=== PATIENT | female | born 2000 | race Caucasian/White ===

== ENCOUNTER → 2024-09-15 | Outpatient (CLI) | payer SELFPAY ==
[2024-09-15 13:31] LABS: hCG Titer Quant., Serum 78954 mIU/mL (<9 non-preg)
== END | disposition home or self-care (01) ==
PROVIDERS: Referring Provider Nurse Practitioner Women's Health; Visit Provider Nurse Practitioner Women's Health
DX: O20.9 Hemorrhage in early pregnancy, unspecified (principal); Z3A.00 Weeks of gestation of pregnancy not specified
CPT/HCPCS: 36415; 84702

== ENCOUNTER → 2024-09-21 | Outpatient (CLI) | payer SELFPAY ==
--- NOTE | 2024-09-21 10:41 | US_ITS ---
PROCEDURE: TRANSVAGINAL W/PREG US 09/21/2024 REASON FOR EXAM: SPOTTING IN TECHNIQUE: TRANSVAGINAL W/PREG US COMPARISON: None FINDINGS: Comments: LMP: July 15, 2024. Number of Gestational Sacs: 1 Gestational Sac Shape: Normal Number of Fetuses: 1 Heart Rate: 171 (average) Survey of Visible Anatomic Structures: Grossly unremarkable for gestational age. Yolk Sac: Present and unremarkable. Placenta: Presently not well-visualized Amniotic Fluid Volume: Subjectively normal for gestational age. Uterine Abnormalities: Maternal uterus is unremarkable. Ovaries / Adnexa: There is a 2.2 cm 1.8 cm 2 cm right corpus luteum cyst. DIMENSIONS: Parameter Measurement / EGA [place] Rump Length: 2.53 cm/9 weeks and 0 days Gestational Sac: 3.93 cm/9 weeks and 2 days Yolk Sac: 0.41 cm/ ESTIMATED GESTATIONAL AGE: By Ultrasound: 9 weeks and 1 day By LMP: 9 weeks and 5 days ESTIMATED DATE OF DELIVERY: By Ultrasound: April 25, 2025 By LMP: April 21, 2025 US/Transvaginal w/Preg US IMPRESSION: UNREMARKABLE FIRST TRIMESTER ULTRASOUND. Reading Location: [place] [id number]
--- NOTE | 2024-09-21 10:41 | US_ITS ---
PROCEDURE: TRANSVAGINAL W/PREG US 09/21/2024 REASON FOR EXAM: SPOTTING IN TECHNIQUE: TRANSVAGINAL W/PREG US COMPARISON: None FINDINGS: Comments: LMP: July 15, 2024. Number of Gestational Sacs: 1 Gestational Sac Shape: Normal Number of Fetuses: 1 Heart Rate: 171 (average) Survey of Visible Anatomic Structures: Grossly unremarkable for gestational age. Yolk Sac: Present and unremarkable. Placenta: Presently not well-visualized Amniotic Fluid Volume: Subjectively normal for gestational age. Uterine Abnormalities: Maternal uterus is unremarkable. Ovaries / Adnexa: There is a 2.2 cm 1.8 cm 2 cm right corpus luteum cyst. DIMENSIONS: Parameter Measurement / EGA [place] Rump Length: 2.53 cm/9 weeks and 0 days Gestational Sac: 3.93 cm/9 weeks and 2 days Yolk Sac: 0.41 cm/ ESTIMATED GESTATIONAL AGE: By Ultrasound: 9 weeks and 1 day By LMP: 9 weeks and 5 days ESTIMATED DATE OF DELIVERY: By Ultrasound: April 25, 2025 By LMP: April 21, 2025 US/Transvaginal w/Preg US IMPRESSION: UNREMARKABLE FIRST TRIMESTER ULTRASOUND. Reading Location: [place] [id number]
== END | disposition home or self-care (01) ==
LOC: US 10:38
PROVIDERS: Referring Provider Obstetrics & Gynecology; Visit Provider Obstetrics & Gynecology
DX: O20.9 Hemorrhage in early pregnancy, unspecified (principal); Z3A.00 Weeks of gestation of pregnancy not specified
CPT/HCPCS: 76817

== ENCOUNTER → 2024-09-26 | Outpatient (CLI) | payer SELFPAY ==
[2024-09-26 12:24] LABS: Hematocrit 40.0 % (37-47); Hemoglobin 13.8 g/dL (12.0-15.0); Immature Granulocytes Count 0.020 X10^3/uL (0.0-0.0); Mean Corp Hgb Conc 34.5 g/dL (32-36); Mean Corpuscular Volume 89.5 fL (81-99); Mean Platelet Vol. 10.1 fl (6.2-12.0); NRBC Flagged by Analyzer 0 % (0-5); Platelet Count 165 K/mm3 (150-450); RBC Distribution Width CV 12.9 % (11.6-14.6); RBC Distribution Width SD 42.4 fl (35.1-43.9); Red Blood Count 4.47 M/mm3 (4.2-5.4); White Blood Count 6.2 K/mm3 (4.4-11.0)
[2024-09-26 12:52] LABS: Barbiturate Urine NEGATIVE (< 200 ng/mL); Benzodiazepine Urine NEGATIVE (< 200 ng/mL); PCP Urine NEGATIVE (< 25 ng/mL); THC Urine NEGATIVE (< 50 ng/mL)
[2024-09-26 13:30] LABS: Ferritin 116 ng/mL (22-378); HIV Nonreactive (Nonreactive); Hepatitis B Surface Antigen Nonreactive (Nonreactive); Hepatitis C Antibody Nonreactive (Nonreactive); Iron 45 ug/dL (50-170); Iron Binding Capacity,Total 278 ug/dL (250-450); Iron Binding Capacity,Unsat 233 ug/dL (228-428); Syphilis Antibodies Nonreactive (Nonreactive)
[2024-09-27 21:07] LABS: Chlamydia By Nucleic Acid AMP Negative (Negative); Gonococcus By Nucleic Acid AMP Negative (Negative)
== END | disposition home or self-care (01) ==
PROVIDERS: Referring Provider Obstetrics & Gynecology; Visit Provider Obstetrics & Gynecology
DX: O99.280 Endocrine, nutritional and metabolic diseases complicating pregnancy, unspecified trimester (principal); O09.90 Supervision of high risk pregnancy, unspecified, unspecified trimester; Z3A.00 Weeks of gestation of pregnancy not specified; E61.1 Iron deficiency; O99.320 Drug use complicating pregnancy, unspecified trimester; F12.99 Cannabis use, unspecified with unspecified cannabis-induced disorder
CPT/HCPCS: 36415; 80307; 82728; 83540; 83550; 85025; 86703; 86762; 86780; 86803; 86850; 86900; 86901; 87086; 87340; 87491; 87591

== ENCOUNTER → 2024-12-02 | Outpatient (CLI) | payer MEDICAID, SELFPAY ==
--- NOTE | 2024-12-02 08:07 | US_ITS ---
PROCEDURE: OB ANATOMY W/ TRANSVAGINAL 12/02/2024 REASON FOR EXAM: ANATOMY TECHNIQUE: Procedure Code: [id number] Modality: US Procedure: OB ANATOMY W/ TRANSVAGINAL FINDINGS The fetus is in breech presentation. cardiac activity is present at 148 bpm. Amniotic fluid maximum vertical pocket measures 3.0 x 6.5 cm and is subjectively within normal limits. Estimated weight is 293 grams ??? 44 grams, corresponding to the 19th percentile. The biparietal diameter measures 4.0 cm, corresponding to 18 weeks 2 days, 5th percentile. The occipitofrontal diameter measures 5.8 cm, corresponding to 20 weeks 2 days, 55th percentile. The head circumference measures 16.2 cm, corresponding to 19 weeks 2 days, 13th percentile. The abdominal circumference measures 14.3 cm, corresponding to 19 weeks 2 days, 25th percentile. The femur length measures 3.1 cm, corresponding to 19 weeks 4 days, 28th percentile. Composite age by current measurements is 19 weeks 1 day. age by LMP is 20 weeks 0 days, with estimated date of delivery 04/21/2025. The lateral ventricles are visualized and measure 0.5 cm. The choroid plexus is visualized. The cerebellum is visualized and measures 1.9 cm. The cisterna magna is visualized and measures 0.5 cm. The face and orbits, nose and lips, and profile are visualized. The four-chamber heart is visualized. The diaphragm, stomach, abdominal wall, cord insertion, and three-vessel cord are visualized. Both kidneys and the bladder are visualized. The cervical, thoracic, lumbar, and sacral spine are visualized. The upper and lower extremities are visualized. gender is female. The placenta is posterior, grade 0, within normal limits, without previa. The cervix measures 5.2 cm with closed cervical os. The adnexa are visualized. US/OB Anatomy w/ Transvaginal IMPRESSION: Single live intrauterine gestation in breech presentation with heart rate of 148 bpm. biometry corresponds to 19 weeks 1 day, concordant with dating by LMP at 20 weeks 0 days. Estimated weight 293 grams, 19th percentile. anatomy survey is within normal limits with all major structures visualiz ed. Posterior placenta, grade 0, without previa. Amniotic fluid subjectively within normal limits. Cervical length 5.2 cm with closed os. Reading Location: [id number]
--- OUTSIDE RECORDS SUMMARY | 2024-12-02 08:26 | XMS RPT_ITS | CCD ---
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 Awais Chaudhary Primary Care Unavaila yohana Alfredo, Jesusita Clarence Frances Attending Unavailable Gaurav, MsJesusita Parham Frances Admitting Unavailable Mark, Ms. Awaisleslye Donnellyir Primary Care Unavaila yohana Alfredo, MsJesusita Clarence Basurtoe Attending Unavailable Gaurav, MsJesusita Parham Frances Admitting Unavailable Mark, Ms. Awais Neena Primary Care Unavaila yohana Flores, Ms. Awais Neena Primary Care Unavaila yohana Cummings, Ms. Denys Torres Attending Kristal Candelaria, Dr. Bobo Hinson Referring Unavailabl e Bari, Dr. Bobo Hinson Attending Unavailileana Flores, Ms. Awais Neena Primary Care Unavaila yohana Flores, Ms. Awais Neena Primary Care Unavaila JENN Mancini Attending Unavail able Mark, Ms. Awais Neena Primary Care Unavaila yohana Candelaria, Dr. Bobo Hinson Referring Unavailabl e Bari, Dr. Bobo Hinson Attending Unavailileana Flores, Ms. Awais Neena Primary Care Unavaila yohana Lau, Dr. Alex Richardson Referring Kristal Lau, Dr. Alex Richardson Attending Kristal Lau, Dr. Alex Richardson Admitting Unavai parminder Mark, Ms. Awais Chaudhary Primary Care Unavaila ble KAVITA BETANCOURT Attending Unavailable Aleksandar Shields Unavailable Mark, Ms. Awais Chaudhary Primary Care Unavaila ble ALEX LAU Attending Unavailable Mark, Ms. Awais Chaudhary Primary Care Unavaila ble ALEX LAU Attending Unavailable AWAIS FLORES Primary Care Unavailable ALEX LAU Attending Unavailable AWAIS FLORES Primary Care Unavailable Mark STONE GLUER-WIRE STITCHER MACHINE, Awais Chaudhary Primary Care Provid er [place] MD Unavailable [phone] Gaurav STONE GLUER-WIRE STITCHER MACHINE, Clarence S Unavailable [phone] AWAIS FLORES Primary Care Unavailable AWAIS FLORES Primary Care Unavailable AWAIS FLORES Primary Care Unavailable Unavailable Primary Care Provider UnavailLO Woodard Attending Unavailable HEATHER AU I Referring Unavailable Charley INTELLIGENCE CONSULTANT-C, Ailin Attending Provider Charley INTELLIGENCE CONSULTANT-C, Ailin Referring Provider Margaret Plasencia RN Attending Provider UnavailDr. Yaneth Del Valle DO Attending Provider Dr. Yaneth Nogueira DO Referring Provider Care Physician, No Primary Primary Care Provider Unavailable Care Physician, No Primary Referring Provider Un available Mark STONE GLUER-WIRE STITCHER MACHINE, Awais Donnellyir Primary Care Provid er Gaurav STONE GLUER-WIRE STITCHER MACHINE, Clarence S Unavailable Charley INTELLIGENCE CONSULTANTAilin Attending Unavailable Charley INTELLIGENCE CONSULTANT, Ailin Referring Unavailable Yaneth Nogueira Referring Unavailabl e Care Physician, No Primary Primary Care Unava ilable Yaneth Nogueira Attending Unavailileana Whitehead INTELLIGENCE CONSULTANTAilin Attending Unavailable Charley INTELLIGENCE CONSULTANTAilin Referring Unavailable Care Physician, No Primary Primary Care Unava ilable Care Physician, No Primary Referring Unava ilable Care Physician, No Primary Primary Care Unava ilable Yaneth Nogueira Attending UnavailMargaret Jolley Attending Unavailable Tommy Whitehead NPy Attending Unavailable Charley INTELLIGENCE CONSULTANT, Ailin Attending Unavailable Care Physician, No Primary Primary Care Unava ilable Care Physician, No Primary Referring Unava ilable Yaneth Nogueira Referring Unavailabl e Care Physician, No Primary Primary Care Unava ilable Yaneth Nogueira Attending Unavailabl CLARENCE Crystal Attending Unavailable CLARENCE ALFREDO Referring Unavailable AWAIS FLORES Primary Care Unavailable AWAIS FLORES Primary Care Unavailable CLARENCE ALFREDO Attending Unavailable CLARENCE ALFREDO Referring Unavailable AWAIS FLORES Primary Care Unavailable Allergies Allergy Classification Reported Allergen(s) Allergy Type Date of Onset Reaction(s) Facility Serotonin-1b and Serotonin-1d Receptor Agonists (1 source) SUMAtriptan Drug Allergy Unknown [facility] (20 sources) rizatriptan; Translations: [Rizatriptan Benzoate TABS] Drug Allergy 3 Unknown [facility] (19 sources) SUMAtriptan; Translations: [SUMATRIPTAN] Drug Allergy 3 Unknown, Shortness of Breath [facility] Comment on above: shortness pf breath, vision loss, vomiting (3 sources) rizatriptan; Translations: [RIZATRIPTAN] Drug Allergy 3 [facility] 3 Repository (1 source) SUMAtriptan Drug Allergy 5 [facility] Repository Medications Current Medications Medication Drug Class(es) Dates Sig (Normalized) Sig (Original) Acetaminophen (1 source) Tylenol ; 975 mEq/kg orally every 6 hours Quantity: 0 Refills: 0 Ordered: 18-Aug-2021 Lorena Cardoso Generic Substitution Allowed acyclovir 400 mg oral tablet (1 source) Herpesvirus Nucleoside Analog DNA Polymerase Inhibitor, Herpes Simplex Virus Nucleoside Analog DNA Polymerase Inhibitor, Herpes Zoster Virus Nucleoside Analog DNA Polymerase Inhibitor Start: 02-24-2024 End: 03-02-2024 take 1 tablet by mouth three times daily acyclovir 400mg 400 MG tablet Take 1 tablet by mouth 3 times daily for 7 days. 21 tablet 02/24/2024 03/02/2024 Active [id number] 200 actuat albuterol 0.09 mg/actuat metered dose inhaler (1 source) beta2-Adrenergic Agonist Start: 12-09-2023 take 2 puff(s) by inhalation every six hours as needed for cough Albuterol 108 (90 Base) MCG/ACT Aero Soln inhaler Inhale 2 puffs every 6 hours as needed for Shortness of Breath or Cough. 12/09/2023 Active cetirizine hydrochloride 10 mg oral tablet (8 sources) Histamine-1 Receptor Antagonist Start: 12-15-2022 take 1 tablet by mouth once daily cetirizine (ZyrTEC) 10 mg tablet Take 1 tablet (10 mg) by mouth once daily. 12/15/2022 Active ZyrTEC Quantity: 0 Refills: 0 Ordered: 24-Nov-2022 Haylee Maria Generic Substitution Allowed 21 day ethinyl estradiol 0.308825 mg/hr / etonogestrel 0.005 mg/hr vaginal system (5 sources) Progestin, Estrogen Start: 12-19-2022 End: 12-19-2023 etonogestreL-ethinyl estradioL (Nuvaring) 0.12-0.015 mg/24 hr vaginal ring Indications: Encounter for initial management of intravaginal contraceptive Insert 1 each into the vagina every 28 (twenty-eight) days. Insert vaginal ring every 4 weeks 1 each 11 12/19/2022 Active ferrous gluconate 324 mg oral tablet (6 sources) Start: 07-07-2022 End: 04-02-2023 take 1 tablet by mouth once daily ferrous gluconate 324 (38 Fe) MG tablet Take 1 tablet (324 mg) by mouth once daily. 11/11/2022 Active Comment on above: May discolor urine o r feces. fluconazole 150 mg oral tablet (1 source) Azole Antifungal Start: 02-24-2024 End: 02-27-2024 take 1 tablet by mouth once daily, then take 1 tablet by mouth once, then take 7 tablets by mouth once daily Fluconazole 150 MG tablet Take 1 tablet by mouth daily for 3 days. Take on day 1, repeat at day 7 & 14 if symptoms persist 3 tablet 02/24/2024 02/27/2024 Active fluticasone propionate 0.05 mg/actuat metered dose nasal spray (5 sources) Corticosteroid Start: 12-06-2022 take 2 spray(s) nasal route once daily fluticasone (Flonase) 50 mcg/actuation nasal spray Administer 2 sprays into each nostril once daily. 12/06/2022 Active ibuprofen 600 mg oral tablet (1 source) Nonsteroidal Anti-inflammatory Drug take 1 tablet by mouth every six hours IBU 600 mg oral tablet ; 600 milligram(s) orally every 6 hours Quantity: 0 Refills: 0 Ordered: 18-Aug-2021 Lorena Cardoso Generic Substitution Allowed magnesium oxide 400 mg oral tablet (2 sources) take 1 tablet by mouth once daily magnesium oxide 400 (240 Mg) MG Take 1 tablet by mouth daily. Active multivitamin with iron - children's (Cerovite, Jr) chewable tablet (3 sources) Start: 09-01-2023 multivitamin with iron - children's (Cerovite, Jr) chewable tablet Indications: Iron deficiency , Anemia, unspecified type Chew 1 tablet once daily. 90 tablet 2 09/01/2023 Active ondansetron 4 mg disintegrating oral tablet (5 sources) Serotonin-3 Receptor Antagonist Start: 10-26-2024 take 1 tablet by mouth every four hours as needed for nausea and vomiting Ondansetron 4 mg tablet,disintegrating Active 4 mg PO Q4H as needed for nausea and vomiting 60 2 October 26, 2024 12:00am Start: 06-05-2023 take 1 tablet by supa th every eight hours for nausea ondansetron ODT (Zofran-ODT) 4 mg disintegrating tablet Indications: Iron deficiency Take 1 tablet (4 mg) by mouth every 8 hours if needed for nausea or vomiting. 20 tablet 1 06/05/2023 Active Prena1 oral capsule (1 source) take 1 capsule by mouth once daily Prena1 oral capsule ; 1 cap(s) orally once a day Quantity: 0 Refills: 0 Ordered: 12-Aug-2021 Kandy Osborne Generic Substitution Allowed 3-FHSN-PFHWE ACID-OM3 ORAL (1 source) 2-IRON- FOLIC ACID-OM3 ORAL Take by mouth. Active rizatriptan (2 sources) Serotonin-1b and Serotonin-1d Receptor Agonist RIZATRIPTAN BENZOATE PO Take by mouth as needed. Active valACYclovir 500 mg oral tablet (1 source) Herpesvirus Nucleoside Analog DNA Polymerase Inhibitor, Herpes Simplex Virus Nucleoside Analog DNA Polymerase Inhibitor, Herpes Zoster Virus Nucleoside Analog DNA Polymerase Inhibitor Start: 03-17-19 take 1 tablet by mouth once daily valACYclovir 500 MG tablet Take 1 tablet by mouth daily. 30 tablet 11 03/17/2024 Active vitamin b12 1 mg oral tablet (7 sources) Vitamin B12 Start: 07-08-19 End: 09-01-19 24 take 1 tablet by mouth once daily cyanocobalamin (Vitamin B-12) 1,000 mcg tablet Indications: Iron deficiency , Anemia, unspecified type Take 1 tablet (1,000 mcg) by mouth once daily. 90 tablet 2 09/01/2023 Active Completed/Discontinued Medications Medication Drug Class(es) Dates Sig (Normalized) Sig (Original) B12 (6 sources) Start: 09-13-2024 End: 09-16-2024 B12 Discontinued PO .every other day September 13, 2024 12:00am September 16, 2024 9:22am Start: 09-13-2024 B12 Active PO .every other day September 13, 2024 12:00am dicloxacillin 500 mg oral capsule (1 source) Penicillin-class Antibacterial Start: 08-28-2021 take 1 capsule by mouth four times daily Dicloxacillin Sodium 500 MG Oral Capsule TAKE 1 CAPSULE 4 TIMES DAILY. Quantity: 40 Refills: 0 Ordered: 28-Aug-2021 Alex Lau MD Start : 28-Aug-2021 Active ferrous sulfate 325 mg oral tablet (7 sources) Start: 09-13-2024 End: 09-16-2024 take 1 tablet by mouth once daily Ferrous Sulfate 325 mg (65 mg iron) tablet Discontinued 325 mg PO daily September 13, 2024 12:00am September 16, 2024 9:22am Start: 05-07-2022 End: 08-04-2022 take 1 tablet by mouth once daily ferrous sulfate 325 mg (65 mg elemental iron) oral tablet ; 1 tab(s) orally once a day Quantity: 90 Refills: 0 Ordered: 07-May-2022 Clarence Alfredo Start: 07-May-2022 End: 04-Aug-2022 Generic Substitution Allowed Comments: Check with your doctor before becoming .Do not chew, break, or crush.May discolor urine or feces. Comment on above: Check with your doct or before becoming .Do not chew, break, or crush.May discolor urine or feces. Vitamin 27-0.8 MG Oral Tablet (19 sources) Vitamin 27-0.8 MG Oral Tablet Quantity: 0 Refills: 0 Ordered: 19-Mar-2021 DO Active NEGATED: Highlighted row has not occurred!No Current Medications (1 source) No Current Medic ations Problems Active Problems Problem Classification Problem Date Documented Da te Episodic/Chronic Abdominal pain (1 source) Left lower quadrant pain; Translations: [Left lower quadrant pain] Onset: 3 Episodic Asthma (7 sources) Asthma; Translations: [Unspecified asthma, uncomplicated] 09-13-2024 Chronic Comment on above: Inhaler use twice ye - Summer trigger allergies Conditions associated with dizziness or vertigo (1 source) Dizziness and giddiness; Translations: [Dizziness and giddiness] Onset: 3 Episodic Contraceptive and procreative management (2 sources) Contraception ; Translations: [Contraception] Onset: 3 Episodic Deficiency and other anemia (5 sources) Anemia; Translations: [Anemia, unspecified] 03-13-2023 Episodic Deficiency and other anemia (4 sources) Anemia, unspecified; Translations: [Anemia, unspecified] Onset: 4 Episodic E Codes: Adverse effects of medical drugs (2 sources) Adverse effect of antineoplastic and immunosuppressive drugs, initial encounter; Translations: [Adverse effect of antineoplastic and immunosuppressive drugs, initial encounter] Onset: 4 Episodic Headache; including migraine (2 sources) Migraine; Translations: [Migraine, unspecified, without mention of intractable migraine without mention of status migrainosus] 08-28-2020 Chronic Headache; including migraine (2 sources) Headache 08-28-2020 Episodic Comment on above: HEADACHE Hemorrhage during ; abruptio placenta; placenta previa (10 sources) Vaginal bleeding complicating early ; Translations: [Hemorrhage in early , unspecified] Onset: 5 09-15-2024 Episodic Immunizations and screening for infectious disease (20 sources) Patient encounter status; Translations: [Screening examination for venereal disease] Onset: 3 11-24-2022 Episodic Menstrual disorders (9 sources) Amenorrhea; Translations: [Absence of menstruation] Onset: 5 09-13-2024 Chronic Nausea and vomiting (4 sources) Nausea with vomiting, unspecified; Translations: [Chemotherapy-induced nausea and vomiting] Onset: 3 06-05-2023 Episodic Nutritional deficiencies (20 sources) Iron deficiency; Translations: [Iron deficiency] Onset: 3 03-13-2023 Episodic Comment on above: Hx of severe anemia w/many infusions. 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 Other complications of (1 source) Obesity complicating , third trimester; Translations: [Obesity complicating , third trimester] Onset: 2 Chronic Other complications of (9 sources) High risk ; Translations: [Supervision of high risk , unspecified, unspecified trimester] 09-16-2024 Episodic Comment on above: , MAREN 04/21, PC: Alley, BF Ken [id number], MAREN 04/21, PC: Alley, BF Ken Other complications of (9 sources) Maternal tobacco use; Translations: [Smoking (tobacco) complicating , unspecified trimester] 09-16-2024 Episodic Comment on above: Vaping; actively wor liz to quit Other complications of (9 sources) History of hemorrhage; Translations: [Supervision of with other poor reproductive or obstetric history, unspecified trimester] 09-16-2024 Episodic Other complications of (2 sources) Supervision of high risk , unspecified, unspecified trimester; Translations: [Supervision of high risk , unspecified, unspecified trimester] Onset: 5 Episodic Other complications of (1 source) Endocrine, nutritional and metabolic diseases complicating , unspecified trimester; Translations: [Endocrine, nutritional and metabolic diseases complicating , unspecified trimester] Onset: 5 Episodic Other complications of (1 source) Supervision of with other poor reproductive or obstetric history, unspecified trimester; Translations: [Supervision of with other poor reproductive or obstetric history, unspecified trimester] Onset: 5 Episodic Other complications of (1 source) Smoking (tobacco) complicating , unspecified trimester; Translations: [Smoking (tobacco) complicating , unspecified trimester] Onset: 5 Episodic Other female genital disorders (1 source) Lesion of labia; Translations: [Other specified noninflammatory disorders of vulva and perineum] 02-24-2024 Episodic Other female genital disorders (1 source) Vaginal discharge; Translations: [Other specified noninflammatory disorders of vagina] 02-24-2024 Episodic Other female genital disorders (2 sources) Other specified noninflammatory disorders of vulva and perineum; Translations: [Other specified noninflammatory disorders of vulva and perineum] Onset: 4 Episodic Other female genital disorders (2 sources) Other specified noninflammatory disorders of vagina; Translations: [Other specified noninflammatory disorders of vagina] Onset: 4 Episodic Other gastrointestinal disorders (3 sources) Splenomegaly, not elsewhere classified; Translations: [Splenomegaly, not elsewhere classified] Onset: 3 Episodic Other infections; including parasitic (9 sources) H/O: infectious disease; Translations: [Personal history of other infectious and parasitic diseases] 09-16-2024 Episodic Other infections; including parasitic (1 source) Personal history of other infectious and parasitic diseases; Translations: [Personal history of other infectious and parasitic diseases] Onset: 5 Episodic Other nutritional; endocrine; and metabolic disorders (4 sources) Body mass index 30+ - obesity; Translations: [Obesity, unspecified] Chronic Other nutritional; endocrine; and metabolic disorders (13 sources) Body mass index 40+ - severely obese; Translations: [Morbid obesity] Onset: 3 12-16-2022 Chronic Other nutritional; endocrine; and metabolic disorders (3 sources) Obesity, unspecified; Translations: [Obesity, unspecified] Onset: 2 Chronic Other nutritional; endocrine; and metabolic disorders (1 source) Obese class I; Translations: [Obesity (BMI 30.0-34.9)] Onset: 5 03-17-2024 Chronic Other and delivery including normal (20 sources) Urine test positive; Translations: [ examination or test, positive result] Onset: 2 08-16-2021 Episodic Comment on above: 08/16/2021; 38 WEEKS 3 DAYS; FEMALE; VAGINAL; 7LBS 11OZ; Discussed genetic/ca rrier testing - undecided Desires genetic test ing, declines carrier Desires genetic test ing, declines carrier, NIPT low risk female. Other screening for suspected conditions (not mental disorders or infectious disease) (2 sources) Encounter for test, result negative; Translations: [Encounter for test, result negative] Onset: 3 Episodic Residual codes; unclassified (3 sources) Gestation period, 17 weeks; Translations: [ state, incidental] Episodic Residual codes; unclassified (3 sources) Gestation period, 19 weeks; Translations: [ state, incidental] Episodic Residual codes; unclassified (2 sources) Gestation period, 23 weeks; Translations: [ state, incidental] Episodic Residual codes; unclassified (1 source) Gestation period, 27 weeks; Translations: [ state, incidental] Episodic Residual codes; unclassified (3 sources) Gestation period, 29 weeks; Translations: [ state, incidental] Episodic Residual codes; unclassified (1 source) Gestation period, 35 weeks; Translations: [ state, incidental] Episodic Residual codes; unclassified (2 sources) Gestation period, 36 weeks; Translations: [ state, incidental] Episodic Residual codes; unclassified (1 source) Gestation period, 37 weeks; Translations: [ state, incidental] Episodic Residual codes; unclassified (2 sources) Gestation period, 38 weeks; Translations: [ state, incidental] Episodic Residual codes; unclassified (1 source) Chills (without fever); Translations: [Chills (without fever)] Onset: 3 Episodic Residual codes; unclassified (1 source) Pain, unspecified; Translations: [Pain, unspecified] Onset: 3 Episodic Residual codes; unclassified (9 sources) Past history of procedure; Translations: [Other specified postprocedural states] 09-16-2024 Episodic Comment on above: January 2019 Residual codes; unclassified (1 source) Other specified postprocedural states; Translations: [Other specified postprocedural states] Onset: 5 Episodic Substance-related disorders (9 sources) History of clinical finding in subject; Translations: [History of marijuana use] 09-16-2024 Chronic Comment on above: Per pt - not used in years Unclassified (2 sources) 39 WEEKS GESTATION OF 08-16-2021 Comment on above: 39 WEEKS GESTATION O F Unclassified (1 source) 1 WK OB 07-16-2021 Comment on above: 1 WK OB Unclassified (1 source) 37 weeks gestation of 08-16-2021 Unclassified (1 source) 38 weeks gestation of 08-16-2021 Unclassified (1 source) Normal spontaneous vaginal delivery 08-16-2021 Unclassified (2 sources) WORK PHYSICAL 01-13-2022 Comment on above: WORK PHYSICAL Unclassified (1 source) Contact with and (suspected) exposure to COVID-19; Translations: [Contact with and (suspected) exposure to COVID-19] Onset: 3 Unclassified (2 sources) STD CHECK 11-24-2022 Comment on above: STD CHECK Unclassified (1 source) Routine screening for STI (sexually transmitted infection) 11-24-2022 Unclassified (1 source) Cannabis use, unspecified, in remission; Translations: [Cannabis use, unspecified, in remission] Onset: 5 Urinary tract infections (1 source) Urinary tract infection, site not specified; Translations: [Urinary tract infection, site not specified] Onset: 3 Episodic Viral infection (3 sources) Herpes simplex; Translations: [Herpesviral infection, unspecified] Onset: 5 03-17-2024 Episodic Past or Other Problems Problem Classification Problem Date Documented Da te Episodic/Chronic Administrative/social admission (2 sources) Encounter for pre-employment examination; Translations: [Encounter for pre-employment examination] Onset: 01-13-2022 Episodic Nonmalignant breast conditions (6 sources) Cyst of breast; Translations: [Solitary cyst of breast] Onset: 12-16-2022 12-16-2022 Episodic OB-related trauma to perineum and vulva (4 sources) First degree perineal laceration; Translations: [First-degree perineal laceration, unspecified as to episode of care or not applicable] Onset: 08-18-2021 08-16-2021 Episodic Other bone disease and musculoskeletal deformities (4 sources) Segmental and somatic dysfunction of lumbar region; Translations: [Segmental and somatic dysfunction of lumbar region] Onset: 02-27-2022 Episodic Other complications of ; puerperium affecting management of mother (6 sources) Mastitis associated with ; Translations: [Nonpurulent mastitis associated with childbirth, condition or complication] Onset: 12-16-2022 12-16-2022 Episodic Other complications of ; puerperium affecting management of mother (3 sources) Streptococcus B carrier state complicating childbirth; Translations: [Streptococcus B carrier state complicating childbirth] Onset: 08-16-2021 Episodic Other complications of ; puerperium affecting management of mother (2 sources) Nonpurulent mastitis associated with the puerperium; Translations: [Nonpurulent mastitis associated with childbirth, condition or complication] Onset: 12-16-2022 12-16-2022 Episodic Other complications of (2 sources) Decreased movements, third trimester, not applicable or unspecified; Translations: [Decreased movements, third trimester, unsp] Onset: 08-12-2021 Episodic Residual codes; unclassified (2 sources) Gestation period, 34 weeks; Translations: [ state, incidental] Onset: 07-30-2021 Episodic Residual codes; unclassified (1 source) 39 weeks gestation of ; Translations: [39 weeks gestation of ] Onset: 08-18-2021 Episodic Residual codes; unclassified (1 source) 37 weeks gestation of ; Translations: [37 weeks gestation of ] Onset: 08-12-2021 Episodic Residual codes; unclassified (2 sources) 34 weeks gestation of ; Translations: [34 weeks gestation of ] Onset: 07-30-2021 Episodic Residual codes; unclassified (1 source) 36 weeks gestation of ; Translations: [36 weeks gestation of ] Onset: 07-30-2021 Episodic Unclassified (20 sources) Finding of menstrual bleeding; Translations: [Menstruation] Comment on above: Onset age 14 years; Unclassified (1 source) POSSIBLE SROM, CONTRACTIONS 08-16-2021 Comment on above: POSSIBLE SROM, CONTR ACTIONS Unclassified (5 sources) Onset: 03-13-2023 03-13-2023 Results Test Name Value Interpretation Reference Range Facility CBC W Auto Differential pane l (Bld)on 11-25-2024 Basophils (Bld) [#/Vol] 0.03 x10*3/uL Normal 0.00-0.[address] [facility] Comment on above: Performed By: #### 5 [id number] #### BRAGA KAREN ([id number]) [facility] ([facility]) [address] [place] [id number] Basophils/100 WBC (Bld) 0.3 % Normal 0.0-2.0 [facility] Comment on above: Performed By: #### 5 7021-8 #### MARIA LUZ JONES ([id number]) [facility] ([facility]) [address] [place] [id number] Eosinophils (Bld) [#/Vol] 0.05 x10*3/uL Normal 0.00-0.70 [facility] Comment on above: Performed By: #### 5 7021-8 #### MARIA LUZ JONES ([id number]) [facility] ([facility]) [address] [place] [address] 40349 Eosinophils/100 WBC (Bld) 0.4 % Normal 0.0-6.[address] [facility] Comment on above: Performed By: #### 5 7021-8 #### MARIA LUZ JONES ([id number]) [facility] ([facility]) [address] [place] [address] 55565 Erythrocyte distribution width (RBC) [Ratio] 12.9 % Normal 11.5-14.[address] [facility] Comment on above: Performed By: #### 5 7021-8 #### MARIA LUZ JONES ([id number]) [facility] ([facility]) [address] [place] [address] 65772 Hematocrit (Bld) [Volume fraction] 37.2 % Normal 36.0-46.[address] [facility] Comment on above: Performed By: #### 5 7021-8 #### MARIA LUZ JONES ([id number]) [facility] ([facility]) [address] [place] [address] 43981 Hemoglobin (Bld) [Mass/Vol] 12.7 g/dL Normal 12.0-16.[address] [facility] Comment on above: Performed By: #### 5 7021-8 #### MARIA LUZ JONES ([id number]) [facility] ([facility]) [address] [place] [address] 83574 Immature granulocytes (Bld) [#/Vol] 0.06 x10*3/uL Normal 0.00-0.[address] [facility] Comment on above: Performed By: #### 5 7021-8 #### MARIA LUZ JONES ([id number]) [facility] ([facility]) [address] [place] [address] 06496 Immature granulocytes/100 WBC (Bld) 0.5 % Normal 0.0-0.[address] [facility] Comment on above: Result Comment: Mary ture Granulocyte Count (IG) includes promyelocytes, myelocytes and metamyelocytes but does not include bands. Percent differential counts (%) should be interpreted in the context of the absolute cell counts (cells/UL). Performed By: #### 5 7021-8 #### MARIA LUZ JONES ([id number]) [facility] ([facility]) [address] [place] [address] Lymphocytes (Bld) [#/Vol] 1.80 x10*3/uL Normal 1.20-4.[address] [facility] Comment on above: Performed By: #### 5 7021-8 #### MARIA LUZ JONES ([id number]) [facility] ([facility]) [address] [place] [address] 14778 Lymphocytes/100 WBC (Bld) 16.0 % Normal 13.0-44.[address] [facility] Comment on above: Performed By: #### 5 7021-8 #### MARIA LUZ JONES ([id number]) [facility] ([facility]) [address] [place] [address] 62598 MCH (RBC) [Entitic mass] 30.5 pg Normal 26.0-34.[address] [facility] Comment on above: Performed By: #### 5 7021-8 #### MARIA LUZ JONES ([id number]) [facility] ([facility]) [address] [place] [address] 77809 MCHC (RBC) [Mass/Vol] 34.1 g/dL Normal 32.0-36.0 [facility] Comment on above: Performed By: #### 5 7021-8 #### MARIA LUZ JONES ([id number]) [facility] ([facility]) [address] [place] [address] 63239 MCV (RBC) [Entitic vol] 89 fL Normal 80-100 [facility] Comment on above: Performed By: #### 5 7021-8 #### MARIA LUZ JONES ([id number]) [facility] ([facility]) [address] [place] [address] 15870 Monocytes (Bld) [#/Vol] 0.56 x10*3/uL Normal 0.10-1.[address] [facility] Comment on above: Performed By: #### 5 7021-8 #### MARIA LUZ JONES ([id number]) [facility] ([facility]) [address] [place] [address] 84622 Monocytes/100 WBC (Bld) 5.0 % Normal 2.0-10.0 [facility] Comment on above: Performed By: #### 5 7021-8 #### MARIA LUZ JONES ([id number]) [facility] ([facility]) [address] [place] [address] 46930 Neutrophils (Bld) [#/Vol] 8.75 x10*3/uL High 1.20-7.[address] [facility] Comment on above: Result Comment: Perc ent differential counts (%) should be interpreted in the context of the absolute cell counts (cells/uL). Performed By: #### 5 7021-8 #### MARIA LUZ JONES ([id number]) [facility] ([facility]) [address] [place] [address] 61489 Neutrophils/100 WBC (Bld) 77.8 % Normal 40.0-80.[address] [facility] Comment on above: Performed By: #### 5 7021-8 #### MARIA LUZ JONES ([id number]) [facility] ([facility]) [address] [place] [address] 39086 Nucleated RBC/100 WBC (Bld) [Ratio] 0.0 /100 WBCs Normal 0.0-0.[address] [facility] Comment on above: Performed By: #### 5 7021-8 #### MARIA LUZ JONES ([id number]) [facility] ([facility]) [address] [place] [address] 24761 Platelets (Bld) [#/Vol] 169 x10*3/uL Normal 150-[address] [facility] Comment on above: Performed By: #### 5 7021-8 #### MARIA LUZ JONES ([id number]) [facility] ([facility]) [address] [place] [address] 30280 RBC (Bld) [#/Vol] 4.16 x10*6/uL Normal 4.00-5.20 [facility] Comment on above: Performed By: #### 5 7021-8 #### MARIA LUZ JONES ([id number]) [facility] ([facility]) [address] [place], [place] [address] WBC (Bld) [#/Vol] 11.3 x10*3/uL Normal 4.4-11.3 [facility] Comment on above: Performed By: #### 5 7021-8 #### MARIA LUZ JONES ([id number]) [facility] ([facility]) [address] [place] [address] Cobalaminson 11-25-2024 Cobalamin (Vitamin B12) [Mass/Vol] 311 pg/mL Normal 211-[address] [facility] Comment on above: Performed By: #### 2 132-9 #### LIZETH Alexandra ([id number]) [facility] ([facility]) [address] [place] [address] Comprehensive metabolic 2000 panelon 11-25-2024 Albumin BCP dye [Mass/Vol] 3.5 g/dL Normal 3.4-5.[address] [facility] Comment on above: Performed By: #### 2 4323-8 #### MARIA LUZ JONES ([id number]) [facility] ([facility]) [address] [place] [address] 02234 ALP [Catalytic activity/Vol] 47 U/L Normal 33-[address] [facility] Comment on above: Performed By: #### 2 4323-8 #### MARIA LUZ JONES ([id number]) [facility] ([facility]) [address] [place] [address] 72792 ALT With P-5'-P [Catalytic activity/Vol] 7 U/L Normal 7-[address] [facility] Comment on above: Result Comment: Celine ents treated with Sulfasalazine may generate falsely decreased results for ALT. Performed By: #### 2 4323-8 #### MARIA LUZ JONES ([id number]) [facility] ([facility]) [address] [place] [address] Anion gap [Moles/Vol] 11 mmol/L Normal 10-20 [facility] Comment on above: Performed By: #### 2 432-8 #### MARIA LUZ JONES ([id number]) [facility] ([facility]) [address] [place] [address] 97910 AST With P-5'-P [Catalytic activity/Vol] 9 U/L Normal 9-[address] [facility] Comment on above: Performed By: #### 2 432-8 #### MARIA LUZ JONES ([id number]) [facility] ([facility]) [address] [place] [address] Bilirubin [Mass/Vol] 0.7 mg/dL Normal 0.0-1.2 [facility] Comment on above: Performed By: #### 2 4322-8 #### MARIA LUZ JONES ([id number]) [facility] ([facility]) [address] [place] [address] Calcium [Mass/Vol] 8.7 mg/dL Normal 8.6-10.3 [facility] Comment on above: Performed By: #### 2 4323-8 #### MARIA LUZ JONES ([id number]) [facility] ([facility]) [address] [place] [address] Chloride [Moles/Vol] 105 mmol/L Normal 98-107 [facility] Comment on above: Performed By: #### 2 432-8 #### MARIA LUZ JONES ([id number]) [facility] ([facility]) [address] [place] [address] CO2 [Moles/Vol] 23 mmol/L Normal 21-32 [facility] Comment on above: Performed By: #### 2 4323-8 #### MARIA LUZ JONES ([id number]) [facility] ([facility]) [facility] [place] [address] Creatinine [Mass/Vol] 0.45 mg/dL Low 0.50-1.05 [facility] Comment on above: Performed By: #### 2 4323-8 #### MARIA LUZ JONES ([id number]) [facility] ([facility]) [address] [place] [address] 18128 Glomerular filtration rate >90 Normal >[address] [facility] Comment on above: Result Comment: Calc ulations of estimated GFR are performed using the 2020 CKD-EPI Study Refit equation without the race variable for the IDMS-Traceable creatinine methods. https://jasn.asnjournals.org/content/early//ASN.2020 944680 Performed By: #### 2 432-8 #### MARIA LUZ JONES ([id number]) [facility] ([facility]) [address] [place] [address] 01298 Glucose [Mass/Vol] 98 mg/dL Normal 74-99 [facility] Comment on above: Performed By: #### 2 4323-8 #### MARIA LUZ JONES ([id number]) [facility] ([facility]) [address] [place] [address] 32291 Potassium [Moles/Vol] 3.6 mmol/L Normal 3.5-5.3 [facility] Comment on above: Performed By: #### 2 4323-8 #### MARIA LUZ JONES ([id number]) [facility] ([facility]) [address] [place] [address] 94368 Protein [Mass/Vol] 5.8 g/dL Low 6.4-8.2 [facility] Comment on above: Performed By: #### 2 4323-8 #### MARIA LUZ JONES ([id number]) [facility] ([facility]) [address] [place] [address] 15679 Sodium [Moles/Vol] 135 mmol/L Low 136-145 [facility] Comment on above: Performed By: #### 2 4323-8 #### MARIA LUZ JONES ([id number]) [facility] ([facility]) [address] [place] [address] 24436 Urea nitrogen [Mass/Vol] 7 mg/dL Normal 6-[address] [facility] Comment on above: Performed By: #### 2 4323-8 #### MARIA LUZ JONES ([id number]) [facility] ([facility]) [address] [place] [address] 93629 Ferritinon 11-25-2024 Ferritin [Mass/Vol] 56 ng/mL Normal 8-150 [facility] Comment on above: Performed By: #### 2 276-4 #### MARIA LUZ JONES ([id number]) [facility] ([facility]) [address] [place] [address] 97825 Folateon 11-25-2024 Folate [Mass/Vol] 15.9 ng/mL Normal >5.0 [facility] Comment on above: Order Comment: Low < 3.4 Borderline 3.4-5.0 Normal >5.0 Patients receiving more than 5 mg/day of biotin may have interference in test results. A sample should be taken no sooner than eight hours after previous dose. Contact the testing laboratory for additional information. Performed By: #### 2 284-8 #### LIZETH Alexandra ([id number]) [facility] ([facility]) [address] [place] [address] 79462 Iron and Iron binding capaci ty panelon 11-25-2024 Iron [Mass/Vol] 46 ug/dL Normal 35-150 [facility] Comment on above: Performed By: #### 5 0190-8 #### MARIA LUZ JONES ([id number]) [facility] ([facility]) [address] [place] [address] 75674 Iron binding capacity [Mass/Vol] 358 ug/dL Normal 240-[address] [facility] Comment on above: Performed By: #### 5 0190-8 #### MARIA LUZ JONES ([id number]) [facility] ([facility]) [address] [place] [address] 23165 Iron binding capacity.unsaturated [Mass/Vol] 312 ug/dL Normal 110-[address] [facility] Comment on above: Performed By: #### 5 0190-8 #### MARIA LUZ JONES ([id number]) [facility] ([facility]) [address] [place], [place] [address] Iron saturation [Mass fraction] 13 % Low 25-[address] [facility] Comment on above: Performed By: #### 5 0190-8 #### MARIA LUZ JONES ([id number]) [facility] ([facility]) [address] [place], [place] [address] Reticulocytes panel (Bld)on 11-25-2024 Hemoglobin (Reticulocytes) [Entitic mass] 35 pg Normal 28-[address] [facility] Comment on above: Performed By: #### 5 0262-5 #### MARIA LUZ JONES ([id number]) [facility] ([facility]) [address] [place] [address] IMMATURE RETIC FRACTION 10.9 % Normal <=16.0 [facility] Comment on above: Result Comment: Reti culocytes are measured based on a fluorescent technique. The IRF, or immature reticulocyte fraction, is the percent of reticulocytes that show medium (MFR) or high (HFR) fluorescence. This value can be used to assess the relative maturity of the reticulocyte population in response to anemia. The shift reticulocytes are not measured by this technique, eliminating the need for their correction in the reticulocyte index. Performed By: #### 5 0262-5 #### MARIA LUZ JONES ([id number]) [facility] ([facility]) [address] [place] [address] 95835 Reticulocytes (Bld) [#/Vol] 0.070 x10*6/uL Normal 0.018-0.[address] [facility] Comment on above: Performed By: #### 5 0262-5 #### MARIA LUZ JONES ([id number]) [facility] ([facility]) [address] [place] [address] 80293 Reticulocytes/100 RBC (Bld) 1.7 % Normal 0.5-2.[address] [facility] Comment on above: Performed By: #### 5 0262-5 #### BRAGA KAREN ([id number]) [facility] ([facility]) [address] [place] [address] Desk Pen Set Assembler Office Visit Reporton 10-26-2024 Desk Pen Set Assembler Office Visit Report [facility] [address], [address] [place] [address] OFFICE VISIT Date of Service: 10/26/24 MR#: [id number] Acct: [id number] Name: NIKOLE MOREAU Rep #: [id number] : 2000 Provider: CARMEN campos Age/Sex: 24/F Location: [facility] Status: Signed Intake Vital Signs 09/13/24 09:05 09/26/24 10:44 10/26/24 13:45 10/26/24 13:52 Height 6 ft 6 ft 6 ft 6 ft Weight: 227 lb 4 oz BMI 30.8 BP 110/68 Intake Visit Reasons: 14wk ob *ppu Chief Complaint: 14 Week OB Operations Lead Required: No Is patient in pain?: No Allergies sumatriptan Allergy (Severe, Verified 10/26/24 13:45) Shortness of breath Medications ???Medication ???Instructions ???Recorded ???Confirmed ???Type ondansetron 4 mg disintegrating 4 mg PO Q4H PRN nausea and 5 10/26/24 Rx tablet vomiting #60 tabs Last Menstrual Period: 07/15/24 Zika: Zika virus screening: Negative : No PFSH PFSH Medical History Seasonal allergies Asthma Surgical History [place] teeth removed Family History Grandmother Asthma CVA (cerebral vascular accident) Diabetes Grandfather Prostate cancer Mother Endometriosis Hypertension Father Hypertension Social History adopted: No household members: children housing: apartment number of children: 1 current occupational status: employed current occupation: [employer] current occupational exposures/hazards: No pets and animals: Yes (Not managing litterbox ) pets and animals: cat(s) and dog(s) history of recent travel: Yes ( - August 2024) out of state: Yes out of country: No sexually active: Yes Smoking Status: Current every day smoker tobacco type: e-cigarettes Electronic Cigarette Use: with nicotine second hand exposure: No quit status: considering quitting alcohol intake: current alcohol intake frequency: holidays/special occasions only details: Not while substance use type: former substance user Date of last use: Marijuana - stopped years ago well-balanced diet: daily or most days caffeine: Yes Type: coffee Number of servings: 1 eating out: 1-3 times/week during the past year weight has: increased > 10 lbs what type of physical activity do you participate in: walking frequency: 1-2 times per week duration: 15-30 minutes/day catrachito/pentecostal: None seatbelt use: always do you feel safe at home: Yes additional social history: BF: Ken History 3 Elective abortions 1 Hx Para 1 Spontaneous abortions Hx # Term Pregnancies 1 Ectopic pregnancies Hx # Pregnancies Multiple births # of living children 1 Past Pregnancies Del. Date Name GA/Weeks Outcome Route Bth Weight Gen Labor Lgth Anesthesia Del Locatn Provider FOB 01/07/19 7 elective 08/16/21 [place] 37 live - full term 7lbs 11oz Female epidural [facility] eloise Delivery Date: 01/07/19 Last Updated by: Margaret Plasencia RN Pill Delivery Date: 08/16/21 Last Updated by: Margaret Plasencia RN labor (after sister ) - stopped, born a week later, PP hemorrhage HPI 14wk ob *ppu Details: NIKOLE MOREAU is a 24 year old who presents for routine OB visit. OB Visit MAREN Calculator Estimated Delivery Date Method Current WG Current Estimate 04/21/25 LMP (Certain) 14w 5d Other Estimates 04/24/25 Ultrasound #1 14w 2d Initial Weight: Not Recorded Date -???-???-???-???-???-??? -???-???-???-???-???-??? - EGA Weight BP Urine Prot -???-???-???-???-???-??? -???-???-???-???-???-??? - Glucose FHR FuHt Pres Dilation -???-???-???-???-???-??? -???-???-???-???-???-??? - Effaced St Visit Note 09/26/24 -???-???-???-???-???-??? -???-???-???-???-???-??? - 10w 3d 224 lb 116/73 -???-???-???-???-???-??? -???-???-???-???-???-??? - 166 -???-???-???-???-???-??? -???-???-???-???-???-??? - JV- CRL cons istent with LMP. measuring 10 weeks 0 days. desires nipt. plan for [facility] us as is self pay for now. 10/26/24 -???-???-???-???-???-??? -???-???-???-???-???-??? - 14w 5d 227 lb 4 oz 110/68 Negative -???-???-???-???-???-??? -???-???-???-???-???-??? - Negative 152 -???-???-???-???-???-??? -???-???-???-???-???-??? - MH-No VB. Na usea still problematic. Ginger sent. [facility] anatomy scan ordered [facility] First Trimester First Trimester: Desire for , Alcohol, Tobacco Cessation, Illicit/Recreational Drug/Substance Use, Intimate Partner Violence, Barriers to care, Unstable Housing, Communication Barriers, Environmental/Work Hazards, Anticipated Course of Care, Toxoplasm (more content not included)... Normal [facility] Chlamydia/GC KATHY aptimaon CHLAMY,NUC ACID Negative Normal Negative [facility] Comment on above: Performed By: #### L 505.5000, L7000.1800, M100.2200 #### [facility] [address] [place], [address] GC BY NUC ACID Negative Normal Negative [facility] Comment on above: Result Comment: Perf ormed at: =G - [facility] [address] [id number] Prefabricator: Maria Eugenia Waddell MD, Phone: [phone] Performed By: #### L 505.5000, L7000.1800, M100.2200 #### [facility] [address] [place], [address] Urine Cultureon 09-27-2024 URC Culture exhibits no growth. Normal [facility] Comment on above: Performed By: #### L 505.5000, L7000.1800, M100.2200 #### [facility] [address] [place], [address] Absolute lymphocyte countOrd ered By: Yaneth Johnson on 09-26-2024 Lymphocytes Auto (Unsp spec) [#/Vol] 1.60 10*3/uL 0.83-4.51 [facility] Absolute neutrophil countOrd ered By: Yaneth Johnson on 09-26-2024 Neutrophils (Bld) [#/Vol] 4.1 10*3/uL 2.0-7.7 [facility] Amphetamine detection with 1 000 ng/mL as cutoffOrdered By: Yaneth Johnson on 09-26-2024 Amphetamines Screen method >1000 ng/mL Ql (U) Negative < 200 ng/mL [facility] Automated lymphocyte count a s percentage of total leukocytesOrdered By: Yaneth Johnson on 09-26-2024 Lymphocytes/100 WBC Auto (Unsp spec) 26.0 % 19-41 [facility] Basophil percentageOrdered B y: Yaneth Johnson on 09-26-2024 Basophils/100 WBC (Bld) 0.3 % 0-1 [facility] CBC W/Diff, Automatedon 09-07-2024 Absolute Lymph 1.60 X10 3/uL Normal 0.83-4.51 [facility] Comment on above: Performed By: #### L 3890.6006, L3890.6301, L3890.6102, L900.0098, BTS, L503.6550, L509.4006, L503.6030, L100.0100, L509.8002 #### [facility] [address] [place], [address] Absolute Neut 4.1 X10 3/uL Normal 2.0-7.7 [facility] Comment on above: Performed By: #### L 3890.6006, L3890.6301, L3890.6102, L900.0098, BTS, L503.6550, L509.4006, L503.6030, L100.0100, L509.8002 #### [facility] [address] [place], [address] Basophils/100 WBC (Bld) 0.3 % Normal 0-1 [facility] Comment on above: Performed By: #### L 3890.6006, L3890.6301, L3890.6102, L900.0098, BTS, L503.6550, L509.4006, L503.6030, L100.0100, L509.8002 #### [facility] [address] [place], [address] Eosinophils/100 WBC (Bld) 0.3 % Normal 0-5 [facility] Comment on above: Performed By: #### L 3890.6006, L3890.6301, L3890.6102, L900.0098, BTS, L503.6550, L509.4006, L503.6030, L100.0100, L509.8002 #### [facility] [address] [facility] [place], [address] Erythrocyte distribution width (RBC) [Ratio] 12.9 % Normal 11.6-14.6 [facility] Comment on above: Performed By: #### L 3890.6006, L3890.6301, L3890.6102, L900.0098, BTS, L503.6550, L509.4006, L503.6030, L100.0100, L509.8002 #### [facility] [address] [facility] [place], [address] Hematocrit (Bld) [Volume fraction] 40.0 % Normal 37-47 [facility] Comment on above: Performed By: #### L 3890.6006, L3890.6301, L3890.6102, L900.0098, BTS, L503.6550, L509.4006, L503.6030, L100.0100, L509.8002 #### [facility] [address] [facility] [place], [address] Hemoglobin (Bld) [Mass/Vol] 13.8 g/dL Normal 12.0-15.0 [facility] Comment on above: Performed By: #### L 3890.6006, L3890.6301, L3890.6102, L900.0098, BTS, L503.6550, L509.4006, L503.6030, L100.0100, L509.8002 #### [facility] [address] [facility] [place], [address] IG% 0.300 Normal 0.0-0.9 [facility] Comment on above: Result Comment: IG% - Immature Granulocytes (promyelocytes, myelocytes and metamyelocytes) > 1% indicates that a LEFT SHIFT is Present. Performed By: #### L 3890.6006, L3890.6301, L3890.6102, L900.0098, BTS, L503.6550, L509.4006, L503.6030, L100.0100, L509.8002 #### [facility] [address] [place], [address] Lymphocytes/100 WBC (Bld) 26.0 % Normal 19-41 [facility] Comment on above: Performed By: #### L 3890.6006, L3890.6301, L3890.6102, L900.0098, BTS, L503.6550, L509.4006, L503.6030, L100.0100, L509.8002 #### [facility] [address] [place], [address] MCH (RBC) [Entitic mass] 30.9 pg Normal 27.0-32.0 [facility] Comment on above: Performed By: #### L 3890.6006, L3890.6301, L3890.6102, L900.0098, BTS, L503.6550, L509.4006, L503.6030, L100.0100, L509.8002 #### [facility] [address] [place], [address] MCHC (RBC) [Mass/Vol] 34.5 g/dL Normal 32-36 [facility] Comment on above: Performed By: #### L 3890.6006, L3890.6301, L3890.6102, L900.0098, BTS, L503.6550, L509.4006, L503.6030, L100.0100, L509.8002 #### [facility] [address] [place], [address] MCV (RBC) [Entitic vol] 89.5 fL Normal 81-99 [facility] Comment on above: Performed By: #### L 3890.6006, L3890.6301, L3890.6102, L900.0098, BTS, L503.6550, L509.4006, L503.6030, L100.0100, L509.8002 #### [facility] [address] [place], [address] Monocytes/100 WBC (Bld) 5.8 % Normal 0-10 [facility] Comment on above: Performed By: #### L 3890.6006, L3890.6301, L3890.6102, L900.0098, BTS, L503.6550, L509.4006, L503.6030, L100.0100, L509.8002 #### [facility] [address] [facility] [place], [address] Neutrophils/100 WBC (Bld) 67.3 % Normal 47-70 [facility] Comment on above: Performed By: #### L 3890.6006, L3890.6301, L3890.6102, L900.0098, BTS, L503.6550, L509.4006, L503.6030, L100.0100, L509.8002 #### [facility] [address] [place], [address] Nucleated RBC (Bld) [#/Vol] 0 10*3/uL Normal 0-5 [facility] Comment on above: Performed By: #### L 3890.6006, L3890.6301, L3890.6102, L900.0098, BTS, L503.6550, L509.4006, L503.6030, L100.0100, L509.8002 #### [facility] [address] [place], [address] Platelet mean volume (Bld) [Entitic vol] 10.1 fL Normal 6.2-12.0 [facility] Comment on above: Performed By: #### L 3890.6006, L3890.6301, L3890.6102, L900.0098, BTS, L503.6550, L509.4006, L503.6030, L100.0100, L509.8002 #### [facility] [address] [place], [address] Platelets (Bld) [#/Vol] 165 10*3/uL Normal 150-450 [facility] Comment on above: Performed By: #### L 3890.6006, L3890.6301, L3890.6102, L900.0098, BTS, L503.6550, L509.4006, L503.6030, L100.0100, L509.8002 #### [facility] [address] [place], [address] RBC (Bld) [#/Vol] 4.47 10*6/uL Normal 4.2-5.4 [facility] Comment on above: Performed By: #### L 3890.6006, L3890.6301, L3890.6102, L900.0098, BTS, L503.6550, L509.4006, L503.6030, L100.0100, L509.8002 #### [facility] [address] [place], [address] RDW SD 42.4 fl Normal 35.1-43.9 [facility] Comment on above: Performed By: #### L 3890.6006, L3890.6301, L3890.6102, L900.0098, BTS, L503.6550, L509.4006, L503.6030, L100.0100, L509.8002 #### [facility] [address] [place], [address] WBC (Bld) [#/Vol] 6.2 10*3/uL Normal 4.4-11.0 [facility] Comment on above: Performed By: #### L 3890.6006, L3890.6301, L3890.6102, L900.0098, BTS, L503.6550, L509.4006, L503.6030, L100.0100, L509.8002 #### [facility] [address] [place], [place], [id number] Chlamydia trachomatis rRNA d etection by probe and target amplification methodOrdered By: Yaneth Johnson on 09-26-2024 C. trachomatis rRNA KATHY+probe Ql (Unsp spec) Negative Negative [facility] Eosinophil percentageOrdered By: Yaneth Johnson on 09-26-2024 Eosinophils/100 WBC (Bld) 0.3 % 0-5 [facility] Erythrocyte distribution wid th ratioOrdered By: [facility] Elizabeth on 09-26-2024 Erythrocyte distribution width (RBC) [Ratio] 12.9 % 11.6-14.6 [facility] Erythrocyte distribution wid th standard deviationOrdered By: [facility] on 09-26-2024 Erythrocyte distribution width (RBC) [Ratio] 42.4 fl 35.1-43.9 [facility] Ferritinon 09-26-2024 Ferritin [Mass/Vol] 116 ng/mL Normal 22-378 [facility] Comment on above: Performed By: #### L 3890.6006, L3890.6301, L3890.6102, L900.0098, BTS, L503.6550, L509.4006, L503.6030, L100.0100, L509.8002 ####[facility] [address] [place], [place], [id number] HIVon 09-26-2024 HIV Non-Reactive Normal Nonreactive [facility] Comment on above: Result Comment: Non- Reactive Reactive Repeatedly reactive samples must be confirmed according to CDC recommended confirmatory algorithms. The subresults for either HIVAG or AHIV can be used as an aid in the selection of the confirmation algorithm for reactive samples. Send out specimens with Reactive results to [facility] for confirmation. Order the HIV antibody detection and differentiation: camila#[id number] Performed By: #### L 3890.6006, L3890.6301, L3890.6102, L900.0098, BTS, L503.6550, L509.4006, L503.6030, L100.0100, L509.8002 ####[facility] [address] [place], [address] Hematocrit Auto (Bld) [Volum e fraction]Ordered By: Yaneth Johnson on 09-26-2024 Hematocrit (Bld) [Volume fraction] 40.0 % 37-47 [facility] Hemoglobin measurementOrdere d By: Yaneth Johnson on 09-26-2024 Hemoglobin (Bld) [Mass/Vol] 13.8 g/dL 12.0-15.0 [facility] Hepatitis C Antibodyon 09-26 Hepatitis C Ab Non-Reactive Normal Nonreactive [facility] Comment on above: Result Comment: Reac tive: Presumptive evidence of antibodies to HCV. Follow CDC recommendations for supplemental testing. Non-Reactive: Antibodies to HCV were not detected; does not exclude the possibility of exposure to HCV Reactive Results are presumptive evidence of antibodies to HCV. Follow CDC recommendations for supplemental testing. Order confirmation testing: HCV Quant by PCR testing - HCVPCR #[id number] Non Reactive: < 0.8 Equivocal: >/= 0.8 to < 1.0 Reactive: >/= 1.0 The CDC requires that a reactive/equivocal HCV antibody result be sent out for confirmation. HCV Quant by PCR testing. Performed By: #### L 3890.6006, L3890.6301, L3890.6102, L900.0098, BTS, L503.6550, L509.4006, L503.6030, L100.0100, L509.8002 ####[facility] [address] [place], [address] Immature granulocytes/100 WB C Auto (Bld)Ordered By: Yaneth Johnson on 09-26-2024 Immature granulocytes/100 WBC (Bld) 0.300 % 0.0-0.9 [facility] Comment on above: IG% - Immature Granu locytes (promyelocytes, myelocytes and metamyelocytes) > 1% indicates that a LEFT SHIFT is Present. Iron measurement (mass/mass) Ordered By: Yaneth Johnson on 09-26-2024 Iron (Unsp spec) [Mass/Mass] 45 ug/dL Low 50-170 [facility] Iron+Iron Binding Capacityon 09-26-2024 Iron [Mass/Vol] 45 ug/dL Low 50-170 [facility] Comment on above: Performed By: #### L 3890.6006, L3890.6301, L3890.6102, L900.0098, BTS, L503.6550, L509.4006, L503.6030, L100.0100, L509.8002 #### [facility] [address] [place], [address] IRON SATURATION 16.0 Normal 13-59 [facility] Comment on above: Performed By: #### L 3890.6006, L3890.6301, L3890.6102, L900.0098, BTS, L503.6550, L509.4006, L503.6030, L100.0100, L509.8002 #### [facility] [address] [place], [address] TIBC 278 ug/dL Normal 250-450 [facility] Comment on above: Performed By: #### L 3890.6006, L3890.6301, L3890.6102, L900.0098, BTS, L503.6550, L509.4006, L503.6030, L100.0100, L509.8002 #### [facility] [address] [place], [address] UIBC 233 ug/dL Normal 228-428 [facility] Comment on above: Performed By: #### L 3890.6006, L3890.6301, L3890.6102, L900.0098, BTS, L503.6550, L509.4006, L503.6030, L100.0100, L509.8002 #### [facility] [address] [place], [place], [id number] L3890.6102on 09-26-2024 HEP B Surf Ag Non-Reactive Normal Nonreactive [facility] Comment on above: Result Comment: Reac tive: Presumptive evidence of HBV. Repeatedly reactive samples must be confirmed using a neutralization test ([employer] HBsAg Confirmatory Test) Non-Reactive: HBsAg not detected; does not exclude the possibility of exposure to HBV Performed By: #### L 3890.6006, L3890.6301, L3890.6102, L900.0098, BTS, L503.6550, L509.4006, L503.6030, L100.0100, L509.8002 ####[facility] [address] [place], [place], [id number] L509.4006on 09-26-2024 Rubella IgG REAC Normal Nonreactive [facility] Comment on above: Result Comment: Anti body Result: Interpretation Non-Reactive: Non-Immune Reactive: Immune The following results were obtained with the [employer] Rubella IgG assay. Results from assays of other manufacturers cannot be used interchangeably. Performed By: #### L 3890.6006, L3890.6301, L3890.6102, L900.0098, BTS, L503.6550, L509.4006, L503.6030, L100.0100, L509.8002 ####[facility] [address] [place], [place], [id number] Laboratory - Microbiology an d Antimicrobial susceptibilityOrdered By: Yaneth Jonhson on 09-26-2024 HBV surface Ag Ql (S) Non-Reactive Nonreactive [facility] Comment on above: Reactive: Presumptiv e evidence of HBV. Repeatedly reactive samples must be confirmed using a neutralization test ([employer] HBsAg Confirmatory Test)Non-Reactive: HBsAg not detected; does not exclude the possibility of exposure to HBV MCV (mean corpuscular volume ) determinationOrdered By: Yaneth Johnson on 09-26-2024 MCV (RBC) [Entitic vol] 89.5 fL 81-99 [facility] Mean corpuscular hemoglobin (MCH) determinationOrdered By: Yaneth Johnson on 09-26-2024 MCH (RBC) [Entitic mass] 30.9 pg 27.0-32.0 [facility] Mean corpuscular hemoglobin concentration (MCHC) determinationOrdered By: Yaneth Johnson on 09-26-2024 MCHC (RBC) [Mass/Vol] 34.5 g/dL 32-36 [facility] Mean platelet volume determi nationOrdered By: Yaneth Johnson on 09-26-2024 Platelet mean volume (Bld) [Entitic vol] 10.1 fL 6.2-12.0 [facility] Monocyte percentageOrdered B y: Yaneth Johnson on 09-26-2024 Monocytes/100 WBC (Bld) 5.8 % 0-10 [facility] NATERAon 09-26-2024 NATURA SEE SCANNED REPORT Normal [facility] Comment on above: Performed By: #### L 3890.6006, L3890.6301, L3890.6102, L900.0098, BTS, L503.6550, L509.4006, L503.6030, L100.0100, L509.8002 #### [facility] [address] [place], [address] Neisseria gonorrhoeae nuclei c acid detection by amplified probe techniqueOrdered By: Yaneth Johnson on 09-26-2024 N. gonorrhoeae DNA KATHY+probe Ql (Unsp spec) Negative Negative [facility] Comment on above: Performed at: =[address] [id number] Director: Maria Eugenia Waddell MD, Phone: [phone] Neutrophil percentageOrdered By: Yaneth Johnson on 09-26-2024 Neutrophils/100 WBC (Bld) 67.3 % 47-70 [facility] No Panel InformationOrdered By: Yaneth Johnson on 09-26-2024 Urine Buprenorphine Qualitative Negative < 200 ng/mL [facility] Urine Oxycodone Screen Negative < 100 ng/mL [facility] HIV (1&2) Antibody Non-Reactive Nonreactive [facility] Comment on above: Non-ReactiveReactive Repeatedly reactive samples must be confirmed according to CDC recommended confirmatory algorithms. 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 Yaneth Knight DO Age/Sex: 24/F Location: [facility] Status: Signed with Addenda ADDENDUM by Dr. Yaneth Nogueira DO on 10/05/24 at 1302 Assessment and Plan Assessment and Plan (1) Supervision of high-risk : Status: Acute Comment: , MAREN 04/21, PC: LINDA Hager Ken Plan: 10 weeks 3 days by LMP and ultrasound today (2) : Status: Acute Comment: Desires genetic testing, declines carrier, NIPT low risk female. (3) History of elective : Status: Acute Comment: January 2019 (4) History of group B Streptococcus (GBS) infection: Status: Acute (5) History of hemorrhage, currently : Status: Acute (6) Tobacco use affecting , antepartum: Status: Acute Comment: Vaping; actively working to quit (7) History of marijuana use: Status: Acute Comment: Per pt - not used in years (8) Iron deficiency: Status: Acute Comment: Hx of severe anemia w/many infusions. 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 (9) Vaginal bleeding affecting early : Status: Acute Orders: Orders ZACHARY 09/26/24 O09.90 - Supervision of high risk , unspecified, unspecified trimester 10/05/24 1302 Date Yaneth Nogueira DO cc: * Signed ADDENDUM by Dr. Yaneth Nogueira DO on 09/26/24 at 1127 Assessment and Plan Assessment and Plan (1) Supervision of high-risk : Status: Acute Comment: , MAREN 04/21, PC: LINDA Hager (2) : Status: Acute Comment: Desires genetic testing, declines carrier (3) History of elective : Status: Acute Comment: January 2019 (4) History of group B Streptococcus (GBS) infection: Status: Acute (5) History of hemorrhage, currently : Status: Acute (6) Tobacco use affecting , antepartum: Status: Acute Comment: Vaping; actively working to quit (7) History of marijuana use: Status: Acute Comment: Per pt - not used in years (8) Iron deficiency: Status: Acute Comment: Hx of severe anemia w/many infusions. 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 Heart rate is 166. CRL consistent with lmp measuring 10 weeks 0 days. 09/26/24 1127 Date Yaneth Nogueira DO cc: * Signed Intake Vital Signs 09/13/24 09:05 09/26/24 10:41 09/26/24 10:44 Height 6 ft 6 ft 6 ft Weight: 224 lb BMI 30.4 BP 116/73 Intake Visit Reasons: *NEW* NOB LMP 5/9, MAREN 04/21 Operations Lead Required: No Is patient in pain?: No Allergies sumatriptan Allergy (Severe, Verified 09/26/24 10:39) Shortness of breath Last Menstrual Period: 07/15/24 Zika: Zika virus screening: Negative : Yes PFSH PFSH Medical History Seasonal allergies Asthma Surgical History [place] teeth removed Family History Grandmother Asthma CVA (cerebral vascular accident) Diabetes Grandfather Prostate cancer Mother Endometriosis Hypertension Father Hypertension Social History adopted: No household members: children housing: apartment number of children: 1 current occupational status: employed current occupation: [employer] current occupational exposures/hazards: No pets and animals: Yes (Not managing litterbox ) pets and animals: cat(s) and dog(s) history of recent travel: Yes ( - August 2024) out of state: Yes out of country: No sexually active: Yes Smoking Status: Current every day smoker tobacco type: e-cigarettes Electronic Cigarette Use: with nicotine second hand exposure: No quit status: considering quitting alcohol intake: current alcohol intake frequency: holidays/special occasions only details: Not while substance use type: former substance user Date of last use: Marijuana - stopped years ago well-balanced diet: daily or most days caffeine: Yes Type: coffee Number of servings: 1 eating out: 1-3 times/week during the past year weight has: increased > 10 lbs what type of physical activity do you participate in: walking frequency: 1-2 times per week duration: 15-30 minutes/day catrachito/pentecostal: None seatbelt use (more content not included)... Normal [facility] Platelet countOrdered By: Fredi Johnson on 09-26-2024 Platelets (Bld) [#/Vol] 165 10*3/uL 150-450 [facility] Quantitative urine opiates m easurementOrdered By: Yaneth Johnson on 09-26-2024 Opiates Ql (U) Negative < 300 ng/mL [facility] RBC Auto (Bld) [#/Vol]Ordere d By: Yaneth Elizabeth on 09-26-2024 RBC (Bld) [#/Vol] 4.47 10*6/uL 4.2-5.4 [facility] Screening urine fentanyl winston surementOrdered By: Yaneth Elizabeth on 09-26-2024 fentaNYL Screen Ql (U) Negative [facility] Serum or plasma ferritin winston surement (mass/volume)Ordered By: Yaneth Johnson on 09-26-2024 Ferritin [Mass/Vol] 116 ng/mL 22-378 [facility] Serum or plasma iron saturat ion measurement (mass fraction)Ordered By: Yaneth Johnson on 09-26-2024 Iron saturation [Mass fraction] 16.0 % 13-59 [facility] Syphilis Antibodieson 2024 Syphilis Abs Non-Reactive Normal Nonreactive [facility] Comment on above: Performed By: #### L 3890.6006, L3890.6301, L3890.6102, L900.0098, BTS, L503.6550, L509.4006, L503.6030, L100.0100, L509.8002 ####[facility] [address] [place], [place], [id number] Type AND Screenon 09-26-2024 Ab SCREEN GEL Negative Normal [facility] Comment on above: Order Comment: PN Performed By: #### L 3890.6006, L3890.6301, L3890.6102, L900.0098, BTS, L503.6550, L509.4006, L503.6030, L100.0100, L509.8002 #### [facility] [address] [place], [place], [id number] Urine Drug Screen (VISTA)on 09-26-2024 AMPHETAMINES Negative Normal <1000 ng/mL [facility] Comment on above: Order Comment: UNK Performed By: #### L 505.5000, L7000.1800, M100.2200 #### [facility] [address] [place], [address] BARBITIURATES Negative Normal < 200 ng/mL [facility] Comment on above: Order Comment: UNK Performed By: #### L 505.5000, L7000.1800, M100.2200 #### [facility] [address] [place], [address] BENZODIAZIPINE Negative Normal < 200 ng/mL [facility] Comment on above: Order Comment: UNK Performed By: #### L 505.5000, L7000.1800, M100.2200 #### [facility] [address] [place], [address] BUP Ur Drug Scr Negative Normal < 200 ng/mL [facility] Comment on above: Order Comment: UNK Performed By: #### L 505.5000, L7000.1800, M100.2200 #### [facility] [address] [place], [address] COCAINE Negative Normal < 300 ng/mL [facility] Comment on above: Order Comment: UNK Performed By: #### L 505.5000, L7000.1800, M100.2200 #### [facility] [address] [place], [address] Fentanyl Negative Normal [facility] Comment on above: Order Comment: UNK Performed By: #### L 505.5000, L7000.1800, M100.2200 #### [facility] [address] [place], [address] METHADONE Negative Normal < 300 ng/mL [facility] Comment on above: Order Comment: UNK Performed By: #### L 505.5000, L7000.1800, M100.2200 #### [facility] [address] [place], [address] OPIATES Negative Normal < 300 ng/mL [facility] Comment on above: Order Comment: UNK Performed By: #### L 505.5000, L7000.1800, M100.2200 #### [facility] [address] [place], [address] OXYCODONE Negative Normal < 100 ng/mL [facility] Comment on above: Order Comment: UNK Performed By: #### L 505.5000, L7000.1800, M100.2200 #### [facility] [address] [place], [address] PCP Negative Normal < 25 ng/mL [facility] Comment on above: Order Comment: UNK Performed By: #### L 505.5000, L7000.1800, M100.2200 #### [facility] [address] [place], [address] THC Negative Normal < 50 ng/mL [facility] Comment on above: Order Comment: UNK Performed By: #### L 505.5000, L7000.1800, M100.2200 #### [facility] [address] [place], [address] Urine benzodiazepine levelOr dered By: Yaneth Johnson on 09-26-2024 Benzodiazepines Ql (U) Negative < 200 ng/mL [facility] Urine cocaine levelOrdered B y: Yaneth Johnson on 09-26-2024 Cocaine Ql (U) Negative < 300 ng/mL [facility] Urine cultureOrdered By: Meagan Johnson on 09-26-2024 Bacteria identified Cx Nom (U) Culture exhibits no growth. [facility] Urine kvhir-5-fjmxlyjzntfpby abinol (THC) measurementOrdered By: Yaneth Johnson on 09-26-2024 Cannabinoids Screen Ql (U) Negative < 50 ng/mL [facility] Urine phencyclidine (PCP) de tectionOrdered By: Yaneth Johnson on 09-26-2024 Phencyclidine Ql (U) Negative < 25 ng/mL [facility] White blood cell (WBC) count Ordered By: Yaneth Johnson on 09-26-2024 WBC (Bld) [#/Vol] 6.2 10*3/uL 4.4-11.0 [facility] Transvaginal w/Preg USon Transvaginal w/Preg US [facility] [address] [place] [address] Transvaginal w/Preg US MR#: [id number] Acct: [id number] Name: NIKOLE MOREAU Rep #: [id number] : 2000 F 24 From: Andrew vera MD PCP: Care Physician,No Primary Status: REG CLI Study: Transvaginal w/Preg US Date of Exam: 09/21/24 Exam# [id number] Ordering Dr: Yaneth Nogueira DO PROCEDURE: TRANSVAGINAL W/PREG US 09/21/2024 REASON FOR EXAM: SPOTTING IN TECHNIQUE: TRANSVAGINAL W/PREG US COMPARISON: None FINDINGS: Comments: LMP: July 15, 2024. Number of Gestational Sacs: 1 Gestational Sac Shape: Normal Number of Fetuses: 1 Heart Rate: 171 (average) Survey of Visible Anatomic Structures: Grossly unremarkable for gestational age. Yolk Sac: Present and unremarkable. Placenta: Presently not well-visualized Amniotic Fluid Volume: Subjectively normal for gestational age. Uterine Abnormalities: Maternal uterus is unremarkable. Ovaries / Adnexa: There is a 2.2 cm 1.8 cm 2 cm right corpus luteum cyst. DIMENSIONS: Parameter Measurement / EGA [place] Rump Length: 2.53 cm/9 weeks and 0 days Gestational Sac: 3.93 cm/9 weeks and 2 days Yolk Sac: 0.41 cm/ ESTIMATED GESTATIONAL AGE: By Ultrasound: 9 weeks and 1 day By LMP: 9 weeks and 5 days ESTIMATED DATE OF DELIVERY: By Ultrasound: April 25, 2025 By LMP: April 21, 2025 US/Transvaginal w/Preg US IMPRESSION: UNREMARKABLE FIRST TRIMESTER ULTRASOUND. Reading Location: [place] [address] CC: CARMEN Whitehead; Dr. Yaneth Nogueira DO; No Primary Care Physician Cork Slabs Sawyer: Signed Normal [facility] Serum human chorionic gonado tropin detection for pregnancyOrdered By: Ailin Whitehead on 09-15-2024 HCG ( test) Ql [address] mIU/mL High <9 [facility] Comment on above: Gestational Age0.2-1 Week: 5-50 mIU/mL1-2 Weeks: 50-500 mIU/mL2-3 Weeks: 100-5000 mIU/mL3-4 Weeks: 500-10,000 mIU/mL4-5 Weeks:1000-50,000 mIU/mL5-6 Weeks: 10,000-100,000 mIU/mL6-8 Weeks: 15,000-200,000 mIU/mL2-3 Months:10,000-100,000 mIU/mL hCG Titer Quant., Serumon HCG QUANT. 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 Pen Set Assembler Office Visit Reporton 09-13-2024 Desk Pen Set Assembler Office Visit Report [facility] [address], [address] [place] [address] OFFICE VISIT Date of Service: 09/13/24 MR#: [id number] Acct: [id number] Name: NIKOLE MOREAU Rep #: [id number] : 2000 Provider: CARMEN campos Age/Sex: 24/F Location: [facility] Status: Signed Intake Vital Signs 09/13/24 09:05 Height 6 ft Weight: 225 lb 2 oz BMI 30.5 BP 132/88 H Intake Visit Reasons: PNOB Confirm , Vitals Operations Lead Required: No Is patient in pain?: No Allergies sumatriptan Allergy (Severe, Verified 09/13/24 09:06) Shortness of breath Medications ???Medication ???Instructions ???Recorded ???Confirmed ???Type B12 PO .every other day 09/13/24 Hist ory ferrous sulfate 325 mg (65 mg 325 mg PO QDAY 09/13/24 09/13/24 H istory iron) tablet Is last menstrual period known: Yes Last Menstrual Period: 07/15/24 Post menopausal: No Patient : Yes : No PFSH Medical History (Updated 09/13/24 @ 09:11 by Ailin Ortez) Asthma Surgical History (Updated 09/13/24 @ 09:10 by Ailin Ortez) [place] teeth removed Family History (Updated 09/13/24 @ 09:14 by Ailin Ortez) Grandmother Asthma CVA (cerebral vascular accident) Diabetes Grandfather Prostate cancer Mother Endometriosis Hypertension Father Hypertension Social History (Updated 09/13/24 @ 09:17 by Ailin Ortez) adopted: No household members: children housing: apartment number of children: 1 current occupational status: employed current occupation: [employer] pets and animals: Yes pets and animals: dog(s) history of recent travel: Yes ([place] [place] ) out of state: Yes out of country: No Smoking Status: Current every day smoker tobacco type: e-cigarettes Electronic Cigarette Use: with nicotine quit status: considering quitting alcohol intake: never substance use type: does not use seatbelt use: always do you feel safe at home: Yes additional social history: Boyfriend Ken HPI PNOB Confirm , Vitals Details: NIKOLE MOREAU is a 24 year old who presents for Female Reproductive History Last Menstrual Period: 07/15/24 History 3 Elective abortions 1 Hx Para 1 Spontaneous abortions Hx # Term Pregnancies Ectopic pregnancies Hx # Pregnancies Multiple births # of living children 1 Past Pregnancies Del. Date Name GA/Weeks Outcome Route Bth Weight Infant Gen Labor Lgth Anesthesia Del Locatn Provider FOB Unknown 2018 09 elective 08/16/21 Alley 37 live - full term 7lb 11oz Female Iva Norton Results POC Urine Office , Urine Positive Last Edit by Ailin Ortez on 09/13/24 09:03 Coding Level of Care Code Attention Violet Diagnoses Amenorrhea N91.2 Assessment and Plan Assessment and Plan (1) Amenorrhea: Orders: Orders POC Urine Today Z34.90 - Encounter for supervision of normal , unspecified, unspecified trimester Plan confirmed and RTO NOB 09/13/24 1005 Date Ailin Whitehead INTELLIGENCE CONSULTANT INTELLIGENCE CONSULTANT-C Cosigner Signature: Date (if applicable) CC: Normal [facility] VIRAL CULTUREon 02-28-2024 VIRAL CULTURE Comment Abnormal [facility] Comment on above: Result Comment: (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 Typing was confirmed by monoclonal antibody microscopic immunofluorescence. PERFORMED AT [facility] Performed By: #### L VIRC #### Testing performed at [facility] CBC W Auto Differential pane l (Bld)on 08-31-2023 Basophils (Bld) [#/Vol] 0.03 x10*3/uL Normal 0.00-0.10 [facility] Comment on above: Performed By: #### 2 4323-8 #### MARIA ULZ JONES ([id number]) [facility] ([facility]) [address] [place] [address] Basophils/100 WBC (Bld) 0.3 % Normal 0.0-2.0 [facility] Comment on above: Performed By: #### 2 4323-8 #### MARIA LUZ JONES ([id number]) [facility] ([facility]) [address] [place] [address] 37907 Eosinophils (Bld) [#/Vol] 0.07 x10*3/uL Normal 0.00-0.70 [facility] Comment on above: Performed By: #### 2 4323-8 #### MARIA LUZ JONES ([id number]) [facility] ([facility]) [address] [place] [address] 00704 Eosinophils/100 WBC (Bld) 0.7 % Normal 0.0-6.0 [facility] Comment on above: Performed By: #### 2 4322-8 #### MARIA LUZ JONES ([id number]) [facility] ([facility]) [address] [place] [address] 31865 Erythrocyte distribution width (RBC) [Ratio] 13.1 % Normal 11.5-14.5 [facility] Comment on above: Performed By: #### 2 4322-8 #### MARIA LUZ JONES ([id number]) [facility] ([facility]) [address] [place] [address] 62492 Hematocrit (Bld) [Volume fraction] 45.1 % Normal 36.0-46.0 [facility] Comment on above: Performed By: #### 2 4322-8 #### MARIA LUZ JONES ([id number]) [facility] ([facility]) [address] [place] [address] 31704 Hemoglobin (Bld) [Mass/Vol] 15.0 g/dL Normal 12.0-16.0 [facility] Comment on above: Performed By: #### 2 4322-8 #### MARIA LUZ JONES ([id number]) [facility] ([facility]) [address] [place] [address] 68652 Immature granulocytes (Bld) [#/Vol] 0.03 x10*3/uL Normal 0.00-0.70 [facility] Comment on above: Performed By: #### 2 432-8 #### MARIA LUZ JONES ([id number]) [facility] ([facility]) [address] [place] [address] 62312 Immature granulocytes/100 WBC (Bld) 0.3 % Normal 0.0-0.9 [facility] Comment on above: Result Comment: Mary ture Granulocyte Count (IG) includes promyelocytes, myelocytes and metamyelocytes but does not include bands. Percent differential counts (%) should be interpreted in the context of the absolute cell counts (cells/UL). Performed By: #### 2 4323-8 #### MARIA LUZ JONES ([id number]) [facility] ([facility]) [address] [place] [address] Lymphocytes (Bld) [#/Vol] 2.00 x10*3/uL Normal 1.20-4.80 [facility] Comment on above: Performed By: #### 2 4323-8 #### MARIA LUZ JONES ([id number]) [facility] ([facility]) [address] [place] [address] Lymphocytes/100 WBC (Bld) 20.6 % Normal 13.0-44.0 [facility] Comment on above: Performed By: #### 2 4323-8 #### MARIA LUZ JONES ([id number]) [facility] ([facility]) [address] [place] [address] 21768 MCH (RBC) [Entitic mass] 30.2 pg Normal 26.0-34.0 [facility] Comment on above: Performed By: #### 2 4323-8 #### MARIA LUZ JONES ([id number]) [facility] ([facility]) [address] [place] [address] 24693 MCHC (RBC) [Mass/Vol] 33.3 g/dL Normal 32.0-36.0 [facility] Comment on above: Performed By: #### 2 4323-8 #### MARIA LUZ JONES ([id number]) [facility] ([facility]) [address] [place] [address] 81213 MCV (RBC) [Entitic vol] 91 fL Normal 80-100 [facility] Comment on above: Performed By: #### 2 4323-8 #### MARIA LUZ JONES ([id number]) [facility] ([facility]) [address] [place] [address] 94607 Monocytes (Bld) [#/Vol] 0.49 x10*3/uL Normal 0.10-1.00 [facility] Comment on above: Performed By: #### 2 4323-8 #### MARIA LUZ JONES ([id number]) [facility] ([facility]) [address] [place] [address] 26941 Monocytes/100 WBC (Bld) 5.0 % Normal 2.0-10.0 [facility] Comment on above: Performed By: #### 2 4323-8 #### MARIA LUZ JONES ([id number]) [facility] ([facility]) [address] [place] [address] 70182 Neutrophils (Bld) [#/Vol] 7.10 x10*3/uL Normal 1.20-7.70 [facility] Comment on above: Result Comment: Perc ent differential counts (%) should be interpreted in the context of the absolute cell counts (cells/uL). Performed By: #### 2 4323-8 #### MARIA LUZ JONES ([id number]) [facility] ([facility]) [address] [place] [address] 08827 Neutrophils/100 WBC (Bld) 73.1 % Normal 40.0-80.0 [facility] Comment on above: Performed By: #### 2 4323-8 #### MARIA LUZ JONES ([id number]) [facility] ([facility]) [address] [place] [address] 91210 Nucleated RBC/100 WBC (Bld) [Ratio] 0.0 /100 WBCs Normal 0.0-0.0 [facility] Comment on above: Performed By: #### 2 4323-8 #### MARIA LUZ JONES ([id number]) [facility] ([facility]) [address] [place] [address] 22295 Platelets (Bld) [#/Vol] 241 x10*3/uL Normal 150-450 [facility] Comment on above: Performed By: #### 2 4323-8 #### MARIA LUZ JONES ([id number]) [facility] ([facility]) [address] [place] [address] 11989 RBC (Bld) [#/Vol] 4.97 x10*6/uL Normal 4.00-5.20 [facility] Comment on above: Performed By: #### 2 4323-8 #### MARIA LUZ JONES ([id number]) [facility] ([facility]) [address] [place], [place] [address] WBC (Bld) [#/Vol] 9.7 x10*3/uL Normal 4.4-11.3 [facility] Comment on above: Performed By: #### 2 4323-8 #### MARIA LUZ JONES ([id number]) [facility] ([facility]) [address] [place] [address] 41928 Cobalaminson 08-31-2023 Cobalamin (Vitamin B12) [Mass/Vol] 472 pg/mL Normal 211-911 [facility] Comment on above: Performed By: #### 2 4323-8 #### MARIA LUZ JONES ([id number]) [facility] ([facility]) [address] [place], [place] [address] Comprehensive metabolic 2000 panelon 08-31-2023 Albumin BCP dye [Mass/Vol] 4.5 g/dL Normal 3.4-5.0 [facility] Comment on above: Performed By: #### 2 4323-8 #### MARIA LUZ JONES ([id number]) [facility] ([facility]) [address] [place] [address] 74067 ALP [Catalytic activity/Vol] 86 U/L Normal 33-110 [facility] Comment on above: Performed By: #### 2 4323-8 #### MARIA LUZ JONES ([id number]) [facility] ([facility]) [address] [place] [address] 06741 ALT With P-5'-P [Catalytic activity/Vol] 16 U/L Normal 7-45 [facility] Comment on above: Result Comment: Celine ents treated with Sulfasalazine may generate falsely decreased results for ALT. Performed By: #### 2 4323-8 #### MARIA LUZ JONES ([id number]) [facility] ([facility]) [address] [place] [address] 79197 Anion gap [Moles/Vol] 14 mmol/L Normal 10-20 [facility] Comment on above: Performed By: #### 2 4323-8 #### MARIA LUZ JONES ([id number]) [facility] ([facility]) [address] [place] [address] 67890 AST With P-5'-P [Catalytic activity/Vol] 12 U/L Normal 9-39 [facility] Comment on above: Performed By: #### 2 4323-8 #### MARIA LUZ JONES ([id number]) [facility] ([facility]) [address] [place] [address] 82052 Bilirubin [Mass/Vol] 1.2 mg/dL Normal 0.0-1.2 [facility] Comment on above: Performed By: #### 2 4322-8 #### MARIA LUZ JONES ([id number]) [facility] ([facility]) [address] [place] [address] 10086 Calcium [Mass/Vol] 9.4 mg/dL Normal 8.6-10.3 [facility] Comment on above: Performed By: #### 2 4322-8 #### MARIA LUZ JONES ([id number]) [facility] ([facility]) [address] [place] [address] 69832 Chloride [Moles/Vol] 105 mmol/L Normal 98-107 [facility] Comment on above: Performed By: #### 2 4323-8 #### MARIA LUZ JONES ([id number]) [facility] ([facility]) [address] [place] [address] 66221 CO2 [Moles/Vol] 25 mmol/L Normal 21-32 [facility] Comment on above: Performed By: #### 2 4323-8 #### MARIA LUZ JONES ([id number]) [facility] ([facility]) [address] [place] [address] 18065 Creatinine [Mass/Vol] 0.81 mg/dL Normal 0.50-1.05 [facility] Comment on above: Performed By: #### 2 4323-8 #### MARIA LUZ JONES ([id number]) [facility] ([facility]) [address] [place] [address] 85070 GFR/1.73 sq M.predicted MDRD (S/P/Bld) [Vol rate/Area] mL/min/{1.73_m2} Normal >60 [facility] Comment on above: Result Comment: Calc ulations of estimated GFR are performed using the 2020 CKD-EPI Study Refit equation without the race variable for the IDMS-Traceable creatinine methods. https://jasn.asnjournals.org/content/early//ASN.2020 099740 Performed By: #### 2 4323-8 #### MARIA LUZ JONES ([id number]) [facility] ([facility]) [address] [place] [address] 05833 Glucose [Mass/Vol] 120 mg/dL High 74-99 [facility] Comment on above: Performed By: #### 2 4323-8 #### MARIA LUZ JONES ([id number]) [facility] ([facility]) [address] [place] [address] 86986 Potassium [Moles/Vol] 3.9 mmol/L Normal 3.5-5.3 [facility] Comment on above: Performed By: #### 2 4323-8 #### MARIA LUZ JONES ([id number]) [facility] ([facility]) [address] [place] [address] 43508 Protein [Mass/Vol] 6.6 g/dL Normal 6.4-8.2 [facility] Comment on above: Performed By: #### 2 4323-8 #### MARIA LUZ JONES ([id number]) [facility] ([facility]) [address] [place] [address] 30673 Sodium [Moles/Vol] 140 mmol/L Normal 136-145 [facility] Comment on above: Performed By: #### 2 4323-8 #### MARIA LUZ JONES ([id number]) [facility] ([facility]) [address] [place] [address] 76104 Urea nitrogen [Mass/Vol] 10 mg/dL Normal 6-23 [facility] Comment on above: Performed By: #### 2 4323-8 #### MARIA LUZ JONES ([id number]) [facility] ([facility]) [address] [place] [address] 64438 Ferritinon 08-31-2023 Ferritin [Mass/Vol] 180 ng/mL High 8-150 [facility] Comment on above: Performed By: #### 2 4323-8 #### MARIA LUZ JONES ([id number]) [facility] ([facility]) [address] [place] [address] 80617 Iron and Iron binding capaci ty panelon 08-31-2023 Iron [Mass/Vol] 36 ug/dL Normal 35-150 [facility] Comment on above: Performed By: #### 2 4323-8 #### MARIA LUZ JONES ([id number]) [facility] ([facility]) [address] [place] [address] 97821 Iron binding capacity [Mass/Vol] 313 ug/dL Normal 240-445 [facility] Comment on above: Performed By: #### 2 4323-8 #### MARIA LUZ JONES ([id number]) [facility] ([facility]) [address] [place] [address] 74711 Iron binding capacity.unsaturated [Mass/Vol] 277 ug/dL Normal 110-370 [facility] Comment on above: Performed By: #### 2 4323-8 #### MARIA LUZ JONES ([id number]) [facility] ([facility]) [address] [place] [address] 19714 Iron saturation [Mass fraction] 12 % Low 25-45 [facility] Comment on above: Performed By: #### 2 4323-8 #### MARIA LUZ JONES ([id number]) [facility] ([facility]) [address] [place] [address] 37232 CBC W Auto Differential pane l (Bld)on 06-05-2023 Basophils (Bld) [#/Vol] 0.03 x10*3/uL Normal 0.00-0.10 [facility] Comment on above: Performed By: #### 5 7021-8 #### MARIA LUZ JONES ([id number]) [facility] ([facility]) [address] [place] [address] 96360 Basophils/100 WBC (Bld) 0.4 % Normal 0.0-2.0 [facility] Comment on above: Performed By: #### 5 7021-8 #### MARIA LUZ JONES ([id number]) [facility] ([facility]) [address] [place] [address] 80647 Eosinophils (Bld) [#/Vol] 0.06 x10*3/uL Normal 0.00-0.70 [facility] Comment on above: Performed By: #### 5 7021-8 #### MARIA LUZ JONES ([id number]) [facility] ([facility]) [address] [place] [address] 93873 Eosinophils/100 WBC (Bld) 0.8 % Normal 0.0-6.0 [facility] Comment on above: Performed By: #### 5 7021-8 #### MARIA LUZ JONES ([id number]) [facility] ([facility]) [address] [place] [address] 38837 Erythrocyte distribution width (RBC) [Ratio] 12.7 % Normal 11.5-14.5 [facility] Comment on above: Performed By: #### 5 7021-8 #### MARIA LUZ JONES ([id number]) [facility] ([facility]) [address] [place] [address] 70351 Hematocrit (Bld) [Volume fraction] 41.5 % Normal 36.0-46.0 [facility] Comment on above: Performed By: #### 5 7021-8 #### MARIA LUZ JONES ([id number]) [facility] ([facility]) [address] [place] [address] 90082 Hemoglobin (Bld) [Mass/Vol] 13.8 g/dL Normal 12.0-16.0 [facility] Comment on above: Performed By: #### 5 7021-8 #### MARIA LUZ JONES ([id number]) [facility] ([facility]) [address] [place] [address] 31022 Immature granulocytes (Bld) [#/Vol] 0.02 x10*3/uL Normal 0.00-0.70 [facility] Comment on above: Performed By: #### 5 7021-8 #### MARIA LUZ JONES ([id number]) [facility] ([facility]) [address] [place] [address] 37884 Immature granulocytes/100 WBC (Bld) 0.3 % Normal 0.0-0.9 [facility] Comment on above: Result Comment: Mary ture Granulocyte Count (IG) includes promyelocytes, myelocytes and metamyelocytes but does not include bands. Percent differential counts (%) should be interpreted in the context of the absolute cell counts (cells/UL). Performed By: #### 5 7021-8 #### MARIA LUZ JONES ([id number]) [facility] ([facility]) [address] [place], [place] [address] Lymphocytes (Bld) [#/Vol] 1.92 x10*3/uL Normal 1.20-4.80 [facility] Comment on above: Performed By: #### 5 7021-8 #### MARIA LUZ JONES ([id number]) [facility] ([facility]) [address] [place] [address] 99077 Lymphocytes/100 WBC (Bld) 26.3 % Normal 13.0-44.0 [facility] Comment on above: Performed By: #### 5 7021-8 #### MARIA LUZ JONES ([id number]) [facility] ([facility]) [address] [place] [address] 99598 MCH (RBC) [Entitic mass] 29.7 pg Normal 26.0-34.0 [facility] Comment on above: Performed By: #### 5 7021-8 #### MARIA LUZ JONES ([id number]) [facility] ([facility]) [address] [place] [address] 44907 MCHC (RBC) [Mass/Vol] 33.3 g/dL Normal 32.0-36.0 [facility] Comment on above: Performed By: #### 5 7021-8 #### MARIA LUZ JONES ([id number]) [facility] ([facility]) [address] [place] [address] 67066 MCV (RBC) [Entitic vol] 89 fL Normal 80-100 [facility] Comment on above: Performed By: #### 5 7021-8 #### MARIA LUZ JONES ([id number]) [facility] ([facility]) [address] [place] [address] 77729 Monocytes (Bld) [#/Vol] 0.46 x10*3/uL Normal 0.10-1.00 [facility] Comment on above: Performed By: #### 5 7021-8 #### MARIA LUZ JONES ([id number]) [facility] ([facility]) [address] [place] [address] 06238 Monocytes/100 WBC (Bld) 6.3 % Normal 2.0-10.0 [facility] Comment on above: Performed By: #### 5 7021-8 #### MARIA LUZ JONES ([id number]) [facility] ([facility]) [address] [place] [address] 08320 Neutrophils (Bld) [#/Vol] 4.82 x10*3/uL Normal 1.20-7.70 [facility] Comment on above: Result Comment: Perc ent differential counts (%) should be interpreted in the context of the absolute cell counts (cells/uL). Performed By: #### 5 7021-8 #### MARIA LUZ JONES ([id number]) [facility] ([facility]) [address] [place] [address] 31957 Neutrophils/100 WBC (Bld) 65.9 % Normal 40.0-80.0 [facility] Comment on above: Performed By: #### 5 7021-8 #### MARIA LUZ JONES ([id number]) [facility] ([facility]) [address] [place] [address] 32823 Nucleated RBC/100 WBC (Bld) [Ratio] 0.0 /100 WBCs Normal 0.0-0.0 [facility] Comment on above: Performed By: #### 5 7021-8 #### MARIA LUZ JONES ([id number]) [facility] ([facility]) [address] [place] [address] 23401 Platelets (Bld) [#/Vol] 217 x10*3/uL Normal 150-450 [facility] Comment on above: Performed By: #### 5 7021-8 #### MARIA LUZ JONES ([id number]) [facility] ([facility]) [address] [place] [address] 74278 RBC (Bld) [#/Vol] 4.65 x10*6/uL Normal 4.00-5.20 [facility] Comment on above: Performed By: #### 5 7021-8 #### MARIA LUZ JONES ([id number]) [facility] ([facility]) [address] [place] [address] 28244 WBC (Bld) [#/Vol] 7.3 x10*3/uL Normal 4.4-11.3 [facility] Comment on above: Performed By: #### 5 7021-8 #### MARIA LUZ JONES ([id number]) [facility] ([facility]) [address] [place], [place] [address] Cobalaminson 06-05-2023 Cobalamin (Vitamin B12) [Mass/Vol] 433 pg/mL Normal 211-911 [facility] Comment on above: Performed By: #### 2 4323-8 #### MARIA LUZ JONES ([id number]) [facility] ([facility]) [address] [place] [address] Comprehensive metabolic 2000 panelon 06-05-2023 Albumin BCP dye [Mass/Vol] 3.9 g/dL Normal 3.4-5.0 [facility] Comment on above: Performed By: #### 2 4323-8 #### MARIA LUZ JONES ([id number]) [facility] ([facility]) [address] [place] [address] 32240 ALP [Catalytic activity/Vol] 67 U/L Normal 33-110 [facility] Comment on above: Performed By: #### 2 4323-8 #### MARIA LUZ JONES ([id number]) [facility] ([facility]) [address] [place] [address] 37072 ALT With P-5'-P [Catalytic activity/Vol] 13 U/L Normal 7-45 [facility] Comment on above: Result Comment: Celine ents treated with Sulfasalazine may generate falsely decreased results for ALT. Performed By: #### 2 4323-8 #### MARIA LUZ JONES ([id number]) [facility] ([facility]) [address] [place] [address] 60614 Anion gap [Moles/Vol] 11 mmol/L Normal 10-20 [facility] Comment on above: Performed By: #### 2 4323-8 #### MARIA LUZ JONES ([id number]) [facility] ([facility]) [address] [place] [address] 42405 AST With P-5'-P [Catalytic activity/Vol] 9 U/L Normal 9-39 [facility] Comment on above: Performed By: #### 2 4323-8 #### MARIA LUZ JONES ([id number]) [facility] ([facility]) [address] [place] [address] 51623 Bilirubin [Mass/Vol] 0.7 mg/dL Normal 0.0-1.2 [facility] Comment on above: Performed By: #### 2 4323-8 #### MARIA LUZ JONES ([id number]) [facility] ([facility]) [address] [place] [address] 60247 Calcium [Mass/Vol] 9.2 mg/dL Normal 8.6-10.3 [facility] Comment on above: Performed By: #### 2 4323-8 #### MARIA LUZ JONES ([id number]) [facility] ([facility]) [address] [place] [address] 78037 Chloride [Moles/Vol] 109 mmol/L High 98-107 [facility] Comment on above: Performed By: #### 2 4323-8 #### MARIA LUZ JONES ([id number]) [facility] ([facility] [place]) [address] [place] [address] 51982 CO2 [Moles/Vol] 25 mmol/L Normal 21-32 [facility] Comment on above: Performed By: #### 2 4323-8 #### MARIA LUZ JONES ([id number]) [facility] ([facility] [place]) [address] [place] [address] 86904 Creatinine [Mass/Vol] 0.73 mg/dL Normal 0.50-1.05 [facility] Comment on above: Performed By: #### 2 4323-8 #### MARIA LUZ JONES ([id number]) [facility] ([facility] [place]) [address] [place] [address] 05002 GFR/1.73 sq M.predicted MDRD (S/P/Bld) [Vol rate/Area] mL/min/{1.73_m2} Normal >60 [facility] Comment on above: Result Comment: Calc ulations of estimated GFR are performed using the 2020 CKD-EPI Study Refit equation without the race variable for the IDMS-Traceable creatinine methods. https://jasn.asnjournals.org/content/early//ASN.2020 666881 Performed By: #### 2 4323-8 #### MARIA LUZ JONES ([id number]) [facility] ([facility] [place]) [address] [place] [address] 40079 Glucose [Mass/Vol] 106 mg/dL High 74-99 [facility] Comment on above: Performed By: #### 2 4323-8 #### MARIA LUZ JONES ([id number]) [facility] ([facility] [place]) 43 [place] [address] 15091 Potassium [Moles/Vol] 4.2 mmol/L Normal 3.5-5.3 [facility] Comment on above: Performed By: #### 2 4323-8 #### MARIA LUZ JONES ([id number]) [facility] ([facility]) [address] [place] [address] 35131 Protein [Mass/Vol] 6.1 g/dL Low 6.4-8.2 [facility] Comment on above: Performed By: #### 2 4323-8 #### MARIA LUZ JONES ([id number]) [facility] ([facility]) [address] [place] [address] 96269 Sodium [Moles/Vol] 141 mmol/L Normal 136-145 [facility] Comment on above: Performed By: #### 2 4323-8 #### MARIA LUZ JONES ([id number]) [facility] ([facility]) [address] [place] [address] 23586 Urea nitrogen [Mass/Vol] 13 mg/dL Normal 6-23 [facility] Comment on above: Performed By: #### 2 4323-8 #### MARIA LUZ JONES ([id number]) [facility] ([facility]) [address] [place] [address] 17962 Ferritinon 06-05-2023 Ferritin [Mass/Vol] 196 ng/mL High 8-150 [facility] Comment on above: Performed By: #### 2 276-4 #### MARIA LUZ JONES ([id number]) [facility] ([facility]) [address] [place] [address] 14993 Iron and Iron binding capaci ty panelon 06-05-2023 Iron [Mass/Vol] 67 ug/dL Normal 35-150 [facility] Comment on above: Performed By: #### 5 0190-8 #### MARIA LUZ JONES ([id number]) [facility] ([facility]) [address] [place] [address] 24912 Iron binding capacity [Mass/Vol] 351 ug/dL Normal 240-445 [facility] Comment on above: Performed By: #### 5 0190-8 #### MARIA LUZ JONES ([id number]) [facility] ([facility]) [address] [place] [address] 34508 Iron binding capacity.unsaturated [Mass/Vol] 284 ug/dL Normal 110-370 [facility] Comment on above: Performed By: #### 5 0190-8 #### MARIA LUZ JONES ([id number]) [facility] ([facility]) [address] [place] [address] 09047 Iron saturation [Mass fraction] 19 % Low 25-45 [facility] Comment on above: Performed By: #### 5 0190-8 #### MARIA LUZ JONES ([id number]) [facility] ([facility]) [address] [place] [address] 30769 Reticulocytes panel (Bld)on 06-05-2023 Hemoglobin (Reticulocytes) [Entitic mass] 33 pg 28 - 38 pg [facility] Immature Retic fraction 6.0 % NINF - 16.0 % [facility] Comment on above: Reticulocytes are me asured based on a fluorescent technique. The IRF, or immature reticulocyte fraction, is the percent of reticulocytes that show medium (MFR) or high (HFR) fluorescence. This value can be used to assess the relative maturity of the reticulocyte population in response to anemia. The shift reticulocytes are not measured by this technique, eliminating the need for their correction in the reticulocyte index. Interpretation and review of laboratory results Normal [facility] Reticulocytes (Bld) [#/Vol] 0.048 10*3/uL [facility] Reticulocytes/100 RBC (Bld) 1.0 % 0.5 - 2.0 % [facility] Hemoglobin (Reticulocytes) [Entitic mass] 33 pg Normal 28-38 [facility] Comment on above: Performed By: #### 5 0262-5 #### MARIA LUZ JONES ([id number]) [facility] ([facility]) [address] [place] [address] 17076 IMMATURE RETIC FRACTION 6.0 % Normal <=16.0 [facility] Comment on above: Result Comment: Reti culocytes are measured based on a fluorescent technique. The IRF, or immature reticulocyte fraction, is the percent of reticulocytes that show medium (MFR) or high (HFR) fluorescence. This value can be used to assess the relative maturity of the reticulocyte population in response to anemia. The shift reticulocytes are not measured by this technique, eliminating the need for their correction in the reticulocyte index. Performed By: #### 5 0262-5 #### MARIA LUZ JONES ([id number]) [facility] ([facility]) [address] [place] [address] 57547 Reticulocytes (Bld) [#/Vol] 0.048 x10*6/uL Normal 0.018-0.083 [facility] Comment on above: Performed By: #### 5 0262-5 #### MARIA LUZ JONES ([id number]) [facility] ([facility]) [address] [place] [address] 03122 Reticulocytes/100 RBC (Bld) 1.0 % Normal 0.5-2.0 [facility] Comment on above: Performed By: #### 5 0262-5 #### MARIA LUZ JOENS ([id number]) [facility] ([facility]) [address] [place] [address] 36407 CBC W Auto Differential pane l (Bld)on 03-11-2023 Basophils (Bld) [#/Vol] 0.05 x10*3/uL Normal 0.00-0.10 [facility] Comment on above: Performed By: #### 5 7021-8 #### MARIA LUZ JONES ([id number]) [facility] ([facility]) [address] [place] [address] 02829 Basophils/100 WBC (Bld) 0.5 % Normal 0.0-2.0 [facility] Comment on above: Performed By: #### 5 7021-8 #### MARIA LUZ JONES ([id number]) [facility] ([facility]) [address] [place] [address] 55221 Eosinophils (Bld) [#/Vol] 0.07 x10*3/uL Normal 0.00-0.70 [facility] Comment on above: Performed By: #### 5 7021-8 #### MARIA LUZ JONES ([id number]) [facility] ([facility]) [address] [place] [address] 15678 Eosinophils/100 WBC (Bld) 0.7 % Normal 0.0-6.0 [facility] Comment on above: Performed By: #### 5 7021-8 #### MARIA LUZ JONES ([id number]) [facility] ([facility]) [address] [place] [address] 73902 Erythrocyte distribution width (RBC) [Ratio] 13.3 % Normal 11.5-14.5 [facility] Comment on above: Performed By: #### 5 7021-8 #### MARIA LUZ JONES ([id number]) [facility] ([facility]) [address] [place] [address] 64606 Hematocrit (Bld) [Volume fraction] 44.7 % Normal 36.0-46.0 [facility] Comment on above: Performed By: #### 5 7021-8 #### MARIA LUZ JONES ([id number]) [facility] ([facility]) [address] [place] [address] 61917 Hemoglobin (Bld) [Mass/Vol] 14.4 g/dL Normal 12.0-16.0 [facility] Comment on above: Performed By: #### 5 7021-8 #### MARIA LUZ JONES ([id number]) [facility] ([facility]) [address] [place] [address] 94547 Immature granulocytes (Bld) [#/Vol] 0.04 x10*3/uL Normal 0.00-0.70 [facility] Comment on above: Performed By: #### 5 7021-8 #### MARIA LUZ JONES ([id number]) [facility] ([facility]) [address] [place] [address] 21598 Immature granulocytes/100 WBC (Bld) 0.4 % Normal 0.0-0.9 [facility] Comment on above: Result Comment: Mary ture Granulocyte Count (IG) includes promyelocytes, myelocytes and metamyelocytes but does not include bands. Percent differential counts (%) should be interpreted in the context of the absolute cell counts (cells/UL). Performed By: #### 5 7021-8 #### MARIA LUZ JONES ([id number]) [facility] ([facility]) [address] [place] [address] 31947 Lymphocytes (Bld) [#/Vol] 1.86 x10*3/uL Normal 1.20-4.80 [facility] Comment on above: Performed By: #### 5 7021-8 #### MARIA LUZ JONES ([id number]) [facility] ([facility]) [address] [place] [address] 01830 Lymphocytes/100 WBC (Bld) 19.3 % Normal 13.0-44.0 [facility] Comment on above: Performed By: #### 5 7021-8 #### MARIA LUZ JONES ([id number]) [facility] ([facility]) [address] [place] [address] 53565 MCH (RBC) [Entitic mass] 27.8 pg Normal 26.0-34.0 [facility] Comment on above: Performed By: #### 5 7021-8 #### MARIA LUZ JONES ([id number]) [facility] ([facility]) [address] [place] [address] 78862 MCHC (RBC) [Mass/Vol] 32.2 g/dL Normal 32.0-36.0 [facility] Comment on above: Performed By: #### 5 7021-8 #### MARIA LUZ JONES ([id number]) [facility] ([facility]) [address] [place] [address] 08459 MCV (RBC) [Entitic vol] 86 fL Normal 80-100 [facility] Comment on above: Performed By: #### 5 7021-8 #### MARIA LUZ JONES ([id number]) [facility] ([facility]) [address] [place] [address] 21825 Monocytes (Bld) [#/Vol] 0.46 x10*3/uL Normal 0.10-1.00 [facility] Comment on above: Performed By: #### 5 7021-8 #### MARIA LUZ JONES ([id number]) [facility] ([facility]) [address] [place] [address] 93001 Monocytes/100 WBC (Bld) 4.8 % Normal 2.0-10.0 [facility] Comment on above: Performed By: #### 5 7021-8 #### MARIA LUZ JONES ([id number]) [facility] ([facility]) [address] [place] [address] 31146 Neutrophils (Bld) [#/Vol] 7.15 x10*3/uL Normal 1.20-7.70 [facility] Comment on above: Result Comment: Perc ent differential counts (%) should be interpreted in the context of the absolute cell counts (cells/uL). Performed By: #### 5 7021-8 #### MARIA LUZ JONES ([id number]) [facility] ([facility]) [address] [place] [address] 10762 Neutrophils/100 WBC (Bld) 74.3 % Normal 40.0-80.0 [facility] Comment on above: Performed By: #### 5 7021-8 #### MARIA LUZ JONES ([id number]) [facility] ([facility]) [address] [place] [address] 65521 Nucleated RBC/100 WBC (Bld) [Ratio] 0.0 /100 WBCs Normal 0.0-0.0 [facility] Comment on above: Performed By: #### 5 7021-8 #### MARIA LUZ JONES ([id number]) [facility] ([facility]) [address] [place] [address] 24580 Platelets (Bld) [#/Vol] 242 x10*3/uL Normal 150-450 [facility] Comment on above: Performed By: #### 5 7021-8 #### MARIA LUZ JONES ([id number]) [facility] ([facility]) [address] [place] [address] 01030 RBC (Bld) [#/Vol] 5.18 x10*6/uL Normal 4.00-5.20 [facility] Comment on above: Performed By: #### 5 7021-8 #### MARIA LUZ JONES ([id number]) [facility] ([facility]) [address] [place] [address] 08197 WBC (Bld) [#/Vol] 9.6 x10*3/uL Normal 4.4-11.3 [facility] Comment on above: Performed By: #### 5 7021-8 #### MARIA LUZ JONES ([id number]) [facility] ([facility]) [address] [place] [address] 56417 Cobalaminson 03-11-2023 Cobalamin (Vitamin B12) [Mass/Vol] 462 pg/mL Normal 211-911 [facility] Comment on above: Performed By: #### 2 132-9 #### MARIA LUZ JONES ([id number]) [facility] ([facility]) [address] [place] [address] 27881 Comprehensive metabolic 2000 panelon 03-11-2023 Albumin BCP dye [Mass/Vol] 4.0 g/dL Normal 3.4-5.0 [facility] Comment on above: Performed By: #### 2 4323-8 #### MARIA LUZ JONES ([id number]) [facility] ([facility]) [address] [place] [address] 52294 ALP [Catalytic activity/Vol] 74 U/L Normal 33-110 [facility] Comment on above: Performed By: #### 2 4323-8 #### MARIA LUZ JONES ([id number]) [facility] ([facility]) [address] [place] [address] 51724 ALT With P-5'-P [Catalytic activity/Vol] 9 U/L Normal 7-45 [facility] Comment on above: Result Comment: Celine ents treated with Sulfasalazine may generate falsely decreased results for ALT. Performed By: #### 2 432-8 #### MARIA LUZ JONES ([id number]) [facility] ([facility]) [address] [place] [address] 16380 Anion gap [Moles/Vol] 11 mmol/L Normal 10-20 [facility] Comment on above: Performed By: #### 2 432-8 #### MARIA LUZ JONES ([id number]) [facility] ([facility]) [address] [place] [address] 23081 AST With P-5'-P [Catalytic activity/Vol] 9 U/L Normal 9-39 [facility] Comment on above: Performed By: #### 2 4323-8 #### MARIA LUZ JONES ([id number]) [facility] ([facility]) [address] [place] [address] 07568 Bilirubin [Mass/Vol] 0.5 mg/dL Normal 0.0-1.2 [facility] Comment on above: Performed By: #### 2 4323-8 #### MARIA LUZ JONES ([id number]) [facility] ([facility]) [address] [place] [address] 90771 Calcium [Mass/Vol] 9.2 mg/dL Normal 8.6-10.3 [facility] Comment on above: Performed By: #### 2 3-8 #### MARIA LUZ JONES ([id number]) [facility] ([facility]) [address] [place] [address] Chloride [Moles/Vol] 107 mmol/L Normal 98-107 [facility] Comment on above: Performed By: #### 2 4323-8 #### MARIA LUZ JONES ([id number]) [facility] ([facility]) [address] [place] [address] CO2 [Moles/Vol] 25 mmol/L Normal 21-32 [facility] Comment on above: Performed By: #### 2 4323-8 #### MARIA LUZ JONES ([id number]) [facility] ([facility]) [address] [place] [address] 99749 Creatinine [Mass/Vol] 0.78 mg/dL Normal 0.50-1.05 [facility] Comment on above: Performed By: #### 2 4323-8 #### MARIA LUZ JONES ([id number]) [facility] ([facility]) [address] [place] [address] 44670 GFR/1.73 sq M.predicted MDRD (S/P/Bld) [Vol rate/Area] mL/min/{1.73_m2} Normal >60 [facility] Comment on above: Result Comment: Calc ulations of estimated GFR are performed using the 2020 CKD-EPI Study Refit equation without the race variable for the IDMS-Traceable creatinine methods. https://jasn.asnjournals.org/content//ASN.2020 772639 Performed By: #### 2 4323-8 #### MARIA LUZ JONES ([id number]) [facility] ([facility]) [facility] [place] [address] Glucose [Mass/Vol] 78 mg/dL Normal 74-99 [facility] Comment on above: Performed By: #### 2 4323-8 #### MARIA LUZ JONES ([id number]) [facility] ([facility]) [facility] [place] [address] Potassium [Moles/Vol] 4.4 mmol/L Normal 3.5-5.3 [facility] Comment on above: Performed By: #### 2 4323-8 #### MARIA LUZ JONES ([id number]) [facility] ([facility]) [address] [place] [address] 19441 Protein [Mass/Vol] 6.2 g/dL Low 6.4-8.2 [facility] Comment on above: Performed By: #### 2 4323-8 #### MARIA LUZ JONES ([id number]) [facility] ([facility]) [address] [place] [address] 47365 Sodium [Moles/Vol] 139 mmol/L Normal 136-145 [facility] Comment on above: Performed By: #### 2 4323-8 #### MARIA LUZ JONES ([id number]) [facility] ([facility]) [address] [place] [address] 46748 Urea nitrogen [Mass/Vol] 14 mg/dL Normal 6-23 [facility] Comment on above: Performed By: #### 2 4323-8 #### MARIA LUZ JONES ([id number]) [facility] ([facility]) [address] [place] [address] 94203 Ferritinon 03-11-2023 Ferritin [Mass/Vol] 34 ng/mL Normal 8-150 [facility] Comment on above: Performed By: #### 2 276-4 #### MARIA LUZ JONES (51800) [facility] ([facility]) [address] [place] [address] 73220 Iron and Iron binding capaci ty panelon 03-11-2023 Iron [Mass/Vol] 50 ug/dL Normal 35-150 [facility] Comment on above: Performed By: #### 5 0190-8 #### MARIA LUZ JONES ([id number]) [facility] ([facility]) [address] [place] [address] 78080 Iron binding capacity [Mass/Vol] 417 ug/dL Normal 240-445 [facility] Comment on above: Performed By: #### 5 0190-8 #### MARIA LUZ JONES ([id number]) [facility] ([facility]) [address] [place] [address] 71716 Iron binding capacity.unsaturated [Mass/Vol] 367 ug/dL Normal 110-370 [facility] Comment on above: Performed By: #### 5 0190-8 #### MARIA LUZ JONES ([id number]) [facility] ([facility]) [address] [place] [address] Iron saturation [Mass fraction] 12 % Low 25-45 [facility] Comment on above: Performed By: #### 5 0190-8 #### MARIA LUZ JONES ([id number]) [facility] ([facility]) [address] [place] [address] C. trachomatis and N. gonorr hoeae DNA KATHY+probe Nom (Unsp spec)on 02-16-2023 C. trachomatis rRNA KATHY+probe Ql (Unsp spec) Negative Normal Negative [facility] Comment on above: Order Comment: The A PTIMA Combo 2 assay is FDA-approved NAAT using target capture for the in vitro qualitative detection and differentiation of ribosomal RNA (rRNA) for Chlamydia trachomatis and Neisseria gonorrhoeae testing on clinician-collected endocervical, PreservCyt solution liquid Pap specimens, vaginal, throat, rectal, and male urethral swab specimens; patient-collected vaginal swab specimens, and female and male urine specimens from symptomatic and asymptomatic individuals. Samples from all other sites are not validated for this method. Performed By: #### 3 6903-3 #### LIZETH Alexandra ([id number]) [facility] ([facility]) [address] [place] [address] N. gonorrhoeae DNA Probe+sig amp Ql (Unsp spec) Negative Normal Negative [facility] Comment on above: Order Comment: The A PTIMA Combo 2 assay is FDA-approved NAAT using target capture for the in vitro qualitative detection and differentiation of ribosomal RNA (rRNA) for Chlamydia trachomatis and Neisseria gonorrhoeae testing on clinician-collected endocervical, PreservCyt solution liquid Pap specimens, vaginal, throat, rectal, and male urethral swab specimens; patient-collected vaginal swab specimens, and female and male urine specimens from symptomatic and asymptomatic individuals. Samples from all other sites are not validated for this method. Performed By: #### 3 6903-3 #### LIZETH Alexandra ([id number]) [facility] ([facility]) [address] [place] [address] GC + CHLAMYDIA BY AMPLIFIED DETECTIONon 11-25-2022 CHLAMYDIA TRACH.,AMPLIFIED Negative Normal Negative [facility] Comment on above: Result Comment: The APTIMA Combo 2 assay is FDA-approved for Chlamydia trachomatis and Neisseria gonorrhoeae testing on female endocervical and vaginal swabs, ThinPrep liquid pap samples, male urine samples and urethral swabs. Performance characteristics for Chlamydia trachomatis and Neisseria gonorrhoeae testing on specific flf-GDC-jahghbpg sample types (female urine samples) have been validated by [facility]. This laboratory is certified by CLIA to perform high complexity testing. Samples from all other sites are not validated for this method. Performed By: #### G [facility] #### [facility] [id number] [place], [place] [address] [address] N.GONORRHEA,AMPLIFIED Negative Normal Negative [facility] Comment on above: Result Comment: The APTIMA Combo 2 assay is FDA-approved for Chlamydia trachomatis and Neisseria gonorrhoeae testing on female endocervical and vaginal swabs, ThinPrep liquid pap samples, male urine samples and urethral swabs. Performance characteristics for Chlamydia trachomatis and Neisseria gonorrhoeae testing on specific xqq-NTT-jrrprshs sample types (female urine samples) have been validated by [facility]. This laboratory is certified by CLIA to perform high complexity testing. Samples from all other sites are not validated for this method. Performed By: #### [facility] #### [facility] [address] [place] [address] TRICHOMONAS,NUCLEIC ACID DET ECTIONon 11-25-2022 TRICHOMONAS VAGINALIS Negative Normal Negative [facility] Comment on above: Result Comment: The APTIMA Trichomonas vaginalis assay is FDA-approved for testing on female endocervical swabs, vaginal swabs, and ThinPrep liquid pap samples. Performance characteristics for Trichomonas vaginalis on specific zdd-LTW-ahdkqsbq sample types (female and male urine and male urethral swabs) have been validated by [facility]. This laboratory is certified by CLIA to perform high complexity testing. Samples from all other sites are not validated for this method. Performance characteristics for Trichomonas Vaginalis testing on urine samples has been validated by [facility]. Testing on this sample type is not FDA-approved, but such approval is not necessary. This laboratory is certified by CLIA to perform high complexity testing. Performed By: #### T MONIKA #### [facility] [address] [place] [address] GC + CHLAMYDIA BY AMPLIFIED DETECTIONon 11-24-2022 Lab Specimen Source Urine Normal [facility] Comment on above: Performed By: #### G CCHA #### [facility] [address] [place] [address] Performed By: #### T MONIKA #### [facility] [address] [place] [id number] Clinic Note - Heme Onc-Follo w Up Visiton 07-07-2022 Clinic Note - Heme Onc-Follow Up Visit Patient Visit Information: Visit Type: Follow Up Visit History of Present Illness: ID Statement: NIKOLE MOREAU is a 22 year old Female Interval History: Initial consult: 04/23/22 Reason: Splenomegaly Referred by: Kavita Betancourt PA-C Patient is a 21 yo female with a PMH of Asthma and Migraines and was referred to benign hematology for consultation of splenomegaly. Patient was recently in the ER with vomiting and 102 F fever for approximately two day. She reported to the ER concerned about dehydration as she is currently nursing her [address] abdomen/chest results reported mildly enlarged spleen. Today, patient presents with her mother for initial consultation. Energy level is decent, fatigued at times, but believes it is from caring for an 8 month old and her work schedule. Her appetite is good, she reports frequent episodes of nausea. Patient denies any early satiety, abdominal fullness or distention. Denies any abnormal weight loss, abdominal pain or cramping. No diarrhea, constipation. Recent UTI, treated with antibiotics, otherwise no urinary issues. No hematochezia, melena or hematuria. Denies any recent exposure to illness, no fever, chills, or drenching night sweats. No abnormal bleeding or bruising. Amenorrhea since of child. Denies SOB, chest pain or pressure. Chronic knee/back pain. No PICA. Denies any abnormal bleeding, bruises easy. No recurrent infections or lymphadenopathy. No known blood disorders in family. Has had surgery in past w/o issue. Never had blood/blood products. Denies NSAID use. Up-to-date on age appropriate cancer screenings Interval History 07/07/22 Energy is remains low remains to working 40 hours weekly, all different shifts No bleeding or bruising issues No fevers or recurrent infections Appetite is decent eating and drinking well Denies any nausea or vomiting Diarrhea- after starting iron, decreased iron and has improved No constipation No urinary issues, dysuria No hematuria, hematochezia or melena No early satiety of abdominal fullness No PICA PAST MEDICAL HISTORY: Asthma, Migraines SOCIAL HISTORY: Smoking- vapes with nicotine Alcohol Use- no Illicit Drug Use One child- 8 month old daughter Boyfriend Lives with Boyfriend works in the Kitchen at the [employer] FAMILY HISTORY: Maternal Grandpa- Prostate Paternal- Bone Cancer Sister- Lupus No other specific history of bleeding, clotting or malignant disorder in the family. REVIEW OF SYSTEMS: Pertinent finding as per the history above. There are no additional specific symptoms pertaining to eyes, ENT, hematologic, lymphatic, neurological, psychiatric, cardiac, pulmonary, GI, , endocrine, rheumatic, dermatological, or musculoskeletal systems. All other systems have been reviewed and generally negative and noncontributory. PHYSICAL EXAMINATION: GENERAL: Age-appropriate, in no acute discomfort. VITAL SIGNS: Reviewed and stable. weight stable HEENT: Normocephalic and atraumatic. Clear Sclera. Mucous membranes are moist. No oral lesions. NECK: Supple without lymphadenopathy. No thyromegaly or bruits. CHEST: CABT. No wheezes HEART: Regular in rate and rhythm. No murmur. ABDOMEN: Soft, tender in LUQ, nondistended. No hepatosplenomegaly. EXTREMITIES: No cyanosis, clubbing, or edema. NEUROLOGICAL: Alert, awake, and oriented. No gross focal deficit. LYMPHATICS: No significant lymphadenopathy. LAB DATA: Latest labs were reviewed in the EMR and from the outside sources. Allergies and Intolerances: Allergies: sumatriptan: Drug, Unknown, Active Outpatient Medication Profile: * Patient Currently Takes Medications as of 07-May-2022 11:28 documented in Structured Notes ferrous sulfate 325 mg (65 mg elemental iron) oral tablet: 1 tab(s) orally once a day , Start Date: 07-May-2022 Family History: No Family History items are recorded in the problem list. Social History: Social Substance History: Smoking Statusnever smoker (1) Lab Results: Results CBC date/time WBC HGB HCT PLT Neut 05-Jul-2022 11:02 5.6 12.9 40.6 197 3.33 BMP date/time NA K CL CO2 BUN CREAT 05-Jul-2022 11:02 139 4.1 108(H) N/A 12 0.56 Hepatic date/time T Pro T Bili AST ALT ALKP ALB 14-Apr-2022 18:51 6.7 1.4(H) N/A 8 126(H) 4.1 I have reviewed these laboratory results: Comprehensive Metabolic Panel 05-Jul-2022 11:02:00 ResultValue Glucose, Serum 85 NA 139 K 4.1 CL 108 H Bicarbonate, Serum 26 Anion Gap, Serum 9 L BUN 12 CREAT 0.56 GFR Female >90 Calcium, Serum 9.0 ALB 3.9 ALKP 109 T Pro 6.2 L T Bili 1.1 Alanine Aminotransferase, Serum 8 Aspartate Transaminase, Serum 10 Complete Blood Count + Differential 05-Jul-2022 11:02:00 ResultValue White Blood Cell Count 5.6 Red Blood Cell Count 4.97 HGB 12.9 HCT 40.6 MCV 82 MCHC 31.8 L PLT 197 (more content not included)... Normal [facility] Clinic Note - Intakeon 07-07 Clinic Note - Intake Patient Visit Information: Visit TypeFollow Up Visit, splenomegaly Source of Informationpatient Admission Information: Admission Since Last VisitNo Vital Signs: Temp (degrees C)36 degrees C Temperatureskin Heart Rate (beats/min)102 beats per minute Respiration (breaths/min)16 breath per minute BP Systolic (mm Hg)Image has been removed. 145 mmHg BP Diastolic (mm Hg)Image has been removed. 96 mmHg BP Mean (mm Hg)Image has been removed. 112 mmHg Height in cm182.5 centimeter(s) Weight in kg112.9 kilogram(s) Weightstanding BMI (kg/m2)33.8 kg/M2 BSA (m2)2.39 M2 SpO2 (%)96 % SpO2 Patient Onroom air Pain Screening: Patient States Painno (0) Allergies: sumatriptan: Drug, Unknown, Active Outpatient Medication Profile: * Patient Currently Takes Medications as of 07-May-2022 11:28 documented in Structured Notes ferrous sulfate 325 mg (65 mg elemental iron) oral tablet: 1 tab(s) orally once a day , Start Date: 07-May-2022 Notification: NotificationsAnnual Screens Due Dates Advanced Directives: Apr 23, 2023 Family Violence: Apr 23, 2023 Depression (Due every 6 months for ONC only; all others use Annual date): Oct 20, 2022 Substance Use - Alcohol: Apr 23, 2023 Substance Use - Drugs: Apr 23, 2023 Nutrition: Due Now Learning: Due Now Travel History: COVID-19 Screening Completedno exposure or symptoms Travel or ExposureNO travel to International locations in the past 30 days Falls: Have you fallen in the last 6 monthsno Do you have a fear of fallingno Do you feel you need assistanceno Is the patient using an assistive deviceno Not a falls riskimplement environmental risk factors interventions Electronic Signatures: aMry Kaur) (Signed 07-Jul-2022 11:00) Authored: Patient Visit Information, Vital Signs, Allergies, Outpatient Medication Profile, Notification, Travel History, Falls Last Updated: 07-Jul-2022 11:00 by Mary Kaur (CASSIE) Normal [facility] CBC AND DIFFERENTIALon 07-05 % AUTOMATED IMMATURE GRAN 0.2 % Normal 0.0 - 0.9 [facility] Comment on above: Result Comment: Mary ture Granulocyte Count (IG) includes promyelocytes, myelocytes and metamyelocytes but does not include bands. Percent differential counts (%) should be interpreted in the context of the absolute cell counts (cells/L). Performed By: #### C BCDF #### [address] [address] Basophils (Bld) [#/Vol] 0.03 10*3/uL Normal 0.00 - 0.1 0 [facility] Comment on above: Performed By: #### C BCDF #### [address] [address] Basophils/100 WBC (Bld) 0.5 % Normal 0.0 - 2.0 [facility] Comment on above: Performed By: #### C BCDF #### [address] [address] Eosinophils (Bld) [#/Vol] 0.06 10*3/uL Normal 0.00 - 0.70 [facility] Comment on above: Performed By: #### C BCDF #### [address] [address] Eosinophils/100 WBC (Bld) 1.1 % Normal 0.0 - 6.0 [facility] Comment on above: Performed By: #### C BCDF #### [address] [address] Erythrocyte distribution width (RBC) [Ratio] 14.9 % High 11.5 - 14.5 [facility] Comment on above: Performed By: #### C BCDF #### [address] [address] Hematocrit (Bld) [Volume fraction] 40.6 % Normal 36.0 - 46.0 [facility] Comment on above: Performed By: #### C BCDF #### [address] [address] Hemoglobin (Bld) [Mass/Vol] 12.9 g/dL Normal 12.0 - 16.0 [facility] Comment on above: Performed By: #### C BCDF #### [address] [address] Lymphocytes (Bld) [#/Vol] 1.74 10*3/uL Normal 1.20 - 4.80 [facility] Comment on above: Performed By: #### C BCDF #### [address] [address] Lymphocytes/100 WBC (Bld) 31.1 % Normal 13.0 - 44.0 [facility] Comment on above: Performed By: #### C BCDF #### [address] [address] MCHC (RBC) [Mass/Vol] 31.8 g/dL Low 32.0 - 36.0 [facility] Comment on above: Performed By: #### C BCDF #### [address] [address] MCV (RBC) [Entitic vol] 82 fL Normal 80 - 100 [facility] Comment on above: Performed By: #### C BCDF #### [address] [address] Monocytes (Bld) [#/Vol] 0.42 10*3/uL Normal 0.10 - 1.0 0 [facility] Comment on above: Performed By: #### C BCDF #### [address] [address] Monocytes/100 WBC (Bld) 7.5 % Normal 2.0 - 10.0 [facility] Comment on above: Performed By: #### C BCDF #### [address] [address] Neutrophils (Bld) [#/Vol] 3.33 10*3/uL Normal 1.20 - 7.70 [facility] Comment on above: Result Comment: Perc ent differential counts (%) should be interpreted in the context of the absolute cell counts (cells/L). Performed By: #### C BCDF #### [address] [address] Neutrophils/100 WBC (Bld) 59.6 % Normal 40.0 - 80.0 [facility] Comment on above: Performed By: #### C BCDF #### [address] [address] Platelets (Bld) [#/Vol] 197 10*3/uL Normal 150 - 450 [facility] Comment on above: Performed By: #### C BCDF #### [address] [address] RBC 4.97 x10E12/L Normal 4.00 - 5.20 [facility] Comment on above: Performed By: #### C BCDF #### [address] [address] WBC (Bld) [#/Vol] 5.6 10*3/uL Normal 4.4 - 11.3 [facility] Comment on above: Performed By: #### C BCDF #### [address] [address] COMPREHENSIVE PANELon 2022 Albumin [Mass/Vol] 3.9 g/dL Normal 3.4 - 5.0 [facility] Comment on above: Performed By: #### C MP #### [address] [address] ALP [Catalytic activity/Vol] 109 U/L Normal 33 - 110 [facility] Comment on above: Performed By: #### C MP #### [address] [address] ALT [Catalytic activity/Vol] 8 U/L Normal 7 - 45 [facility] Comment on above: Result Comment: Celine ents treated with Sulfasalazine may generate falsely decreased results for ALT. Performed By: #### C MP #### [address] [address] Anion gap [Moles/Vol] 9 mmol/L Low 10 - 20 [facility] Comment on above: Performed By: #### C MP #### [address] [address] AST [Catalytic activity/Vol] 10 U/L Normal 9 - 39 [facility] Comment on above: Performed By: #### C MP #### [address] [address] Bilirubin [Mass/Vol] 1.1 mg/dL Normal 0.0 - 1.2 [facility] Comment on above: Performed By: #### C MP #### [address] [address] Calcium [Mass/Vol] 9.0 mg/dL Normal 8.6 - 10.3 [facility] Comment on above: Performed By: #### C MP #### [address] [address] Chloride [Moles/Vol] 108 mmol/L High 98 - 107 [facility] Comment on above: Performed By: #### C MP #### [address] [address] Creatinine [Mass/Vol] 0.56 mg/dL Normal 0.50 - 1.05 [facility] Comment on above: Performed By: #### C MP #### [address] [address] eGFR FEMALE >90 Normal >90 [facility] Comment on above: Result Comment: CALC ULATIONS OF ESTIMATED GFR ARE PERFORMED USING THE 2020 CKD-EPI STUDY REFIT EQUATION WITHOUT THE RACE VARIABLE FOR THE IDMS-TRACEABLE CREATININE METHODS. https://jasn.asnjournals.org/content/early//ASN.2020 335900 Performed By: #### C MP #### [address] [address] Glucose [Mass/Vol] 85 mg/dL Normal 74 - 99 [facility] Comment on above: Performed By: #### C MP #### [address] [address] HCO3 (Bld) [Moles/Vol] 26 mmol/L Normal 21 - 32 [facility] Comment on above: Performed By: #### C MP #### [address] [address] Potassium [Moles/Vol] 4.1 mmol/L Normal 3.5 - 5.3 [facility] Comment on above: Performed By: #### C MP #### [address] [address] Protein [Mass/Vol] 6.2 g/dL Low 6.4 - 8.2 [facility] Comment on above: Performed By: #### C MP #### [address] [address] Sodium [Moles/Vol] 139 mmol/L Normal 136 - 145 [facility] Comment on above: Performed By: #### C MP #### [address] [address] Urea nitrogen [Mass/Vol] 12 mg/dL Normal 6 - 23 [facility] Comment on above: Performed By: #### C MP #### [address] [address] FERRITINon 07-05-2022 FERRITIN 22 ug/L Normal 8 - 150 [facility] Comment on above: Performed By: #### F ERRI #### [address] [address] IRON + TIBCon 07-05-2022 % SATURATION 21 % Low 25 - 45 [facility] Comment on above: Performed By: #### I RONT #### [address] [address] Iron [Mass/Vol] 76 ug/dL Normal 35 - 150 [facility] Comment on above: Performed By: #### I RONT #### [address] [address] TIBC 354 ug/dL Normal 240 - 445 [facility] Comment on above: Performed By: #### I RONT #### [address] [address] VITAMIN B12on 07-05-2022 Cobalamin (Vitamin B12) [Mass/Vol] 364 pg/mL Normal 211 - 911 [facility] Comment on above: Performed By: #### V TB12 #### [address] [address] Clinic Note - Intakeon 05-07 Clinic Note - Intake Patient Visit Information: Visit TypeFollow Up Visit, splenomegaly Source of Informationpatient Accompanied byfamily Admission Information: Admission Since Last VisitNo Vital Signs: Temp (degrees C)36.5 degrees C Temperatureskin Heart Rate (beats/min)94 beats per minute Respiration (breaths/min)16 breath per minute BP Systolic (mm Hg)122 mmHg BP Diastolic (mm Hg)77 mmHg BP Mean (mm Hg)92 mmHg Height in cm182.5 centimeter(s) Weight in kg112.5 kilogram(s) Weightstanding BMI (kg/m2)33.7 kg/M2 BSA (m2)2.38 M2 SpO2 (%)96 % SpO2 Patient Onroom air Pain Screening: Patient States Painno (0) Allergies: sumatriptan: Drug, Unknown, Active Outpatient Medication Profile: * No Current Medications as of 07-May-2022 10:55 documented in Structured Notes Notification: NotificationsAnnual Screens Due Dates Advanced Directives: Apr 23, 2023 Family Violence: Apr 23, 2023 Depression (Due every 6 months for ONC only; all others use Annual date): Oct 20, 2022 Substance Use - Alcohol: Apr 23, 2023 Substance Use - Drugs: Apr 23, 2023 Nutrition: Due Now Learning: Due Now Travel History: COVID-19 Screening Completedno exposure or symptoms Travel or ExposureNO travel to International locations in the past 30 days Falls: Have you fallen in the last 6 monthsno Do you have a fear of fallingno Do you feel you need assistanceno Is the patient using an assistive deviceno Not a falls riskimplement environmental risk factors interventions Electronic Signatures: Arelis Dao (SILVANO KATZ) (Signed 07-May-2022 10:55) Authored: Patient Visit Information, Vital Signs, Allergies, Notification, Travel History, Falls Last Updated: 07-May-2022 10:55 by Arelis Dao (SILVANO KATZ) [facility] Note - Heme Onc-Follo w Up Visiton 05-06-2022 Clinic Note - Heme Onc-Follow Up Visit Patient Visit Information: Visit Type: Follow Up Visit History of Present Illness: ID Statement: NIKOLE MOREAU is a 21 year old Female Interval History: Initial consult: 04/23/22 Reason: Splenomegaly Referred by: Kavita Betancourt PA-C Patient is a21 yo female with a PMH of Asthma and Migraines and was referred to benign hematology for consultation of splenomegaly. Patient was recently in the ER with vomiting and 102 F fever for approximately two day. She reported to the ER concerned about dehydration as she is currently nursing her [address] abdomen/chest results reported mildly enlarged spleen. Today, patient presents with her mother for initial consultation. Energy level is decent, fatigued at times, but believes it is from caring for an 8 month old and her work schedule. Her appetite is good, she reports frequent episodes of nausea. Patient denies any early satiety, abdominal fullness or distention. Denies any abnormal weight loss, abdominal pain or cramping. No diarrhea, constipation. Recent UTI, treated with antibiotics, otherwise no urinary issues. No hematochezia, melena or hematuria. Denies any recent exposure to illness, no fever, chills, or drenching night sweats. No abnormal bleeding or bruising. Amenorrhea since of child. Denies SOB, chest pain or pressure. Chronic knee/back pain. No PICA. Denies any abnormal bleeding, bruises easy. No recurrent infections or lymphadenopathy. No known blood disorders in family. Has had surgery in past w/o issue. Never had blood/blood products. Denies NSAID use. Up-to-date on age appropriate cancer screenings Interval History 05/07/22 Energy is remains low No bleeding or bruising issues No fevers or recurrent infections Appetite is decent No nausea or vomiting No Diarrhea or constipation No urinary issues No hematochezia or melena No hematuria No early satiety of abdominal fullness No PICA PAST MEDICAL HISTORY: Asthma, Migraines SOCIAL HISTORY: Smoking- vapes with nicotine Alcohol Use- no Illicit Drug Use One child- 8 month old daughter Boyfriend Lives with Boyfriend works in the Kitchen at the [employer] FAMILY HISTORY: Maternal Grandpa- Prostate Paternal- Bone Cancer Sister- Lupus No other specific history of bleeding, clotting or malignant disorder in the family. REVIEW OF SYSTEMS: Pertinent finding as per the history above. There are no additional specific symptoms pertaining to eyes, ENT, hematologic, lymphatic, neurological, psychiatric, cardiac, pulmonary, GI, , endocrine, rheumatic, dermatological, or musculoskeletal systems. All other systems have been reviewed and generally negative and noncontributory. PHYSICAL EXAMINATION: GENERAL: Age-appropriate, in no acute discomfort. VITAL SIGNS: Reviewed and stable. weight stable HEENT: Normocephalic and atraumatic. Clear Sclera. Mucous membranes are moist. No oral lesions. NECK: Supple without lymphadenopathy. No thyromegaly or bruits. CHEST: CABT. No wheezes HEART: Regular in rate and rhythm. No murmur. ABDOMEN: Soft, tender in LUQ, nondistended. No hepatosplenomegaly. EXTREMITIES: No cyanosis, clubbing, or edema. NEUROLOGICAL: Alert, awake, and oriented. No gross focal deficit. LYMPHATICS: No significant lymphadenopathy. LAB DATA: Latest labs were reviewed in the EMR and from the outside sources. Allergies and Intolerances: Allergies: sumatriptan: Drug, Unknown, Active Outpatient Medication Profile: * Patient Currently Takes Medications as of 23-Apr-2022 10:53 documented in Structured Notes cephalexin 500 mg oral capsule: 1 cap(s) orally 4 times a day , Start Date: 14-Apr-2022 Family History: No Family History items are recorded in the problem list. Social History: Social Substance History: Smoking Statusnever smoker (1) Vitals and Measurements: Vitals: Temp: 36.5 HR: 94 RR: 16 BP: 122/77 SPO2%: 96 Measurements: HT(cm): 182.5 WT(kg): 112.5 BSA: 2.38 BMI: 33.7 Last 3 Weights & Heights: Date: Weight/Scale Type:Height: 07-May-2022 10:01106.5 kg 182.5 cm 23-Apr-2022 10:26592.9 kg 182.5 cm Lab Results: Results CBC date/time WBC HGB HCT PLT Neut 23-Apr-2022 11:54 7.3 12.8 41.7 285 4.57 BMP date/time NA K CL CO2 BUN CREAT 23-Apr-2022 11:54 141 4.2 108(H) N/A 11 0.50 Hepatic date/time T Pro T Bili AST ALT ALKP ALB 14-Apr-2022 18:51 6.7 1.4(H) N/A 8 126(H) 4.1 I have reviewed these laboratory results: FIFI-With Reflex to [place] 23-Apr-2022 11:54:00 ResultValue Anti Nuclear Antibody NEGATIVE Comprehensive Metabolic Panel 23-Apr-2022 11:54:00 ResultValue Glucose, Serum 75 NA 141 K 4.2 CL 108 H Bicarbonate, Serum 26 Anion Gap, Serum 11 BUN 11 CREAT 0.50 GFR Female >90 Calcium, Serum 9.6 ALB 4.0 ALKP 107 T Pro 6.3 L T Bili 0.7 Alanine Aminotransferase, Serum 10 Aspartate Transam (more content not included)... Normal [facility] FIFI-WITH REFLEX TO ENAon Nuclear Ab IF (S) [Titer] Negative Normal NEGATIVE [facility] Comment on above: Result Comment: The Antinuclear Antibody (FIFI) test was performed using indirect immunofluorescence assay with HEp-2 cells slide. Performed By: #### A NA2 #### [facility] [id number] [place], [place] HEPATITIS B CORE AB-TOTALon 04-24-2022 HEP. B CORE AB-TOTAL Non-Reactive Normal NONREACTIVE [facility] Comment on above: Result Comment: Resu lts from patients taking biotin supplements or receiving high-dose biotin therapy should be interpreted with caution due to possible interference with this test. Providers may contact their local laboratory for further information. Performed By: #### H BCRT ####[id number], [place] HEPATITIS B CORE AB;IGMon HEPATITIS B CORE AB,IGM Non-Reactive Normal NONREACTIV E [facility] Comment on above: Result Comment: Resu lts from patients taking biotin supplements or receiving high-dose biotin therapy should be interpreted with caution due to possible interference with this test. Providers may contact their local laboratory for further information. Performed By: #### H BCRM ####[id number], [place] HEPATITIS B SURF ABon 2022 HEP B SURF AB <3.1 Normal <10 [facility] Comment on above: Result Comment: INTE RPRETIVE CRITERIA: <10 mIU/mL....NONREACTIVE >=10 mIU/mL...REACTIVE . Biotin interference may cause falsely decreased results. Patients taking a Biotin dose of up to 5 mg/day should refrain from taking Biotin for 24 hours before sample collection. Providers may contact their local laboratory for further information. Performed By: #### H BAB3 ####[id number] [place] [address] HEPATITIS B SURFACE AGon HEP.B SURFACE AG Non-Reactive Normal NONREACTIVE [facility] Comment on above: Result Comment: Biot in interference may cause falsely decreased results. Patients taking a Biotin dose of up to 5 mg/day should refrain from taking Biotin for 24 hours before sample collection. Providers may contact their local laboratory for further information. Performed By: #### C OVSC #### [facility] [address] [place] [id number] HIV 1/2 ANTIGEN/ANTIBODY SCR EEN WITH REFLEX TO CONFIRMATIONon 04-24-2022 HIV 1/2 AG/AB SCREEN Non-Reactive Normal NONREACTIVE [facility] Comment on above: Result Comment: HIV Ag/Ab screen is performed using the Siemens TalentagllYPlan HIV Ag/Ab Combo assay which detects the presence of HIV p24 antigen as well as antibodies to HIV-1 (Group M and O) and HIV-2. . No laboratory evidence of HIV infection. If acute HIV infection is suspected, consider testing for HIV RNA by PCR (viral load). Performed By: #### H IV #### [facility] [id number] [place] [address] CBC AND DIFFERENTIALon 04-23 % AUTOMATED IMMATURE GRAN 0.7 % Normal 0.0 - 0.9 [facility] Comment on above: Result Comment: Mary ture Granulocyte Count (IG) includes promyelocytes, myelocytes and metamyelocytes but does not include bands. Percent differential counts (%) should be interpreted in the context of the absolute cell counts (cells/L). Performed By: #### C BCDF ####[address] [address] Basophils (Bld) [#/Vol] 0.05 10*3/uL Normal 0.00 - 0.1 0 [facility] Comment on above: Performed By: #### C BCDF ####[address] [address] Basophils/100 WBC (Bld) 0.7 % Normal 0.0 - 2.0 [facility] Comment on above: Performed By: #### C BCDF ####[address] [address] Eosinophils (Bld) [#/Vol] 0.14 10*3/uL Normal 0.00 - 0.70 [facility] Comment on above: Performed By: #### C BCDF ####[address] [address] Eosinophils/100 WBC (Bld) 1.9 % Normal 0.0 - 6.0 [facility] Comment on above: Performed By: #### C BCDF ####[address] [address] Erythrocyte distribution width (RBC) [Ratio] 14.7 % High 11.5 - 14.5 [facility] Comment on above: Performed By: #### C BCDF ####[address] [address] Hematocrit (Bld) [Volume fraction] 41.7 % Normal 36.0 - 46.0 [facility] Comment on above: Performed By: #### C BCDF ####[address] [address] Hemoglobin (Bld) [Mass/Vol] 12.8 g/dL Normal 12.0 - 16.0 [facility] Comment on above: Performed By: #### C BCDF ####[address] [address] Lymphocytes (Bld) [#/Vol] 1.94 10*3/uL Normal 1.20 - 4.80 [facility] Comment on above: Performed By: #### C BCDF ####[address] [address] Lymphocytes/100 WBC (Bld) 26.5 % Normal 13.0 - 44.0 [facility] Comment on above: Performed By: #### C BCDF ####[address] [address] MCHC (RBC) [Mass/Vol] 30.7 g/dL Low 32.0 - 36.0 [facility] Comment on above: Performed By: #### C BCDF ####[address] [address] MCV (RBC) [Entitic vol] 82 fL Normal 80 - 100 [facility] Comment on above: Performed By: #### C BCDF ####[address] [address] Monocytes (Bld) [#/Vol] 0.56 10*3/uL Normal 0.10 - 1.0 0 [facility] Comment on above: Performed By: #### C BCDF ####[address] [address] Monocytes/100 WBC (Bld) 7.7 % Normal 2.0 - 10.0 [facility] Comment on above: Performed By: #### C BCDF ####[address] [address] Neutrophils (Bld) [#/Vol] 4.57 10*3/uL Normal 1.20 - 7.70 [facility] Comment on above: Result Comment: Perc ent differential counts (%) should be interpreted in the context of the absolute cell counts (cells/L). Performed By: #### C BCDF ####[address] [address] Neutrophils/100 WBC (Bld) 62.5 % Normal 40.0 - 80.0 [facility] Comment on above: Performed By: #### C BCDF ####[address] [address] Platelets (Bld) [#/Vol] 285 10*3/uL Normal 150 - 450 [facility] Comment on above: Performed By: #### C BCDF ####[address] [address] RBC 5.09 x10E12/L Normal 4.00 - 5.20 [facility] Comment on above: Performed By: #### C BCDF ####[address] [address] WBC (Bld) [#/Vol] 7.3 10*3/uL Normal 4.4 - 11.3 [facility] Comment on above: Performed By: #### C BCDF ####[address] [address] COMPREHENSIVE PANELon 2022 Albumin [Mass/Vol] 4.0 g/dL Normal 3.4 - 5.0 [facility] Comment on above: Performed By: #### C MP ####[address] [address] ALP [Catalytic activity/Vol] 107 U/L Normal 33 - 110 [facility] Comment on above: Performed By: #### C MP ####[address] [address] ALT [Catalytic activity/Vol] 10 U/L Normal 7 - 45 [facility] Comment on above: Result Comment: Celine ents treated with Sulfasalazine may generate falsely decreased results for ALT. Performed By: #### C MP ####[address] [address] Anion gap [Moles/Vol] 11 mmol/L Normal 10 - 20 [facility] Comment on above: Performed By: #### C MP ####[address] [address] AST [Catalytic activity/Vol] 10 U/L Normal 9 - 39 [facility] Comment on above: Performed By: #### C MP ####[address] [address] Bilirubin [Mass/Vol] 0.7 mg/dL Normal 0.0 - 1.2 [facility] Comment on above: Performed By: #### C MP ####[address] [address] Calcium [Mass/Vol] 9.6 mg/dL Normal 8.6 - 10.3 [facility] Comment on above: Performed By: #### C MP ####[address] [address] Chloride [Moles/Vol] 108 mmol/L High 98 - 107 [facility] Comment on above: Performed By: #### C MP ####[address] [address] Creatinine [Mass/Vol] 0.50 mg/dL Normal 0.50 - 1.05 [facility] Comment on above: Performed By: #### C MP ####[address] [address] eGFR FEMALE >90 Normal >90 [facility] Comment on above: Result Comment: CALC ULATIONS OF ESTIMATED GFR ARE PERFORMED USING THE 2020 CKD-EPI STUDY REFIT EQUATION WITHOUT THE RACE VARIABLE FOR THE IDMS-TRACEABLE CREATININE METHODS. https://jasn.asnjournals.org/content/early//ASN.2020 502509 Performed By: #### C MP ####[address] [address] Glucose [Mass/Vol] 75 mg/dL Normal 74 - 99 [facility] Comment on above: Performed By: #### C MP ####[address] [address] HCO3 (Bld) [Moles/Vol] 26 mmol/L Normal 21 - 32 [facility] Comment on above: Performed By: #### C MP ####[address] [address] Potassium [Moles/Vol] 4.2 mmol/L Normal 3.5 - 5.3 [facility] Comment on above: Performed By: #### C MP ####[address] [address] Protein [Mass/Vol] 6.3 g/dL Low 6.4 - 8.2 [facility] Comment on above: Performed By: #### C MP ####[address] [address] Sodium [Moles/Vol] 141 mmol/L Normal 136 - 145 [facility] Comment on above: Performed By: #### C MP ####[address] [address] Urea nitrogen [Mass/Vol] 11 mg/dL Normal 6 - 23 [facility] Comment on above: Performed By: #### C MP ####[address] [address] Clinic Note - Heme Onc-New V tatum 04-23-2022 Clinic Note - Heme Onc-New Visit Patient Visit Information: Visit Type: New Visit History of Present Illness: ID Statement: NIKOLE MOREAU is a 21 year old Female Interval History: Initial consult: 04/23/22 Reason: Splenomegaly Referred by: Kavita Betancourt PA-C Patient is a21 yo female with a PMH of Asthma and Migraines and was referred to benign hematology for consultation of splenomegaly. Patient was recently in the ER with vomiting and 102 F fever for approximately two day. She reported to the ER concerned about dehydration as she is currently nursing her [address] abdomen/chest results reported mildly enlarged spleen. Today, patient presents with her mother for initial consultation. Energy level is decent, fatigued at times, but believes it is from caring for an 8 month old and her work schedule. Her appetite is good, she reports frequent episodes of nausea. Patient denies any early satiety, abdominal fullness or distention. Denies any abnormal weight loss, abdominal pain or cramping. No diarrhea, constipation. Recent UTI, treated with antibiotics, otherwise no urinary issues. No hematochezia, melena or hematuria. Denies any recent exposure to illness, no fever, chills, or drenching night sweats. No abnormal bleeding or bruising. Amenorrhea since of child. Denies SOB, chest pain or pressure. Chronic knee/back pain. No PICA. Denies any abnormal bleeding, bruises easy. No recurrent infections or lymphadenopathy. No known blood disorders in family. Has had surgery in past w/o issue. Never had blood/blood products. Denies NSAID use. Up-to-date on age appropriate cancer screenings PAST MEDICAL HISTORY: Asthma, Migraines SOCIAL HISTORY: Smoking- vapes with nicotine Alcohol Use- no Illicit Drug Use One child- 8 month old daughter Boyfriend Lives with Boyfriend works in the Kitchen at the [employer] FAMILY HISTORY: Maternal Grandpa- Prostate Paternal- Bone Cancer Sister- Lupus No other specific history of bleeding, clotting or malignant disorder in the family. REVIEW OF SYSTEMS: Pertinent finding as per the history above. There are no additional specific symptoms pertaining to eyes, ENT, hematologic, lymphatic, neurological, psychiatric, cardiac, pulmonary, GI, , endocrine, rheumatic, dermatological, or musculoskeletal systems. All other systems have been reviewed and generally negative and noncontributory. PHYSICAL EXAMINATION: GENERAL: Age-appropriate, in no acute discomfort. VITAL SIGNS: Reviewed in the EMR and were noted to be stable. HEENT: Normocephalic and atraumatic. Clear Sclera. Mucous membranes are moist. No oral lesions. NECK: Supple without lymphadenopathy. No thyromegaly or bruits. CHEST: Clear to auscultation bilaterally. HEART: Regular in rate and rhythm. No murmur. ABDOMEN: Soft, tender in RUQ, nondistended. No hepatosplenomegaly. EXTREMITIES: No cyanosis, clubbing, or edema. NEUROLOGICAL: Alert, awake, and oriented. No gross focal deficit. LYMPHATICS: No significant lymphadenopathy. LAB DATA: Latest labs were reviewed in the EMR and from the outside sources. Allergies and Intolerances: Allergies: sumatriptan: Drug, Unknown, Active Outpatient Medication Profile: * Patient Currently Takes Medications as of 14-Apr-2022 20:39 documented in Structured Notes ondansetron 4 mg oral tablet, disintegratin tab(s) orally 3 times a day , Start Date: 14-Apr-2022 cephalexin 500 mg oral capsule: 1 cap(s) orally 4 times a day , Start Date: 14-Apr-2022 Family History: No Family History items are recorded in the problem list. Social History: Social Substance History: Smoking Statusnever smoker Lab Results: Results CBC date/time WBC HGB HCT PLT Neut 23-Apr-2022 11:54 7.3 12.8 41.7 285 4.57 14-Apr-2022 18:52 8.6 13.7 42.9 230 7.37 17-Aug-2021 05:13 15.7(H) 9.7(L) 30.5(L) 217 N/A BMP date/time NA K CL CO2 BUN CREAT 23-Apr-2022 11:54 141 4.2 108(H) N/A 11 0.50 14-Apr-2022 18:51 138 3.5 107 N/A 14 0.69 04-Jan-2021 10:50 138 3.8 108(H) N/A 8 0.63 Hepatic date/time T Pro T Bili AST ALT ALKP ALB 14-Apr-2022 18:51 6.7 1.4(H) N/A 8 126(H) 4.1 I have reviewed these laboratory results: Complete Blood Count + Differential 14-Apr-2022 18:52:00 ResultValue White Blood Cell Count 8.6 Red Blood Cell Count 5.28 H HGB 13.7 HCT 42.9 MCV 81 MCHC 31.9 L PLT 230 RDW-CV 14.8 H Neutrophil % 86.0 Immature Granulocytes % 0.4 Lymphocyte % 6.4 Monocyte % 6.8 Eosinophil % 0.2 Basophil % 0.2 Neutrophil Count 7.37 Lymphocyte Count 0.55 L Monocyte Count 0.58 Eosinophil Count 0.02 Basophil Count 0.02 Hepatic Function Panel 14-Apr-2022 18:51:00 ResultValue Aspartate Transaminase, Serum 11 ALB 4.1 T Bili 1.4 H Bilirubin, Serum Direct - Conjugated 0.2 ALKP 126 H Alanine Aminotransferase, Serum 8 T Pro 6.7 Basic Metabolic Panel (more content not included)... [facility] Note - Heme Onc-New Visit This report has been cancelled. [facility] Note - Intakeon 04-23 Clinic Note - Intake Patient Visit Information: Visit TypeNew Visit, splenomegaly Source of Informationpatient Accompanied byfamily Vital Signs: Temp (degrees C)36.2 degrees C Temperatureskin Heart Rate (beats/min)86 beats per minute Respiration (breaths/min)16 breath per minute BP Systolic (mm Hg)127 mmHg BP Diastolic (mm Hg)80 mmHg BP Mean (mm Hg)95 mmHg Height in cm182.5 centimeter(s) Heightstanding Weight in kg112.9 kilogram(s) Weightstanding BMI (kg/m2)33.8 kg/M2 BSA (m2)2.39 M2 Nursing Verification [id number] Nursing Verification Height in cm182.5 centimeter(s) Nursing Verification Commentht verified SpO2 (%)96 % SpO2 Patient Onroom air Pain Screening: Patient States Painno (0) Allergies: sumatriptan: Drug, Unknown, Active Outpatient Medication Profile: * Patient Currently Takes Medications as of 23-Apr-2022 10:53 documented in Structured Notes cephalexin 500 mg oral capsule: Last Dose Taken: , 1 cap(s) orally 4 times a day , Start Date: 14-Apr-2022 Notification: NotificationsAnnual Screens Due Dates Advanced Directives: Apr 23, 2023 Family Violence: Apr 23, 2023 Depression (Due every 6 months for ONC only; all others use Annual date): Oct 20, 2022 Substance Use - Alcohol: Apr 23, 2023 Substance Use - Drugs: Apr 23, 2023 Nutrition: Due Now Learning: Due Now Travel History: COVID-19 Screening Completedno exposure or symptoms Travel or ExposureNO travel to International locations in the past 30 days Falls: Have you fallen in the last 6 monthsno Do you have a fear of fallingno Do you feel you need assistanceno Is the patient using an assistive deviceno Not a falls riskimplement environmental risk factors interventions Spiritual/Procedural: Spiritual/cultural/relig ious practices important for us to knowno Adv Dir: Living Willno Healthcare POAno Declaration of Mental Health Treatmentno Living Will Formsdeclines more information Healthcare POA Formsdeclined more information Mental Health Formsdeclines more information Violence: Are you or have you been threatened or abused physically,emotionally or sexually abused by anyoneno Do you feel UNSAFE going back to the place you are livingno Depression: Past 2 wks: [place] down, depressed or hopelessno Past 2 wks: [place] little interest/pleasure doing thingsno Any Thoughts of Harming Othersno Substance: How many times in the past year have you had 4 or more drinks within 24 hours0 How many times in past year have you used recreational or prescription drugs for non-medical reasons0 Electronic Signatures: Yaneth Pat (CASSIE) (Signed 24-Apr-2022 06:58) Authored: Vital Signs, Notification Co-Signer: Vital Signs, Outpatient Medication Profile, Notification, Travel History, Falls, Spiritual/Procedural, Adv Dir, Violence, Depression, Substance Arelis Dao (SILVANO II) (Signed 23-Apr-2022 10:55) Authored: Patient Visit Information, Vital Signs, Allergies, Outpatient Medication Profile, Notification, Travel History, Falls, Spiritual/Procedural, Adv Dir, Violence, Depression, Substance Last Updated: 24-Apr-2022 06:58 by Yaneth Pat (CASSIE) Normal [facility] FERRITINon 04-23-2022 FERRITIN 14 ug/L Normal 8 - 150 [facility] Comment on above: Performed By: #### C OVSC #### [facility] [address] [place] [address] HIV 1/2 ANTIGEN/ANTIBODY SCR EEN WITH REFLEX TO CONFIRMATIONon 04-23-2022 Lab Specimen Source Normal [facility] Comment on above: Performed By: #### H IV #### [facility] [address] [place], [place] Performed By: #### H BAB3 ####[id number], [place] Performed By: #### H BCRT ####[id number], [place] Performed By: #### H BCRM ####[id number], [place] Performed By: #### C OVSC #### [address] [address] IRON + TIBCon 04-23-2022 % SATURATION 5 % Low 25 - 45 [facility] Comment on above: Performed By: #### I RONT #### [address] [address] Iron [Mass/Vol] 21 ug/dL Low 35 - 150 [facility] Comment on above: Performed By: #### I RONT #### [address] [address] TIBC 394 ug/dL Normal 240 - 445 [facility] Comment on above: Performed By: #### I RONT #### [address] [address] VITAMIN B12on 04-23-2022 Cobalamin (Vitamin B12) [Mass/Vol] 470 pg/mL Normal 211 - 911 [facility] Comment on above: Performed By: #### V TB12 ####[address] [address] Covid 19 Resultson 3 SARS-CoV-2 (COVID-19) RNA KATHY+probe Ql (Unsp spec) NEGATIVE COVID-19 Test Coronaviruses are common world-wide and are the cause of many common colds. SARS-COV2 is a new coronavirus that began circulating worldwide in 2019 so we are calling it COVID-19. It has been estimated that four out of five patients with COVID-19 will recover at home without the need for medical attention. Symptoms of COVID-19 may include cough, fever, shortness of breath, loss of taste or smell and other flu-like symptoms including chills, sore muscles, sore throat, and headache. Severe illness is more common in older people and people with other health problems such as high blood pressure, obesity, and immune system problems. If the test is positive, you have COVID-19. You will be contacted by the ordering physicians office and instructed to remain on home isolation, in accordance with CDC guidelines. You may also be contacted by the [facility] to see if any of your close contacts may have been exposed to the virus and need to quarantine. If the test is negative, you likely do not have COVID-19 at this time, but you still may have a different illness that can spread to other people (like Influenza, or the Flu) and could still be at risk for getting COVID-19. We recommend that you stay away from other people to limit the spread of illness until your symptoms are improving and you are fever-free for 24 hours without the use of fever lowering medications such as acetaminophen or ibuprofen. No test is 100% accurate so if you are still concerned you may have COVID-19, talk to your doctor about the need to continue to stay away from others. Medicines Unless your provider told you not to use the following: Acetaminophen (Tylenol and others) is generally safe. Anti-inflammatory medications, such as Ibuprofen (Advil or Motrin) or Naproxen (Aleve) can also be used. Cbtn-idt-edcxgik cough and cold medicines can be used according to the instructions on the package. Some mtzt-qjg-[id number] medicines also contain acetaminophen. Make sure you are not taking more than your recommended dose. For those not hospitalized, there is no specific treatment available for this illness. Antibiotics do not treat Coronaviruses. Follow-Up Follow up with your doctor by scheduling a virtual visit or consider follow-up at one of our urgent care fever clinics. If you are having difficulty breathing, or are very weak and having difficulty standing, this is a medical emergency. Call 911 or have someone take you to the nearest emergency room immediately. If possible, wear a facemask. Additional guidance from the CDC for patients who tested POSITIVE for COVID-19 How to isolate: Isolate yourself in a specific room at home and limit your contact with others. Use a separate bathroom from other members of the household, when possible. Leave home only to get essential medical care. Do not go to work, school or public areas. Avoid using public transportation, ride-sharing, or taxis. Restrict contact with pets and other animals. If you must care for your pet or be around animals while you are sick, wash your hands before and after your interaction and wear a facemask. Make sure that shared spaces in the home have good airflow, such as by an air conditioner or an opened window, weather permitting. Personal Hygiene Procedures: Wear a face mask when in the same room as other people or pets. If a face mask interferes with your breathing, others should wear a mask when sharing space with you. Frequent hand-washing: wash your hands with soap and water for at least 20 seconds. If soap and water are not available, use alcohol-based hand instruments sales representative. Avoid touching your eyes, nose, and mouth with unwashed hands. Household Hygiene Procedures: Avoid sharing personal household items such as dishes, glassware, cups, eating utensils, towels or bedding with other people or pets in your home. After use, these items should be washed with soap and hot water. Disinfect all high-touch surfaces every day with antibacterial cleaning solutions such as Lysol wipes, bleach, cleansers, etc. High-touch surfaces include tabletops, doorknobs, bathroom fixtures, toilets, phones, keyboards, tablets and bedside tables. Immediately clean any surfaces that may have blood, poop or body fluids on them, using antibacterial cleaning solutions such as Lysol wipes, bleach, cleansers, etc. If clothing or bedding come into contact with blood, poop or body fluids, they should be washed immediately. Follow the directions on the laundry detergent and clothing labels but hot water is recommended when possible. Stopping home isolation precautions: If possible, consult your doctor before stopping home isolation precautions. According to the CDC, you can discontinue home isolation precautions when you have met both of these criteria: Your fever and respiratory symptoms have been gone for 24 nakita (more content not included)... Normal [facility] BASIC METABOLIC PANELon 02-0 Anion gap [Moles/Vol] 10 mmol/L Normal 10 - 20 [facility] Comment on above: Performed By: #### B MP ####[address] [address] Calcium [Mass/Vol] 9.7 mg/dL Normal 8.6 - 10.3 [facility] Comment on above: Performed By: #### B MP ####[address] [address] Chloride [Moles/Vol] 107 mmol/L Normal 98 - 107 [facility] Comment on above: Performed By: #### B MP ####[address] [address] Creatinine [Mass/Vol] 0.69 mg/dL Normal 0.50 - 1.05 [facility] Comment on above: Performed By: #### B MP ####[address] [address] eGFR FEMALE >90 Normal >90 [facility] Comment on above: Result Comment: CALC ULATIONS OF ESTIMATED GFR ARE PERFORMED USING THE 2020 CKD-EPI STUDY REFIT EQUATION WITHOUT THE RACE VARIABLE FOR THE IDMS-TRACEABLE CREATININE METHODS. https://jasn.asnjournals.org/content/early//ASN.2020 132146 Performed By: #### B MP ####[address] [address] Glucose [Mass/Vol] 95 mg/dL Normal 74 - 99 [facility] Comment on above: Performed By: #### B MP ####[address] [address] HCO3 (Bld) [Moles/Vol] 25 mmol/L Normal 21 - 32 [facility] Comment on above: Performed By: #### B MP ####[address] [address] Potassium [Moles/Vol] 3.5 mmol/L Normal 3.5 - 5.3 [facility] Comment on above: Performed By: #### B MP ####[address] [address] Sodium [Moles/Vol] 138 mmol/L Normal 136 - 145 [facility] Comment on above: Performed By: #### B MP ####[address] [address] Urea nitrogen [Mass/Vol] 14 mg/dL Normal 6 - 23 [facility] Comment on above: Performed By: #### B MP ####[address] [address] CBC AND DIFFERENTIALon 04-14 % AUTOMATED IMMATURE GRAN 0.4 % Normal 0.0 - 0.9 [facility] Comment on above: Result Comment: Mary ture Granulocyte Count (IG) includes promyelocytes, myelocytes and metamyelocytes but does not include bands. Percent differential counts (%) should be interpreted in the context of the absolute cell counts (cells/L). Performed By: #### C OVSC #### [place] [id number] Basophils (Bld) [#/Vol] 0.02 10*3/uL Normal 0.00 - 0.1 0 [facility] Comment on above: Performed By: #### C OVSC #### [address] [address] Basophils/100 WBC (Bld) 0.2 % Normal 0.0 - 2.0 [facility] Comment on above: Performed By: #### C OVSC #### [address] [address] Eosinophils (Bld) [#/Vol] 0.02 10*3/uL Normal 0.00 - 0.70 [facility] Comment on above: Performed By: #### C OVSC #### [address] [address] Eosinophils/100 WBC (Bld) 0.2 % Normal 0.0 - 6.0 [facility] Comment on above: Performed By: #### C OVSC #### [address] [address] Erythrocyte distribution width (RBC) [Ratio] 14.8 % High 11.5 - 14.5 [facility] Comment on above: Performed By: #### C OVSC #### [address] [address] Hematocrit (Bld) [Volume fraction] 42.9 % Normal 36.0 - 46.0 [facility] Comment on above: Performed By: #### C OVSC #### [address] [address] Hemoglobin (Bld) [Mass/Vol] 13.7 g/dL Normal 12.0 - 16.0 [facility] Comment on above: Performed By: #### C OVSC #### [address] [address] Lymphocytes (Bld) [#/Vol] 0.55 10*3/uL Low 1.20 - 4.80 [facility] Comment on above: Performed By: #### C OVSC #### [address] [address] Lymphocytes/100 WBC (Bld) 6.4 % Normal 13.0 - 44.0 [facility] Comment on above: Performed By: #### C OVSC #### [address] [address] MCHC (RBC) [Mass/Vol] 31.9 g/dL Low 32.0 - 36.0 [facility] Comment on above: Performed By: #### C OVSC #### [address] [address] MCV (RBC) [Entitic vol] 81 fL Normal 80 - 100 [facility] Comment on above: Performed By: #### C OVSC #### [address] [address] Monocytes (Bld) [#/Vol] 0.58 10*3/uL Normal 0.10 - 1.0 0 [facility] Comment on above: Performed By: #### C OVSC #### [address] [address] Monocytes/100 WBC (Bld) 6.8 % Normal 2.0 - 10.0 [facility] Comment on above: Performed By: #### C OVSC #### [address] [address] Neutrophils (Bld) [#/Vol] 7.37 10*3/uL Normal 1.20 - 7.70 [facility] Comment on above: Result Comment: Perc ent differential counts (%) should be interpreted in the context of the absolute cell counts (cells/L). Performed By: #### C OVSC #### [address] [address] Neutrophils/100 WBC (Bld) 86.0 % Normal 40.0 - 80.0 [facility] Comment on above: Performed By: #### C OVSC #### [address] [address] Platelets (Bld) [#/Vol] 230 10*3/uL Normal 150 - 450 [facility] Comment on above: Performed By: #### C OVSC #### [address] [address] RBC 5.28 x10E12/L High 4.00 - 5.20 [facility] Comment on above: Performed By: #### C OVSC #### [address] [address] WBC (Bld) [#/Vol] 8.6 10*3/uL Normal 4.4 - 11.3 [facility] Comment on above: Performed By: #### C OVSC #### [address] [address] [address] ABDOMEN AND PELVIS W IV C [facility] 04-14-2022 CT ABDOMEN AND PELVIS W IV CONTRAST Patient Name: NIKOLE MOREAU STUDY: CT ABDOMEN AND PELVIS W IV CONTRAST; 04/14/2022 7:56 pm INDICATION: vomiting, LLQ abd tenderness . COMPARISON: 10/17/2017 ACCESSION NUMBER(S): [id number] ORDERING CLINICIAN: KAVITA BETANCOURT TECHNIQUE: Contiguous axial images of the abdomen and pelvis were obtained after the intravenous administration of 90 mL Omnipaque 350 contrast. Coronal and sagittal reformatted images were reconstructed from the axial data. FINDINGS: LOWER CHEST: No acute abnormality. ABDOMEN/PELVIS: ABDOMINAL WALL: Small fat-containing umbilical hernia. LIVER: No significant parenchymal abnormality. BILE DUCTS: No significant intrahepatic or extrahepatic dilatation. GALLBLADDER: No significant abnormality. PANCREAS: No significant abnormality. SPLEEN: The spleen is mildly enlarged, measuring 15 cm, increased in size from 13.8 cm. ADRENALS: No significant abnormality. KIDNEYS, URETERS, BLADDER: No significant abnormality. REPRODUCTIVE ORGANS: The uterus and ovaries are normal in size. VESSELS: No significant abnormality. RETROPERITONEUM/LYMPH NODES: No enlarged lymph nodes. BOWEL/MESENTERY/PERITONE UM: No inflammatory bowel wall thickening or dilatation. Normal appendix. No ascites, free air, or fluid collection. MUSCULOSKELETAL: No acute osseous abnormality. IMPRESSION: No acute abnormality within the abdomen or pelvis. Splenomegaly, measuring 15 cm, increased in size from 13.8 cm. Electronically signed by: GENE PRUITT MD Normal [facility] HCG,URINEon 04-14-2022 Beta HCG ( test) Ql (U) Negative Normal Negative [facility] Comment on above: Performed By: #### C OVSC #### [place] [address] HEPATIC FUNCTION PANELon Albumin [Mass/Vol] 4.1 g/dL Normal 3.4 - 5.0 [facility] Comment on above: Performed By: #### H EPFP ####[address] [address] ALP [Catalytic activity/Vol] 126 U/L High 33 - 110 [facility] Comment on above: Performed By: #### H EPFP ####[address] [address] ALT [Catalytic activity/Vol] 8 U/L Normal 7 - 45 [facility] Comment on above: Result Comment: Celine ents treated with Sulfasalazine may generate falsely decreased results for ALT. Performed By: #### H EPFP ####[address] [address] AST [Catalytic activity/Vol] 11 U/L Normal 9 - 39 [facility] Comment on above: Performed By: #### H EPFP ####[address] [address] Bilirubin [Mass/Vol] 1.4 mg/dL High 0.0 - 1.2 [facility] Comment on above: Performed By: #### H EPFP ####[place] [address] Bilirubin.indirect [Mass/Vol] 0.2 mg/dL Normal 0.0 - 0.3 [facility] Comment on above: Performed By: #### H EPFP ####[place] [id number] Protein [Mass/Vol] 6.7 g/dL Normal 6.4 - 8.2 [facility] Comment on above: Performed By: #### H EPFP ####[place] [address] INFLUENZA A/B, COVID 2019 PC R,SYMPTOMATICon 04-14-2022 INFLUENZA A, PCR Not detected Normal Not Detected [facility] Comment on above: Result Comment: Resp iratory virus testing is performed routinely by PCR for Influenza A/B and RSV. Not Detected results do not preclude Influenza A/B or RSV infections since the adequacy of sample collection or low viral burden may impact the clinical sensitivity of this test method. Performed By: #### C OINP #### [place] [address] INFLUENZA B, PCR Not detected Normal Not Detected [facility] Comment on above: Result Comment: Resp iratory virus testing is performed routinely by PCR for Influenza A/B and RSV. Not Detected results do not preclude Influenza A/B or RSV infections since the adequacy of sample collection or low viral burden may impact the clinical sensitivity of this test method. Performed By: #### C OINP #### [place] [address] SARS-CoV-2 (COVID-19) RNA KATHY+probe Ql (Unsp spec) Not detected Normal Not Detected [facility] Comment on above: Result Comment: . This test has received FDA Emergency Use Authorization (EUA) and has been verified by [facility]. This test is only authorized for the duration of time that circumstances exist to justify the authorization of the emergency use of in vitro diagnostic tests for the detection of SARS-CoV-2 virus and/or diagnosis of COVID-19 infection under section 564(b)(1) of the Act, 21 U.S.C. 360bbb-3(b)(1), unless the authorization is terminated or revoked sooner. [facility] is certified under CLIA-88 as qualified to perform high complexity testing. Testing is performed in the [facility] laboratory located at [address] [place] [address]. SARS-CoV-2/Flu/RSV Multiplex Test: Fact sheet for providers: https://www.fda.gov/media/125457/download Fact sheet for patients: https://www.fda.gov/media/226329/download Performed By: #### C OINP #### [place] [address] Lab Specimen Source Nasal, Nasopharyngeal Normal [facility] Comment on above: Performed By: #### C OINP #### [place] [address] LIPASEon 04-14-2022 Lipase [Catalytic activity/Vol] 13 U/L Normal 9 - 82 [facility] Comment on above: Result Comment: Sweetie puncture immediately after or during the administration of Metamizole may lead to falsely low results. Testing should be performed immediately prior to Metamizole dosing. G-xaxuke-l-benzoquinone imine (metabolite of Acetaminophen) will generate erroneously low results in samples for patients that have taken toxic doses of acetaminophen. Performed By: #### L IPAS ####[place] [address] Provider Note - ED v3on Provider Note - ED v3 Provider Note: Chart Review: ED NOTES ED NOTES: ====HPI==== Patient is a 21-year-old female who presents to the emergency department for chief complaint of nausea and vomiting along with left lower quadrant abdominal pain. She states that her symptoms started yesterday evening after eating a piece of cake. She states that her boyfriend also ate the piece of cake but has been asymptomatic. She states that she will have abdominal pain especially prior to vomiting and also reports that she has left lower quadrant tenderness. She denies any fever or chills. No rhinorrhea or congestion. PMHX: Asthma Social HX: Never smoker TOBACCO Denies ETOH Denies DRUGS ====Review of Systems==== 10 point system review is negative except for those specifically mentioned in history of present illness ====Physical Exam==== Constitutional/General: Alert and oriented x3, well appearing, nontoxic, and in NAD. Head: Normocephalic and atraumatic. Eyes: PERRL, EOMI, conjunctive normal, sclera nonicteric, subconjunctival layer is pink. Mouth: Oropharynx clear, handling secretions, no trismus, no asymmetry of the posterior oropharynx or uvular edema Neck: Supple, full ROM, non tender to palpation in the midline, no stridor, no crepitus, no meningeal signs. Trachea at midline. Respiratory: Lungs clear to auscultation bilaterally, no wheezes, rales, or rhonchi, not in respiratory distress. Cardiovascular: Regular rate, regular rhythm, no murmurs, gallops, or rubs, 2+ distal pulses. Chest: normal chest wall movement GI: Abdomen soft, tenderness to the LLQ, nondistended, no organomegaly, no palpable masses, no rebound, guarding, or rigidity. Musculoskeletal: Moves all extremities x4, warm and well perfused, no clubbing, cyanosis, or edema, cap refill <3 seconds Integument: Skin warm and dry, no rashes. Neurologic: No focal deficits Psychiatric: Normal affect. ====ED Course and Medical Decision Making==== See MDM section for review of findings & plan of care. Portions of this note were dictated by speech recognition. An attempt at proof reading was made to minimize errors. Minor errors in clinical medical transcriptionist may be present. Please call if questions.. HISTORY OF PRESENTING ILLNESS NIKOLE is a 21 year old Female and was seen by me at 14-Apr-2022 18:07 for a chief complaint of flu-like symptoms (Patient to ED reference nausea/vomiting, body ache, chills and dizziness. Patient went to dinner last night and had a piece of cake after and has been sick since. no treatment at home due to unable to keep anything down.)(1). Triage Information: Most recent Vital Sign Value Date Temp (F): 98.2 04-14-2022 17:49 Temp (C): 36.7 04-14-2022 17:49 Heart Rate (beats/min): 130 04-14-2022 17:49 Respirations (breaths/min): 17 04-14-2022 17:49 SpO2 (%): 95 04-14-2022 17:49 BP Systolic (mm Hg): 106 04-14-2022 17:49 BP Diastolic (mm Hg): 66 04-14-2022 17:49 PAST MEDICAL HISTORY ALLERGIES/INTOLERANCES: Allergy Allergen: sumatriptan Type: Drug Reaction: Unknown HEALTH HISTORY: No documented data. OUTPATIENT MEDICATIONS: Home Medications Review Status for Reconciliation: Not Done Med Status: Patient Currently Takes Medications Drug Name: cephalexin 500 mg oral capsule Instructions: 1 cap(s) orally 4 times a day Drug Name: ondansetron 4 mg oral tablet, disintegrating Instructions: 1 tab(s) orally 3 times a day SIGNIFICANT EVENTS: Immunizations Description:Tdap CRITICAL CARE RESULTS: Recent Lab Results: I have reviewed these laboratory results: Complete Blood Count + Differential 14-Apr-2022 18:52:00 ResultValue White Blood Cell Count 8.6 Red Blood Cell Count 5.28 H HGB 13.7 HCT 42.9 MCV 81 MCHC 31.9 L PLT 230 RDW-CV 14.8 H Neutrophil % 86.0 Immature Granulocytes % 0.4 Lymphocyte % 6.4 Monocyte % 6.8 Eosinophil % 0.2 Basophil % 0.2 Neutrophil Count 7.37 Lymphocyte Count 0.55 L Monocyte Count 0.58 Eosinophil Count 0.02 Basophil Count 0.02 Hepatic Function Panel 14-Apr-2022 18:51:00 ResultValue Aspartate Transaminase, Serum 11 ALB 4.1 T Bili 1.4 H Bilirubin, Serum Direct - Conjugated 0.2 ALKP 126 H Alanine Aminotransferase, Serum 8 T Pro 6.7 Basic Metabolic Panel 14-Apr-2022 18:51:00 ResultValue Glucose, Serum 95 NA 138 K 3.5 CL 107 Bicarbonate, Serum 25 Anion Gap, Serum 10 BUN 14 CREAT 0.69 GFR Female >90 Calcium, Serum 9.7 Urine Test 14-Apr-2022 18:51:00 ResultValue HCG, Urine NEGATIVE Urinalysis with Culture if Indicated 14-Apr-2022 18:51:00 ResultValue Color, Urine Yellow Reference Range: STRAW,YELLOW Appearance, Urine HAZY Specific Galt, Urine 1.032 pH, Urine 5.0 Protein, Urine 30(1+) A Glucose, Urine NEGATIVE Blood, Urine NEGATIVE Ketones, Urine 5(TRACE) A Bilirubin, Urine NEGATIVE Urobilinogen, Urine <2.0 Nitrite, Uri (more content not included)... Normal [facility] Triage - EDon 04-14-2022 Triage - ED Quick Triage: Are You no Have You Given In The Last 6 Weeksno Are You Currently Breastfeedingyes The patient and/or guardian verbally acknowledges placement for services into the following (when Urgent Care Service hours are operating):emergency department Risk Screens: Chart Review: ARRIVAL INFORMATION Mode of Arrival: private vehicle CHIEF COMPLAINT NIKOLE MOREAU is a Female patient with a chief complaint of flu-like symptoms (Patient to ED reference nausea/vomiting, body ache, chills and dizziness. Patient went to dinner last night and had a piece of cake after and has been sick since. no treatment at home due to unable to keep anything down.). Onset of the Complaint: 14-Apr-2022 19:00 Triage Date/Time: 14-Apr-2022 17:49 MONSE: 3V Pain Rating (0-10): 6 = Moderate Vital Signs: Temperature: 98.2F ( 36.7C) taken oral Blood Pressure: 106/66 Mean: Heart Rate: 130 Respiratory Rate: 17 Pulse Oximetry: 95% on room air, no respiratory support. Height: 6 feet 0.00 inches. 182.8 CM Weight: 245.8 pounds. Calculated 111.5 kg. (stated) Calculated BMI (kg/m2): 33.367 Calculated BSA (m2) 2.38 Dannie Coma Scale: Best Eye Response: (E4) spontaneous Best Motor Response: (M6) obeys commands Best Verbal Response: (V5) oriented Austin Score: 15 Dannie Assessment Qualifiers: patient not sedated/intubated Cough lasting greater than 3 weeks: no Allergies: yes Mask applied: yes Patient has homicidal thoughts: no Risk Screens Suicide Risk Screen In the Past Month: Have you wished you were or wished you could go to sleep and not wake up no In the Past Month: Have you had any actual thoughts of killing yourself no In Your Lifetime: Have you ever done anything, started to do anything, or prepared to do anything to end your life no Interventions: [place] Fall Interventions: LOW INTERVENTIONS: *patient oriented to surroundings and call system, * patient/family falls education completed and documented, *patients fall status communicated during bedside handoff, *whiteboard updated, *mode of toileting discussed with patient, *bed in low position with brakes locked, *call light in reach, * non-skid footwear TRAVEL HISTORY Travel History Coronavirus Screening: no exposure or symptoms Travel Exposure History: NO travel to International locations in the past 30 days PAIN Pain Scale Used: LUIS ANGEL Pain Rating (0-10): 6 = Moderate Past Medical History: Past Medical History Reviewedyes Tdap: Immunizations, Active, 02-Jul-2021 Electronic Signatures: Suzette Downey (RN) (Signed 14-Apr-2022 18:18) Authored: Quick Triage, Risk Screens, Chart Review, Past Medical History Nash Gupta (EMT-P) (Signed 14-Apr-2022 17:56) Entered: Risk Screens, Pain, Travel History, Chart Review, Scores Authored: Quick Triage, Risk Screens, Pain, Travel History, Chart Review, Scores Last Updated: 14-Apr-2022 18:18 by Suzette Downey (RN) Normal [facility] UA MICROSCOPICon 04-14-2022 BACTERIA 1+ /HPF Abnormal [facility] Comment on above: Performed By: #### U AMIC #### [place] [address] Mucus Ql (Urine sed) 1+ /LPF Normal [facility] Comment on above: Performed By: #### U AMIC #### [place] [address] RBC 1 /HPF Normal 0-5 [facility] Comment on above: Performed By: #### U AMIC #### [place] [address] SQUAMOUS EPITH. CELLS 16 /HPF Normal [facility] Comment on above: Performed By: #### U AMIC #### [place] [address] WBC 32 /HPF Abnormal 0-5 [facility] Comment on above: Performed By: #### U AMIC #### [address] [address] URINALYSIS WITH CULTURE IF I NDICATEDon 04-14-2022 Appearance (U) HAZY Normal CLEAR [facility] Comment on above: Performed By: #### C OVSC #### [address] [address] Bilirubin Ql (U) Negative Normal NEGATIVE [facility] Comment on above: Performed By: #### C OVSC #### [place] [address] Color (U) Yellow Normal STRAW,YELLOW [facility] Comment on above: Performed By: #### C OVSC #### [address] [address] Glucose Ql (U) Negative Normal NEGATIVE [facility] Comment on above: Performed By: #### C OVSC #### [place] [id number] Hemoglobin Ql (U) Negative Normal NEGATIVE [facility] Comment on above: Performed By: #### C OVSC #### [address] [address] Ketones Ql (U) 5(TRACE) Abnormal NEGATIVE [facility] Comment on above: Performed By: #### C OVSC #### [address] [address] Leukocyte esterase Test strip Ql (U) MODERATE(2+) Abnormal NEGATIVE [facility] Comment on above: Performed By: #### C OVSC #### [address] [address] Nitrite Ql (U) Negative Normal NEGATIVE [facility] Comment on above: Performed By: #### C OVSC #### [address] [address] pH (U) 5.0 [pH] Normal 5.0 - 8.0 [facility] Comment on above: Performed By: #### C OVSC #### [place] [id number] Protein Ql (U) 30(1+) Abnormal NEGATIVE [facility] Comment on above: Performed By: #### C OVSC #### [address] [address] Specific gravity (U) [Rel density] 1.032 Normal 1.005 - 1.035 [facility] Comment on above: Performed By: #### C OVSC #### [address] [address] Urobilinogen (U) [Mass/Vol] mg/dL Normal 0.0 - 1.9 [facility] Comment on above: Performed By: #### C OVSC #### [address] [address] URINE CULTURE,BACTERIALon URINE CULTURE,BACTERIAL PATIENT: NIKOLE MOREAU LOCATION: [facility]#: [id number] : [birth year] AGE: SEX: F ORDERED BY: KAVITA BETANCOURT SOURCE: URINE COLLECTED: 04/14/22 18:51 ANTIBIOTICS AT LUIS ALFREDO.: RECEIVED : 04/15/22 12:25 SITE: R E S U L T S URINE CULTURE,BACTERIAL FINAL 04/16/22 08:17 NO GROWTH Normal [facility] Comment on above: Performed By: #### C OVSC #### [address] [address] SPINE, LUMBOSACRAL MIN 4 VIE WSon 02-27-2022 SPINE, LUMBOSACRAL MIN 4 VIEWS Patient Name: NIKOLE MOREAU STUDY: Lumbar Spine, 5 views. INDICATION: SEGMENTAL AND SOMATIC DYSFUNCTION OF LUMBAR REGION. COMPARISON: None. ACCESSION NUMBER(S): [id number] ORDERING CLINICIAN: JENN MADRID FINDINGS: Mild dextroscoliosis centered in the upper lumbar region. No significant degenerative changes. No spondylolysis on the oblique views. Vertebral body heights are preserved. Posterior elements are intact. IMPRESSION: 1. Mild dextroscoliosis centered in the upper lumbar region. 2. Otherwise unremarkable lumbar spine radiographs. Electronically signed by: KAREN PERALES MD Normal [facility] Provider Note - ED v3on 11-0 Provider Note - ED v3 Provider Note: Chart Review: ED NOTES ED NOTES: Presents for work physical. No previous joint injuries/surgeries. No chronic illnesses or daily meds. No constitutional complaints. HISTORY OF PRESENTING ILLNESS NIKOLE is a 21 year old Female and was seen by me at 13-Jan-2022 14:21. Triage Information: Most recent Vital Sign Value Date PAST MEDICAL HISTORY ALLERGIES/INTOLERANCES: Allergy Allergen: sumatriptan Type: Drug Reaction: Unknown HEALTH HISTORY: No documented data. OUTPATIENT MEDICATIONS: Home Medications Review Status for Reconciliation: Complete Med Status: No Current Medications SIGNIFICANT EVENTS: Immunizations Description:Tdap TEST CAR DRIVER: Is : no Is : no REVIEW OF SYSTEMS All other systems reviewed and are negative REVIEW OF SYSTEMS: Comments See HPI PHYSICAL EXAM CONSTITUTIONAL: Well appearing, well nourished, awake, alert, oriented to person, place, time/situation and in no apparent distress. HENMT: Airway patent, ears with clear tympanic membranes bilaterally. Nasal mucosa clear. Mouth with normal mucosa. Throat has no vesicles, no oropharyngeal exudates and uvula is midline. Face with no lymph node enlargement. EYES: Clear bilaterally, pupils equal, round and reactive to light. CARDIOVASCULAR: Normal rate, regular rhythm. Heart sounds S1, S2. No murmurs, rubs or gallops. PMI non-displaced. RESPIRATORY: Breath sounds clear and equal bilaterally. GASTROINTESTINAL: Abdomen soft, non-distended, no rebound, no guarding. Bowel sounds normal in all 4 quadrants. GENITOURINARY: No discharge, no lesions. MUSCULOSKELETAL: Spine appears normal, range of motion is not limited, no muscle or joint tenderness. NEUROLOGICAL: Alert and oriented, no focal deficits, no motor or sensory deficits. SKIN: Skin normal color for race, warm, dry and intact. No evidence of trauma. PSYCHIATRIC: Alert and oriented to person, place, time/situation. normal mood and affect. No apparent risk to self or others. HEME/LYMPH: No adenopathy or splenomegaly. No cervical, supraclavicular or inguinal lymphadenopathy. CRITICAL CARE VITAL SIGNS: T PRBP SpO2O2(LPM) %FiO2 Method 13-Jan-2022 14:21:[id number]/85 96 MDM MDM/ED COURSE: Discussed Findings with: patient Data Reviewed: vital signs Treatment Plan: Exam unremarkable. Cleared for work. DISPOSITION Diagnosis/Annotation: ED Dx Name:Physical exam, pre-employment Code:Z02.1 Disposition: discharged Type: home CONSULT CRITICAL CARE TIME Is this a critically ill patient: no Electronic Signatures: Denys Cummings (STONE GLUER-WIRE STITCHER MACHINE) (Signed 13-Jan-2022 14:30) Authored: ED Notes, HPI, PMH, ROS, PE, Results/Vital Signs, MDM/ED Course, Clinical Impression, Attestation, Chart Review, Scores Last Updated: 13-Jan-2022 14:30 by Denys Cummings (STONE GLUER-WIRE STITCHER MACHINE) [facility] TEST CAR DRIVER - Office Visiton 10-08 TEST CAR DRIVER - Office Visit Diagnoses/Problems Assessed Breast cyst (610.0) (N60.09) Provider Impressions Pt. to go to from here Verbalized understanding RTO annual exam and PRN Chief Complaint PT HERE TODAY WITH CONCERNS OF A BLISTER ON HER RIGHT BREAST. PT STATES THE BLISTER APPEARED ABOUT 12 HOURS AGO WHEN SHE WAS PUMPING. PT DENIES FEVER, CHILLS, BODY ACHES, AND REDNESS. History of Present IllnessPt. presents with concern of cyst on R nipple. Pumping and bottle feeding. Baby is 6 weeks old. Pt. reports she had a similar cyst recently that was smaller and resolved spontaneously, but this one is increasing in size Review of Systems Constitutional: no fever and no chills. Integumentary: as noted in HPI. Active Problems Problems Mastitis, (675.24) (O91.22) Morbid obesity with BMI of 40.0-44.9, adult (278.01,V85.41) (E66.01,Z68.41) exam (V24.2) (Z39.2) Screen for STD (sexually transmitted disease) (V74.5) (Z11.3) Past Medical History Problems History of Menstruation Onset age 14 years History of Normal vaginal delivery (650) (O80) 08/16/2021; 38 WEEKS 3 DAYS; FEMALE; VAGINAL; 7LBS 11OZ Surgical History Problems No history of surgery Family History Mother Family history of hypertension (V17.49) (Z82.49) Family history of migraine headaches (V17.2) (Z82.0) Father Family history of hypertension (V17.49) (Z82.49) Brother Family history of migraine headaches (V17.2) (Z82.0) Grandmother Family history of asthma (V17.5) (Z82.5) Family history of cerebrovascular accident (CVA) (V17.1) (Z82.3) Family history of diabetes mellitus (V18.0) (Z83.3) Family history of migraine headaches (V17.2) (Z82.0) Grandfather Family history of malignant neoplasm of prostate (V16.42) (Z80.42) Social History Problems No illicit drug use Rarely consumes alcohol (V49.89) (Z78.9) Sexually active Tobacco use (305.1) (Z72.0) Allergies Medication Rizatriptan Benzoate TABS Recorded By: Yaneth Augustin; 03/19/2021 2:16:13 PM Physical Exam Constitutional: Alert and in no acute distress. Well developed, well nourished Chest: 1.5 cm clear, fluid filled cyst on R nipple. 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 BREAST MILK IN A BOTTLE. HAS NO CONCERNS. DENIES ANY DEPRESSION. NOT INTERESTED IN B/C. HAS NOT STARTED HER PERIOD. HAS NOT BEEN SEXUALLY ACTIVE. History of Present [id number] presents for 6-week status post pates vaginal delivery. Patient notes she is doing well. Patient emotionally first couple weeks very challenging but she is doing better. Patient notes she is pumping breastmilk which is also helping with her emotional state. Patient had a supplement just a little bit but otherwise is exclusively breast-fed. Patient safe at home denies abuse. Patient not sexually active. Patient has no desire. Patient has not had a period yet. Patient is no other acute concerns Review of Systems Constitutional: No fevers, chills Eye:no vision changes Respiratory: no SOB Cardiovascular: no chest pain Breast: No lump/mass or discharge Gastrointestinal: No nausea, vomiting, diarrhea, constipation, abdominal pain Genitourinary:no dysuria Gynecology: See HPI Endocrine: No heat or cold intolerance Musculoskeletal: No decreased ROM Skin:No rash Neurologic: No numbness tingling Psychiatric: No anxiety, depression All other: all other systems reviewed and negative for complaint Active Problems Mastitis, (675.24) (O91.22) Morbid obesity with BMI of 40.0-44.9, adult (278.01,V85.41) (E66.01,Z68.41) Screen for STD (sexually transmitted disease) (V74.5) (Z11.3) Past Medical History History of Menstruation Onset age 14 years History of Normal vaginal delivery (650) (O80) Surgical History No history of surgery Family History Family history of hypertension (V17.49) (Z82.49) Family history of migraine headaches (V17.2) (Z82.0) Family history of hypertension (V17.49) (Z82.49) Family history of migraine headaches (V17.2) (Z82.0) Family history of asthma (V17.5) (Z82.5) Family history of cerebrovascular accident (CVA) (V17.1) (Z82.3) Family history of diabetes mellitus (V18.0) (Z83.3) Family history of migraine headaches (V17.2) (Z82.0) Family history of malignant neoplasm of prostate (V16.42) (Z80.42) Social History No illicit drug use Rarely consumes alcohol (V49.89) (Z78.9) Sexually active Tobacco use (305.1) (Z72.0) Allergies Rizatriptan Benzoate TABS Recorded By: Yaneth Augustin; 03/19/2021 2:16:13 PM Vitals Vital Signs Recorded: [id number] 01:24PM Bnyjvroq368 Ohhpqffjx17 Height6 ft 1 in 2-20 Stature Yxhwoeegnp27 % Rmtdlo806 lb 2-20 Weight Ymfocgontn03 % BMI Iajoldtqco68.83 kg/m2 BMI Rqnzahyybl89 % BSA Calculated2.42 Physical Exam General: None acute distress Eye: Intraocular movements are intact HEENT: Normocephalic Cardiovascular: Regular rate rhythm Respiratory: Lungs are clear to auscultation, respirations are nonlabored Gastrointestinal: Soft nontender nondistended normal bowel sounds Gynecology: External genitalia within normal limits for age. Urethral meatus normal bladder nontender. Vagina without discharge. No vaginal bleeding. Multiparous appearing cervix. No lesions. No CMT. Uterus mobile midline nontender. No levator ani tenderness. No adnexal tenderness. No adnexal masses. Vaginal mucosa intact Musculoskeletal: Normal range of motion Skin: Warm and dry Neurologic: Alert and oriented x3 Psychiatric: Cooperative appropriate mood and affect. Diagnoses/Problems exam (V24.2) (Z39.2) Orders exam Follow-up visit in 12 months Outpatient Follow-up Status: Hold For - Scheduling Requested for: [id number] Ordered Stat;For: exam; Ordered By: Bobo Candelaria Performed: Due: 05Jan2022 Provider Impressions 1) exam-patient doing well status post vaginal delivery. Breast-feeding. Safe at home. Not sexually active. Discussed control and spacing. Patient is moving rings that would like to try if not not working we will discuss other options, as she got using condoms. Precautions reviewed return. All questions answered Signatures Electronically signed by : Bobo Candelaria DO; Oct 07 2021 5:15PM EST (Author) Normal [facility] TEST CAR DRIVER - Office Visiton 08-08 TEST CAR DRIVER - Office Visit Diagnoses/Problems Assessed Mastitis, (675.24) (O91.22) Orders Start: Dicloxacillin Sodium 500 MG Oral Capsule; TAKE 1 CAPSULE 4 TIMES DAILY Provider Impressions 1. Left breast mastitis Prescription for dicloxacillin for 10 days. Patient to follow-up as previously scheduled. Chief Complaint Patient is here for possible mastitis in Left breast. Patient c/o pain, headaches, chills and the area is warm to the touch. History of Present IllnessPatient presents stating that she noticed redness and pain to the outer upper quadrant of the left breast this morning. Denies any fevers or chills. She is currently breast-feeding. Review of Systems Review of Systems: Constitutional: No fever or chills Respiratory: No shortness of breath, or cough Cardiovascular: No chest pain or syncope Breasts: No breast pain, no masses, no nipple discharge Gastrointestinal: No nausea, vomiting, or diarrhea, no abdominal pain Genitourinary: No dysuria or frequency Gynecology: Negative except as noted in history of present illness All other: All other systems reviewed and negative for complaint Active Problems Problems 38 weeks gestation of (V22.2) (Z3A.38) Morbid obesity with BMI of 40.0-44.9, adult (278.01,V85.41) (E66.01,Z68.41) Normal first in third trimester (V22.0) (Z34.03) Screen for STD (sexually transmitted disease) (V74.5) (Z11.3) Past Medical History Problems History of Menstruation Onset age 14 years Surgical History Problems No history of surgery Family History Mother Family history of hypertension (V17.49) (Z82.49) Family history of migraine headaches (V17.2) (Z82.0) Father Family history of hypertension (V17.49) (Z82.49) Brother Family history of migraine headaches (V17.2) (Z82.0) Grandmother Family history of asthma (V17.5) (Z82.5) Family history of cerebrovascular accident (CVA) (V17.1) (Z82.3) Family history of diabetes mellitus (V18.0) (Z83.3) Family history of migraine headaches (V17.2) (Z82.0) Grandfather Family history of malignant neoplasm of prostate (V16.42) (Z80.42) Social History Problems No illicit drug use Rarely consumes alcohol (V49.89) (Z78.9) Sexually active Tobacco use (305.1) (Z72.0) Allergies Medication Rizatriptan Benzoate TABS Recorded By: Yaneth Augustin; 03/19/2021 2:16:13 PM Current Meds Medication NameInstruction Vitamin 27-0.8 MG Oral Tablet Vitals Vital Signs Recorded: 28Aug2021 02:50PM Tmdsvdly429 Hzptoghlx24 Height6 ft 1 in 2-20 Stature Ypxayetllb74 % Dmhlhn653.6 kg 2-20 Weight Ekhmhavtyx00 % BMI Ndcmxeqvvj93.82 kg/m2 BMI Luzpvyfufn00 % BSA Calculated2.48 Physical Exam PHYSICAL EXAMINATION: Well-developed, well nourished, in no acute distress, alert and oriented x three, is pleasant and cooperative. HEENT: Clear. Pupils equal, round and reactive to light and accommodation. Extraocular muscles are intact. Oral mucosa pink without exudate. NECK: No lymphadenopathy, no thyromegaly. BREASTS: Symmetric, no palpable masses. Noted redness and tenderness of the left breast from the 1 to 3 o'clock position which appears consistent with mastitis. LUNGS: Clear bilaterally. HEART: Regular rate and rhythm without murmurs. ABDOMEN: Normoactive bowel sounds, soft and nontender, no guarding or rebound tenderness, no CVA tenderness. EXTREMITIES: No clubbing, cyanosis or edema. NEUROLOGIC: Cranial nerves II-XII grossly intact. Signatures Electronically signed by : Alex Lau MD; Aug 28 2021 2:58PM EST (Author) Normal XTWIP Daily Progress Note - OB-Pos t-partumon 08-18-2021 Daily Progress Note - BR-Pqig-uofjpq Current Stage: Stage: Post- Subjective Data: Post : Ambulate: Yes Flatus: Yes Tolerate Diet: Yes : PPD #2 Resting well. Breast-feeding. Objective Information: Objective Information: T PRBPMAPSpO2 [id number]% Date/Time08/18 6: 6: 6: 6: 6:256 6:25 Range(36.4C - 36.7C ) (86 - 116 ) (14 - 16 ) (122 - 144 )/ (68 - 85 ) (89 - 106 ) (98% - 99% ) Pain reported at 08/18 6:25: 0 = None Physical Exam: Constitutional: alert, oriented Obstetric: Abdomen: Soft and nontender Respiratory/Thorax: normal respiratory effort, lungs clear, no wheezes or rhonchi Cardiovascular: S1 S2 RRR, no murmurs Extremities: no calf tenderness, reflexes 2+ Assessment and Plan: Additional Dx: First degree perineal laceration: Entered Date: 16-Aug-2021 19:28 Single live : Entered Date: 16-Aug-2021 19:28 Normal spontaneous vaginal delivery: Entered Date: 16-Aug-2021 19:28 38 weeks gestation of : Entered Date: 16-Aug-2021 06:30 Assessment: PPD #2 Home today. Will discuss contraception at her checkup. Electronic Signatures: Alex Lau) (Signed 18-Aug-2021 08:41) Authored: Current Stage, Subjective Data, Objective Data, Assessment and Plan, Note Completion Last Updated: 18-Aug-2021 08:41 by Alex Lau) [facility] Discharge [id number] Discharge Profile2 Discharge Orders: Anticipated Discharge Date: Anticipated Discharge [id number] Problem List: Additional Dx: First degree perineal laceration: Catalog Name: First degree perineal laceration during delivery Single live : Catalog Name: Single live Normal spontaneous vaginal delivery: Catalog Name: Encounter for full-term uncomplicated delivery 38 weeks gestation of : Catalog Name: 38 weeks gestation of Hospital Providers: Provider RoleProvider Name AttendingAlex Lau DNAR: Code Status at Discharge: Full Code : Activity: Return to normal activity as tolerated. Patient Instructions: Pelvic Rest: DO NOT place anything in vagina until cleared by OB Provider. Diet: Regular. Follow-Up - OB Provider: Physician/Dept/Tiago Candelaria DO Call to Schedule in6 weeks Hospital Course (Home Care/Gold Form): Hospital Course: Hospital Course: include significant abnormal lab values Patient progressed through labor well and had a normal spontaneous vaginal delivery for viable female infant on August 16, 2021. Patient is breast-feeding and was discharged on day 2. Provider FINAL REVIEW of Orders: Final Review: Final Review of Medication Reconciliation and Orders Completedby Physician Reviewing ProviderAlex Lau MD at 18-Aug-2021 08:43:12 Other Clinician Instructions: Other Instructions: Other Clinician InstructionsAny woman can have complications after the of a baby including a blood clot, a heart problem, hypertensive disorder/eclampsia, depression, hemorrhage, or infection. Notify all providers of your delivery date up to one year after .* Call 911 or go to nearest emergency room right away if you have: PAIN or pressure in chest; OBSTRUCTED breathing or shortness of breath; SEIZURES; THOUGHTS of hurting yourself or your baby; heart palpitations/racing; change in alertness/confusion. Call your provider if you have: BLEEDING, soaking through a pad/hour, or blood clots the size of an egg or bigger; INCISION (episiotomy stitches or site) that is not healing (increased redness, pain, drainage/pus, or separation); RED or swollen leg/calf that is painful or warm to touch, especially in one leg more than the other; TEMPERATURE of 100.4 F or higher or chills; HEADACHE that does not get better with medicine, rest or hydration, or bad headache with vision changes like spots or flashing lights; increased swelling of face, hands or legs; severe cramps or upper right belly pain; red or swollen breast that is painful or warm to touch; an unusual, foul odor from your vaginal discharge; pain, burning, or difficulty during urination; severe constipation (more than 5 days); feelings of depression (such as depressed mood, loss of interest in enjoyable things, unable to care for yourself, trouble sleeping, lack of appetite, or feeling worthless). If you cant reach your provider or symptoms worsen, call 911 or go to nearest emergency room. *Information obtained from [facility]: Save Your Life: Get Care for These POST- Warning Signs Electronic Signatures: Alex Lau) (Signed 18-Aug-2021 08:43) Authored: Discharge Orders, , Hospital Course (Home Care/Gold Form), Provider FINAL REVIEW of Orders, Gold Form - Entry Level Administrative Assistant Summary Lorena Cardoso (RN) (Signed 18-Aug-2021 13:41) Authored: Discharge Orders, Other Clinician Instructions Last Updated: 18-Aug-2021 13:41 by Lorena Cardoso (RN) [facility] Order Reconciliationon 08-18 Order Reconciliation Page 1 Discharge Reconciliation Document Reconciliation Type: Discharge requested on behalf of Alex Lau (Physician) done by Alex Lau) Discharge - Reconciliation: 18-Aug-2021 08:43 by: Alex Lau) Home Medications EnteredHOME MEDICATIONS AT DISCHARGE DateReconciliation Comment/ Additional Information Prena1 oral capsule 1 cap(s) orally once a day 12-Aug-2021 02:13 Prena1 oral capsule 1 cap(s) orally once a day 12-Aug-2021 02:13 Prena1 oral capsule is continued as Prena1 oral capsule Current OrdersDateHOME MEDICATIONS AT DISCHARGE DateReconciliation Comment/ Additional Information Acetaminophen Tablet (TYLENOL)DOSE = 975 mg Oral Every 6 HoursClinician Notes: Give with Ibuprofen. 10-Prasanth-2022 19:25 Acetaminophen is not required Benzocaine 20% - Menthol 0.5% Topical [place] (DERMOPLAST)DOSE = 1 application(s) Topical 4 Times a Day, PRN DiscomfortApply to Perianal Area 16-Aug-2021 19:25 Benzocaine 20% - Menthol 0.5% Topical is not required Bisacodyl Rectal Suppository (DULCOLAX)DOSE = 10 mg Rectal Daily, PRN Severe constipation 16-Aug-2021 19:25 Bisacodyl Rectal is not required Carboprost IntraMuscular (HEMABATE)DOSE = 250 microgram(s) IntraMuscular Once, PRN post bleeding in non-asthmatic patientClinician Notes: Consult provider prior to administration. 16-Aug-2021 19:25 Carboprost IntraMuscular is not required diphenhydrAMINE Capsule (BENADRYL)DOSE = 25 mg Oral Every 6 Hours, PRN Itching 16-Aug-2021 19:25 diphenhydrAMINE is not required Docusate Capsule (COLACE)DOSE = 100 mg Oral 2 Times a Day, PRN Stool Softening 16-Aug-2021 19:25 Docusate is not required Enoxaparin SubCutaneous (LOVENOX)DOSE = 60 mg SubCutaneous Every 24 HoursClinician Notes: Wait 4 hours after neuraxial catheter removal AND 24 hours after placement of neuraxial catheter. BMI 40-49.9. 16-Aug-2021 19:25 Enoxaparin SubCutaneous is not required Ibuprofen Tablet (ADVIL, MOTRIN)DOSE = 600 mg Oral Every 6 HoursClinician Notes: Give with Acetaminophen. 16-Aug-2021 19:25 Ibuprofen is not required Lanolin Topical Ointment (LANSINOH)DOSE = 1 application(s) Topical Every 24 Hours, PRN Dry SkinApply to NippleClinician Notes: After and PRN 16-Aug-2021 19:25 Lanolin Topical is not required Loperamide Capsule (IMODIUM)DOSE = 4 mg Oral Every 2 Hours, PRN If Carboprost given or loose stoolsClinician Notes: Max dose of 16mg / 24 hours 16-Aug-2021 19:25 Loperamide is not required Magnesium Hydroxide -Al Hydrox -Simethicone Oral Liquid (MAALOX)DOSE = 30 mL Oral Every 4 Hours, PRN Indigestion 16-Aug-2021 19:25 Magnesium Hydroxide -Al Hydrox -Simethicone Oral Liquid is not required Magnesium Hydroxide Oral Liquid CONCENTRATE (MILK OF MAGNESIA)DOSE = 10 mL Oral Every 24 Hours, PRN Constipation 16-Aug-2021 19:25 Magnesium Hydroxide Oral Liquid CONCENTRATE is not required Measles -Mumps -Rubella (Live) MMR Vaccine DOSE = 0.5 mL SubCutaneous Once, PRN if patient screen is non- immune or equivocalClinician Notes: administer if patient screen is non- immune or equivocal 16-Aug-2021 19:25 Measles -Mumps -Rubella (Live) MMR Vaccine is not required Methylergonovine Injectable (METHERGINE)DOSE = 0.2 mg IntraMuscular Once, PRN PPH in pts w/o HTN or receiving ART for HIV mgmt.Clinician Notes: Consult provider prior to administration.Notes from Pharmacy: Reproductive Risk - Single Nitrile Glove 16-Aug-2021 19:25 Methylergonovine Injectable is not required Metoclopramide Injectable (REGLAN)DOSE = 10 mg IntraVenous Push Every 6 Hours, PRN persistent PONV if first line ineffective 16-Aug-2021 19:25 Metoclopramide Injectable is not required miSOPROStol Rectal Tablet (Cytotec)DOSE = 800 microgram(s) Rectal Once, PRN post bleedingClinician Notes: Consult provider prior to administration.Notes from Pharmacy: Reproductive Risk - Single Nitrile Glove 16-Aug-2021 19:25 miSOPROStol Rectal is not required Ondansetron Injectable (ZOFRAN)DOSE = 4 mg IntraVenous Push Every 6 Hours, PRN PONV, first line 16-Aug-2021 19:25 Ondansetron Injectable is not required Oxytocin 30 units/ NaCL 0.9% 500 mL Infusion with Bolus from Bag IntraVenous (PITOCIN)INITIAL Bolus = 600 milliunits/min infused over 30 minutesDose Rate: 60 milliunits/minAdmin Rate = 60 mL/hrStop After 1 DosesClinician Notes: C 16-Aug-2021 19:25 Oxytocin 30 units/ NaCL 0.9% 500 mL Infusion with Bolus from Bag is not required Oxytocin Injectable (PITOCIN)DOSE = 10 unit(s) IntraMuscular OnceClinician Notes: Conditional order. Consult Provider prior to administration. 16-Aug-2021 19:25 Oxytocin Injectable is not required Sodium Chloride 0.9% Injectable Flush via Peripheral LineVolume = 10 mL IntraVenous Flush Every 12 Hours and as Needed 16-Aug-2021 19:25 Sodium Chloride 0.9% Injectable Flush is not required Tranexamic Acid Injectable (CYKLOKAPRON)DOSE = 1,000 mg IntraVenous Push Once, PRN Post bleeding in al (more content not included)... Normal [facility] CBCon 08-17-2021 Erythrocyte distribution width (RBC) [Ratio] 16.1 % High 11.5 - 14.5 [facility] Comment on above: Performed By: #### C BC #### [address] [address] Hematocrit (Bld) [Volume fraction] 30.5 % Low 36.0 - 46.0 [facility] Comment on above: Performed By: #### C BC #### [address] [address] Hemoglobin (Bld) [Mass/Vol] 9.7 g/dL Low 12.0 - 16.0 [facility] Comment on above: Performed By: #### C BC #### [address] [address] MCHC (RBC) [Mass/Vol] 31.9 g/dL Low 32.0 - 36.0 [facility] Comment on above: Performed By: #### C BC #### [address] [address] MCV (RBC) [Entitic vol] 75 fL Low 80 - 100 [facility] Comment on above: Performed By: #### C BC #### [address] [address] Platelets (Bld) [#/Vol] 217 10*3/uL Normal 150 - 450 [facility] Comment on above: Performed By: #### C BC #### [address] [address] RBC 4.04 x10E12/L Normal 4.00 - 5.20 [facility] Comment on above: Performed By: #### C BC #### [address] [address] WBC (Bld) [#/Vol] 15.7 10*3/uL High 4.4 - 11.3 [facility] Comment on above: Performed By: #### C BC #### [address] [address] Daily Progress Note - OB-Pos t-partumon 08-17-2021 Daily Progress Note - IK-Ponu-ogdiuo Current Stage: Stage: Post- Subjective Data: Post : Ambulate: Yes Flatus: Yes Tolerate Diet: Yes : PPD #1 Resting well. Breast-feeding. Objective Information: Objective Information: T PRBPMAPSpO2 [id number] 8% Date/Time08/17 7: 7: 7: 7: 7: 4:35 Range(36.4C - 36.9C ) (79 - 169 ) (14 - 20 ) (114 - 169 )/ (56 - 89 ) (79 - 118 ) (82% - 100% ) Highest temp of 36.9 C was recorded at 08/16 6:39 Pain reported at 08/17 7:58: 0 = None Physical Exam: Constitutional: alert, oriented Obstetric: Abdomen: Soft and nontender Respiratory/Thorax: normal respiratory effort, lungs clear, no wheezes or rhonchi Cardiovascular: S1 S2 RRR, no murmurs Extremities: no calf tenderness, reflexes 2+ Recent Lab Results: Results: CBC: 08/17/2021 05:13 \ Hgb / \ 9.7 L / WBC Plt 15.7 H 217 / Hct \ / 30.5 L \ RBC: 4.04 MCV: 75 L Assessment and Plan: Additional Dx: First degree perineal laceration: Entered Date: 16-Aug-2021 19:28 Single live : Entered Date: 16-Aug-2021 19:28 Normal spontaneous vaginal delivery: Entered Date: 16-Aug-2021 19:28 38 weeks gestation of : Entered Date: 16-Aug-2021 06:30 Assessment: PPD #1 Progressing well. Electronic Signatures: Alex Lau) (Signed 17-Aug-2021 09:16) Authored: Current Stage, Subjective Data, Objective Data, Assessment and Plan, Note Completion Last Updated: 17-Aug-2021 09:16 by Alex Lau) [facility] Laboratory - Hematology and Cell countson 08-17-2021 Erythrocyte distribution width (RBC) [Ratio] 16.1 % above high threshold See Below [employer] Work Phone: Comment on above: Reference Range: 11. 5 - 14.5 Hematocrit (Bld) [Volume fraction] 30.5 % below low threshold See Below [employer] Work Phone: Comment on above: Reference Range: 36. 0 - 46.0 Hemoglobin (Bld) [Mass/Vol] 9.7 g/dL below low threshold See Below [employer] Work Phone: Comment on above: Reference Range: 12. 0 - 16.0 MCHC (RBC) [Mass/Vol] 31.9 g/dL below low threshold See Below [employer] Work Phone: Comment on above: Reference Range: 32. 0 - 36.0 MCV (RBC) [Entitic vol] 75 fL below lo w threshold 80 - 100 [employer] Work Phone: Platelets (Bld) [#/Vol] 217 10*3/uL 150 - 450 [employer] Work Phone: RBC (Bld) [#/Vol] 4.04 {x10E12/L} See Below Wo [employer] Work Phone: Comment on above: Reference Range: 4.0 0 - 5.20 WBC (Bld) [#/Vol] 15.7 10*3/uL above high threshold 4.4 - 11.3 [employer] Work Phone: Admission Risk Screen - [facility]Bon 08-16-2021 Admission Risk Screen - OB Allergies: Allergies: sumatriptan: Unknown Patient Verification: New W ID Band Applied in my Departmentyes (1) Patient Identity Verified Bypatient(1) ID Band FULL Name, include Middle, spelling matches patient's ID used for verificationyes (1) ID Band Matches Patient ID used for Verficationyes (1) ID Band MRN Matches EMR MRNyes (1) Visitor Restriction: Coronavirus Visitor Restriction: Reasonable restrictions to in-person visitors will be observed due to current coronavirus pandemic. Travel History: COVID-19 Screening Completedno exposure or symptoms(1) Travel or Exposure Past 30 DaysNO travel to International locations in the past 30 days Advance Directive: Advance Directive/DNRno (1) Advance Directive Information Givenpatient/family declined (1) [place] Fall Screen: History of falling (immediate or previous)no (0) Secondary Diagnosisno (0) Intravenous Therapy/ Heparin/Saline Lockno (0) Gait/Transferringnormal/ bedrest/wheelchair (0) Ambulatory Aidsnone/bedrest/nurse assist (0) Mental Statusoriented to own ability (0) Score: Low risk (<25). Moderate risk (25-44). High risk (>44).0 [place] InterventionsLOW INTERVENTIONS: *patient oriented to surroundings and call system, * patient/family falls education completed and documented, *patients fall status communicated during bedside handoff, *whiteboard updated, *mode of toileting discussed with patient, *bed in low position with brakes locked, *call light in reach, * non-skid footwear Functional screen: Functional Screen: In the recent/past 2-4 weeks, patient or family have noticedno issues that require a rehabilitation consult at this time Learning Assessment (Patient): Patient is Able to be Assessed for Learningyes (1) Factors Influencing Readiness to Learnanxiety; pain(2) Factors that Impact Ability to Learnnone(2) Devices/Methods Used to Communicatenone(2) Learning Preferencesverbal instruction(2) Cultural Considerationsnone (2) Developmental Considerationsnone (2) Mormonism Considerationsnone (2) Other Learnerssignificant other(2) Learning Assessment (Other Learner): Other learner availableyes... (1) Learnersignificant other(2) Factors Influencing Readiness to Learnanxiety(2) Factors that Impact Ability to Learnnone(1) Devices/Methods Used to Communicatenone(2) Learning Preferencesverbal instruction(2) Cultural Considerationsnone (2) Developmental Considerationsnone (2) Mormonism Considerationsnone (2) Nutrition Risk Screen: Nutrition Risk Screenno indicators present Nutrition Consult needed this visitno Can Patient Participate in Room Serviceyes Pain Screen: Pain Control Method: Labormedication; epidural; rest Pain Control Method: Postpartummedication Pain Scalenumerical 0-10 Pain Scale Educationteaching provided Acceptable Pain Level8 = Severe Presence of Painyes Current Pain Locationabdomen Pain Characteristicscramping Expression of Pain (nonverbal)change in activity pattern, change in sleep pattern, verbalization Chronic Painno Skin - Josh Scale: Josh Scale (daily): Josh: Sensory Perception (response to environment)(4) no impairment Josh: Moisture (degree skin exposed to moisture)(4) rarely moist Josh: Activity (ability to walk)(4) walks frequently Josh: Mobility (amount/control of body movement)(4) no limitation Josh: Nutrition (quality of food intake)(4) excellent Josh: Friction and Shear(3) no apparent problem Josh: Score23 Pressure Injury Present on Admissionno Spiritual Screen: Are there any cultural, spiritual, advent practices/values/needs that are important for us to knowno Do you want a visit/item from [facility] Would you like your E Commerce Developer/Dredge Pump Operator notifiedno Depression Screen: During the past month, have you often been bothered by feeling down, depressed or hopelessno (1) During the past month, have you often had little interest or pleasure in doing thingsno (1) Have you had any thoughts of harming anyone elseno (1) [place] Suicide: Risk Screen Not Applicable/Able to Answerable to be screened In the Past Month: Have you wished you were or could go to sleep and not wake upno In the Past Month: Have you had any actual thoughts of killing yourselfno Lifetime: Have you ever done, started to do, or prepared to do anything to end your lifeno [place] Suicide Risknegative Family Violence Screen: Are you or have you been threatened or abused physically, emotionally, or sexually by anyoneno (1) Has anyone ever threatened to hurt your family or your petsno (1) Does anyone try to keep you from having/contacting other friends or doing things outside your homeno (1) Do you feel UNSAFE going back to the place where you are livingno (1) Do you feel anyone has exploited or taken advantage of you financially or of your personal propertyno (1) Clinical asse (more content not included)... Normal [facility] CBCon 08-16-2021 Erythrocyte distribution width (RBC) [Ratio] 16.0 % High 11.5 - 14.5 [facility] Comment on above: Performed By: #### C OVSC #### [place] [id number] Hematocrit (Bld) [Volume fraction] 35.9 % Low 36.0 - 46.0 [facility] Comment on above: Performed By: #### C OVSC #### [place] [id number] Hemoglobin (Bld) [Mass/Vol] 11.5 g/dL Low 12.0 - 16.0 [facility] Comment on above: Performed By: #### C OVSC #### [address] [address] MCHC (RBC) [Mass/Vol] 32.0 g/dL Normal 32.0 - 36.0 [facility] Comment on above: Performed By: #### C OVSC #### [address] [address] MCV (RBC) [Entitic vol] 74 fL Low 80 - 100 [facility] Comment on above: Performed By: #### C OVSC #### [address] [address] Platelets (Bld) [#/Vol] 251 10*3/uL Normal 150 - 450 [facility] Comment on above: Performed By: #### C OVSC #### [address] [address] RBC 4.82 x10E12/L Normal 4.00 - 5.20 [facility] Comment on above: Performed By: #### C OVSC #### [place] [address] WBC (Bld) [#/Vol] 11.7 10*3/uL High 4.4 - 11.3 [facility] Comment on above: Performed By: #### C OVSC #### [place] [address] CORONAVIRUS 2019, SCREEN ASY MPTOMATICon 08-16-2021 SARS-CoV-2 (COVID-19) RNA KATHY+probe Ql (Unsp spec) Not detected Normal Not Detected [facility] Comment on above: Result Comment: . This test has received FDA Emergency Use Authorization (EUA) and has been verified by [facility]. This test is only authorized for the duration of time that circumstances exist to justify the authorization of the emergency use of in vitro diagnostic tests for the detection of SARS-CoV-2 virus and/or diagnosis of COVID-19 infection under section 564(b)(1) of the Act, 21 U.S.C. 360bbb-3(b)(1), unless the authorization is terminated or revoked sooner. [facility] is certified under CLIA-88 as qualified to perform high complexity testing. Testing is performed in the [facility] laboratory located at [address] [place] [address]. SARS-CoV-2/Flu/RSV Multiplex Test: Fact sheet for providers: https://www.fda.gov/media/864736/download Fact sheet for patients: https://www.fda.gov/media/952973/download Performed By: #### C OVSC #### [place] [address] Lab Specimen Source Nasal, Nasopharyngeal Normal [facility] Comment on above: Performed By: #### C OVSC #### [place] [address] Coronavirus 2019 RNA by PCR, Screening Asymptomticon 08-16-2021 Coronavirus 2019 RNA by PCR, Screening Asymptomtic Not detected Normal See [facility] [address] Work Phone: Comment on above: SOURCE: Nasal, Nasop haryngealReference Range: Not Detected.This test has received FDA Emergency Use Authorization (EUA) and has been verified by [facility]. This test is only authorized for the duration of time that circumstances exist to justify the authorization of the emergency use of in vitro diagnostic tests for the detection of SARS-CoV-2 virus and/or diagnosis of COVID-19 infection under section 564(b)(1) of the Act, 21 U.S.C. 360bbb-3(b)(1), unless the authorization is terminated or revoked sooner. [facility] is certified under CLIA-88 as qualified to perform high complexity testing. Testing is performed in the [facility] laboratory located at [address] [place] [address].SARS-CoV-2/Flu/RSV Multiplex Test: Fact sheet for providers: https://www.fda.gov/media/427882/downloadFact sheet for patients: https://www.fda.gov/media/843970/download Covid 19 Resultson 2 SARS-CoV-2 (COVID-19) RNA KATHY+probe Ql (Unsp spec) NEGATIVE COVID-19 Test Coronaviruses are common world-wide and are the cause of many common colds. SARS-COV2 is a new coronavirus that began circulating worldwide in 2019 so we are calling it COVID-19. It has been estimated that four out of five patients with COVID-19 will recover at home without the need for medical attention. Symptoms of COVID-19 may include cough, fever, shortness of breath, loss of taste or smell and other flu-like symptoms including chills, sore muscles, sore throat, and headache. Severe illness is more common in older people and people with other health problems such as high blood pressure, obesity, and immune system problems. If the test is positive, you have COVID-19. You will be contacted by the ordering physicians office and instructed to remain on home isolation, in accordance with CDC guidelines. You may also be contacted by the [facility] to see if any of your close contacts may have been exposed to the virus and need to quarantine. If the test is negative, you likely do not have COVID-19 at this time, but you still may have a different illness that can spread to other people (like Influenza, or the Flu) and could still be at risk for getting COVID-19. We recommend that you stay away from other people to limit the spread of illness until your symptoms are improving and you are fever-free for 24 hours without the use of fever lowering medications such as acetaminophen or ibuprofen. No test is 100% accurate so if you are still concerned you may have COVID-19, talk to your doctor about the need to continue to stay away from others. Medicines Unless your provider told you not to use the following: Acetaminophen (Tylenol and others) is generally safe. Anti-inflammatory medications, such as Ibuprofen (Advil or Motrin) or Naproxen (Aleve) can also be used. Sajq-qoh-huqaubj cough and cold medicines can be used according to the instructions on the package. Some kgje-eno-nkeygkg medicines also contain acetaminophen. Make sure you are not taking more than your recommended dose. For those not hospitalized, there is no specific treatment available for this illness. Antibiotics do not treat Coronaviruses. Follow-Up Follow up with your doctor by scheduling a virtual visit or consider follow-up at one of our urgent care fever clinics. If you are having difficulty breathing, or are very weak and having difficulty standing, this is a medical emergency. Call 911 or have someone take you to the nearest emergency room immediately. If possible, wear a facemask. Additional guidance from the CDC for patients who tested POSITIVE for COVID-19 How to isolate: Isolate yourself in a specific room at home and limit your contact with others. Use a separate bathroom from other members of the household, when possible. Leave home only to get essential medical care. Do not go to work, school or public areas. Avoid using public transportation, ride-sharing, or taxis. Restrict contact with pets and other animals. If you must care for your pet or be around animals while you are sick, wash your hands before and after your interaction and wear a facemask. Make sure that shared spaces in the home have good airflow, such as by an air conditioner or an opened window, weather permitting. Personal Hygiene Procedures: Wear a face mask when in the same room as other people or pets. If a face mask interferes with your breathing, others should wear a mask when sharing space with you. Frequent hand-washing: wash your hands with soap and water for at least 20 seconds. If soap and water are not available, use alcohol-based hand instruments sales representative. Avoid touching your eyes, nose, and mouth with unwashed hands. Household Hygiene Procedures: Avoid sharing personal household items such as dishes, glassware, cups, eating utensils, towels or bedding with other people or pets in your home. After use, these items should be washed with soap and hot water. Disinfect all high-touch surfaces every day with antibacterial cleaning solutions such as Lysol wipes, bleach, cleansers, etc. High-touch surfaces include tabletops, doorknobs, bathroom fixtures, toilets, phones, keyboards, tablets and bedside tables. Immediately clean any surfaces that may have blood, poop or body fluids on them, using antibacterial cleaning solutions such as Lysol wipes, bleach, cleansers, etc. If clothing or bedding come into contact with blood, poop or body fluids, they should be washed immediately. Follow the directions on the laundry detergent and clothing labels but hot water is recommended when possible. Stopping home isolation precautions: If possible, consult your doctor before stopping home isolation precautions. According to the CDC, you can discontinue home isolation precautions when you have met both of these criteria: Your fever and respiratory symptoms have been gone for 24 nakita (more content not included)... Normal [facility] Delivery Recordon 08-16-2021 Delivery Record Lab Tests/Results: Labs: Labs: Blood Typed Date: 16-Aug-2021 Blood Type: O positive Antibody Screen Results: negative Chlamydia Date: 19-Mar-2021 Chlamydia Results: negative Gonorrhea Date: 19-Mar-2021 Gonorrhea Results: negative Group B Strep Date: 30-Jul-2021 Strep Results: positive Group B Strep Comments: Group B streptococcus ISOLATED GCT (dd-mmm-yy): 23-May-2021 GCT result: 103 HBsAG Date: 03-Apr-2021 HBsAG Results: negative HIV Date: 03-Apr-2021 HIV Results: negative Rubella Date: 03-Apr-2021 Rubella Results: immune Rubella Comments: Result Value POSITIVE Syphilis (mmm-dd-yyyy): 03-Apr-2021 Syphilis Results: negative Maternal Delivery Information: Vaginal Delivery Information: Counts Correctyes [place] Delivery Information: A Delivery Information: Baby A Delivery: Rupture of Membranes date/[id number] 02:30 Amniotic Fluid Colorclear Delivery Typevaginal delivery Delivery Locationlabor and delivery Delivery Date/[id number] 19:00 Delivery Date/Time Verified Bykh Length of Time of ROM (rounded down to nearest hour)16 Sexfemale Identification Band [id number] Electronic Transponder [id number] ID Bands Verified byLaura Lawler RN 4th ID band toDerek Weight (kg)3.485 kilogram(s) Length (cm)49 centimeter(s) Head Circumference (cm)34 centimeter(s) Chest Circumference (cm)32 Delivery of Placenta (hh:mm)19:03 Baby A: Placenta disposaldiscarded 1 Min: Heart [place] than 100 beats/min Respiratory Rategood, crying Muscle Tonewell flexed Reflex Irritabilitycough or sneeze Colorblue, pale 1 Minute Score, Baby A8 5 Min: Heart [place] than 100 beats/min Respiratory Rategood, crying Muscle Tonewell flexed Reflex Irritabilitycough or sneeze Colorbody pink, extremities blue 5 Minute Score, Baby A9 Resuscitation Efforts: Vigorous at Birthyes Resuscitation Effortsnone required Baby A: Transfer Baby A: Transfer toRemains with mother Baby A: Labs sentCord Blood Workup (Type/Rh/Antibody) Delivery Team: Satya Degroot RN Electronic Signatures: Laura Lawler) (Signed 16-Aug-2021 21:59) Authored: Lab Tests/Results, Maternal Delivery Information, Delivery Information Last Updated: 16-Aug-2021 21:59 by Laura Lawler (CASSIE) [facility] Discharge Planning [id number] 0 08-16-2021 Discharge Planning Note2 Discharge Planning: Anticipated Discharge [id number] Discharge Planning Date and Time: Discharge Planning initiated on admission and formally reevaluated at this time. Patient independent with ambulation and ADL's prior to admission. Additional home going needs anticipated at this time: breastpump Handouts given to and reviewed with patient/caregiver per unit folder standards. Patient verbalizes understanding and denies any other post-discharge needs. Plan to continue to assess home going/discharge needs. Coordinate with interdisciplinary team as needed. Signature: Leroy MATTHEWS Date and Time:08/18/2021 @ 1506 According to plan, patient discharged home with S.O. Discharge instructions printed and reviewed. Teaching provided on new medications, self-care, signs and symptoms to report, and follow-up appointments. Patient verbalized understanding and denies any questions at time of discharge. Patient instructed to call provider with any additional questions after discharge. Signature: Julia Cardoso RN Assessment: Discharge Planning Assessment [id number] Lives Withsignificant other(1) [place] Resource/Environmental Concernsnone(1) Anticipated Transition [place](1) Services Anticipated at Transitionnon(1) Nursing Checklist: Lines/Cathetersremoved/a ppropriate for next level of care Patient has Prescriptionsno prescriptions needed Transportation for Discharge Confirmedyes Follow up Reviewedyes Discharge Instructions Reviewed WithPatient Discharge Instructions Review Completed with Patient/Family (diet, activity, pt instructions)yes Discharge Documentation: Discharge/Transfer Date/[id number] 15:05 Discharged Accompanied Bysignificant other/partner Discharge Modeambulatory Transportation Methodprivate car Code StatusCode Status order at time of discharge: Full Code [place] DNR Form Sent with Patient and/or Familyno Final DispositionHome Electronic Signatures: Lorena Cardoso (CASSIE) (Signed 18-Aug-2021 15:21) Authored: Discharge Planning, Nursing Checklist, Discharge Documentation Mechelle Hwang) (Signed 16-Aug-2021 07:00) Authored: Discharge Planning, Assessment Last Updated: 18-Aug-2021 15:21 by Lorena Cardoso (RN) References: 1. Data Referenced From Patient Profile - OB v3 16-Aug-2021 05:19 Normal [facility] Laboratory - Blood bankon ABO group Nom (Bld) O [facility] [email or web address] Work Phone: Blood group antibody screen Ql Negative [facility] [email or web address] Work Phone: Rh immune globulin screen (Bld) [Interp] Positive [facility] Work Phone: Laboratory - Hematology and Cell countson 08-16-2021 Erythrocyte distribution width (RBC) [Ratio] 16.0 % above high threshold See Below [facility] [employer] Work Phone: Comment on above: Reference Range: 11. 5 - 14.5 Hematocrit (Bld) [Volume fraction] 35.9 % below low threshold See Below [facility] [employer] Work Phone: Comment on above: Reference Range: 36. 0 - 46.0 Hemoglobin (Bld) [Mass/Vol] 11.5 g/dL below low threshold See Below [facility] [employer] Work Phone: Comment on above: Reference Range: 12. 0 - 16.0 MCHC (RBC) [Mass/Vol] 32.0 g/dL See Below [facility] [employer] Work Phone: Comment on above: Reference Range: 32. 0 - 36.0 MCV (RBC) [Entitic vol] 74 fL below lo w threshold 80 - 100 [facility] [employer] Work Phone: Platelets (Bld) [#/Vol] 251 10*3/uL 150 - 450 [facility] CenterGreat [place]Kim[place] [address] [place] Work Phone: RBC (Bld) [#/Vol] 4.82 {x10E12/L} See Below [facility] [employer] Work Phone: Comment on above: Reference Range: 4.0 0 - 5.20 WBC (Bld) [#/Vol] 11.7 10*3/uL above high threshold 4.4 - 11.3 [facility] [employer] Work Phone: Order Reconciliationon 08-16 Order Reconciliation Page 1 Admission Reconciliation Document Reconciliation Type: Admission requested on behalf of Alex Lau (Physician) done by Alex Lau) Admission - Reconciliation: 16-Aug-2021 06:25 by: Alex Lau) Home MedicationsEnteredLast Dose TakenReconciled with current Order Reconciliation Comment/ Additional Information Prena1 oral capsule 1 cap(s) orally once a [id number] 2 AM Reviewed and Held Additional Current Orders Acetaminophen Rectal Suppository (TYLENOL)DOSE = 650 mg Rectal Once, PRN Initial pain mgmt following deliveryClinician Notes: Administer in the OR. Carboprost IntraMuscular (HEMABATE)DOSE = 250 microgram(s) IntraMuscular Once, PRN post bleeding in non-asthmatic patientClinician Notes: Consult provider prior to administration. hydrALAZINE (APRESOLINE) Injectable DOSE = 5 mg IntraVenous Push Once, PRN Acute-onset, severe HTN w/out known, suspected CADClinician Notes: Consult provider prior to administration. Push over more than 2 minutes. Systolic greater than or equal to 160 OR Diastolic greater than or equal to 110. Contraindication: coronary artery disease (CAD); Caution in suspected CAD. Labetalol Injectable (TRANDATE)DOSE = 20 mg IntraVenous Push Once, PRN Acute-onset, sev HTN w/o active asthma/ hugo<60Clinician Notes: Consult provider prior to administration. Push over more than 2 minutes. Systolic greater than or equal to 160 OR Diastolic greater than or equal to 110. Contraindications: active asthma, heart disease, heart failure, maternal bradycardia < 60. Lactated Ringers Infusion IV Bag Volume = 1,000 mL Run at: 125 mL/hr IntraVenous Lactated Ringers IV Bolus DOSE = 500 mL Once, PRN resuscitationInfuse over 30 minute(s) Lactated Ringers IV Bolus DOSE = 500 mL Once, PRN If patient is given an EpiduralInfuse over 30 minute(s)Clinican Notes: Give 30 minutes prior to Epidural catheter placement Loperamide Capsule (IMODIUM)DOSE = 4 mg Oral Every 2 Hours, PRN If Carboprost given or loose stoolsClinician Notes: Max dose of 16mg / 24 hours Methylergonovine Injectable (METHERGINE)DOSE = 0.2 mg IntraMuscular Once, PRN PPH in pts w/o HTN or receiving ART for HIV mgmt.Clinician Notes: Consult provider prior to administration.Notes from Pharmacy: Reproductive Risk - Single Nitrile Glove miSOPROStol Rectal Tablet (Cytotec)DOSE = 800 microgram(s) Rectal Once, PRN post bleedingClinician Notes: Consult provider prior to administration.Notes from Pharmacy: Reproductive Risk - Single Nitrile Glove Nalbuphine Injectable (NUBAIN)DOSE = 10 mg IntraVenous Push Every 3 Hours, PRN Labor coping per patient requestStop After 2 Doses NIFEdipine (PROCARDIA) Immediate Release CapsuleDOSE = 10 mg Oral Once, PRN Acute-onset, severe HTN w/out IV access/ pref oralClinician Notes: Consult provider prior to administration. Systolic greater than or equal to 160 OR Diastolic greater than or equal to 110. Capsules administered orally and swallowed whole; Do not puncture or crush; Do not administer sublingually. Ondansetron Injectable (ZOFRAN)DOSE = 4 mg IntraVenous Push Once, PRN Nausea & Vomiting Oxytocin 30 units/ NaCL 0.9% 500 mL Infusion with Bolus from Bag IntraVenous (PITOCIN)INITIAL Bolus = 600 milliunits/min infused over 30 minutesDose Rate: 60 milliunits/minAdmin Rate = 60 mL/hrStop After 1 DosesClinician Notes: 600 milliunits/min x 30 mins., then 60 milliunits/min for the remainder of the bag. Begin infusion at delivery of (s).Notes from Pharmacy: DOSE Rate = 60 milliunits/min = 60 mL/hr.Reproductive Risk - Single Nitrile Glove Oxytocin 30 units/ NaCL 0.9% 500 mL Infusion with Bolus from Bag IntraVenous (PITOCIN)INITIAL Bolus = 600 milliunits/min infused over 30 minutesDose Rate: 60 milliunits/minAdmin Rate = 60 mL/hrStop After 1 DosesClinician Notes: Conditional order. 600 milliunits/min x 30 mins., then 60 milliunits/min for the remainder of the bag. Consult Provider prior to administration.Notes from Pharmacy: DOSE Rate = 60 milliunits/min = 60 mL/hr. Oxytocin Injectable (PITOCIN)DOSE = 10 unit(s) IntraMuscular OnceClinician Notes: Conditional order. Consult Provider prior to administration. Oxytocin Injectable (PITOCIN)DOSE = 10 unit(s) IntraMuscular Once, PRN Management-3rd Stage of labor if not given IVPBClinician Notes: Consult Provider prior to administration.Notes from Pharmacy: Reproductive Risk - Single Nitrile Glove Penicillin G 5 Million Units /NaCL 0.9% IVPB Soln 100 mL (PFIZERPEN)OnceRecommend ed Infusion Time: 30 minute(s)Clinician Notes: Loading dose. Follow 4 hours later with Pen G 3 million units. Penicillin G Potassium 3 Million Units/ D5W 50 mL Premix IVPB Every 4 HoursRecommended Infusion Time: 30 minute(s)Clinician Notes: To be given 4 hours after Saqib IV 5 million unit loading dose. Sodium Chloride 0.9% Injectable Flush via Peripheral LineVolume = 10 mL Intr (more content not included)... Normal [facility] JACQUI.RUPTURE OF MEMB.on 08-07 JACQUI.RUPTURE OF MEMB. Positive Abnormal Negative [facility] Comment on above: Order Comment: Wells d- RB to Charley Osborne , 08/16/2021 03:34 Result Comment: Call ed- RB to Charley Dylon , 08/16/2021 03:34 Performed By: #### C OVSC #### [place] [address] PREMATURE RUPTURE OF MEMBRAN Collin 08-16-2021 PREMATURE RUPTURE OF MEMBRANE Positive Abnormal Negative [facility] [place] [address] [place] Work Phone: Comment on above: Called- RB to Isabella mao Dylon , 08/16/2021 03:34 Patient Profile - OB v3on Patient Profile - OB v3 Profile: Initial Info: How to be Addressedrylie Spoken Language PreferredEnglish (1) Source of Informationpatient Reason for admission this visitexpected delivery Wants Family/Rep Notified of Admissionn/a; family present Notify PCPdo not notify PCP Informed of Patient Visiting Rightsyes Limitations on Visitors/Phone Callsnone [facility]rived [facility] Was Admitted To in Past 90 Daysnone Patient Belongingsremains with patient Patient Belongings Remaining with Patientclothing; cell phone/electronics Home Meds have been Reviewed and Verified with Patient/Familyyes Medications Brought to Hospitalno Info: Gravida1 (1) Term Deliveries0 (1) Deliveries0 (1) Abortions0 (1) Living Children0 (1) Patient stated [id number] Calculation of EGA based on patient stated EDD37.6 Records availableyes Trimester Care Initiatedfirst Care ProviderAdair Current Risksnone Testsultrasound Previous live (any gestational age)no Planno Childbirth Education Classes Planned or Attendednone Contraceptionnone Baby's Post Discharge Care Provider (Provider Name, Address and Phone Number) [employer] Feedingbreastmilk Benefits of Breast Milk DiscussionThe benefits of exclusive breast milk feeding and the risk of adding formula have been discussed with patient / mother. Discussion Date / [id number] 05:26 Previous Experienceno General Health: Current Weight in kg145 kilogram(s) Current Weight in ced544.6 pound(s) Weight Methodactual (measured) Scale Typestanding Pre Weight (lb)269 pound(s) Total Weight Gain (lb)50 pound(s) Height in feet6 feet Height in inches0.91 inch(es) Height in cm185.1 centimeter(s) Height Methodstated BMI (kg/m2)42.32 square meter Patient or Family Member Reaction to Anesthesiano previous reaction; no previous family member reaction Blood Avoidance/Restrictionsno ne Previous Transfusion Reactionnot applicable Rsp Based Care: How would you like to participate in your carekeep involved What is the number one concern for you during this hospitalizationhealthy mom ad baby What is the most important thing we can do to support you during this hospitalizationupdated Is there anything we need to know to best care for youno Substance: Smoking Statusnever smoker (1) Alcohol Usedenies(1) Drug Usedenies (1) Drug 2 Usedenies (1) Health Mgmt: Symptoms/Conditions Managed at H[place]one Barriers to Managing Healthnone Relationship/Environ: Primary Source of Support/Comfortparent; sibling(s); significant other Lives Withsignificant other Significant Exposurenone Resource/Environmental Concernsnone [facility]ated [facility] Anticipated at Transitionnone Additional Information: Information Review: Allergies and Significant Events have been Reviewed and Verified with Patient/Familyyes Allergy, Intolerance, Adverse Event: Allergies: sumatriptan: Drug, Unknown, Active Electronic Signatures: Mechelle Hwang) (Signed 16-Aug-2021 07:08) Authored: Initial Info, Info, General Health, Rsp Based Care, Substance, Health Mgmt, Relationship/Environ, Additional Information Last Updated: 16-Aug-2021 07:08 by Mechelle Hwang (RN) References: 1. Data Referenced From Triage Note - OB v4 16-Aug-2021 03:18 Normal [facility] Risk Screen - OB Triageon Risk Screen - OB Triage Allergies: Allergies: Allergies: sumatriptan: Unknown Patient Verification: Patient Verification: New W ID Band Applied in my Departmentyes Patient Identity Verified Bypatient ID Band FULL Name, include Middle, spelling matches patient's ID used for verificationyes ID Band Matches Patient ID used for Verficationyes ID Band MRN Matches EMR MRNyes Travel History: Travel History: COVID-19 Screening Completedno exposure or symptoms Travel or Exposure Past 30 DaysNO travel to International locations in the past 30 days Advance Directives: Advance Directive: Advance Directive/DNRno Advance Directive Information Givenpatient/family declined Falls Risk: [place] Fall Screen: History of falling (immediate or previous)no (0) Secondary Diagnosisno (0) Intravenous Therapy/ Heparin/Saline Lockno (0) Gait/Transferringnormal/ bedrest/wheelchair (0) Ambulatory Aidsnone/bedrest/nurse assist (0) Mental Statusoriented to own ability (0) Score: Low risk (<25). Moderate risk (25-44). High risk (>44).0 [place] InterventionsLOW INTERVENTIONS: *patient oriented to surroundings and call system, * patient/family falls education completed and documented, *patients fall status communicated during bedside handoff, *whiteboard updated, *mode of toileting discussed with patient, *bed in low position with brakes locked, *call light in reach, * non-skid footwear Learning Assessment (Patient): Learning Assessment (Patient): Patient is Able to be Assessed for Learningyes Factors Influencing Readiness to Learnanxiety; pain Factors that Impact Ability to Learnnone Devices/Methods Used to Communicatenone Learning Preferencesverbal instruction Cultural Considerationsnone Developmental Considerationsnone Mormonism Considerationsnone Other Learnerssignificant other Learning Assessment (Other Learner): Other learner availableyes... Learnersignificant other Factors Influencing Readiness to Learnanxiety Factors that Impact Ability to Learnnone Devices/Methods Used to Communicatenone Learning Preferencesverbal instruction Cultural Considerationsnone Developmental Considerationsnone Mormonism Considerationsnone Depression/Suicide: Depression Screen: During the past month, have you often been bothered by feeling down, depressed or hopelessno During the past month, have you often had little interest or pleasure in doing thingsno Have you had any thoughts of harming anyone elseno [place] Suicide: Risk Screen Not Applicable/Able to Answerable to be screened In the Past Month: Have you wished you were or could go to sleep and not wake upno In the Past Month: Have you had any actual thoughts of killing yourselfno Lifetime: Have you ever done, started to do, or prepared to do anything to end your lifeno [place] Suicide Risknegative Family Violence: Abuse Screen: Are you or have you been threatened or abused physically, emotionally, or sexually by anyoneno Has anyone ever threatened to hurt your family or your petsno Does anyone try to keep you from having/contacting other friends or doing things outside your homeno Do you feel UNSAFE going back to the place where you are livingno Do you feel anyone has exploited or taken advantage of you financially or of your personal propertyno Clinical assessment: Are there any apparent signs of injuries/behaviors that could be related to abuse/neglectno Electronic Signatures: Kandy Osborne (RN) (Signed 16-Aug-2021 03:21) Authored: Allergies, Patient Verification, Travel History, Advance Directives, [place] Fall Screen, Learning Assessment (Patient), Learning Assessment (Other Learner), Depression/Suicide, Family Violence Last Updated: 16-Aug-2021 03:21 by Kandy Osborne (RN) Normal [facility] SYPHILIS SCREENING WITH REFL EXon 08-16-2021 SYPHILIS TOTAL AB Non-Reactive Normal NONREACTIVE [facility] Comment on above: Result Comment: No s ignificant level of Treponema pallidum antibody detected. Repeat testing in 2 to 4 weeks may be considered if early infection or incubating syphilis infection is suspected. Performed By: #### C OVSC #### [place] [address] Lab Specimen Source Normal [facility] Comment on above: Performed By: #### C OVSC #### [place] [address] T. pallidum IgG+IgM IA Ql (S) Non-Reactive See Below [facility] [address] Work Phone: Comment on above: SOURCE: Reference nge: NONREACTIVENo significant level of Treponema pallidum antibody detected. Repeat testing in 2 to 4 weeks may be considered if early infection or incubating syphilis infection is suspected. TYPE + SCREENon 08-16-2021 ABO TYPE O [facility] Comment on above: Performed By: #### T +S ####[address] [address] RH TYPE Positive Normal [facility] Comment on above: Performed By: #### T +S ####[address] [address] Risk Screen - OB Triageon Risk Screen - OB Triage Allergies: Allergies: Allergies: sumatriptan: Unknown Patient Verification: Patient Verification: New W ID Band Applied in my Departmentyes Patient Identity Verified Bypatient ID Band FULL Name, include Middle, spelling matches patient's ID used for verificationyes ID Band Matches Patient ID used for Verficationyes ID Band MRN Matches EMR MRNyes Travel History: Travel History: COVID-19 Screening Completedno exposure or symptoms Travel or Exposure Past 30 DaysNO travel to International locations in the past 30 days Advance Directives: Advance Directive: Advance Directive/DNRno Advance Directive Information Givenpatient/family declined Falls Risk: [place] Fall Screen: History of falling (immediate or previous)no (0) Secondary Diagnosisno (0) Intravenous Therapy/ Heparin/Saline Lockno (0) Gait/Transferringnormal/ bedrest/wheelchair (0) Ambulatory Aidsnone/bedrest/nurse assist (0) Mental Statusoriented to own ability (0) Score: Low risk (<25). Moderate risk (25-44). High risk (>44).0 [place] InterventionsLOW INTERVENTIONS: *patient oriented to surroundings and call system, * patient/family falls education completed and documented, *patients fall status communicated during bedside handoff, *whiteboard updated, *mode of toileting discussed with patient, *bed in low position with brakes locked, *call light in reach, * non-skid footwear Learning Assessment (Patient): Learning Assessment (Patient): Patient is Able to be Assessed for Learningyes Factors Influencing Readiness to Learnanxiety Factors that Impact Ability to Learnnone Devices/Methods Used to Communicatenone Learning Preferencesverbal instruction Cultural Considerationsnone Developmental Considerationsnone Mormonism Considerationsnone Learning Assessment (Other Learner): Other learner availableyes... Learnersignificant other Factors Influencing Readiness to Learnanxiety Factors that Impact Ability to Learnnone Devices/Methods Used to Communicatenone Learning Preferencesverbal instruction Cultural Considerationsnone Developmental Considerationsnone Mormonism Considerationsnone Depression/Suicide: Depression Screen: During the past month, have you often been bothered by feeling down, depressed or hopelessno During the past month, have you often had little interest or pleasure in doing thingsno Have you had any thoughts of harming anyone elseno [place] Suicide: Risk Screen Not Applicable/Able to Answerable to be screened In the Past Month: Have you wished you were or could go to sleep and not wake upno In the Past Month: Have you had any actual thoughts of killing yourselfno Lifetime: Have you ever done, started to do, or prepared to do anything to end your lifeno [place] Suicide Risknegative Family Violence: Abuse Screen: Are you or have you been threatened or abused physically, emotionally, or sexually by anyoneno Do you feel UNSAFE going back to the place where you are livingno Clinical assessment: Are there any apparent signs of injuries/behaviors that could be related to abuse/neglectno Electronic Signatures: Kandy Osborne (RN) (Signed 12-Aug-2021 02:16) Authored: Allergies, Patient Verification, Travel History, Advance Directives, [place] Fall Screen, Learning Assessment (Patient), Learning Assessment (Other Learner), Depression/Suicide, Family Violence Last Updated: 12-Aug-2021 02:16 by Kandy Osborne (RN) [facility] Triage Note - OB v4on 2021 Triage Note - OB v4 Triage: General Info: Time of Arrival on [id number] 02:09 [place] Level3 Modified Acuity Level4 Chief Complaintdecreased movement Spoken Language PreferredEnglish Weight in kg143.8 kilogram(s) Weight in ref655 pound(s) Weight Methodactual (measured) Scale Typestanding Height in feet5 feet Height in .97 inch(es) Height in cm182.8 centimeter(s) Height Methodstated BMI (kg/m2)43.033 square meter Blood Avoidance/Restrictionsno ne Previous Transfusion Reactionnot applicable Patient Belongingsnone Home Meds have been Reviewed and Verified with Patient/Familyyes Info: Gravida1 Term Deliveries0 Deliveries0 Abortions0 Living Children0 Patient stated [id number] Calculation of EGA based on patient stated EDD37.2 Records availableyes Trimester Care Initiatedfirst Care ProviderAdair Current Risksnone Previous live (any gestational age)no Substance: Smoking Statusnever smoker Alcohol Usedenies Drug Usedenies Drug 2 Usedenies Disposition/Disch: Dispositiondischarged from facility, home with own care Patient Meets Criteria for Home Blood Pressure Monitorno Admission/Observation/Di scharge/Transfer Date/[id number] 02:54 Discharged Accompanied Bysignificant other/partner Discharge Modeambulatory Transportation Methodprivate car Travel History: Travel or ExposureNO travel to International locations in the past 30 days Additional Information: Information Review: Allergies have been Reviewed and Verified with Patient/Familyyes Allergy, Intolerance, Adverse Event: Allergies: sumatriptan: Drug, Unknown, Active Electronic Signatures: Kandy Osborne (CASSIE) (Signed 12-Aug-2021 02:56) Authored: General Info, Info, Substance, Disposition/Disch, Travel History, Additional Information Last Updated: 12-Aug-2021 02:56 by Kandy Osborne (CASSIE) Normal [facility] Laboratory - Microbiology an d Antimicrobial susceptibilityon 07-30-2021 Bacteria identified Aer cx Nom (Genital specimen) Abnormal [facility] [email or web address] Work Phone: No Panel Informationon 07-30 Please click on the link to view the study images Normal [facility] [email or web address] Work Phone: Normal [facility] [email or web address] Work Phone: No Panel Informationon 07-02 Please click on the link to view the study images Normal [facility] [email or web address] Work Phone: Normal [employer] Work Phone: Glucose, 1 Hour Screen, Preg nancyon 05-23-2021 Glucose 1 Hr post 50 g glucose PO [Mass/Vol] 103 mg/dL <135 [facility] [employer] Work Phone: Comment on above: Diagnostic value wit h glucose loading dose of 50 g. Reference values from [employer]. Diabetes Care 2015;38(Suppl.1):S8-S16 Laboratory - Hematology and Cell countson 05-23-2021 Erythrocyte distribution width (RBC) [Ratio] 14.2 % See Below [facility] [employer] Work Phone: Comment on above: Reference Range: 11. 5 - 14.5 Hematocrit (Bld) [Volume fraction] 37.5 % See Below [facility] [employer] Work Phone: Comment on above: Reference Range: 36. 0 - 46.0 Hemoglobin (Bld) [Mass/Vol] 12.5 g/dL See Below [facility] [employer] Work Phone: Comment on above: Reference Range: 12. 0 - 16.0 MCHC (RBC) [Mass/Vol] 33.4 g/dL See Below [facility] Work Phone: Comment on above: Reference Range: 32. 0 - 36.0 MCV (RBC) [Entitic vol] 82 fL 80 - 100 W [facility] Hospital[facility] Work Phone: Platelets (Bld) [#/Vol] 209 10*3/uL 150 - [address] [facility] [employer] Work Phone: RBC (Bld) [#/Vol] 4.54 {x10E12/L} See Below Wo [facility] TechnologyHann[facility] HospitalDiabetica Work Phone: Comment on above: Reference Range: 4.0 0 - 5.20 WBC (Bld) [#/Vol] 10.0 10*3/uL 4.4 - 11.3 [facility] [employer] Work Phone: No Panel Informationon 05-23 NONE [facility] [employer] Work Phone: No Panel Informationon 04-16 Normal [facility] [address] [place] Work Phone: HIV 1/2 ANTIGEN/ANTIBODY SCR EEN WITH REFLEX TO CONFIRMATIONon 04-03-2021 HIV 1+2 Ab Qn (S) Non-Reactive See Below [facility] [address] [place] Work Phone: Comment on above: SOURCE: Reference Ra nge: NONREACTIVE HIV Ag/Ab screen is performed using the [employer] HIV Ag/Ab Combo assay which detects the presence of HIV p24 antigen as well as antibodies to HIV-1 (Group M and O) and HIV-2..No laboratory evidence of HIV infection. If acute HIV infection is suspected, consider testing for HIV RNA by PCR (viral load). Hepatitis B Surface Antigeno n 04-03-2021 Hepatitis B Surface Antigen Non-Reactive See Below [facility] [employer] Work Phone: Comment on above: SOURCE: Reference Ra nge: NONREACTIVE Biotin interference may cause falsely decreased results. Patients taking a Biotin dose of up to 5 mg/day should refrain from taking Biotin for 24 hours before sample collection. Providers may contact their local laboratory for further information. SOURCE: Reference Ra nge: NONREACTIVE Results from patients taking biotin supplements or receiving high-dose biotin therapy should be interpreted with caution due to possible interference with this test. Providers may contact their local laboratory for further information. Laboratory - Blood bankon ABO group Nom (Bld) O [facility] [employer] Work Phone: ABO group Nom (Bld) Canceled [facility] [address] [place] Work Phone: Blood group antibody screen Ql Negative [facility] [employer] Work Phone: Blood group antibody screen Ql Canceled [facility] [employer] Work Phone: Rh immune globulin screen (Bld) [Interp] Positive [facility] [place] [address] [place] Work Phone: Rh immune globulin screen (Bld) [Interp] Canceled [facility] [place] [address] [place] Work Phone: Laboratory - Hematology and Cell countson 04-03-2021 Erythrocyte distribution width (RBC) [Ratio] 14.5 % See Below [facility] Center[facility] [place]Kim[place] [address] [place] Work Phone: Comment on above: Reference Range: 11. 5 - 14.5 Hematocrit (Bld) [Volume fraction] 38.9 % See Below [facility] Center[facility] [place]Kim[place] [address] [place] Work Phone: Comment on above: Reference Range: 36. 0 - 46.0 Hemoglobin (Bld) [Mass/Vol] 12.8 g/dL See Below [place] [address] [place] Work Phone: Comment on above: Reference Range: 12. 0 - 16.0 MCHC (RBC) [Mass/Vol] 32.9 g/dL See Below [facility] [address] [place] Work Phone: Comment on above: Reference Range: 32. 0 - 36.0 MCV (RBC) [Entitic vol] 84 fL 80 - 100 W [facility]menov[facility] park hospitalGreat TechnologyKim[place] [address] [place] Work Phone: Platelets (Bld) [#/Vol] 201 10*3/uL 150 - 450 [facility] Center[facility] [place]Kim[place] [address] [place] Work Phone: RBC (Bld) [#/Vol] 4.64 {x10E12/L} See Below Wo [facility] systemGreat TechnologyKim[place] [address] [place] Work Phone: Comment on above: Reference Range: 4.0 0 - 5.20 WBC (Bld) [#/Vol] 9.6 10*3/uL 4.4 - 11.3 [facility] [employer] Work Phone: No Panel Informationon 04-03 NONE [facility] [employer] Work Phone: Rubella IgG Antibodyon 04-03 Rubella virus IgG IA Ql Positive W [facility] [address] [place] Work Phone: Comment on above: INTERPRETATIVE COMME NT NEGATIVE: No IgG antibodies specific to Rubella detected. It is likely that the patient has not had a previous exposure to Rubella through infection or vaccination. Alternatively, the patient may have been exposed to Rubella but a failure to respond may indicate immunodeficiency. EQUIVOCAL:Equivocal results; obtain additional sample for retesting. POSITIVE: IgG antibody to Rubella detected. This may indicate that the patient was exposed to Rubella through infection or vaccination.The interpretation of serological tests should take into accountthe immunological status of the patient. Test results forpatients, including immunocompromised patients, neonates, andpediatric patients, reflect their capacity to respondimmunologically to the virus as well as their exposure to thepathogen. Patients treated with IVIG may demonstrate alteredresults in serological assays. SYPHILIS SCREENING WITH REFL EXon 04-03-2021 T. pallidum IgG+IgM IA Ql (S) Non-Reactive See Below [facility] [employer] Work Phone: Comment on above: Reference Range: NON REACTIVENo significant level of Treponema pallidum antibody detected. Repeat testing in 2 to 4 weeks may be considered if early infection or incubating syphilis infection is suspected. No Panel Informationon 03-21 Please click on the link to view the study images Normal [facility] [employer] Work Phone: Normal [facility] [employer] Work Phone: Cult, Urineon 03-19-2021 Bacteria identified Cx Nom (U) [facility] systemGreat TechnologyKim[place] [address] [place] Work Phone: GC + Chlamydia By Amplified Detectionon 03-19-2021 C. trachomatis rRNA KATHY+probe Ql (Unsp spec) Negative Negative [facility] CenterGreat TechnologyKim[place] [address] [place] Work Phone: Comment on above: The APTIMA Combo 2 a ssay is FDA-approved for Chlamydia trachomatis and Neisseria gonorrhoeae testing on female endocervical and vaginal swabs, ThinPrep liquid pap samples, male urine samples and urethral swabs. Performance characteristics for Chlamydia trachomatis and Neisseria gonorrhoeae testing on specific ulg-CKL-zwgepfsv sample types (female urine samples) have been validated by [facility]. This laboratory is certified by CLIA to perform high complexity testing. Samples from all other sites are not validated for this method. N. gonorrhoeae rRNA KATHY+probe Ql (Unsp spec) Negative Negative [employer] Work Phone: Comment on above: SOURCE: Urine The AP JEREMY Combo 2 assay is FDA-approved for Chlamydia trachomatis and Neisseria gonorrhoeae testing on female endocervical and vaginal swabs, ThinPrep liquid pap samples, male urine samples and urethral swabs. Performance characteristics for Chlamydia trachomatis and Neisseria gonorrhoeae testing on specific uya-QLP-fvztbqfr sample types (female urine samples) have been validated by [facility]. This laboratory is certified by CLIA to perform high complexity testing. Samples from all other sites are not validated for this method. 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 : confirm dates IO HCG, Urine Test; Status:Resulted - Requires Verification,Retrospecti ve Authorization; Done: 19Mar2021 02:16PM GC + Chlamydia By Amplified Detection; Status:In Progress - Specimen/Data Collected,Retrospective Authorization; Done: 19Mar2021 Provider Impressions 1. Amenorrhea Will obtain formal ultrasound this week to confirm dates. Follow-up in 2 weeks for new OB visit. Chief Complaint New Patient is here due to amenorrhea. LMP: 11/20/2020. Patient states she was on Nuva Ring and she took it out in Nov to have a period, didn't put in a new one and never had another period. Patient has no concerns at this time. History of Present IllnessPatient presents stating that she has not had a menstrual flow since November. Denies any vaginal bleeding or discharge. Review of Systems Review of Systems: Constitutional: No fever or chills Respiratory: No shortness of breath, or cough Cardiovascular: No chest pain or syncope Breasts: No breast pain, no masses, no nipple discharge Gastrointestinal: No nausea, vomiting, or diarrhea, no abdominal pain Genitourinary: No dysuria or frequency Gynecology: Negative except as noted in history of present illness All other: All other systems reviewed and negative for complaint Active Problems Problems Positive urine test (V72.42) (Z32.01) Past Medical History Problems History of Menstruation Onset age 14 years Surgical History Problems No history of surgery Family History Mother Family history of hypertension (V17.49) (Z82.49) Family history of migraine headaches (V17.2) (Z82.0) Father Family history of hypertension (V17.49) (Z82.49) Brother Family history of migraine headaches (V17.2) (Z82.0) Grandmother Family history of asthma (V17.5) (Z82.5) Family history of cerebrovascular accident (CVA) (V17.1) (Z82.3) Family history of diabetes mellitus (V18.0) (Z83.3) Family history of migraine headaches (V17.2) (Z82.0) Grandfather Family history of malignant neoplasm of prostate (V16.42) (Z80.42) Social History Problems No illicit drug use Rarely consumes alcohol (V49.89) (Z78.9) Sexually active Tobacco use (305.1) (Z72.0) Allergies Medication Rizatriptan Benzoate TABS Recorded By: Yaneth Augustin; 03/19/2021 2:16:13 PM Current Meds Medication NameInstruction Vitamin 27-0.8 MG Oral Tablet Vitals Vital Signs Recorded: 19Mar2021 02:15PM Acxgbevaxpe76.5 F Bqfamfbm114 Xqgywsjry91 Height6 ft 2-20 Stature Vrwqerkczk37 % Iyawki448.2 kg 2-20 Weight Mvlrufyegv13 % BMI Tkppaaauyc03.54 kg/m2 BMI Cklhtfsmqq94 % BSA Calculated2.42 [id number] Physical Exam PHYSICAL EXAMINATION: Well-developed, well nourished, in no acute distress, alert and oriented x three, is pleasant and cooperative. HEENT: Clear. Pupils equal, round and reactive to light and accommodation. Extraocular muscles are intact. Oral mucosa pink without exudate. NECK: No lymphadenopathy, no thyromegaly. LUNGS: Clear bilaterally. HEART: Regular rate and rhythm without murmurs. ABDOMEN: Normoactive bowel sounds, soft and nontender, no guarding or rebound tenderness, no CVA tenderness. Limited bedside ultrasound confirms live intrauterine at approximately 16 to 17 weeks gestation. EXTREMITIES: No clubbing, cyanosis or edema. NEUROLOGIC: Cranial nerves II-XII grossly intact. Results/Data IO HCG, Urine [id number] 02:16PMAlex Lau Medline hCG [id number] Exp: 07/06/2022 Test NameResultFlagReference IO Urine hCGPositiveA Signatures Electronically signed by : Alex Lau MD; Mar 19 2021 2:24PM EST (Author) Normal Touchworks Grp A Strp rRNA GnPrbe,Throa ton 05-04-2019 Group A Strep rRNA Detection Not Detected Normal NODT [facility] Insulin Lvlon 12-09-2018 Insulin Lvl 26.4 mcIU/mL High 2.6-24.[address] [facility] Comment on above: Result Comment: Perf ormed At: [facility] [place] [address] [place], [place] [id number] Eben Mckenzie PhD Ph:[phone] Performed By: #### 2 [id number] #### BETHANY Microbiology Subsection [address] [place] [address] Auto Diffon 12-08-2018 Basophils (Bld) [#/Vol] 0.0 E3/mcL Normal 0.0-0.2 [facility] Comment on above: Order Comment: Order Added by Discern Expert. Performed By: #### 2 [id number] #### BETHNAY RemHemo [address] [place] [address] Basophils/100 WBC (Bld) 0.3 % Normal 0.0-2.0 [facility] Comment on above: Order Comment: Order Added by Discern Expert. Performed By: #### 2 [id number] #### BETHANY RemHemo [address] [place] [address] Eos Absolute 0.1 E3/mcL Normal 0.0-0.[address] [facility] Comment on above: Order Comment: Order Added by Discern Expert. Performed By: #### 2 [id number] #### BETHANY [facility] [address] [place] [address] Eosinophils/100 WBC (Bld) 1.0 % Normal 0.0-11.[address] [facility] Comment on above: Order Comment: Order Added by Discern Expert. Performed By: #### 2 [id number] #### BETHANY Rem[employer] [address] [place] [address] Lymphocytes (Bld) [#/Vol] 2.1 E3/mcL Normal 1.2-3.[address] [facility] Comment on above: Order Comment: Order Added by Discern Expert. Performed By: #### 2 [id number] #### BETHANY RemHemo [address] [place] [address] Lymphocytes/100 WBC (Bld) 20.5 % Normal 20.0-55.[address] [facility] Comment on above: Order Comment: Order Added by Discern Expert. Performed By: #### 2 [id number] #### BETHANY RemHemo [address] [place] [address] Dale Absolute 0.6 E3/mcL Normal 0.0-0.[address] [facility] Comment on above: Order Comment: Order Added by Discern Expert. Performed By: #### 2 [id number] #### BETHANY RemHemo [address] [place] [address] Monocytes/100 WBC (Bld) 6.0 % Normal 0.0-10.0 [facility] Comment on above: Order Comment: Order Added by Discern Expert. Performed By: #### 2 [id number] #### BETHANY RemHemo [facility] [place] [address] Neutro Absolute 7.5 E3/mcL High 1.4-6.[address] [facility] Comment on above: Order Comment: Order Added by Discern Expert. Performed By: #### 2 [id number] #### BETHANY RemHemo [address] [place] [address] Neutro Auto 72.2 % Normal 37.0-75.[address] [facility] Comment on above: Order Comment: Order Added by Discern Expert. Performed By: #### 2 [id number] #### BETHANYSteve KnutsonHemo [address] [place] [address] C Urineon 12-08-2018 C Urine Final Report: 50,000 cfu/ml Escherichia coli ORGANISM: EC SUSCEPTIBILITY RESULTS Antibiotic CARMELITA Dilutn CARMELITA Interp ORGANISM: EC Amox/Cla : <=8/4 S Amp : >16 R Amp/Sul : 16/8 I Cefaz : <=8 S Cefo : <=2 S Cipro : <=1 S Gent : <=4 S Levo : <=2 S Scott : <=1 S Nitro : <=32 S Pip/Vivek : <=16 S Tetra : <=4 S Tobra : <=4 S SXT : <=2/[address] [facility] [facility] Comment on above: Performed By: #### 2 [id number] #### BETHANY [employer] Subsection [address] [place] [address] CBC w/ Auto Diffon 9 Erythrocyte distribution width (RBC) [Ratio] 14.4 % Normal 11.5-14.[address] [facility] Comment on above: Performed By: #### 2 [id number] #### BETHANY RemHemo [address] [place] [address] Hematocrit (Bld) [Volume fraction] 42.4 % Normal 35.0-45.[address] [facility] Comment on above: Performed By: #### 2 [id number] #### BETHANY RemHemo [address] [place], [place] [id number] Hemoglobin (Bld) [Mass/Vol] 14.1 g/dL Normal 12.0-15.[address] [facility] Comment on above: Performed By: #### 2 [id number] #### BETHANY KnutsonHemo [address] [place] [address] MCH (RBC) [Entitic mass] 28.3 pg Normal 26.0-32.[address] [facility] Comment on above: Performed By: #### 2 [id number] #### BETHANY KnutsonHemo [facility] [place] [address] MCHC (RBC) [Mass/Vol] 33.2 g/dL Normal 33.0-37.0 [facility] Comment on above: Performed By: #### 2 [id number] #### BETHANY KnutsonHemo [facility] [place] [address] MCV (RBC) [Entitic vol] 85.4 fL Normal 78.0-95.0 [facility] Comment on above: Performed By: #### 2 [id number] #### BETHANY KnutsonHemo [facility] [place] [address] Platelet mean volume (Bld) [Entitic vol] 9.2 fL Normal 7.4-11.[address] [facility] Comment on above: Performed By: #### 2 [id number] #### BETHANY KnutsonHemo [address] [place] [address] Platelets (Bld) [#/Vol] 232 E3/mcL Normal 130-400 [facility] Comment on above: Performed By: #### 2 [id number] #### BETHANY RemHemo [facility] [place] [address] RBC (Bld) [#/Vol] 4.96 E6/mcL Normal 3.90-5.30 [facility] Comment on above: Performed By: #### 2 [id number] #### BETHANY RemHemo [address] [place] [address] WBC (Bld) [#/Vol] 10.4 E3/mcL Normal 3.6-11.0 [facility] Comment on above: Performed By: #### 2 [id number] #### BETHANY RemHemo [address] [place] [address] CMPon 12-08-2018 Albumin [Mass/Vol] 4.3 g/dL Normal 3.4-5.0 [facility] Comment on above: Performed By: #### 2 [id number] #### [facility] [employer] [address] [place], [place] [id number] Albumin/Globulin [Mass ratio] 2.0 {ratio} High 1.1-1.[address] [facility] Comment on above: Performed By: #### 2 [id number] #### BETH[facility] [employer] [address] [place], [place] [phone] Alk Phos 87 Int._Unit/L Normal 45-[address] [facility] Comment on above: Performed By: #### 2 [id number] #### [facility] [employer] [address] [place], [place] [id number] ALT [Catalytic activity/Vol] 7 Int._Unit/L Normal 3-[address] [facility] Comment on above: Performed By: #### 2 [id number] #### [facility] [employer] [address] [place] [address] Anion gap [Moles/Vol] 12 mmol/L Normal 10-20 [facility] Comment on above: Performed By: #### 2 [id number] #### [facility] [employer] [address] [place], [place] [phone] AST [Catalytic activity/Vol] 8 Int._Unit/L Low 9-[address] [facility] Comment on above: Performed By: #### 2 [id number] #### [facility] [employer] [address] [place] [address] Bili Total 0.76 mg/dL Normal 0.00-0.[address] [facility] Comment on above: Performed By: #### 2 [id number] #### [facility] [employer] [address] [place], [place] [phone] Calcium [Mass/Vol] 9.3 mg/dL Normal 8.5-10.7 [facility] Comment on above: Performed By: #### 2 [id number] #### [facility] [employer] [address] [place], [place] [phone] Chloride [Moles/Vol] 107 mmol/L Normal 98-107 [facility] Comment on above: Performed By: #### 2 [id number] #### [facility] [employer] [address] [place] [address] CO2 [Moles/Vol] 25.0 mmol/L Normal 18.0-27.0 [facility] Comment on above: Performed By: #### 2 [id number] #### [facility] [employer] [address] [place] [address] Creatinine [Mass/Vol] 0.7 mg/dL Normal 0.5-0.9 [facility] Comment on above: Performed By: #### 2 [id number] #### [facility] [employer] [address] [place] [address] Globulin (S) [Mass/Vol] 2.0 g/dL Normal 2.0-4.0 [facility] Comment on above: Performed By: #### 2 [id number] #### [facility] [employer] [address] [place] [address] Glucose [Mass/Vol] 95 mg/dL Normal 70-99 [facility] Comment on above: Performed By: #### 2 [id number] #### [facility] [employer] [address] [place] [address] Potassium [Moles/Vol] 4.0 mmol/L Normal 3.5-5.3 [facility] Comment on above: Performed By: #### 2 [id number] #### [facility] [employer] [address] [place] [address]690 Protein [Mass/Vol] 6.4 g/dL Normal 6.2-7.7 [facility] Comment on above: Performed By: #### 2 [id number] #### [facility] [employer] [address] [place] [address] Sodium [Moles/Vol] 139 mmol/L Normal 136-145 [facility] Comment on above: Performed By: #### 2 [id number] #### [facility] [employer] [address] [place] [address] Urea nitrogen [Mass/Vol] 10 mg/dL Normal 6-[address] [facility] Comment on above: Performed By: #### 2 [id number] #### [facility] [employer] [address] [place] [address] Urea nitrogen/Creatinine [Mass ratio] 14.3 ratio Normal 5.4-30.[address] [facility] Comment on above: Performed By: #### 2 [id number] #### [facility] [employer] [address] [place] [address] Ferritinon 12-08-2018 Ferritin [Mass/Vol] 14.0 ng/mL Normal 8.0-150.0 [facility] Comment on above: Performed By: #### 2 [id number] #### [facility] [employer] [address] [place], [place] [phone] [id number] 12-08-2018 HbA1c (Bld) [Mass fraction] 5.1 % Normal 4.0-6.[address] [facility] Comment on above: Performed By: #### 2 [id number] #### BETHANY Microbiology Subsection [address] [place] [address] Ironon 12-08-2018 Iron [Mass/Vol] 32 microgram/dL Normal 28-175 [facility] Comment on above: Performed By: #### 2 [id number] #### [facility] [employer] [address] [place] [address] Lipid Profileon 12-08-2018 Cholesterol [Mass/Vol] 98 mg/dL Normal 0-169 [facility] Comment on above: Result Comment: TOTA Nasrin CHOLEESTEROL: <200 NORMAL 200 - 239 BORDERLINE HIGH >240 HIGH Performed By: #### 3 [id number] #### [facility] [employer] [address] [place] [address] Cholesterol in HDL [Mass/Vol] 36 mg/dL Low 40-[address] [facility] Comment on above: Performed By: #### 3 [id number] #### [facility] [employer] [address] [place] [address] Cholesterol in LDL [Mass/Vol] 47 mg/dL Normal 0-[address] [facility] Comment on above: Result Comment: <100 OPTIMAL 100-129 NEAR / ABOVE OPTIMAL 130-159 BORDERLINE HIGH 160-189 HIGH >190 VERY HIGH CALC LDL NOT VALID WHEN TRIGLYCERIDE IS >400 MG/DL Performed By: #### 3 [id number] #### [facility] [employer] [address] [place] [address] Cholesterol in VLDL [Mass/Vol] 15 mg/dL Normal 0-[address] [facility] Comment on above: Performed By: #### 3 [id number] #### [facility] [employer] [facility] [place] [address] Triglyceride [Mass/Vol] 75 mg/dL Normal 0-149 [facility] Comment on above: Result Comment: AGE DESIRABLE BORDERLINE HIGH 91 D - 9 Y 0 - 74 75 - 99 > 100 10 - 19 Y 0 - 89 90 - 129 > 130 20 -24 Y 0 - 114 115 - 149 > 150 > 25 0 - 149 150 - 199 200 - 499 Performed By: #### 3 [id number] #### [facility] [employer] [address] [place] [address] 713[address] T4 Totalon 12-08-2018 T4 [Mass/Vol] 07.2 microgram/dL Normal 04.5-12.5 [facility] Comment on above: Performed By: #### 2 [id number] #### [facility] [employer] [address] [place] [address] TIBC Calculatedon 12-08-2018 TIBC 413 microgram/dL Normal >=250 [facility] Comment on above: Performed By: #### 1 [id number] #### [facility] [employer] [address] [place] [address] Transferrin [Mass/Vol] 295 mg/dL Normal 200-360 [facility] Comment on above: Performed By: #### 1 [id number] #### [facility] [employer] [address] [place] [address] TSHon 12-08-2018 TSH Qn 1.26 mcIU/mL Normal 0.30-5.[address] [facility] Comment on above: Performed By: #### 2 [id number] #### BETHANY [employer] [facility] [place] [address] Vitamin D 25 Hydroxyon 12-08 Vitamin D 25 Hydroxy 37.0 ng/mL Normal 30.0-100.0 [facility] Comment on above: Performed By: #### 2 [id number] #### [facility] Micro[employer] Subsection [address] [place] [address] Lab Miscellaneouson 07-06-19 19 Status See Ref Lab Report Normal [facility] Comment on above: Performed By: #### 1 [id number] #### BETHANY Send Outs Subsection [address] [place] [address] [place] [address] Lab Miscellaneouson 07-03-19 Test Name FIFI DOAN [facility] Comment on above: Performed By: #### 1 [id number] #### BETHANY [employer] Out[employer] Subsection [address] [place] [address] Vital Signs Date Time Vital Sign Value Performing Clinician Facility 11-28-2024 10:22-0400 Body mass index (BMI) [Ratio] 31.88 kg/m2 Clarence Alfredo [employer]INE Work Phone: [facility] 11-28-2024 10:22-040 Body temperature 97.9 [degF] Clarence Alfredo [employer] MACHINE Work Phone: [facility] 11-28-2024 10:22040 Body weight 106.78 kg Clarence Alfredo [employer] MACHINE Work Phone: [facility] 11-28-2024 10:22-0400 Diastolic blood pressure 72 mm[Hg] Clarence Alfredo [employer] MACHINE Work Phone: [facility] 11-28-2024 10:22-0400 Heart rate 85 /min Clarence Gaurav [employer]INE Work Phone: [facility] 11-28-2024 10:22-0400 Respiratory rate 18 /min Clarencekarolina Alfredo [employer] MACHINE Work Phone: [facility] 11-28-2024 10:22-0400 SaO2% (BldA) [Mass fraction] 98 % Clarence Alfredo [employer]INE Work Phone: [facility] 11-28-2024 10:22-0400 Systolic blood pressure 122 mm[Hg] Clarence Alfredo [employer]INE Work Phone: [facility] 10-26-2024 13:52-0400 Body height 182.88 cm Ailin Whitehead INTELLIGENCE CONSULTANT-C Work Phone: [facility] 10-26-2024 13:45-0400 Body mass index (BMI) [Ratio] 30.8 kg/m2 Ailin Charley INTELLIGENCE CONSULTANT-C Work Phone: [facility] 10-26-2024 13:45-0400 Body weight 103.07 kg Ailin Whitehead INTELLIGENCE CONSULTANT-C Work Phone: [facility] 10-26-2024 13:45-0400 Diastolic blood pressure 68 mm[Hg] Ailin Changs INTELLIGENCE CONSULTANT-C Work Phone: [facility] 10-26-2024 13:45-0400 Systolic blood pressure 110 mm[Hg] Ailin Changs INTELLIGENCE CONSULTANT-C Work Phone: [facility] 09-27-2024 09:20-0400 Body mass index (BMI) [Ratio] 30.8 kg/m2 Clarence Gaurav [employer] MACHINE Work Phone: [facility] 09-27-2024 09:20-0400 Body weight 103.15 kg Clarence Alfredo [employer]ER MACHINE Work Phone: [facility] 09-27-2024 09:20-0400 Diastolic blood pressure 75 mm[Hg] Clarence Alfredo [employer] MACHINE Work Phone: [facility] 09-27-2024 09:20-0400 Heart rate 98 /min Clarence Alfredo [employer] MACHINE Work Phone: [facility] 09-27-2024 09:20-0400 SaO2% (BldA) [Mass fraction] 97 % Clarence Alfredo [employer] MACHINE Work Phone: [facility] 09-27-2024 09:20-0400 Systolic blood pressure 114 mm[Hg] Clarence Alfredo [employer] MACHINE Work Phone: [facility] 09-26-2024 10:44-0400 Body height 182.88 cm Ailin Changs INTELLIGENCE CONSULTANT-C Work Phone: [facility] 09-26-2024 10:41-0400 Body mass index (BMI) [Ratio] 30.4 kg/m2 Ailin Changs INTELLIGENCE CONSULTANT-C Work Phone: [facility] 09-26-2024 10:41-0400 Body weight 101.6 kg Ailin [place] INTELLIGENCE CONSULTANT-C Work Phone: [facility] 09-26-2024 10:41-0400 Diastolic blood pressure 73 mm[Hg] Ailin [place] INTELLIGENCE CONSULTANT-C Work Phone: [facility] 09-26-2024 10:41-0400 Systolic blood pressure 116 mm[Hg] Ailin Charley INTELLIGENCE CONSULTANT-C Work Phone: [facility] 09-13-2024 09:05-0400 Body height 182.88 cm Ailin [place] INTELLIGENCE CONSULTANT-C Work Phone: [facility] 09-13-2024 09:05-0400 Body mass index (BMI) [Ratio] 30.5 kg/m2 Ailin [place] INTELLIGENCE CONSULTANT-C Work Phone: [facility] 09-13-2024 09:05-0400 Body weight 102.11 kg Ailin [place] INTELLIGENCE CONSULTANT-C Work Phone: [facility] 09-13-2024 09:05-0400 Diastolic blood pressure 88 mm[Hg] Ailin [place] INTELLIGENCE CONSULTANT-C Work Phone: [facility] 09-13-2024 09:05-0400 Systolic blood pressure 132 mm[Hg] Ailin [place] INTELLIGENCE CONSULTANT-C Work Phone: [facility] 03-17-2024 13:08-0500 Body height 182.9 cm Lo Corey MD Work Phone: [facility] 03-17-2024 13:08-0500 Body mass index (BMI) [Ratio] 30.43 kg/m2 Lo Corey MD Work Phone: [facility] 03-17-2024 13:08-0500 Body weight 101.79 kg Lo Corey MD Work Phone: [facility] 03-17-2024 13:08-0500 Diastolic blood pressure 70 mm[Hg] Lo Corey MD Work Phone: [facility] 03-17-2024 13:08-0500 Heart rate 96 /min Lo Corey MD Work Phone: [facility] 03-17-2024 13:08-0500 SaO2% (BldA) [Mass fraction] 97 % Lo Corey MD Work Phone: [facility] 03-17-2024 13:08-0500 Systolic blood pressure 110 mm[Hg] Lo Corey MD Work Phone: [facility] 02-24-2024 16:52-0500 Diastolic blood pressure 72 mm[Hg] [facility] 02-24-2024 16:52-0500 Heart rate 102 /min [facility] 02-24-2024 16:52-0500 Respiratory rate 18 /min [facility] 02-24-2024 16:52-0500 SaO2% (BldA) [Mass fraction] 98 % [facility] 02-24-2024 16:52-0500 Systolic blood pressure 134 mm[Hg] [facility] 02-24-2024 15:34-0500 Body height 182.9 cm [facility] 02-24-2024 15:33-0500 Body temperature 98.2 [degF] [facility] 09-01-2023 14:31-0400 Body mass index (BMI) [Ratio] 31.42 kg/m2 Clarence Alfredo [employer] MACHINE Work Phone: [facility] 09-01-2023 14:31-0400 Body temperature 97.9 [degF] Clarence Alfredo [employer] MACHINE Work Phone: [facility] 09-01-2023 14:31-0400 Body weight 105.23 kg Clarence Alfredo [employer] MACHINE Work Phone: [facility] 09-01-2023 14:31-0400 Diastolic blood pressure 85 mm[Hg] Clarence Alfredo [employer] MACHINE Work Phone: [facility] 09-01-2023 14:31-0400 Heart rate 79 /min Clarence Alfredo [employer] MACHINE Work Phone: [facility] 09-01-2023 14:31-0400 Respiratory rate 20 /min Clarence Alfredo [employer]ER MACHINE Work Phone: [facility] 09-01-2023 14:31-0400 SaO2% (BldA) [Mass fraction] 98 % Clarence Alfredo [employer] ST[employer]ER MACHINE Work Phone: [facility] 09-01-2023 14:31-0400 Systolic blood pressure 129 mm[Hg] Clarence Alfredo [employer]ONE [employer] STITCHER MACHINE Work Phone: [facility] 06-05-2023 14:04-0400 Body height 183 cm Clarence Alfredo [employer]ONE [employer] STITCHER MACHINE Work Phone: [facility] 06-05-2023 14:04-0400 Body mass index (BMI) [Ratio] 32.91 kg/m2 Clarence Alfredo [employer] ST[employer]ER MACHINE Work Phone: [facility] 06-05-2023 14:04-0400 Body temperature 97.3 [degF] Clarence Alfredo [employer]ONE [employer] STITCHER MACHINE Work Phone: [facility] 06-05-2023 14:04-0400 Body weight 110.22 kg Clarence Alfredo APRN-WIRE STITCHER MACHINE Work Phone: [facility] 06-05-2023 14:04-0400 Diastolic blood pressure 75 mm[Hg] Clarence Alfredo STONE [employer] STITCHER MACHINE Work Phone: [facility] 06-05-2023 14:04-0400 Heart rate 76 /min Clarence Alfredo [employer]ONE [employer] STITCHER MACHINE Work Phone: [facility] 06-05-2023 14:04-0400 Respiratory rate 20 /min Clarence Alfredo [employer]ONE [employer] STITCHER MACHINE Work Phone: [facility] 06-05-2023 14:04-0400 Systolic blood pressure 130 mm[Hg] Clarence Alfredo [employer]ONE [employer] STITCHER MACHINE Work Phone: [facility] 03-13-2023 13:37-0500 Body height 183 cm Clarence Alfredo [employer]ONE [employer] STITCHER MACHINE Work Phone: [facility] 03-13-2023 13:37-0500 Body mass index (BMI) [Ratio] 34.08 kg/m2 Clarence Alfredo [employer]ER MACHINE Work Phone: [facility] 03-13-2023 13:37-0500 Body temperature 97.3 [degF] Clarence Alfredo [employer] ST[employer]ER MACHINE Work Phone: [facility] 03-13-2023 13:37-0500 Body weight 114.13 kg Clarence Alfredo [employer] ST[employer]ER MACHINE Work Phone: [facility] 03-13-2023 13:37-0500 Diastolic blood pressure 80 mm[Hg] Clarence Alfredo [employer] ST[employer]ER MACHINE Work Phone: [facility] 03-13-2023 13:37-0500 Heart rate 104 /min Clarence Alfredo [employer] ST[employer]ER MACHINE Work Phone: [facility] 03-13-2023 13:37-0500 Respiratory rate 16 /min Clarence Alfredo [employer] ST[employer]ER MACHINE Work Phone: [facility] 03-13-2023 13:37-0500 SaO2% (BldA) [Mass fraction] 96 % Clarence Alfredo [employer] ST[employer]ER MACHINE Work Phone: [facility] 03-13-2023 13:37-0500 Systolic blood pressure 119 mm[Hg] Clarence Alfredo [employer]ONE [employer] STITCHER MACHINE Work Phone: [facility] 11-24-2022 17:49-0400 Body height 183 cm Awais Flores Other Phone: [facility] 11-24-2022 17:49-0400 Body temperature 97.88 [degF] Awais Flores Other Phone: [facility] 11-24-2022 17:49-0400 Diastolic blood pressure 83 mm[Hg] Awais Flores Other Phone: [facility] 11-24-2022 17:49-0400 Heart rate 88 /min Awais Flores Other Phone: [facility] 11-24-2022 17:49-0400 SaO2% (BldA) [Mass fraction] 98 % Awais Flores Other Phone: [facility] 11-24-2022 17:49-0400 Systolic blood pressure 147 mm[Hg] Awais Flores Other Phone: [facility] 01-13-2022 16:21-0500 Body height 183 cm Awais Flores Other Phone: [facility] 01-13-2022 16:21-0500 Body temperature 97.16 [degF] Awais Flores Other Phone: [facility] 01-13-2022 16:21-0500 Diastolic blood pressure 85 mm[Hg] Awais Flores Other Phone: [facility] 01-13-2022 16:21-0500 Heart rate 103 /min Awais Flores Other Phone: [facility] 01-13-2022 16:21-0500 Respiratory rate 16 /min Awais Flores Other Phone: [facility] 01-13-2022 16:21-0500 SaO2% (BldA) [Mass fraction] 96 % Awais Flores Other Phone: [facility] 01-13-2022 16:21-0500 Systolic blood pressure 128 mm[Hg] Awais Flores Other Phone: [facility] 10-31-2021 13:02-0400 Body height 185.42 cm Awais Flores Work Phone: [employer] Phone: 10-31-2021 13:02-0400 Body mass index (BMI) [Ratio] 34.29 kg/m2 Awais Flores Work Phone: [employer] Phone: 10-31-2021 13:02-0400 Body surface area Derived from formula 2.41 m2 Awais Mehta Mark Work Phone: [place] [address] [address] Work Phone: 10-31-2021 13:02-0400 Body weight 117.9 kg Awais Mehta Mark Work Phone: [place] [address] [address] Work Phone: 10-31-2021 13:02-0400 Diastolic blood pressure 68 mm[Hg] Awais Mehta Mark Work Phone: [address] Work Phone: 10-31-2021 13:02-0400 Systolic blood pressure 110 mm[Hg] Awais Mehta Mark Work Phone: [address] Work Phone: 10-31-2021 13:02-0400 99 1 Awais Mehta Mark Work Phone: [address] Work Phone: Comment on above: 2-20_SPerc 2-20_WPerc 10-31-2021 13:02-0400 97 1 Awais Mehta Mark Work Phone: [place] [address] [address] Work Phone: Comment on above: BMIPerc 10-07-2021 13:24-0400 Body height 185.42 cm Awais Mehta Mark Work Phone: [place] [address] [address] Work Phone: 10-07-2021 13:24-0400 Body mass index (BMI) [Ratio] 34.83 kg/m2 Awais Mehta Mark Work Phone: [place] [address] [address] Work Phone: 10-07-2021 13:24-0400 Body surface area Derived from formula 2.42 m2 Awais C Mark Work Phone: [place] [address] [address] Work Phone: 10-07-2021 13:24-0400 Body weight 119.75 kg Awais C Mark Work Phone: [place] [address] [address] Work Phone: 10-07-2021 13:24-0400 Diastolic blood pressure 70 mm[Hg] Awais C Mark Work Phone: [place] [address] [address] Work Phone: 10-07-2021 13:24-0400 Systolic blood pressure 110 mm[Hg] Awais C Mark Work Phone: [place] [address] [place] Work Phone: 10-07-2021 13:24-0400 99 1 Awais Mehta Mark Work Phone: [place] [address] [place] Work Phone: Comment on above: 2-20_SPerc 2-20_WPerc 10-07-2021 13:24-0400 97 1 Awais Mehta Mark Work Phone: [place] [address] [place] Work Phone: Comment on above: BMIPerc 08-28-2021 14:50-0400 Body height 185.42 cm Awais C Mark Work Phone: [place] [address] [place] Work Phone: 08-28-2021 14:50-0400 Body mass index (BMI) [Ratio] 36.82 kg/m2 Awais C Mark Work Phone: [place] [address] [address] Work Phone: 08-28-2021 14:50-0400 Body surface area Derived from formula 2.48 m2 Awais Flores Work Phone: [place] [address] [address] Work Phone: 08-28-2021 14:50-0400 Body weight 126.6 kg Awais Flores Work Phone: [place] [address] [place] Work Phone: 08-28-2021 14:50-0400 Diastolic blood pressure 72 mm[Hg] Awais Flores Work Phone: [place] [address] [place] Work Phone: 08-28-2021 14:50-0400 Systolic blood pressure 112 mm[Hg] Awais Flores Work Phone: [place] [address] [place] Work Phone: 08-28-2021 14:50-0400 99 1 Awais Flores Work Phone: [place] [address] [place] Work Phone: Comment on above: 2-20_SPerc 2-20_WPerc 08-28-2021 14:50-0400 98 1 Awais Flores Work Phone: [place] [address] [place] Work Phone: Comment on above: BMIPerc 08-18-2021 15:00-0400 Body temperature 97.88 [degF] Awais Flores Other Phone: [facility] 08-18-2021 15:00-0400 Diastolic blood pressure 60 mm[Hg] Awais Flores Other Phone: [facility] 08-18-2021 15:00-0400 Heart rate 77 /min Awais Flores Other Phone: [facility] 08-18-2021 15:00-0400 Respiratory rate 16 /min Awais Flores Other Phone: [facility] 08-18-2021 15:00-0400 Systolic blood pressure 128 mm[Hg] Awais Flores Other Phone: [facility] 08-18-2021 08:25-0400 SaO2% (BldA) [Mass fraction] 98 % Awais Flores Other Phone: [facility] 08-14-2021 14:12-0400 Body height 185.42 cm Awais Flores Work Phone: [place] [address] [address] Work Phone: 08-14-2021 14:12-0400 Body mass index (BMI) [Ratio] 41.48 kg/m2 Awais Mehta Mark Work Phone: [address] Work Phone: 08-14-2021 14:12-0400 Body surface area Derived from formula 2.61 m2 Awais Mehta Mark Work Phone: [place] [address] [place] Work Phone: 08-14-2021 14:12-0400 Body weight 142.6 kg Awais Mehta Mark Work Phone: [address] Work Phone: 08-14-2021 14:12-0400 Diastolic blood pressure 80 mm[Hg] Awais Mehta Mark Work Phone: [address] Work Phone: 08-14-2021 14:12-0400 Systolic blood pressure 110 mm[Hg] Awais Mehta Mark Work Phone: [address] Work Phone: 08-14-2021 14:12-0400 99 1 Awais Mehta Mark Work Phone: [address] Work Phone: Comment on above: 2-20_SPerc 2-20_WPerc BMIPerc 08-06-2021 13:27-0400 Body height 185.42 cm Awais Mehta Mark Work Phone: [place] [address] [place] Work Phone: 08-06-2021 13:27-0400 Body mass index (BMI) [Ratio] 40.95 kg/m2 Awais Mehta Mark Work Phone: [place] [address] [place] Work Phone: 08-06-2021 13:27-0400 Body surface area Derived from formula 2.59 m2 Awais C Mark Work Phone: [place] [address] [place] Work Phone: 08-06-2021 13:27-0400 Body weight 140.8 kg Awais Mehta Mark Work Phone: [place] [address] [place] Work Phone: 08-06-2021 13:27-0400 Diastolic blood pressure 72 mm[Hg] Awais Mehta Mark Work Phone: [place] [address] [place] Work Phone: 08-06-2021 13:27-0400 Systolic blood pressure 118 mm[Hg] Awais Mehta Mark Work Phone: [place] [address] [place] Work Phone: 08-06-2021 13:27-0400 99 1 Awais C Mark Work Phone: [place] [address] [place] Work Phone: Comment on above: 2-20_SPerc 2-20_WPerc BMIPerc 07-30-2021 12:57-0400 Body height 185.42 cm Awais Mehta Mark Work Phone: [place] [address] [place] Work Phone: 07-30-2021 12:57-0400 Body mass index (BMI) [Ratio] 40.04 kg/m2 Awais C Mark Work Phone: [place] [address] [place] Work Phone: 07-30-2021 12:57-0400 Body surface area Derived from formula 2.57 m2 Awais Tyson Flores Work Phone: [place] [address] [place] Work Phone: 07-30-2021 12:57-0400 Body weight 137.67 kg Awais Tyson Flores Work Phone: [place] [address] [place] Work Phone: 05-24-2022 12:57-0400 Diastolic blood pressure 78 mm[Hg] Awais C Mark Work Phone: [facility] [address] [place] Work Phone: 07-30-2021 12:57-0400 Systolic blood pressure 112 mm[Hg] Awais Tyson Flores Work Phone: [place] [address] [place] Work Phone: 07-30-2021 12:57-0400 99 1 Awais C Mark Work Phone: [place] [address] [place] Work Phone: Comment on above: 2-20_SPerc 2-20_WPerc BMIPerc 07-23-2021 13:13-0400 Body height 185.42 cm Awais Tyson Flores Work Phone: [place] [address] [place] Work Phone: 07-23-2021 13:13-0400 Body mass index (BMI) [Ratio] 39.85 kg/m2 Awais Tyson Flores Work Phone: [place] [address] [place] Work Phone: 07-23-2021 13:13-0400 Body surface area Derived from formula 2.56 m2 Awais Tyson Flores Work Phone: [place] [address] [place] Work Phone: 07-23-2021 13:13-0400 Body weight 137 kg Awais Flores Work Phone: [place] [address] [place] Work Phone: 07-23-2021 13:13-0400 Diastolic blood pressure 78 mm[Hg] Awais Flores Work Phone: [place] [address] [place] Work Phone: 07-23-2021 13:13-0400 Systolic blood pressure 118 mm[Hg] Awais Flores Work Phone: [place] [address] [place] Work Phone: 07-23-2021 13:13-0400 99 1 Awais Flores Work Phone: [place] [address] [place] Work Phone: Comment on above: 2-20_SPerc 2-20_WPerc BMIPerc 07-16-2021 13:01-0400 Body height 182.88 cm Awais Flores Work Phone: [place] [address] [place] Work Phone: 07-16-2021 13:01-0400 Body mass index (BMI) [Ratio] 40.36 kg/m2 Awais Flores Work Phone: [place] [address] [place] Work Phone: 07-16-2021 13:01-0400 Body surface area Derived from formula 2.52 m2 Awais Flores Work Phone: [place] [address] [place] Work Phone: 07-16-2021 13:01-0400 Body weight 135 kg Awais Flores Work Phone: [place] [address] [place] Work Phone: 07-16-2021 13:01-0400 Diastolic blood pressure 76 mm[Hg] Awais Flores Work Phone: [place] [address] [place] Work Phone: 07-16-2021 13:01-0400 Systolic blood pressure 118 mm[Hg] Awais Flores Work Phone: [place] [address] [place] Work Phone: 07-16-2021 13:01-0400 99 1 Awais Flores Work Phone: [place] [address] [place] Work Phone: Comment on above: 2-20_SPerc 2-20_WPerc BMIPerc 07-02-2021 13:54-0400 Body height 182.88 cm Awais Flores Work Phone: [facility] [place] [address] [place] Work Phone: 07-02-2021 13:54-0400 Body mass index (BMI) [Ratio] 40.07 kg/m2 Awais C Mark Work Phone: [facility] [place] [address] [place] Work Phone: 07-02-2021 13:54-0400 Body surface area Derived from formula 2.51 m2 Awais Tyson Flores Work Phone: [facility] [place] [address] [place] Work Phone: 07-02-2021 13:54-0400 Body weight 134 kg Awais C Mark Work Phone: [place] [place] [address] [place] Work Phone: 07-02-2021 13:54-0400 Diastolic blood pressure 72 mm[Hg] Awais C Mark Work Phone: [facility] [place] [address] [place] Work Phone: 07-02-2021 13:54-0400 Systolic blood pressure 122 mm[Hg] Awais C Mark Work Phone: [facility] [place] [address] [place] Work Phone: 07-02-2021 13:54-0400 99 1 Awais Mehta Mark Work Phone: [place] [address] [place] Work Phone: Comment on above: 2-20_SPerc 2-20_WPerc BMIPerc 06-17-2021 14:50-0400 Body height 182.88 cm Awais C Mark Work Phone: [facility] [address] [place] Work Phone: 06-17-2021 14:50-0400 Body mass index (BMI) [Ratio] 39.8 kg/m2 Awais Tyson Flores Work Phone: [place] [address] [place] Work Phone: 06-17-2021 14:50-0400 Body surface area Derived from formula 2.51 m2 Awais Tyson Flores Work Phone: [place] [address] [place] Work Phone: 06-17-2021 14:50-0400 Body weight 133.1 kg Awais Flores Work Phone: [place] [address] [place] Work Phone: 06-17-2021 14:50-0400 Diastolic blood pressure 80 mm[Hg] Awais Flores Work Phone: [place] [address] [place] Work Phone: 06-17-2021 14:50-0400 Systolic blood pressure 120 mm[Hg] Awais Flores Work Phone: [place] [address] [place] Work Phone: 06-17-2021 14:50-0400 99 1 Awais Flores Work Phone: [place] [address] [place] Work Phone: Comment on above: 2-20_SPerc 2-20_WPerc BMIPerc 05-29-2021 10:47-0400 Body height 182.88 cm Awais Flores Work Phone: [place] [address] [place] Work Phone: 05-29-2021 10:47-0400 Body mass index (BMI) [Ratio] 39.14 kg/m2 Awais Flores Work Phone: [place] [address] [place] Work Phone: 05-29-2021 10:47-0400 Body surface area Derived from formula 2.49 m2 Awais Flores Work Phone: [place] [address] [place] Work Phone: 05-29-2021 10:47-0400 Body weight 130.9 kg Awais Flores Work Phone: [place] [address] [place] Work Phone: 05-29-2021 10:47-0400 Diastolic blood pressure 64 mm[Hg] Awais Flores Work Phone: [address] Work Phone: 05-29-2021 10:47-0400 Systolic blood pressure 124 mm[Hg] Awais Flores Work Phone: [address] Work Phone: 05-29-2021 10:47-0400 99 1 Awais Flores Work Phone: [address] Work Phone: Comment on above: 2-20_SPerc 2-20_WPerc BMIPerc 05-01-2021 11:30-0500 Body height 182.88 cm Awais Flores Work Phone: [address] Work Phone: 05-01-2021 11:30-0500 Body mass index (BMI) [Ratio] 37.73 kg/m2 Awais Flores Work Phone: [address] Work Phone: 05-01-2021 11:30-0500 Body surface area Derived from formula 2.45 m2 Awais Flores Work Phone: [address] Work Phone: 05-01-2021 11:30-0500 Body weight 126.2 kg Awais Flores Work Phone: [address] Work Phone: 05-01-2021 11:30-0500 Diastolic blood pressure 64 mm[Hg] Awais Flores Work Phone: [place] [address] [place] Work Phone: 05-01-2021 11:30-0500 Systolic blood pressure 118 mm[Hg] Awais Flores Work Phone: [place] [address] [place] Work Phone: 05-01-2021 11:30-0500 99 1 Awais Flores Work Phone: [place] [address] [place] Work Phone: Comment on above: 2-20_SPerc 2-20_WPerc BMIPerc 04-03-2021 10:17-0500 Body height 182.88 cm Awais C Mark Work Phone: [place] [address] [place] Work Phone: 04-03-2021 10:17-0500 Body mass index (BMI) [Ratio] 37.2 kg/m2 Awais Tyson Flores Work Phone: [place] [address] [place] Work Phone: 04-03-2021 10:17-0500 Body surface area Derived from formula 2.44 m2 Awais Flores Work Phone: [place] [address] [place] Work Phone: 04-03-2021 10:17-0500 Body temperature 97.3 [degF] Awais Flores Work Phone: [place] [address] [place] Work Phone: 04-03-2021 10:17-0500 Body weight 124.4 kg Awais Flores Work Phone: [place] [address] [place] Work Phone: 04-03-2021 10:17-0500 Diastolic blood pressure 66 mm[Hg] Awais Flores Work Phone: [place] [address] [place] Work Phone: 04-03-2021 10:17-0500 Systolic blood pressure 118 mm[Hg] Awais Flores Work Phone: [place] [address] [place] Work Phone: 04-03-2021 10:17-0500 99 1 Awais Flores Work Phone: [place] [address] [place] Work Phone: Comment on above: 2-20_SPerc 2-20_WPerc BMIPerc 03-19-2021 14:15-0500 Body height 182.88 cm Awais Flores Work Phone: [facility] [address] [place] Work Phone: 03-19-2021 14:15-0500 Body mass index (BMI) [Ratio] 36.54 kg/m2 Awais Flores Work Phone: [place] [address] [place] Work Phone: 03-19-2021 14:15-0500 Body surface area Derived from formula 2.42 m2 Awais Flores Work Phone: [place] [address] [place] Work Phone: 03-19-2021 14:15-0500 Body temperature 97.5 [degF] Awais Flores Work Phone: [facility] [address] [place] Work Phone: 03-19-2021 14:15-0500 Body weight 122.2 kg Awais Flores Work Phone: [place] [address] [place] Work Phone: 03-19-2021 14:15-0500 Diastolic blood pressure 66 mm[Hg] Awais Flores Work Phone: [place] [address] [place] Work Phone: 03-19-2021 14:15-0500 Systolic blood pressure 128 mm[Hg] Awais Flores Work Phone: [facility] [address] [place] Work Phone: 03-19-2021 14:15-0500 98 1 Awais Flores Work Phone: [place] [address] [place] Work Phone: Comment on above: BMIPerc 03-19-2021 14:15-0500 99 1 Awais Flores Work Phone: [place] [address] [place] Work Phone: Comment on above: 2-20_WPerc 2-20_SPerc 08-28-2020 03:50-0400 Diastolic blood pressure 89 mm[Hg] Awais Mark Other Phone: [facility] 08-28-2020 03:50-0400 Heart rate 88 /min Awais Mark Other Phone: [facility] 08-28-2020 03:50-0400 Respiratory rate 22 /min Awais Mark Other Phone: [facility] 08-28-2020 03:50-0400 SaO2% (BldA) [Mass fraction] 96 % Awais Flores Other Phone: [facility] 08-28-2020 03:50-0400 Systolic blood pressure 128 mm[Hg] Awais Mark Other Phone: [facility] 08-28-2020 02:58-0400 Body height 182.8 cm Awais Flores Other Phone: [facility] 08-28-2020 02:58-0400 Body temperature 98.6 [degF] Awais Mark Other Phone: [facility] 08-28-2020 02:58-0400 Body weight 120.5 kg Awais Mark Other Phone: [facility] Encounters Encounter Date Encounter Type Care Provider Facility Start: 12-02-2024 ambulatory Ailin Whitehead NP [facility] ity:[facility] Start: 11-28-2024 End: 11-28-2024 Office outpatient visit 25 minutes Clarence Acevedo [place] [employer]WIRE STITCHER MACHINE Work Phone: [facility] Comment on above: Iron deficiency; Anemia, unspecified type Start: 11-28-2024 End: 11-28-2024 ambulatory CLARENCE Uche [facility] Start: 11-25-2024 End: 11-25-2024 ambulatory AWAIS FLORES [facility] Start: 10-26-2024 End: 10-26-2024 Patient encounter procedure Ailin MORAELS -[facility] Work Phone: Start: 10-26-2024 End: 10-26-2024 ambulatory Ailin Whitehead INTELLIGENCE CONSULTANT-C Work Phone: -[facility] Start: 09-27-2024 End: 09-27-2024 Office outpatient visit 15 minutes [facility] [employer] STITCHER MACHINE Work Phone: [facility] [place] Comment on above: Iron deficiency (Rosita jenny Dx); Anemia, unspecified type Start: 09-27-2024 End: 09-27-2024 ambulatory [facility] Start: 09-26-2024 End: 09-26-[address] Yaneth Nogueira DO -[facility] Work Phone: Start: 09-26-2024 End: 09-26-2024 ambulatory Ailin Charley INTELLIGENCE CONSULTANT-C Work Phone: -[facility] Start: 09-26-2024 End: 09-26-2024 ambulatory Yaneth Nogueira Facility:[facility] Start: 09-21-2024 End: 09-21-2024 ambulatory Ailin Changs INTELLIGENCE CONSULTANT-C Work Phone: -[facility] Start: 09-21-2024 End: 09-21-[address] Yaneth Nogueira DO -[facility] Work Phone: Start: 09-21-2024 End: 09-21-2024 ambulatory Yaneth Nogueira Facility:[facility] Start: 09-16-2024 Non-patient / Non-visit Margaret rolle RN -[facility] Work Phone: Start: 09-16-2024 ambulatory Margaret Plasencia Facility :[facility] Start: 09-15-2024 End: 09-15-2024 ambulatory Ailin Charley INTELLIGENCE CONSULTANT-C Work Phone: -Lab [facility] Start: 09-15-2024 End: 09-15-2024 Patient encounter procedure Ailin Whitehead INTELLIGENCE CONSULTANT-C -Lab [facility] Start: 09-15-2024 End: 09-15-2024 ambulatory Ailinchay Whitehead INTELLIGENCE CONSULTANT Facility:[facility] Start: 09-13-2024 End: 09-13-2024 Patient encounter procedure Ailin Whitehead INTELLIGENCE CONSULTANT-C -[facility] Work Phone: Start: 09-13-2024 End: 09-13-2024 ambulatory Ailinchay Whitehead INTELLIGENCE CONSULTANT -[facility] Start: 03-17-2024 End: 03-17-2024 Office outpatient new 30 minutes Lo Corey MD Work Phone: [facility] 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 Emergency Department Start: 09-01-2023 End: 09-01-2023 Office outpatient visit 15 minutes Clarence Alfredo [employer] STITCHER MACHINE Work Phone: [facility] Office [facility] [place] Comment on above: Iron deficiency; Anemia, unspecified type Start: 08-31-2023 End: 08-31-2023 ambulatory [facility] Start: 06-05-2023 End: 06-05-2023 Office outpatient visit 15 minutes Clarence Alfredo [employer]ONE [employer] STITCHER MACHINE Work Phone: [facility] Office [facility] [place] Comment on above: Chemotherapy induced nausea and vomiting (Primary Dx); Iron deficiency; Anemia, unspecified type Start: 06-05-2023 End: 06-05-2023 ambulatory [facility] Start: 03-13-2023 End: 03-13-2023 Office outpatient visit 15 minutes Clarence Alfredo [employer]ONE [employer]WIRE STITCHER MACHINE Work Phone: [facility] Office [facility] [place] Comment on above: Iron deficiency (Rosita jenny Dx); Anemia, unspecified type Start: 03-11-2023 End: 03-11-2023 ambulatory AWAIS FLORES [facility] Start: 02-16-2023 End: 02-16-2023 ambulatory [facility] Start: 12-19-2022 End: 12-19-2022 ambulatory [facility] Start: 11-24-2022 End: 11-24-2022 Emergency department patient visit Aleksandar Shields [facility] Urgent [facility] 01 Start: 10-08-2022 ambulatory Ms. Awais Flores Facility:[id number] Start: 07-07-2022 ambulatory Ms. Clarence Alfredo Fac ility:[id number] Start: 07-05-2022 ambulatory Ms. Awais Flores Facility:[facility] Start: 05-07-2022 ambulatory Ms. Clarence Alfredo Fac ility:[id number] Start: 04-23-2022 ambulatory Ms. Clarence Alfredo Fac ility:[id number] Start: 04-14-2022 End: 04-14-2022 Emergency department patient visit Ms. Awais Flores Facility:[id number] Start: 02-27-2022 ambulatory Ms. Awais Flores Facility:[id number] Start: 01-13-2022 End: 01-13-2022 Emergency department patient visit Denys Cummings [facility] Start: 10-31-2021 Office outpatient vi sit 10 minutes Awais Mehta Mark Work Phone: [facility] Work Phone: Start: 10-07-2021 Patient encounter procedure Awais Mehta Mark Work Phone: [facility] Work Phone: Start: 08-28-2021 Office outpatient vi sit 15 minutes Awais C Mark Work Phone: [facility] Work Phone: Start: 08-20-2021 Patient encounter procedure Bobo Candelaria [facility] Start: 08-16-2021 End: 08-18-2021 Evaluation and management of inpatient [facility] L[facility]D 404 Start: 08-14-2021 Office outpatient vi sit 10 minutes Awais Mehta Mark Work Phone: [facility] [address] [place] Work Phone: Start: 08-12-2021 End: 08-12-2021 ambulatory Ms. Awais Flores Facility:[id number] Start: 08-06-2021 Office outpatient vi sit 10 minutes Awais C Mark Work Phone: [place] [address] [place] Work Phone: Start: 08-02-2021 Chart Update Awais Mehta Mark Work Phone: [facility] [address] [place] Work Phone: Start: 07-30-2021 Office outpatient vi sit 10 minutes Awais Mehta Mark Work Phone: [place] [address] [place] Work Phone: Start: 07-30-[address] Bobo Candelaria Fa cility:[id number] Start: 07-23-2021 Office outpatient vi sit 10 minutes Awais Mehta Mark Work Phone: [place] [address] [place] Work Phone: Start: 07-16-2021 Office outpatient vi sit 10 minutes Awais Mehta Mark Work Phone: [place] [address] [place] Work Phone: Start: 07-03-2021 Chart Update Awais Tyson Flores Work Phone: [place] [address] [place] Work Phone: Start: 07-02-2021 Office outpatient vi sit 10 minutes Awais Mehta Mark Work Phone: [facility] [place] [address] [place] Work Phone: Start: 06-17-2021 Office outpatient vi sit 10 minutes Awais C Mark Work Phone: [facility] [address] [place] Work Phone: Start: 05-29-2021 Office outpatient vi sit 15 minutes Awais Flores Work Phone: [place] [address] [place] Work Phone: Start: 05-24-2021 Chart Update Awais Flores Work Phone: [place] [address] [place] Work Phone: Start: 05-01-2021 Office outpatient vi sit 15 minutes Awais Flores Work Phone: [place] [address] [place] Work Phone: Start: 04-16-2021 Chart Update Awais C Mark Work Phone: [place] [address] [place] Work Phone: Start: 04-04-2021 Chart Update Awais Tyson Flores Work Phone: [place] [address] [place] Work Phone: Start: 04-03-2021 Office outpatient ne w 45 minutes Awais Flores Work Phone: [place] [address] [place] Work Phone: Start: 03-22-2021 Chart Update Awais Tyson Flores Work Phone: [place] [address] [place] Work Phone: Start: 03-21-2021 Chart Update Awais C Mark Work Phone: [place] [address] [place] Work Phone: Start: 03-20-2021 Chart Update Awais Tyson Flores Work Phone: [place] [address] [place] Work Phone: Start: 08-28-2020 End: 08-28-2020 Emergency department patient visit Ortiz Stinson [facility] Emergency 13 Procedures Date Procedure Procedure Detail Performing Clinician Start: 09-26-2024 Methadone measurement, urine Ailin Charley INTELLIGENCE CONSULTANT-C Work Phone: Start: 09-26-2024 Urine culture Ailin Has tings INTELLIGENCE CONSULTANT-C Work Phone: Start: 09-26-2024 Hepatitis C antibody measurement Ailin Charley INTELLIGENCE CONSULTANT-C Work Phone: Comment on above: Reactive: Presumptiv e evidence of antibodies to HCV. Follow CDC recommendations for supplemental testing.Non-Reactive: Antibodies to HCV were not detected; does not exclude the possibility of exposure to HCVReactive Results are presumptive evidence of antibodies to HCV. Follow CDC recommendations for supplemental testing.Order confirmation testing: HCV Quant by PCR testing - HCVPCR #[id number] Non Reactive: < 0.8 Equivocal: >/= 0.8 to < 1.0 Reactive: >/= 1.0The [facility] requires that a reactive/equivocal HCV antibody result be sent out for confirmation. HCV Quant by PCR testing. Start: 09-26-2024 Procedure [facility]LLIGENCE CONSULTANT-C Work Phone: Start: 09-26-2024 Rubella IgG measurement Ailin Whitehead INTELLIGENCE CONSULTANT-C Work Phone: Comment on above: Antibody Result: Int erpretationNon-Reactive: Non- ImmuneReactive: ImmuneThe following results were obtained with the [employer] Rubella IgG assay. Results from assays of other manufacturers cannot be used interchangeably. Start: 09-26-2024 Serologic test for syphilis Ailin Whitehead INTELLIGENCE CONSULTANT-C Work Phone: Start: 09-26-2024 Total iron binding c apacity measurement Ailin Whitehead INTELLIGENCE CONSULTANT-C Work Phone: Start: 09-21-2024 Transvaginal obstetr ic ultrasonography Ailin Whitehead INTELLIGENCE CONSULTANT-C Work Phone: Start: 04-21-2024 Microscopic observat ion [Identifier] in Cervix by Cyto stain Clarence Alfredo [employer]ONE [employer] STITCHER MACHINE Work Phone: Start: 06-05-2023 CBC W Auto Different ial panel - Blood AWAIS FLORES Start: 06-05-2023 Comprehensive metabo lic 2000 panel - Serum or Plasma AWAIS FLORES Start: 06-05-2023 Cyanocobalamin vitamin b-12 AWAIS FLORES Start: 06-05-2023 Ferritin [Mass/volum e] in Serum or Plasma AWAIS FLORES Start: 06-05-2023 IRON AND TIBC AWAIS LOVETT EAN Start: 06-05-2023 RETICULOCYTES AWAIS MCKOY Start: 03-11-2023 CBC W Auto Different ial panel - Blood AWAIS FLORES Start: 03-11-2023 Comprehensive metabo lic 2000 panel - Serum or Plasma AWAIS FLORES Start: 03-11-2023 Cyanocobalamin vitamin b-12 AWAIS FLORES Start: 03-11-2023 Ferritin [Mass/volum e] in Serum or Plasma AWAIS FLORES Start: 03-11-2023 IRON AND TIBC AWAIS MCKOY Start: 02-16-2023 POCT , URINE J JAS LAU Start: 08-16-2021 Antibody screen Ms. Edna Alfredo Comment on above: Performed By: #### T +S ####[address] [id number] Start: 01-04-2021 Lipid 1996 panel - S hernan or Plasma Clarence Alfredo STONE GL[employer]-WIRE STITCHER MACHINE Work Phone: No history of surgery Awais Flores Work Phone: Plan of Treatment Date Care Activity Detail Author Start: 2052 Zoster Vaccines (1 of 2) Zoste r Vaccines (1 of 2) [facility] Start: 07-03-2031 DTaP/Tdap/Td Vaccine s (8 - Td or Tdap) DTaP/Tdap/Td Vaccines (8 - Td or Tdap) [facility] Start: 07-03-2031 Tetanus vaccination TETANUS [facility] Start: 04-21-2027 Screening for malign ant neoplasm of cervix [facility] Start: 01-04-2026 Lipid panel Lipid Panel [facility] Start: 04-22-2025 Yearly Adult Physical Yearly Adult P hysical [facility] Start: 03-27-2025 End: 03-27-2025 Patient encounter procedure 03/27/2025 10:30 AM EST Office Visit [facility] [address] [place] [id number] Clarence Alfredo, STONE [employer]WIRE STITCHER MACHINE [address] [place], [place] [id number] [facility] Start: 03-20-2025 End: 06-18-2025 CBC W Auto Differential panel - Blood CBC and Auto Differential Lab Routine Iron deficiency Anemia, unspecified type Expected: 03/20/2025, Expires: 06/18/2025 [facility] Service Area Work Phone: Comment on above: Expected: 03/20/2025 , Expires: 06/18/2025 Start: 03-20-2025 End: 06-18-2025 Cobalamin (Vitamin B12) [Mass/volume] in Serum or Plasma Vitamin B12 Lab Routine Iron deficiency Anemia, unspecified type Expected: 03/20/2025 (Approximate), Expires: 06/18/2025 [facility] Work Phone: Comment on above: Expected: 03/20/2025 (Approximate), Expires: 06/18/2025 Start: 03-20-2025 End: 06-18-2025 Comprehensive metabolic 2000 panel - Serum or Plasma Comprehensive metabolic panel Lab Routine Iron deficiency Anemia, unspecified type Expected: 03/20/2025 (Approximate), Expires: 06/18/2025 [facility] Work Phone: Comment on above: Expected: 03/20/2025 (Approximate), Expires: 06/18/2025 Start: 03-20-2025 End: 06-18-2025 Ferritin [Mass/volume] in Serum or Plasma Ferritin Lab Routine Iron deficiency Anemia, unspecified type Expected: 03/20/2025 (Approximate), Expires: 06/18/2025 [facility] Work Phone: Comment on above: Expected: 03/20/2025 (Approximate), Expires: 06/18/2025 Start: 03-20-2025 End: 06-18-2025 Iron and Iron binding capacity panel - Serum or Plasma Iron and TIBC Lab Routine Iron deficiency Anemia, unspecified type Expected: 03/20/2025, Expires: 06/18/2025 [facility] Work Phone: Comment on above: Expected: 03/20/2025 , Expires: 06/18/2025 Start: 03-20-2025 End: 06-18-2025 Reticulocytes panel - Blood Reticulocytes Lab Routine Iron deficiency Anemia, unspecified type Expected: 03/20/2025 (Approximate), Expires: 06/18/2025 [facility] Work Phone: Comment on above: Expected: 03/20/2025 (Approximate), Expires: 06/18/2025 Start: 11-28-2024 End: 11-28-2024 Patient encounter procedure 11/28/2024 10:30 AM EDT Office Visit [facility] [address] [place] [id number] Clarence Alfredo S, [employer] [address] [place] [address] [facility] Start: 11-21-2024 End: 09-27-2025 CBC W Auto Differential panel - Blood CBC and Auto Differential Lab Routine Iron deficiency Anemia, unspecified type Expected: 11/21/2024, Expires: 09/27/2025 [facility] Service Area Work Phone: Comment on above: Expected: 11/21/2024 , Expires: 09/27/2025 Start: 11-21-2024 End: 09-27-2025 Cobalamin (Vitamin B12) [Mass/volume] in Serum or Plasma Vitamin B12 Lab Routine Iron deficiency Anemia, unspecified type Expected: 11/21/2024 (Approximate), Expires: 09/27/2025 [facility] Work Phone: Comment on above: Expected: 11/21/2024 (Approximate), Expires: 09/27/2025 Start: 11-21-2024 End: 09-27-2025 Comprehensive metabolic 2000 panel - Serum or Plasma Comprehensive metabolic panel Lab Routine Iron deficiency Anemia, unspecified type Expected: 11/21/2024 (Approximate), Expires: 09/27/2025 [facility] Work Phone: Comment on above: Expected: 11/21/2024 (Approximate), Expires: 09/27/2025 Start: 11-21-2024 End: 09-27-2025 Ferritin [Mass/volume] in Serum or Plasma Ferritin Lab Routine Iron deficiency Anemia, unspecified type Expected: 11/21/2024 (Approximate), Expires: 09/27/2025 [facility] Work Phone: Comment on above: Expected: 11/21/2024 (Approximate), Expires: 09/27/2025 Start: 11-21-2024 End: 09-27-2025 Folate [Mass/volume] in Serum or Plasma Folate Lab Routine Iron deficiency Anemia, unspecified type Expected: 11/21/2024 (Approximate), Expires: 09/27/2025 [facility] Work Phone: Comment on above: Expected: 11/21/2024 (Approximate), Expires: 09/27/2025 Start: 11-21-2024 End: 09-27-2025 Iron and Iron binding capacity panel - Serum or Plasma Iron and TIBC Lab Routine Iron deficiency Anemia, unspecified type Expected: 11/21/2024, Expires: 09/27/2025 [facility] Work Phone: Comment on above: Expected: 11/21/2024 , Expires: 09/27/2025 Start: 11-21-2024 End: 09-27-2025 Reticulocytes panel - Blood Reticulocytes Lab Routine Iron deficiency Anemia, unspecified type Expected: 11/21/2024 (Approximate), Expires: 09/27/2025 [facility] Work Phone: Comment on above: Expected: 11/21/2024 (Approximate), Expires: 09/27/2025 Start: 11-07-2024 COVID-19 Vaccine ( season) COVID-19 Vaccine ( season) [facility] Start: 11-07-2024 Influenza vaccination Influenza Vacc ine (#1) [facility] Start: 09-26-2024 Bacteria identified in Urine by Culture Urine Culture [facility] Start: 09-26-2024 CBC W Auto Different ial panel - Blood [facility] Start: 09-26-2024 Ferritin [Mass/volum e] in Serum or Plasma [facility] Start: 09-26-2024 Hepatitis C antibody measurement [facility] Start: 09-26-2024 Iron and Iron bindin g capacity panel - Serum or Plasma [facility] Start: 09-26-2024 Procedure [facility] Start: 09-26-2024 Rubella IgG measurement [facility] Start: 09-26-2024 Serologic test for syphilis [facility] Start: 09-26-2024 [facility] Start: 09-26-2024 Chlamydia deoxyribon ucleic acid detection [facility] Start: 09-26-2024 [facility] Start: 02-17-2024 Screening for Chlamy vargas trachomatis Chlamydia and Gonorrhea Screening [facility] Start: 11-08-2023 COVID-19 VACCINE ( season) COVID-19 VACCINE () [facility] Start: 11-08-2023 Influenza vaccination [facility] Start: 09-05-2023 End: 06-04-2024 CBC W Auto Differential panel - Blood CBC and Auto Differential Lab Routine Iron deficiency Anemia, unspecified type Chemotherapy induced nausea and vomiting Expected: 09/05/2023, Expires: 06/04/2024 [facility] Service Area Work Phone: Comment on above: Expected: 09/05/2023 , Expires: 06/04/2024 Start: 09-05-2023 End: 06-04-2024 Cobalamin (Vitamin B12) [Mass/volume] in Serum or Plasma Vitamin B12 Lab Routine Iron deficiency Anemia, unspecified type Chemotherapy induced nausea and vomiting Expected: 09/05/2023 (Approximate), Expires: 06/04/2024 [facility] Work Phone: Comment on above: Expected: 09/05/2023 (Approximate), Expires: 06/04/2024 Start: 09-05-2023 End: 06-04-2024 Comprehensive metabolic 2000 panel - Serum or Plasma Comprehensive metabolic panel Lab Routine Iron deficiency Anemia, unspecified type Chemotherapy induced nausea and vomiting Expected: 09/05/2023 (Approximate), Expires: 06/04/2024 [facility] Work Phone: Comment on above: Expected: 09/05/2023 (Approximate), Expires: 06/04/2024 Start: 09-05-2023 End: 06-04-2024 Ferritin [Mass/volume] in Serum or Plasma Ferritin Lab Routine Iron deficiency Anemia, unspecified type Chemotherapy induced nausea and vomiting Expected: 09/05/2023 (Approximate), Expires: 06/04/2024 [facility] Work Phone: Comment on above: Expected: 09/05/2023 (Approximate), Expires: 06/04/2024 Start: 09-05-2023 End: 06-04-2024 Iron and Iron binding capacity panel - Serum or Plasma Iron and TIBC Lab Routine Iron deficiency Anemia, unspecified type Chemotherapy induced nausea and vomiting Expected: 09/05/2023, Expires: 06/04/2024 [facility] Work Phone: Comment on above: Expected: 09/05/2023 , Expires: 06/04/2024 Start: 06-23-2023 Screening for malign ant neoplasm of cervix [facility] Start: 05-12-2023 End: 03-13-2024 CBC W Auto Differential panel - Blood CBC and Auto Differential Lab Routine Anemia, unspecified type Iron deficiency Expected: 05/12/2023, Expires: 03/13/2024 [facility] Service Area Work Phone: Comment on above: Expected: 05/12/2023 , Expires: 03/13/2024 Start: 05-12-2023 End: 03-13-2024 Cobalamin (Vitamin B12) [Mass/volume] in Serum or Plasma Vitamin B12 Lab Routine Anemia, unspecified type Iron deficiency Expected: 05/12/2023 (Approximate), Expires: 03/13/2024 [facility] Work Phone: Comment on above: Expected: 05/12/2023 (Approximate), Expires: 03/13/2024 Start: 05-12-2023 End: 03-13-2024 Comprehensive metabolic 2000 panel - Serum or Plasma Comprehensive metabolic panel Lab Routine Anemia, unspecified type Iron deficiency Expected: 05/12/2023 (Approximate), Expires: 03/13/2024 [facility] Work Phone: Comment on above: Expected: 05/12/2023 (Approximate), Expires: 03/13/2024 Start: 05-12-2023 End: 03-13-2024 Iron and Iron binding capacity panel - Serum or Plasma Iron and TIBC Lab Routine Anemia, unspecified type Iron deficiency Expected: 05/12/2023, Expires: 03/13/2024 [facility] Work Phone: Comment on above: Expected: 05/12/2023 , Expires: 03/13/2024 Start: 03-13-2023 End: 03-13-2024 Ferritin [Mass/volume] in Serum or Plasma Ferritin Lab Routine Anemia, unspecified type Iron deficiency Expected: 03/13/2023 (Approximate), Expires: 03/13/2024 [facility] Work Phone: Comment on above: Expected: 03/13/2023 (Approximate), Expires: 03/13/2024 Start: 11-07-2022 COVID-19 Vaccine ( season) COVID-19 Vaccine ( season) [facility] Start: 11-07-2022 Influenza vaccination Influenza Vacc ine (#1) [facility] Start: 10-08-2022 Patient encounter procedure [facility] Start: 10-07-2021 PPV, Provider: Bobo Candelaria, Status: Pen, Time: 1:15 PM PPV, Provider: Bobo Candelaria, Status: Pen, Time: 1:15 PM [facility] Work Phone: Start: 08-20-2021 EPVOB, Provider: Bobo Candelaria, Status: Pen, Time: 1:15 PM EPVOB, Provider: Bobo Candelaria, Status: Pen, Time: 1:15 PM [facility] Work Phone: Start: 08-20-2021 Patient encounter procedure Outpatient [facility] Start: 20-Aug-2021 13:15 Bobo Candelaria Intent [facility] Start: 08-16-2021 End: 08-17-2022 [facility] Comment on above: May self-administer after voiding administer if patien t screen is non- immune or equivocal After and PRN Consult provider rosita or to administration. Conditional order. C onsult Provider prior to administration. Max dose of 16mg / 2 4 hours Conditional order. 6 00 milliunits/min x 30 mins., then 60 milliunits/min for the remainder of the bag. Consult Provider prior to administration. Start: 08-13-2021 EPVOB, Provider: Bobo Candelaria, Status: Pen, Time: 1:00 PM EPVOB, Provider: Bobo Candelaria, Status: Pen, Time: 1:00 PM [facility] Work Phone: Start: 08-06-2021 EPVOB, Provider: Bobo Candelaria, Status: Pen, Time: 1:15 PM EPVOB, Provider: Bobo Candelaria, Status: Pen, Time: 1:15 PM [facility] Work Phone: Start: 07-30-2021 EPVOB, Provider: Bobo Candelaria, Status: Pen, Time: 1:00 PM EPVOB, Provider: Bobo Candelaria, Status: Pen, Time: 1:00 PM [facility] Work Phone: Start: 07-23-2021 EPVOB, Provider: Bobo Candelaria, Status: Pen, Time: 1:00 PM EPVOB, Provider: Bobo Candelaria, Status: Pen, Time: 1:00 PM [facility] Work Phone: Start: 07-16-2021 EPVOB, Provider: Bobo Candelaria, Status: Pen, Time: 1:00 PM EPVOB, Provider: Bobo Candelaria, Status: Pen, Time: 1:00 PM [facility] Work Phone: Start: 07-02-2021 EPVOB, Provider: Jennifer Blanton, Status: Pen, Time: 1:15 PM EPVOB, Provider: Jennifer Blanton, Status: Pen, Time: 1:15 PM [facility] Work Phone: Start: 2021 Hepatitis B vaccination HEP B VACCINE (1 of 3 - 19+ 3-dose series) [facility] Start: 2021 Pneumococcal Vaccine : Pediatrics and At-Risk Adult Patients (1 of 2 - PCV) Pneumococcal Vaccine: Pediatrics and At-Risk Adult Patients (1 of 2 - PCV) [facility] Start: 06-12-2021 EPVOB, Provider: Alex Lau, Status: Pen, Time: 11:30 AM EPVOB, Provider: Alex Lau, Status: Pen, Time: 11:30 AM [facility] Work Phone: Start: 05-29-2021 EPVOB, Provider: Alex Lau, Status: Pen, Time: 10:45 AM EPVOB, Provider: Alex Lau, Status: Pen, Time: 10:45 AM [facility] Work Phone: Start: 05-01-2021 EPVOB, Provider: Alex Lau, Status: Pen, Time: 11:30 AM EPVOB, Provider: Alex Lau, Status: Pen, Time: 11:30 AM [facility] Work Phone: Start: 04-03-2021 EPVOB, Provider: Alex Lau, Status: Pen, Time: 10:00 AM EPVOB, Provider: Alex Lau, Status: Pen, Time: 10:00 AM [facility] Work Phone: Start: 2018 Screening for Chlamy vargas trachomatis CHLAMYDIA SCREEN [facility] Start: 2017 HIV screening HIV SCREENING DISCUSSION [facility] Start: 2017 Vaccination for wil n papillomavirus HPV VACCINE ADOL (1 - 3-dose series) [facility] Start: 2008 Pneumococcal Vaccine : Pediatrics (0 to 5 Years) and At-Risk Patients (6 to 64 Years) (1 - PCV) Pneumococcal Vaccine: Pediatrics (0 to 5 Years) and At-Risk Patients (6 to 64 Years) (1 - PCV) [facility] Start: 2008 Pneumococcal Vaccine : Pediatrics (0 to 5 Years) and At-Risk Patients (6 to 64 Years) (1 of 2 - PCV) Pneumococcal Vaccine: Pediatrics (0 to 5 Years) and At-Risk Patients (6 to 64 Years) (1 of 2 - PCV) [facility] Start: 2006 Hearing Screening (#1) Hearing Scree apple (#1) [facility] Start: 2005 Well Child Visit (WC V) - Annual Well Child Visit (WCV) - Annual [facility] Start: 2002 COVID-19 Vaccine (#1) COVID-19 Vacci ne (#1) [facility] Start: 2002 Hearing Screening (#1) Hearing Scree apple (#1) [facility] Start: 2002 Hepatitis C screening HEPATITI S C VIRUS SCREENING [facility] Start: 2002 Screening for Chlamy vargas trachomatis GONORRHEA SCREEN [facility] CBC W Auto Different ial panel - Blood [facility] Chlamydia deoxyribon ucleic acid detection [facility] Chlamydia deoxyribon ucleic acid detection [facility] Drugs identified in Urine by Screen method [facility] Drugs identified in Urine by Screen method [facility] Erythrocyte mean corpuscular volume determination [facility] Ferritin [Mass/volum e] in Serum or Plasma [facility] Hematocrit [Volume Fraction] of Blood [facility] Hemoglobin [Mass/vol ume] in Blood [facility] Hepatitis B virus basurto rface Ag [Presence] in Serum [facility] Hepatitis C antibody measurement [facility] Iron [Mass/mass] in Unspecified specimen [facility] Iron and Iron bindin g capacity panel - Serum or Plasma [facility] Iron saturation [Mas s Fraction] in Serum or Plasma [facility] Leukocytes [#/volume ] in Blood [facility] Mean corpuscular hemoglobin concentration determination [facility] Mean corpuscular hemoglobin determination [facility] Neisseria gonorrhoea e rRNA [Presence] in Unspecified specimen by KATHY with probe detection [facility] Neutrophil count [facility] Neutrophil percent differential count [facility] PCR test for Chlamyd ia trachomatis [facility] Platelets [#/volume] in Blood [facility] Red blood cell count [facility] Red cell distributio n width determination [facility] Rubella IgG measurement [facility] Serologic test for syphilis [facility] Total iron binding capacity measurement [facility] Ultrasonography in f irst trimester [facility] Urine culture [facility] End: 02-24-2024 VIRUS CULTURE, BODY FLUID AND TISSUE [facility] Comment on above: One Time for 1 Occur rences starting 02/24/2024 until 02/24/2024 [facility] Immunizations Immunization Date Immunization Notes Care Provider Aneta martinez 07-02-2021 tetanus toxoid, redu alisia diphtheria toxoid, and acellular pertussis vaccine, adsorbed Clarence Alfredo [employer] Work Phone: [facility] 12-26-2014 influenza virus vaccine, unspecified formulation Clarence Alfredo [employer] Work Phone: [facility] Work Phone: Payers Date Payer Category Payer Self-pay 2022 Unknown [id number] 2022 [employer] Blue [employer] Managed Care [facility] [id number] 2022 Unknown 2022 Unknown [id number] 2022 Unknown [id number] 2002 Unknown [id number] 2.16.840.1.763123.3.579.2. 1068 2002 Unknown [id number] 2.16.840.1.991898.3.579.2. 1068 2002 Unknown [id number] 2.16.840.1.670091.3.579.2. 1068 2002 Unknown [id number] 2.16.840.1.737238.3.579.2. 1068 2002 Unknown [id number] 2.16.840.1.541966.3.579.2. 1068 2002 Unknown [id number] 2.16.840.1.812604.3.579.2. 1068 2002 Unknown [id number] 2.16.840.1.170955.3.579.2. 1068 2002 Unknown [id number] 2.16.840.1.781097.3.579.2. 1068 2002 Unknown [id number] 2.16.840.1.614860.3.579.2. 1068 2002 Unknown [id number] 2.16.840.1.015710.3.579.2. 356 2002 Unknown [id number] 2.16.840.1.882638.3.579.2. 1243 2002 Unknown [id number] 2.16.840.1.771337.3.579.2. 1243 2002 Unknown [id number] 2.16.840.1.695709.3.579.2. 1244 2002 Unknown [id number] 2.16.840.1.309237.3.579.2. 1244 2002 Unknown [id number] 2.16.840.1.382391.3.579.2. 1245 2002 Unknown [id number] 2.16.840.1.391560.3.579.2. 983 2002 Unknown [id number] 2.16.840.1.018218.3.579.2. 1243 2002 Unknown [id number] 2.16.840.1.689998.3.579.2. 1243 2002 Unknown [id number] 2.16.840.1.370291.3.579.2. 1243 Self-pay [id number] Unknown [id number] Unknown [id number] 2.16.840.1.234458.3.579.2. 462 Unknown [id number] 2.16.840.1.065958.3.579.2. 462 Unknown [id number] 2.16.840.1.625907.3.579.2. 462 Unknown [id number] 2.16.840.1.552348.3.579.2. 462 Unknown [id number] 2.16.840.1.643337.3.579.2. 462 Unknown [id number] 2.16.840.1.787056.3.579.2. 462 Unknown [id number] 2.16.840.1.234156.3.579.2. 462 Unknown [id number] 2.16.840.1.846016.3.579.2. 462 Social History Date Type Detail Facility [facility] Tobacco smoking consumption unknown [facility] Start: 02-16-2023 End: 09-27-2024 Sexually active Sexually active [facility] [address] Work Phone: Start: 04-09-2014 End: 09-27-2024 Tobacco smoking status NHIS Smokes tobacco daily [facility] Start: 04-09-2014 History of tobacco use Cigarette Smo ker [facility] Work Phone: Start: 12-18-2022 End: 09-27-2024 Tobacco use and exposure Smokeless tobacco non-user [facility] Work Phone: Start: 02-16-2023 End: 09-27-2024 Alcohol intake Ex-drinker (finding) [facility] Work Phone: Start: 02-16-2023 End: 09-27-2024 Tobacco use panel [facility] Work Phone: Start: 12-18-2022 [facility] Start: 2002 [facility] Start: 03-03-2023 End: 09-01-2023 Exposure to SARS-CoV-2 (event) Not sure [facility] Start: 03-27-2023 Tobacco Comment Vapes, niot cigarret arcenio [facility] Work Phone: Start: 02-24-2024 Tobacco smoking stat [facility] Never smoked tobacco [facility] Start: 02-24-2024 End: 03-17-2024 Alcoholic beverage intake Current drink[facility] of [facility] (finding) [facility] Start: 02-24-2024 Alcohol Comment occasionally [email or web address] [facility] Start: 03-17-2024 Tobacco smoking stat [facility] Occasional tobacco smoker [facility] Start: 03-17-2024 Tobacco Comment [employer] [facility] Start: 2002 Sex Assigned At Female W [facility] (I/We) worried [facility] er (my/our) food would run out before (I/we) got money to buy more. 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 female. Subjective HPI Patient is a 21 yo female with a PMH of Asthma and Migraines and was referred to benign hematology for consultation of splenomegaly. Patient was recently in the ER with vomiting and 102 F fever for approximately two day. She reported to the ER concerned about dehydration as she is currently nursing her [address] abdomen/chest results reported mildly enlarged spleen. Today, patient presents with her mother for initial consultation. Energy level is decent, fatigued at times, but believes it is from caring for an 8 month old and her work schedule. Her appetite is good, she reports frequent episodes of nausea. Patient denies any early satiety, abdominal fullness or distention. Denies any abnormal weight loss, abdominal pain or cramping. No diarrhea, constipation. Recent UTI, treated with antibiotics, otherwise no urinary issues. No hematochezia, melena or hematuria. Denies any recent exposure to illness, no fever, chills, or drenching night sweats. No abnormal bleeding or bruising. Amenorrhea since of child. Denies SOB, chest pain or pressure. Chronic knee/back pain. No PICA. Denies any abnormal bleeding, bruises easy. No recurrent infections or lymphadenopathy. No known blood disorders in family. Has had surgery in past w/o issue. Never had blood/blood products. Denies NSAID use. Up-to-date on age appropriate cancer screenings Interval History 11/28/24 She is currently 19-20 weeks gestation. She admits that not currently taking oral iron as often as she should, taking about 2-3 times weekly. Since entering her second trimester nausea has subsided. She is eating and drinking well. Energy varies depending on the day, give she is raising a toddler, and currently . 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 Decreased in epistaxis episodes weekly. Denies any shortness of breath, fevers, bleeding or bruising. Bowels are regular. No urinary issues. No B symptoms. No PICA Recommended that patient try [facility] Multivitamins with extra or find a vitamin that contains iron. Will continue to monitor labs at this time. Objective BSA: 2.33 meters squared BP 122/72 (BP Location: Right arm, Patient Position: Sitting, BP Cuff Size: Adult) Pulse 85 Temp 36.6 C (97.9 F) (Skin) Resp 18 Wt 107 kg (235 lb 6.4 oz) SpO2 98% BMI 31.88 kg/m Physical Exam Vitals and nursing note reviewed. Constitutional: Appearance: Normal appearance. HENT: Head: Normocephalic and atraumatic. Nose: Nose normal. Mouth/Throat: Mouth: Mucous membranes are moist. Pharynx: Oropharynx is clear. Eyes: General: No scleral icterus. Extraocular Movements: Extraocular movements intact. Conjunctiva/sclera: Conjunctivae normal. Cardiovascular: Rate and Rhythm: Normal rate and regular rhythm. Pulses: Normal pulses. Heart sounds: Normal heart sounds. Pulmonary: Effort: Pulmonary effort is normal. Breath sounds: Normal breath sounds. Abdominal: Palpations: Abdomen is soft. Tenderness: There is no abdominal tenderness. Musculoskeletal: General: Normal range of motion. Cervical back: Normal range of motion and neck supple. Lymphadenopathy: Cervical: No cervical adenopathy. Skin: General: Skin is warm and dry. Neurological: General: No focal deficit present. Mental Status: She is alert and oriented to person, place, and time. Psychiatric: Mood and Affect: Mood normal. Behavior: Behavior normal. Thought Content: Thought content normal. Judgment: Judgment normal. Performance Status: Asymptomatic Assessment/Plan 1. Splenomegaly Patient was recently in the ER due to illness. While in the ER an abdomen/chest CT reported mildly enlarged spleen measuring 15cm, increased in size from 13.8. No other acute findings were noted within the abdomen pelvis. No evidence of cytopenias reported. WBC (8.6), Hgb (13.7), Plt (230k). Discussed possible etiologies including multifactorial, viral, bacterial or parasitic infection, inflammatory disease such as lupus or rheumatoid arthritis. Will start hematological workup today. 2. Iron Deficiency- Iron Serum (76), TIBC (354), Tsat (21%), Ferritin (22) Discussed with patient possible etiologies including multifactorial, nutritional deficiencies, and increased requirements due to / . Discussed IV iron vs oral iron replacement. At this time recommended trialing oral iron (1 tablet) daily with vitamin C. Will recheck labs in 8 weeks for oral replacement efficacy. Interval History 03/13/23- Overall patient is generally feeling well today. Patient remains fatigued, she continues to work long hours at times and has a young child at home. Her menstrual cycle has started again since having her daughter, first couple cycles were extremely heavy, she is currently on oral contraceptive to mange menorrhagia. She remains on oral iron daily. Denies any new clinical concerns. Hgb (14.4), WBC (9.6), Plts (242k). Her iron parameters have trended down, likely to due return of menstruation. Fe (50), Fe (12%), Ferritin (34). Patient reported that oral iron was causing GI symptoms of diarrhea. Discussed trialing a different formulation of oral iron such as ferrous gluconate vs. IV iron at this time. Will order course of IV Feraheme to be administered. Patient was provided educaton on IV iron without premedication, observation for hypersensitivity reaction for 30 minutes post infusion. Side effects of Feraheme were explained, including but are not limited to hypotension, edema, chest pain, hypertension, dizziness, headache, fatigue, pruritus, rash, diarrhea, nausea, constipation, vomiting, abdominal pain, hypersensitivity reaction which can be severe and potentially life-threatening, pain, muscle spasm, shortness of breath, cough, fever, anaphylaxis, angioedema, arrhythmia, cardiac failure, ischemic heart disease, syncope, urticaria-patient agrees to proceed if needed. 09/01/23: Patient iron parameters have trended down- Fe 36, Fe sat 12%, Ferritin 180, B12 472. CBC is stable- Hg 15.0, WBC 9.7, Plts 241k. Discussed increasing oral iron vs IV iron. Patient would like to try and take oral iron more consistently. Patient does state when she takes iron daily she has increased-intolerable GI side effects. Discussed try taking oral Hillrose Multi-Vitamin with iron, and oral B12 dialy- will send in prescriptions to pharmacy. Will continue to monitor for iron and B12 replacement efficacy. 11/28/24: Hemoglobin is stable at 12.7. Iron parameters remain low, but are stable, Iron serum 46, Iron Saturation 13%, Ferritin 56, B12 311. Discussed increasing oral iron intake, by taking either a Hillrose multivitamin with extra iron or finding a vitamin that contains iron. Will continue to monitor her labs at this time. 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 with patient- patient verbalizes understanding documented in this encounter [facility] Work Phone: 11-28-2024 Instructions OLEGARIO Schulz - 11/28/2024 10:30 AM EDT Discussed and reviewed medical history Reviewed labs- Hemoglobin is stable at 12.7, Iron parameters lower Iron Saturation 13% Encouraged to continue on oral iron daily, suggest taking Hillrose Multivitamins w/Extra Iron take 2 chewables daily Return to see provider in 3-4 months with labs documented in this encounter [facility] Work Phone: 09-27-2024 History of Present illness Narrative Patient ID: Nikole Moreau is a 24 y.o. female. Subjective HPI HPI NIKOLE MOREAU is a 22 year old Female Interval History: Initial consult: 04/23/22 Reason: Splenomegaly Referred by: Kavita Betancourt PA-C Patient is a 21 yo female with a PMH of Asthma and Migraines and was referred to benign hematology for consultation of splenomegaly. Patient was recently in the ER with vomiting and 102 F fever for approximately two day. She reported to the ER concerned about dehydration as she is currently nursing her [address] abdomen/chest results reported mildly enlarged spleen. Today, patient presents with her mother for initial consultation. Energy level is decent, fatigued at times, but believes it is from caring for an 8 month old and her work schedule. Her appetite is good, she reports frequent episodes of nausea. Patient denies any early satiety, abdominal fullness or distention. Denies any abnormal weight loss, abdominal pain or cramping. No diarrhea, constipation. Recent UTI, treated with antibiotics, otherwise no urinary issues. No hematochezia, melena or hematuria. Denies any recent exposure to illness, no fever, chills, or drenching night sweats. No abnormal bleeding or bruising. Amenorrhea since of child. Denies SOB, chest pain or pressure. Chronic knee/back pain. No PICA. Denies any abnormal bleeding, bruises easy. No recurrent infections or lymphadenopathy. No known blood disorders in family. Has had surgery in past w/o issue. Never had blood/blood products. Denies NSAID use. Up-to-date on age appropriate cancer screenings Interval History 09/27/24 Patient is in office for follow-up. She is 10 weeks , and is doing well. She saw her TEST CAR DRIVER yesterday and had lab work, asked pt to have provider send results. Her energy remains low, due to and raising a toddler. 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 She reports that she is eating and sleeping well. Since conceiving she has been nauseated at night. Denies any vomiting/diarrhea or constipation. No urinary issues. Increased epistaxis 3-4 times weekly, mainly when she wakes up in the morning, happened with her first . Denies any further bleeding, bruises easily. No B symptoms. No PICA. Currently taking oral with iron, and tolerating well. Objective BSA: There is no height or weight on file to calculate BSA. There were no vitals taken for this visit. Objective BSA: There is no height or weight on file to calculate BSA. There were no vitals taken for this visit. Physical Exam Vitals and nursing note reviewed. Constitutional: Appearance: Normal appearance. HENT: Head: Normocephalic and atraumatic. Nose: Nose normal. Mouth/Throat: Mouth: Mucous membranes are moist. Pharynx: Oropharynx is clear. Eyes: General: No scleral icterus. Extraocular Movements: Extraocular movements intact. Conjunctiva/sclera: Conjunctivae normal. Cardiovascular: Rate and Rhythm: Normal rate and regular rhythm. Pulses: Normal pulses. Heart sounds: Normal heart sounds. Pulmonary: Effort: Pulmonary effort is normal. Breath sounds: Normal breath sounds. Abdominal: Palpations: Abdomen is soft. There is no mass. Tenderness: There is no abdominal tenderness. Musculoskeletal: General: Normal range of motion. Cervical back: Normal range of motion and neck supple. Skin: General: Skin is warm and dry. Neurological: General: No focal deficit present. Mental Status: She is alert and oriented to person, place, and time. Psychiatric: Mood and Affect: Mood normal. Behavior: Behavior normal. Thought Content: Thought content normal. Judgment: Judgment normal. Performance Status: Asymptomatic Assessment/Plan 1. Splenomegaly Patient was recently in the ER due to illness. While in the ER an abdomen/chest CT reported mildly enlarged spleen measuring 15cm, increased in size from 13.8. No other acute findings were noted within the abdomen pelvis. No evidence of cytopenias reported. WBC (8.6), Hgb (13.7), Plt (230k). Discussed possible etiologies including multifactorial, viral, bacterial or parasitic infection, inflammatory disease such as lupus or rheumatoid arthritis. Will start hematological workup today. 2. Iron Deficiency- Iron Serum (76), TIBC (354), Tsat (21%), Ferritin (22) Discussed with patient possible etiologies including multifactorial, nutritional deficiencies, and increased requirements due to / . Discussed IV iron vs oral iron replacement. At this time recommended trialing oral iron (1 tablet) daily with vitamin C. Will recheck labs in 8 weeks for oral replacement efficacy. Interval History 03/13/23- Overall patient is generally feeling well today. Patient remains fatigued, she continues to work long hours at times and has a young child at home. Her menstrual cycle has started again since having her daughter, first couple cycles were extremely heavy, she is currently on oral contraceptive to mange menorrhagia. She remains on oral iron daily. Denies any new clinical concerns. Hgb (14.4), WBC (9.6), Plts (242k). Her iron parameters have trended down, likely to due return of menstruation. Fe (50), Fe (12%), Ferritin (34). Patient reported that oral iron was causing GI symptoms of diarrhea. Discussed trialing a different formulation of oral iron such as ferrous gluconate vs. IV iron at this time. Will order course of IV Feraheme to be administered. Patient was provided educaton on IV iron without premedication, observation for hypersensitivity reaction for 30 minutes post infusion. Side effects of Feraheme were explained, including but are not limited to hypotension, edema, chest pain, hypertension, dizziness, headache, fatigue, pruritus, rash, diarrhea, nausea, constipation, vomiting, abdominal pain, hypersensitivity reaction which can be severe and potentially life-threatening, pain, muscle spasm, shortness of breath, cough, fever, anaphylaxis, angioedema, arrhythmia, cardiac failure, ischemic heart disease, syncope, urticaria-patient agrees to proceed if needed. 09/01/23: Patient iron parameters have trended down- Fe 36, Fe sat 12%, Ferritin 180, B12 472. CBC is stable- Hg 15.0, WBC 9.7, Plts 241k. Discussed increasing oral iron vs IV iron. Patient would like to try and take oral iron more consistently. Patient does state when she takes iron daily she has increased-intolerable GI side effects. Discussed try taking oral Hillrose Multi-Vitamin with iron, and oral B12 dialy- will send in prescriptions to pharmacy. Will continue to monitor for iron and B12 replacement efficacy. 09/27/24: Patient will have rvda master certified rv technician send lab data. According to patient rvda master certified rv technician was not concerned with her labs, she stated that he iron was good. Patient will also confirm if her contains iron. Once lab data is received, will call with any treatment plan changes. 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 11/28 1030 Instructed to get labs prior to appt Reviewed AVS with patient- patient verbalizes understanding Pt was asked to call cory and have her recent lab results faxed to us- she has our fax # documented in this encounter [facility] Work Phone: 09-27-2024 Instructions OLEGARIO Schulz - 09/27/2024 9:30 AM EDT Discussed and reviewed medical history Encouraged to take oral vitamins Have labs faxed to Return to see STONE GLUER in 2-3 months with labs prior (CBC w/diff, CMP, Ferritin, Iron Panel, B12, Retic, Folate) documented in this encounter [facility] Work Phone: 09-26-2024 Progress note [facility] 09-21-2024 Radiology Diagnostic study note [facility] Imaging Services [address] [place] [address] Transvaginal w/Preg US MR#: [id number] Acct: [id number] Name: NIKOLE MOREAU Rep #: [id number] : 2000 F 24 From: Tino Aguila MD PCP: Care Physician,No Primary Status: REG CLI Study:Transvaginal w/Preg US Date of Exam: 09/21/24 Exam# [id number] Ordering Dr: Yaneth Jeff DO PROCEDURE: TRANSVAGINAL W/PREG US 09/21/2024 REASON FOR EXAM: SPOTTING IN TECHNIQUE: TRANSVAGINAL W/PREG US COMPARISON: None FINDINGS: Comments: LMP: July 15, 2024. Number of Gestational Sacs: 1 Gestational Sac Shape: Normal Number of Fetuses: 1 Heart Rate: 171 (average) Survey of Visible Anatomic Structures: Grossly unremarkable for gestational age. Yolk Sac: Present and unremarkable. Placenta: Presently not well-visualized Amniotic Fluid Volume: Subjectively normal for gestational age. Uterine Abnormalities: Maternal uterus is unremarkable. Ovaries / Adnexa: There is a 2.2 cm 1.8 cm 2 cm right corpus luteum cyst. DIMENSIONS: Parameter Measurement / EGA [place] Rump Length: 2.53 cm/9 weeks and 0 days Gestational Sac: 3.93 cm/9 weeks and 2 days Yolk Sac: 0.41 cm/ ESTIMATED GESTATIONAL AGE: By Ultrasound: 9 weeks and 1 day By LMP: 9 weeks and 5 days ESTIMATED DATE OF DELIVERY: By Ultrasound: April 25, 2025 By LMP: April 21, 2025 US/Transvaginal w/Preg US IMPRESSION: UNREMARKABLE FIRST TRIMESTER ULTRASOUND. Reading Location: [facility] CC: CARMEN Whitehead; Dr. Yaneth Nogueira DO; No Primary Care Physician ~ [place] Slabs Sawyer: Signed [facility] 09-13-2024 Evaluation note Diagnosis Onset Date Resolution Amenorrhea noneactive September 13, 2024 8:55am [facility] Work Phone: 1(158) 163-263907-08-2025 Evaluation note* Diagnosis Onset Date Resolution Status Admit Date Amenorrhea noneactive September 13, 2024 8:55am History of elective acute September 26, 2024 10:38am History of group B Streptococcus (GBS) infection acute Ju 2024 10:38am History of marijuana use acute September 26, 2024 10:38am History of hemorrhage, currently acute J melvin 2024 10:38am Iron deficiency acute September 10:38am acute September 26 10:38am Supervision of high-risk acute September 26, 2024 10:38am Tobacco use affecting , antepartum acute September 26, 2024 10:38am Vaginal bleeding affecting early acute September 26, 2024 10:38am [facility] Work Phone: 1(208) 877-567101-09-2025 History of Present illness Narrative* Betty Frederick, EMU FARM WORKER - 03/17/2024 1:30 PM EST 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 Her LMP was Patient's last menstrual period was 02/25/2024 (exact date).. Her periods are described as regular -71 days Clots- Yes: Quarter size . She reports dysmenorrhea. The patient has not had any significant changes in her medical history. She complains of no complaints. Last PAP: N/A The patient is using abstinence as her current method contraception method. She reports compliance with this method. The patient currently has No sexual partner(s). History of STD genital warts Family/personal history of colon cancer: no , Family/personal history of breast cancer: no , Family/personal history of ovarian/uterine/cervical cancer: yes - Mom- Cervical , and if yes age atdiagnosis: 45 Performs Self Breast Exams- no Exercise: Yes: Home videos 2-3 times a week Urinary incontinence: No Recent CBC- No results found for: WBC, WBCCOUNT, WBCFETAL, HGB, HCT, PLATELET, MCV Additional comment- Was in ED 02/24/24 for lesions on labia, was ordered acyclovir 400mg 3 times a day for 7 days - patient took and finished medication- Patient was Positive for Herpes Simplex virusTYPE -1 Was also ordered fluconazole 150mg 1 daily for 3 days- patient did not take medication - Patient states all lesions are gone and would like a regular yearly exam today - Patient was at [facility] 01/25/24- For STI TESTING Chlamydia/Gonorrhoea/ Trichomonas - all NOT DETECTED - Patient has not had a sexual partner since before 01-25-24, does not want retested today ROS- Pertinent items are noted in HPI. A comprehensive review of systems was otherwise negative. * Lo Corey MD - 03/17/2024 1:30 PM EST [facility] Office visit CHIEF COMPLAINT ED follow up vulvar lesions HISTORY OF PRESENT ILLNESS Nikole Moreau is a 23 y.o. female . Her LMP was 02/25/2024 (exact date).. Her periods are described as regular every 28-30 days Clots- Yes: Quarter size . She reports dysmenorrhea. Pt seen in ED as noted below. HSV testing was positive for Type 1. She declines other STD testing, as she states she has been abstinent since January, and she had STD testing @ Urgent Care results all negative. I had discussion with pt regarding HSV, safe sex practices and use of meds with outbreaks vs prophylactic antivirals. Also discussed prophylactic meds and decreasing viral load. Pt elects to do prophylactic daily dosing of Valtrex - states BID acyclovir will be difficult to remember. Pt asked re HSV and - reviewed meds, transmission risks and protocols for rx and delivery. Will get educational materials for patient, will schedule annual exam and full STD testing with serum labs. Pt wants to wait until she has her insurance issues straight. Last PAP: N/A The patient is using abstinence as her current method contraception method. She reports compliance with this method. The patient currently has No sexual partner(s). History of STD genital warts Family/personal history of colon cancer: no , Family/personal history of breast cancer: no , Family/personal history of ovarian/uterine/cervical cancer: yes - Mom- Cervical , and if yes age atdiagnosis: 45 Performs Self Breast Exams- no Exercise: Yes: Home videos 2-3 times a week Urinary incontinence: No Recent CBC- No results found for: WBC, WBCCOUNT, WBCFETAL, HGB, HCT, PLATELET, MCV Additional comment- Was in ED 02/24/24 for lesions on labia, was ordered acyclovir 400mg 3 times a day for 7 days - patient took and finished medication- Patient was Positive for Herpes Simplex virusTYPE -1 Was also ordered fluconazole 150mg 1 daily for 3 days- patient did not take medication - Patient states all lesions are gone and would like a regular yearly exam today - Patient was at [facility] 01/25/24- For STI TESTING Chlamydia/Gonorrhoea/ Trichomonas - all NOT DETECTED - Patient has not had a sexual partner since before 01-25-24, does not want retested today ROS- Pertinent items are noted in HPI. A comprehensive review of systems was otherwise negative. ALLERGIES: Allergies Allergen Reactions Sumatriptan Shortness of Breath HISTORY: Past Medical History: Diagnosis Date Migraine No past surgical history on file. No family history on file. Social History Socioeconomic History Marital status: Single Spouse name: Not on file Number of children: Not on file Years of education: Not on file Highest education level: Not on file Occupational History Not on file Tobacco Use Smoking status: Some Days Types: Cigarettes Smokeless tobacco: Never Tobacco comments: Vape Vaping Use Vaping status: Every Day Substances: Nicotine Substance and Sexual Activity Alcohol use: Yes Comment: occasionally Drug use: Never Sexual activity: Not on file Other Topics Concern Not on file Social History Narrative Not on file Social Determinants of Health Financial Resource Strain: Not on file Food Insecurity: Not on file Transportation Needs: Not on file Physical Activity: Not on file Stress: Not on file Social Connections: Not on file Intimate Partner Violence: Not on file Housing Stability: Not on file CURRENT MEDICATIONS: Current Outpatient Medications Medication Sig Albuterol 108 (90 Base) MCG/ACT Aero Soln inhaler Inhale 2 puffs every 6 hours as needed for Shortness of Breath or Cough. Cetirizine HCl (ZYRTEC ALLERGY PO) Take 10 mg by mouth daily. RIZATRIPTAN BENZOATE PO Take by mouth as needed. magnesium oxide 400 (240 Mg) MG Take 1 tablet by mouth daily. (Patient not taking: Reported on 03/17/2024) PHYSICAL EXAMINATION BP 110/70 (BP Location: Left arm, BP Position: Sitting) Pulse 96 Ht 1.829 m (6') Wt 101.8 kg (224 lb 6.4 oz) SpO2 97% BMI 30.43 kg/m Smoking Status Some Days Physical Exam ASSESSMENT AND PLAN ICD-10-CM 1. HSV (herpes simplex virus) infection B00.9 Ms. Nikole Moreau is a 23 y.o. who presents to discuss new Dx HSV Pt has no symptoms or complaints. 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 Pt will follow up PRN for any issues or concerns as well No future appointments. 03/17/2024 Lo Corey MD documented in this [facility]12-18-2024 Hospital Discharge instructions* Discharge Instructions* OLEGARIO Riley - 02/24/2024 4:48 PM EST Take acyclovir for labia lesions. Do not use external ointments or creams to labia at this time. Start diflucan today, repeat on day 7 & 14 if vaginal discharge persists. Referral to OBGYN has been placed for follow up. [facility]. documented in this [facility]06-25-2024 History of Present illness Narrative* OLEGARIO Schulz - 09/01/2023 2:30 PM EDT Patient ID: Nikole Moreau is a 23 y.o. female. Subjective HPI NIKOLE MOREAU is a 22 year old Female Interval History: Initial consult: 04/23/22 Reason: Splenomegaly Referred by: Kavita Betancourt PA-C Patient is a 21 yo female with a PMH of Asthma and Migraines and was referred to benign hematology for consultation of splenomegaly. Patient was recently in the ER with vomiting and 102 F fever for approximately two day. She reported to the ER concerned about dehydration as she is currently nursing her [address] abdomen/chest results reported mildly enlarged spleen. Today, patient presents with her mother for initial consultation. Energy level is decent, fatigued at times, but believes it is from caring for an 8 month old and her work schedule. Her appetite is good, she reports frequent episodes of nausea. Patient denies any early satiety, abdominal fullness or distention. Denies any abnormal weight loss, abdominal pain or cramping. No diarrhea, constipation. Recent UTI, treated with antibiotics, otherwise no urinary issues. No hematochezia, melena or hematuria. Denies any recent exposure to illness, no fever, chills, or drenching night sweats. No abnormal bleeding or bruising. Amenorrhea since of child. Denies SOB, chest pain or pressure. Chronic knee/back pain. No PICA. Denies any abnormal bleeding, bruises easy. No recurrent infections or lymphadenopathy. No known blood disorders in family. Has had surgery in past w/o issue. Never had blood/blood products. Denies NSAID use. Up-to-date on age appropriate cancer screenings Interval History 03/13/23 Remains on oral iron B12- takes 2-3 times weekly Under an immense amount of stress from work/home life Energy is remains low, chronic fatigue Admits she is not sleeping well Working approximately 15 hours weekly Not much sleeping at all Menstrual cycle- irregular, spotting off and on Discontinued control 3-4 months ago Denies any abnormal bruising No fevers or recurrent infections Poor appetite- possibly stress related Eating one meal daily Nauseated most days Denies any vomiting/diarrhea or constipation No urinary issues, dysuria No hematuria, hematochezia or melena No early satiety of abdominal fullness No PICA Objective BSA: There is no height or weight on file to calculate BSA. There were no vitals taken for this visit. Physical Exam Vitals and nursing note reviewed. Constitutional: Appearance: Normal appearance. HENT: Head: Normocephalic and atraumatic. Nose: Nose normal. Mouth/Throat: Mouth: Mucous membranes are moist. Pharynx: Oropharynx is clear. Eyes: General: No scleral icterus. Extraocular Movements: Extraocular movements intact. Conjunctiva/sclera: Conjunctivae normal. Cardiovascular: Rate and Rhythm: Normal rate and regular rhythm. Pulses: Normal pulses. Heart sounds: Normal heart sounds. Pulmonary: Effort: Pulmonary effort is normal. Breath sounds: Normal breath sounds. Abdominal: Palpations: Abdomen is soft. Musculoskeletal: General: Normal range of motion. Cervical back: Normal range of motion. Skin: General: Skin is warm and dry. Neurological: General: No focal deficit present. Mental Status: She is alert and oriented to person, place, and time. Psychiatric: Mood and Affect: Mood normal. Behavior: Behavior normal. Thought Content: Thought content normal. Judgment: Judgment normal. Performance Status: Symptomatic; fully ambulatory Assessment/Plan 1. Splenomegaly Patient was recently in the ER due to illness. While in the ER an abdomen/chest CT reported mildly enlarged spleen measuring 15cm, increased in size from 13.8. No other acute findings were noted within the abdomen pelvis. No evidence of cytopenias reported. WBC (8.6), Hgb (13.7), Plt (230k). Discussed possible etiologies including multifactorial, viral, bacterial or parasitic infection, inflammatory disease such as lupus or rheumatoid arthritis. Will start hematological workup today. 2. Iron Deficiency- Iron Serum (76), TIBC (354), Tsat (21%), Ferritin (22) Discussed with patient possible etiologies including multifactorial, nutritional deficiencies, and increased requirements due to / . Discussed IV iron vs oral iron replacement. At this time recommended trialing oral iron (1 tablet) daily with vitamin C. Will recheck labs in 8 weeks for oral replacement efficacy. Interval History 03/13/23- Overall patient is generally feeling well today. Patient remains fatigued,she continues to work long hours at times and has a young child at home. Her menstrual cycle has started again since having her daughter, first couple cycles were extremely heavy, she is currently onoral contraceptive to mange menorrhagia. She remains on oral iron daily. Denies any new clinical concerns. Hgb (14.4), WBC (9.6), Plts (242k). Her iron parameters have trended down, likely to due return of menstruation. Fe (50), Fe (12%), Ferritin (34). Patient reported that oral iron was causing GI symptoms of diarrhea. Discussed trialing a different formulation of oral iron such as ferrous gluconate vs. IV iron at this time. Will order course of IV Feraheme to be administered. Patient was provided educaton on IV iron without premedication, observation for hypersensitivity reaction for 30 minutes post infusion. Side effects of Feraheme were explained, including but are not limited to hypotension, edema, chest pain, hypertension, dizziness, headache, fatigue, pruritus, rash, diarrhea, nausea, constipation, vomiting, abdominal pain, hypersensitivity reaction which can be severe and potentially life-threatening, pain, muscle spasm, shortness of breath, cough, fever, anaphylaxis, angioedema, arrhythmia, cardiac failure, ischemic heart disease, syncope, urticaria-patientagrees to proceed if needed. 09/01/23: Patient iron parameters have trended down- Fe 36, Fe sat 12%, Ferritin 180, B12 472. CBC is stable- Hg 15.0, WBC 9.7, Plts 241k. Discussed increasing oral iron vs IV iron. Patient would like to try and take oral iron more consistently. Patient does state when she takes iron daily shehas increased-intolerable GI side effects. Discussed try taking oral Hillrose Multi-Vitamin with iron, and oral B12 dialy- will send in prescriptions to pharmacy. Will continue to monitor for iron and B12 replacement efficacy. Plan Start Hillrose Multi-vitamin with iron daily Continue oral B12 daily 3. Labs prior to follow-up (CBC w/diff, CMP, Ferritin, Iron Studies, B12) 4. Follow-up in 3 months E-scribed B12 and Hillrose Vitamins OLEGARIO Schulz * Yaneth Pat RN - 09/01/2023 2:30 PM EDT Pt instructed to get labs prior to next appt Rtc 12/03 3pm for [employer] visit Reviewed AVS with patient- patient verbalizes understanding [facility] Work Phone: 1(609) 674-494506-25-2024 Instructions* Patient Instructions* OLEGARIO Schulz - 09/01/2023 2:30 PM EDT Start oral Hillrose Vitamins w/Iron 2 tablets (once daily) Continue on oral B12 daily RTC in 3 months with labs prior (CBC w/diff, CMP, Ferritin, Iron Panel, B12) documented in this [facility] Work Phone: 1(652) 329-102003-29-2024 History of Present illness Narrative* OLEGARIO Schulz - 06/05/2023 2:00 PM EDT Patient ID: Nikole Moreau is a 22 y.o. female. Subjective HPI ID Statement: NIKOLE MOREAU is a 22 year old Female Interval History: Initial consult: 04/23/22 Reason: Splenomegaly Referred by: Kavita Betancourt PA-C Patient is a 21 yo female with a PMH of Asthma and Migraines and was referred to benign hematology for consultation of splenomegaly. Patient was recently in the ER with vomiting and 102 F fever for approximately two day. She reported to the ER concerned about dehydration as she is currently nursing her [address] abdomen/chest results reported mildly enlarged spleen. Today, patient presents with her mother for initial consultation. Energy level is decent, fatigued at times, but believes it is from caring for an 8 month old and her work schedule. Her appetite is good, she reports frequent episodes of nausea. Patient denies any early satiety, abdominal fullness or distention. Denies any abnormal weight loss, abdominal pain or cramping. No diarrhea, constipation. Recent UTI, treated with antibiotics, otherwise no urinary issues. No hematochezia, melena or hematuria. Denies any recent exposure to illness, no fever, chills, or drenching night sweats. No abnormal bleeding or bruising. Amenorrhea since of child. Denies SOB, chest pain or pressure. Chronic knee/back pain. No PICA. Denies any abnormal bleeding, bruises easy. No recurrent infections or lymphadenopathy. No known blood disorders in family. Has had surgery in past w/o issue. Never had blood/blood products. Denies NSAID use. Up-to-date on age appropriate cancer screenings Interval History 06/05/23 Energy is improving, fatigued due to lack of sleep Remains B12 5 days a week, if remembers remains to working 40 hours weekly, all different shifts Bruising easily, no abnormal bleeding No fevers or recurrent infections Appetite is depends on the day, at least eating one meal daily Nauseated all the time recently, no vomiting No GI symptoms No urinary issues, dysuria No hematuria, hematochezia or melena No early satiety of abdominal fullness No PICA Menstrual Cycles have been irregular- recent started having since Extremely heavy, clotting - started control recently- seems to be helping Objective BSA: There is no height or weight on file to calculate BSA. There were no vitals taken for this visit. Physical Exam Vitals and nursing note reviewed. Constitutional: General: She is not in acute distress. Appearance: Normal appearance. She is not ill-appearing or diaphoretic. HENT: Head: Normocephalic and atraumatic. Mouth/Throat: Pharynx: Oropharynx is clear. Eyes: General: No scleral icterus. Extraocular Movements: Extraocular movements intact. Conjunctiva/sclera: Conjunctivae normal. Cardiovascular: Rate and Rhythm: Normal rate and regular rhythm. Pulses: Normal pulses. Heart sounds: Normal heart sounds. Pulmonary: Effort: Pulmonary effort is normal. No respiratory distress. Breath sounds: Normal breath sounds. Abdominal: General: There is no distension. Palpations: Abdomen is soft. Tenderness: There is no abdominal tenderness. Musculoskeletal: General: Normal range of motion. Cervical back: Normal range of motion. Skin: General: Skin is warm and dry. Findings: No bruising. Neurological: General: No focal deficit present. Mental Status: She is alert and oriented to person, place, and time. Psychiatric: Mood and Affect: Mood normal. Behavior: Behavior normal. Thought Content: Thought content normal. Judgment: Judgment normal. Performance Status: Asymptomatic Assessment/Plan 1. Splenomegaly Patient was recently in the ER due to illness. While in the ER an abdomen/chest CT reported mildly enlarged spleen measuring 15cm, increased in size from 13.8. No other acute findings were noted within the abdomen pelvis. No evidence of cytopenias reported. WBC (8.6), Hgb (13.7), Plt (230k). Discussed possible etiologies including multifactorial, viral, bacterial or parasitic infection, inflammatory disease such as lupus or rheumatoid arthritis. Will start hematological workup today. 2. Iron Deficiency- Iron Serum (76), TIBC (354), Tsat (21%), Ferritin (22) Discussed with patient possible etiologies including multifactorial, nutritional deficiencies, and increased requirements due to / . Discussed IV iron vs oral iron replacement. At this time recommended trialing oral iron (1 tablet) daily with vitamin C. Will recheck labs in 8 weeks for oral replacement efficacy. Interval History 03/13/23- Overall patient is generally feeling well today. Patient remains fatigued,she continues to work long hours at times and has a young child at home. Her menstrual cycle has started again since having her daughter, first couple cycles were extremely heavy, she is currently onoral contraceptive to mange menorrhagia. She remains on oral iron daily. Denies any new clinical concerns. Hgb (14.4), WBC (9.6), Plts (242k). Her iron parameters have trended down, likely to due return of menstruation. Fe (50), Fe (12%), Ferritin (34). Patient reported that oral iron was causing GI symptoms of diarrhea. Discussed trialing a different formulation of oral iron such as ferrous gluconate vs. IV iron at this time. Will order course of IV Feraheme to be administered. Patient was provided educaton on IV iron without premedication, observation for hypersensitivity reaction for 30 minutes post infusion. Side effects of Feraheme were explained, including but are not limited to hypotension, edema, chest pain, hypertension, dizziness, headache, fatigue, pruritus, rash, diarrhea, nausea, constipation, vomiting, abdominal pain, hypersensitivity reaction which can be severe and potentially life-threatening, pain, muscle spasm, shortness of breath, cough, fever, anaphylaxis, angioedema, arrhythmia, cardiac failure, ischemic heart disease, syncope, urticaria-patientagrees to proceed if needed. 06/05/23- Patient is overall feeling well. She reports improvement in energy, remains fatigued due to sleep patterns. Denies any abnormal bleeding, remains to bruise easily. Denies any constitutional B symptoms. Recently started having intermittent daily nausea, no vomiting. Denies any further GI symptoms, or urinary issues. Will order zofran 4mg q 8 hours, if continues or worsens, advise pt to seek further medical care either with PCP, Urgent Care or ED. Hg remains stable at 13.8. Iron parameters have improved- Fe 67, Fe sat 19%, Ferritin 196. B12 433.Recommended patient re-start oral iron 325mg every other day and continue oral B12 1000mcq daily. Will continue to monitor labs for iron and B12 replacement efficacy. PLAN: 1. Start iron every other day 2 Remain on oral B12 every day 3 RTC 3 months with labs prior (CBC w/diff, CMP, Ferritin, Iron, B12) OLEGARIO Schulz * Claudia Nieto RN - 06/05/2023 2:00 PM EDT Pt to have labs and Rtc in 3 months. Pt had to get back to work so she will call later to reschedule. [facility] Work Phone: [phone]) 579-373903-29-2024 Instructions* Patient Instructions* OLEGARIO Schulz - 06/05/2023 2:00 PM EDT Start iron every other day Remain on oral B12 every day RTC 3 months with labs prior (CBC w/diff, CMP, Ferritin, Iron, B12) [facility] Work Phone: 1(288) 568-982701-05-2024 History of Present illness Narrative* OLEGARIO Schulz - 03/13/2023 1:30 PM EST Patient ID: Nikole Moreau is a 22 y.o. female. Subjective HPI ID Statement: NIKOLE MOREAU is a 22 year old Female Interval History: Initial consult: 04/23/22 Reason: Splenomegaly Referred by: Kavita Betancourt PA-C Patient is a 21 yo female with a PMH of Asthma and Migraines and was referred to benign hematology for consultation of splenomegaly. Patient was recently in the ER with vomiting and 102 F fever for approximately two day. She reported to the ER concerned about dehydration as she is currently nursing her [address] abdomen/chest results reported mildly enlarged spleen. Today, patient presents with her mother for initial consultation. Energy level is decent, fatigued at times, but believes it is from caring for an 8 month old and her work schedule. Her appetite is good, she reports frequent episodes of nausea. Patient denies any early satiety, abdominal fullness or distention. Denies any abnormal weight loss, abdominal pain or cramping. No diarrhea, constipation. Recent UTI, treated with antibiotics, otherwise no urinary issues. No hematochezia, melena or hematuria. Denies any recent exposure to illness, no fever, chills, or drenching night sweats. No abnormal bleeding or bruising. Amenorrhea since of child. Denies SOB, chest pain or pressure. Chronic knee/back pain. No PICA. Denies any abnormal bleeding, bruises easy. No recurrent infections or lymphadenopathy. No known blood disorders in family. Has had surgery in past w/o issue. Never had blood/blood products. Denies NSAID use. Up-to-date on age appropriate cancer screenings Interval History 03/13/23 Remains on oral iron.B12 daily, if remembers Energy is remains low, chronic fatigue remains to working 40 hours weekly, all different shifts Bruising easier lately, no abnormal bleeding No fevers or recurrent infections Appetite is decent eating and drinking well Denies any nausea or vomiting No GI symptoms No urinary issues, dysuria No hematuria, hematochezia or melena No early satiety of abdominal fullness No PICA Menstrual Cycles have been irregular- recent started having since Extremely heavy, clotting - started control recently- seems to be helping Objective BSA: There is no height or weight on file to calculate BSA. There were no vitals taken for this visit. Physical Exam Vitals and nursing note reviewed. Constitutional: Appearance: Normal appearance. HENT: Head: Normocephalic and atraumatic. Mouth/Throat: Mouth: Mucous membranes are moist. Pharynx: Oropharynx is clear. Eyes: General: No scleral icterus. Extraocular Movements: Extraocular movements intact. Conjunctiva/sclera: Conjunctivae normal. Cardiovascular: Rate and Rhythm: Normal rate and regular rhythm. Pulses: Normal pulses. Heart sounds: Normal heart sounds. Pulmonary: Effort: Pulmonary effort is normal. No respiratory distress. Breath sounds: Normal breath sounds. Abdominal: General: There is no distension. Palpations: Abdomen is soft. Tenderness: There is no abdominal tenderness. Musculoskeletal: General: No swelling. Normal range of motion. Cervical back: Normal range of motion and neck supple. Skin: General: Skin is warm and dry. Neurological: General: No focal deficit present. Mental Status: She is alert and oriented to person, place, and time. Psychiatric: Mood and Affect: Mood normal. Behavior: Behavior normal. Thought Content: Thought content normal. Judgment: Judgment normal. Performance Status: Asymptomatic Assessment/Plan Assessment: 1. Splenomegaly Patient was recently in the ER due to illness. While in the ER an abdomen/chest CT reported mildly enlarged spleen measuring 15cm, increased in size from 13.8. No other acute findings were noted within the abdomen pelvis. No evidence of cytopenias reported. WBC (8.6), Hgb (13.7), Plt (230k). Discussed possible etiologies including multifactorial, viral, bacterial or parasitic infection, inflammatory disease such as lupus or rheumatoid arthritis. Will start hematological workup today. 2. Iron Deficiency- Iron Serum (76), TIBC (354), Tsat (21%), Ferritin (22) Discussed with patient possible etiologies including multifactorial, nutritional deficiencies, and increased requirements due to / . Discussed IV iron vs oral iron replacement. At this time recommended trialing oral iron (1 tablet) daily with vitamin C. Will recheck labs in 8 weeks for oral replacement efficacy. Interval History 03/13/23- Overall patient is generally feeling well today. Patient remains fatigued,she continues to work long hours at times and has a young child at home. Her menstrual cycle has started again since having her daughter, first couple cycles were extremely heavy, she is currently onoral contraceptive to mange menorrhagia. She remains on oral iron daily. Denies any new clinical concerns. Hgb (14.4), WBC (9.6), Plts (242k). Her iron parameters have trended down, likely to due return of menstruation. Fe (50), Fe (12%), Ferritin (34). Patient reported that oral iron was causing GI symptoms of diarrhea. Discussed trialing a different formulation of oral iron such as ferrous gluconate vs. IV iron at this time. Will order course of IV Feraheme to be administered. Patient was provided educaton on IV iron without premedication, observation for hypersensitivity reaction for 30 minutes post infusion. Side effects of Feraheme were explained, including but are not limited to hypotension, edema, chest pain, hypertension, dizziness, headache, fatigue, pruritus, rash, diarrhea, nausea, constipation, vomiting, abdominal pain, hypersensitivity reaction which can be severe and potentially life-threatening, pain, muscle spasm, shortness of breath, cough, fever, anaphylaxis, angioedema, arrhythmia, cardiac failure, ischemic heart disease, syncope, urticaria-patientagrees to proceed if needed. Plan 1 cycle IV iron (ordered Feraheme, will change to Venofer if preferred by insurance). Tentative start date . Standing orders in EMR. Nurse sent to precert 1. Labs prior to follow-up (CBC w/diff, CMP, Ferritin, Iron Studies, B12) 2. Follow-up in 6-8 weeks after completion of IV Iron OLEGARIO Schulz * Yaneth Pat RN - 03/13/2023 1:30 PM EST Pt to get 2 Feraheme doses once approved Follow up 2 months after 2nd dose- with labs at hosp prior to appt [facility] Work Phone: 1(233) 707-402801-05-2024 Instructions* Patient Instructions* OLEGARIO Schulz - 03/13/2023 1:30 PM EST Ordered 2 doses of Feraheme to be administered RTC in 6-8 weeks post IV iron with labs prior (CBC w/diff, CMP, Ferritin, Iron, B12) [facility] Work Phone: 1(999) 493-499005-01-2023 NoteClinic Note: Education Assessment: Learning BarriersNo barriers TaughtPatient Primary Language of PatientEnglish Primary Language of Rincon LearnerEnglish Name of Rincon Learner & Relationshipmother Clinic Visit: Topic(s): Clinic VisitFollow-up plan MethodVerbal, Teach-Back, Handout Nursing Note: Nursing Notept set for labs at the hosp prior. rtc for f/u with [employer] 10/13 at 10am. pt may call if she decides to IV iron dose Electronic Signatures: Yaneth PatRN) (Signed 07-Jul-2022 11:34) Authored: Education Assessment, Clinic Visit, Nursing Note Last Updated: 07-Jul-2022 11:34 by Yaneth Pat (RN)[facility]03-01-2023 NoteClinic Note: Education Assessment: Learning BarriersNo barriers TaughtPatient Primary Language of PatientEnglish Primary Language of Rincon LearnerEnglish Name of Rincon Learner & Relationshipmother Clinic Visit: Topic(s): Clinic VisitFollow-up plan MethodVerbal, Teach-Back, Handout EvaluationTeaches back Nursing Note: Nursing Notept set up for f/u with 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 labs at the [facility] the week prio Electronic Signatures: Yaneth Pat) (Signed 07-May-2022 11:35) Authored: Education Assessment, Clinic Visit, Nursing Note Last Updated: 07-May-2022 11:35 by Yaneth Pat (RN)[facility]02-15-2023 NoteClinic Note: Education Assessment: Learning BarriersNo barriers TaughtPatient Primary Language of PatientEnglish Primary Language of Rincon LearnerEnglish Name of Rincon Learner & Relationshipmother Clinic Visit: Topic(s): Clinic VisitFollow-up plan MethodVerbal, Teach-Back, Handout Nursing Note: Nursing Notept had labs drawn at visit. set up for f/u with anatomy and physiology instructor on 05/07 at 11am Electronic Signatures: Yaneth Pat) (Signed 23-Apr-2022 12:21) Authored: Education Assessment, Clinic Visit, Nursing Note Last Updated: 23-Apr-2022 12:21 by Yaneth Pat (RN)[facility]2022 History of Present illness NarrativePatient presents stating that she noticed redness and pain to the outer upper quadrant of the left breast this morning. Denies any fevers or chills. She is currently breast-feeding. [address] Work Phone: 1(565) 458-429706-12-2022 NoteSend Summary: Discharge Summary Providers: Provider RoleProvider Name AttendingAlex Lau Note Recipients: none Discharge: Summary: Admission Date: .16-Aug-2021 02:53:00 Discharge Date: 18-Aug-2021 Attending Physician at Discharge: Alex Lau Admission Reason: Term in labor Final Discharge Diagnoses: Single live Procedures: Normal spontaneous vaginal delivery Condition at Discharge: Satisfactory Disposition at Discharge: .Home Vital Signs: T PRBPMAPSpO2 [id number]/[id number]% Date/Time08/18 6: 6: 6: 6: 6: 6:25 Range(36.4C - 36.7C ) (86 - 116 ) (14 - 16 ) (122 - 144 )/ (68 - 85 ) (89 - 106 ) (98% - 99% ) Date: Weight/Scale Type:Height: 16-Aug-2021 05:37149 kg / dpkloxfb257.1 cm Physical Exam: Lungs: Clear bilaterally Heart: Regular rate and rhythm Abdomen: Soft and nontender Hospital Course: Patient progressed through labor well and had a normal spontaneous vaginal delivery for viable female on August 16, 2021. Patient is breast-feeding and was discharged on day 2. Immunizations: Immunizations: 02-Jul-2021 Tdap: Immunizations, 02-Jul-2021 Discharge Information: and Continuing Care: Lab Results - Pending: None Radiology Results - Pending: None [place] Suicide Risk: negative Discharge Instructions: Activity: Return to normal activity as tolerated Nutrition/Diet: Regular Follow Up Appointments: Follow-Up - OB Provider: Physician/Dept/Service: Bobo Candelaria DO Call to Schedule in: 6 weeks Discharge Medications: Home Medication Prena1 oral capsule - 1 cap(s) orally once a day PRN Medication DNR Status: Code StatusCode Status order at time of discharge: Full Code Electronic Signatures: Alex Lau) (Signed 18-Aug-2021 08:45) Authored: Send Summary, Summary Content, Immunizations, Ongoing Care, DNR Status, Note Completion Last Updated: 18-Aug-2021 08:45 by Alex Lau)[facility] 08-16-2021 NoteProvider Information: Maternal Delivery Information: Delivery Type: vaginal delivery Did this pt receive corticosteroids at any time during this : No Was intraamniotic infection diagnosed during this labor: no What antibiotic(s) were administered during labor and/or pre-incision: Penicillin Rupture of Membranes: spontaneous Spontaneous Labor: yes Augmentation: yes Vaginal Delivery Type: spontaneous Vaginal Delivery Complications: none Delivery Anesthesia: epidural Presentation/Lie: vertex Vertex Presentation: Left: occiput anterior Perineal Laceration: first degree 3-O Chromic Other Laceration: periurethral, 3-O Chromic QBL (mL): 208 mL Blood Products Transfused during Delivery (indicate number of units given): none Choose Baby: A Cord Characteristics: no anomalies noted Delayed Cord Clamping (equal to or greater than 30 seconds): yes Day of Delivery (Baby A): 16-Aug-2021 Gestational Age at Delivery (wk.days): 38.3 Term: term 37.0 to 41.6 weeks Live : yes Vaginal Delivery Provider: Alex Lau MD Dictation: no Hemorrhage Risk Screen: Hemorrhage Medium Risk Factors (T&S) (2 or more medium risks Go to High Risk section & obtain T&C)BMI > 35(1) Hemorrhage Risk Assessmenthemorrhage risks reviewed and additional factors added if applicable Hemorrhage Risk Score MediumPatient is at Medium Risk for an OB hemorrhage. Order Type & Screen. Score Calculation - IT Use Only1 Electronic Signatures: Alex Lau) (Signed 16-Aug-2021 19:27) Authored: Provider Information, Hemorrhage Risk, Note Completion Last Updated: 16-Aug-2021 19:27 by Alex Lau) References: 1. Data Referenced From History and Physical - OB 16-Aug-2021 06:53[facility]06-10-2022 NoteHPI/OB History: Care Provider: DO JORGE A Mandujano Descriptive Info: HPI Is a 21-year-old white female 1 para 0, EDC August 27, 2021. Patient presents to labor and delivery complaining of contractions and spontaneous rupture membranes at 2:30 AM today. Past medical history: Denies any prior surgery Family history: Noncontributory Social history: Denies smoking or ethanol consumption Review of Systems: Constitutional: No fever or chills Respiratory: No shortness of breath, or cough Cardiovascular: No chest pain or syncope Breasts: No breast pain, no masses, no nipple discharge Gastrointestinal: No nausea, vomiting, or diarrhea, no abdominal pain Genitourinary: No dysuria or frequency Gynecology: Negative except as noted in history of present illness All other: All other systems reviewed and negative for complaint PHYSICAL EXAMINATION: Well-developed, well nourished, in no acute distress, alert and oriented x three, is pleasant and cooperative. HEENT: Clear. Pupils equal, round and reactive to light and accommodation. Extraocular muscles are intact. Oral mucosa pink without exudate. NECK: No lymphadenopathy, no thyromegaly. LUNGS: Clear bilaterally. HEART: Regular rate and rhythm without murmurs. ABDOMEN: Normoactive bowel sounds, soft and nontender, no guarding or rebound tenderness, no CVA tenderness. Limited bedside ultrasound confirms vertex presentation. EXTREMITIES: No clubbing, cyanosis or edema. NEUROLOGIC: Cranial nerves II-XII grossly intact. : Normal external female genitalia, normal vulva, normal vagina. Normal urethral meatus, urethra and bladder. Vaginal exam reveals cervix to be 2 cm dilated, 50% effaced, -2 station, vertex. Labs: Labs: Labs: Blood Typed Date: 16-Aug-2021 Blood Type: O positive Antibody Screen Results: negative Chlamydia Date: 19-Mar-2021 Chlamydia Results: negative Gonorrhea Date: 19-Mar-2021 Gonorrhea Results: negative Group B Strep Date: 30-Jul-2021 Strep Results: positive Group B Strep Comments: Group B streptococcus ISOLATED GCT (dd-mmm-yy): 23-May-2021 GCT result: 103 HBsAG Date: 03-Apr-2021 HBsAG Results: negative HIV Date: 03-Apr-2021 HIV Results: negative Rubella Date: 03-Apr-2021 Rubella Results: immune Rubella Comments: Result Value POSITIVE Syphilis (mmm-dd-yyyy): 03-Apr-2021 Syphilis Results: negative Antepartum/: Antepartum/PP: Final [id number] Current EGA:38.3 Patient is > or = 35.0 wks EGAyes Determined byAkash EFW (kg)3.402 kilogram(s) EFW (lb)7 pound(s) EFW (oz)8 ounce(s) Presentationcephalic presentation verified bybedside ultrasound, cervical exam Hemorrhage Medium Risk Factors (T&S) (2 or more medium risks Go to High Risk section & obtain T&C)BMI > 35 Hemorrhage Risk Assessmenthemorrhage risk completed on admission Hemorrhage Risk ScorePatient is at Medium Risk for an OB hemorrhage. Order Type & Screen. Score Calculation - IT Use Only1 Jayesh Social History: Social History: Smoking Statusnever smoker (1) Alcohol Usedenies(1) Drug Usedenies (1) Drug 2 Usedenies (1) Allergies: sumatriptan: Unknown Medications Prior to Admission: Prena1 oral capsule: 1 cap(s) orally once a day. Objective: Objective Information: T PRBPMAPSpO2 [id number] Date/Time08/16 6:396 6:396 6:39 Range (98 - 105 ) (131 - 143 )/ (73 - 79 ) (98 - 101 ) Recent Lab Results: Results: CBC: 08/16/2021 04:54 \ Hgb / \ 11.5 L / WBC Plt 11.7 H 251 / Hct \ / 35.9 L \ RBC: 4.82 MCV: 74 L Neutrophil %: 71.5 CMP: 01/04/2021 10:50 NA+ Cl- BUN / 138 108 H 8 / Glucose 83 K+ HCO3- Creat \ 3.8 22 0.63 \ \ T Bili / \ 1.1 / AST x ---- x ALT 15 x ---- x 18 / Alk P \ / 80 \ Calcium : 9.7 Anion Gap : 12 Albumin : 4.2 T Protein : 7.0 Assessment and Plan: Problem List: Additional Dx: 38 weeks gestation of : Assessment: 1. Term in labor 2. Positive group B strep, will prophylax with IV penicillin 3. Anticipate normal spontaneous vaginal delivery Electronic Signatures: Alex Lau) (Signed 16-Aug-2021 06:56) Authored: HPI/OB History, Labs, Antepartum/PP, Social History, Allergies, Medications Prior to Admission, Objective, Assessment and Plan, Note Completion Last Updated: 16-Aug-2021 06:56 by Alex Lau) References: 1. Data Referenced From Patient Profile - OB v3 16-Aug-2021 05:19[facility] Extremities: no calf tenderness, reflexes 2+Respiratory/Thorax: normal respiratory effort, lungs clear, no wheezes or rhonchiCardiovascular: S1 S2 RRR, no murmursConstitutional: alert, oriented [facility]* Diagnosis Iron deficiency- Primary Disorders of iron metabolism Anemia, unspecified type documented in this encounter [facility] Work Phone: Evaluation note* Diagnosis Chemotherapy induced nausea and vomiting- Primary Iron deficiency Disorders of iron metabolism Anemia, unspecified type documented in this encounter [facility] Work Phone: Evaluation note* Diagnosis Iron deficiency Disorders of iron metabolism Anemia, unspecified type documented in this encounter [facility] Work Phone: Evaluation note* Diagnosis Lesion of labia- Primary Other specified noninflammatory disorder of vulva and perineum Vaginal discharge Leukorrhea, not specified as infective [facility] Diagnosis HSV (herpes simplex virus) infection- Primary Herpes simplex without mention of complication [facility] Diagnosis Onset Date Resolution Status Admit Date Asthma noneactive September 13, 2024 8:55am [facility] Work Phone: Evaluation note* Diagnosis Iron deficiency- Primary Disorders of iron metabolism Anemia, unspecified type documented in this encounter [facility] Work Phone: Evaluation note* Diagnosis Iron deficiency Disorders of iron metabolism Anemia, unspecified type documented in this encounter [facility] Work Phone: History of Present illness [id number] presents for 6-week status post pates vaginal delivery. Patient notes she isdoing well. Patient emotionally first couple weeks very challenging but she is doing better. Patient notes she is pumping breastmilk which is also helping with her emotional state. Patient had a supplement just a little bit but otherwise is exclusively breast-fed. Patient safe at home denies abuse.Patient not sexually active. Patient has no desire. Patient has not had a period yet. Patient is noother acute concernsWomenCollaxGloucester Pharmaceuticals Work Phone: History of Present illness NarrativePt. presents with concern of cyst on R nipple. Pumping and bottle feeding. Baby is 6 weeks old. Pt.reports she had a similar cyst recently that was smaller and resolved spontaneously, but this one is increasing in sizeWStatsMix Work Phone: Hospital Discharge instructions* Activity:Return to normal activity as tolerated. * Patient Instructions:Pelvic Rest: DO NOT place anything in vagina until cleared by OB Provider. * Follow-Up - OB Provider:Physician/Dept/Service: Yvette Mandujano to Schedule in: 6 weeks * Gold Form - Other Clinicians:Other Clinician Instructions: Any woman can have complications after the of a baby including a blood clot, a heart problem, hypertensive disorder/eclampsia, depression, hemorrhage, or infection. Notify all providers of your delivery date up to one year after .* Call 911 or go to nearest emergency room right away if you have: PAIN or pressure in chest; OBSTRUCTED breathing or shortness of breath; SEIZURES; THOUGHTS of hurting yourself or your baby; heart palpitations/racing; change in alertness/confusion.Call your provider if you have: BLEEDING, soaking t hrough a pad/hour, or blood clots the size of an egg or bigger; INCISION (episiotomy stitches or site) that is not healing (increased redness, pain, drainage/pus, or separation); RED or swollen leg/calf that is painful or warm to touch, especially in one leg more than the other; TEMPERATURE of 100.4 F or higher or chills; HEADACHE that does not get better with medicine, rest or hydration, or bad headache with vision changes like spots or flashing lights; increased swelling of face, hands or legs; severe cramps or upper right belly pain; red or swollen breast that is painful or warm to touch; an unusual, foul odor from your vaginal discharge; pain, burning, or difficulty during urination; severe constipation (more than 5 days); feelings of depression (such as depressed mood, lossof interest in enjoyable things, unable to care for yourself, trouble sleeping, lack of appetite, or feeling worthless). If you can t reach your provider or symptoms worsen, call 911 or go to [facility]. *Information obtained from [facility] s: Save Your Life: Get Care for These POST- Warning Signs [facility] note Author Yaneth Johnson [facility] Note Date/Time September 26, 2024 11:2 7am [facility] [address] [place] [address], [address] [place] [address] OFFICE VISIT Date of Service: 09/26/24 MR#: [id number] Acct: [id number] Name: NIKOLE MOREAU Rep #: [id number] : 2000 Provider: Dr. Ania Nogueira DO Age/Sex: 24/F Location: [facility] Status: Signed with Addenda ADDENDUM by Dr. Yaneth Nogueira DO on 09/26/24 at 1127 Assessment and Plan Assessment and Plan (1) Supervision of high-risk : Status: Acute Comment: , MAREN 04/21, PC: LINDA Hager (2) : Status: Acute Comment: Desires genetic testing, declines carrier (3) History of elective : Status: Acute Comment: January 2019 (4) History of group B Streptococcus (GBS) infection: Status: Acute (5) History of hemorrhage, currently : Status: Acute (6) Tobacco use affecting , antepartum: Status: Acute Comment: Vaping; actively working to quit (7) History of marijuana use: Status: Acute Comment: Per pt - not used in years (8) Iron deficiency: Status: Acute Comment: Hx of severe anemia w/many infusions. 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 Heart rate is 166.CRL consistent with lmp measuring 10 weeks 0 days. 09/26/24 1127 <Electronically signed by Yaneth Jhaveri DO> Date _ Yaneth Nogueira DO cc: ~* Signed Intake Vital Signs 09/13/24 09:05 09/26/24 10:41 09/26/24 10:44 Height 6 ft 6 ft 6 ft Weight: 224 lb BMI 30.4 BP 116/73 Intake Visit Reasons: *NEW* NOB LMP 07/15, MAREN 04/21 Operations Lead Required: No Is patient in pain?: No Allergies sumatriptan Allergy (Severe, Verified 09/26/24 10:39) Shortness of breath Last Menstrual Period: 07/15/24 Zika: Zika virus screening: Negative : Yes PFSH PFSH Medical History Seasonal allergies Asthma Surgical History [place] teeth removed Family History Grandmother Asthma CVA (cerebral vascular accident) Diabetes Grandfather Prostate cancer Mother Endometriosis Hypertension Father Hypertension Social History adopted: No household members: children housing: apartment number of children: 1 current occupational status: employed current occupation: [employer] current occupational exposures/hazards: No pets and animals: Yes (Not managing litterbox ) pets and animals: cat(s) and dog(s) history of recent travel: Yes ( - August 2024) out of state: Yes out of country: No sexually active: Yes Smoking Status: Current every day smoker tobacco type: e-cigarettes Electronic Cigarette Use: with nicotine second hand exposure: No quit status: considering quitting alcohol intake: current alcohol intake frequency: holidays/special occasions only details: Not while substance use type: former substance user Date of last use: Marijuana - stoppedyears ago well-balanced diet: daily or most days caffeine: Yes Type: coffee Number of servings: 1 eating out: 1-3 times/week during the past year weight has: increased > 10 lbs what type of physical activity do you participate in: walking frequency: 1-2 times per week duration: 15-30 minutes/day catrachito/pentecostal: None seatbelt use: always do you feel safe at home: Yes additional social history: BF: Ken History 3 Elective abortions 1 Hx Para 1 Spontaneous abortions Hx # Term Pregnancies 1 Ectopic pregnancies Hx # Pregnancies Multiple births # of living children 1 Past Pregnancies Del. Date Name GA/Weeks Outcome Route Bth Weight Infant Gen Labor Lgth Anesthesia Del Locatn Provider FOB 01/07/19 7 elective 08/16/21 [place] 37 live - full term 7lbs 11oz Female epidural [facility] Delivery Date: 01/07/19 Last Updated by: Margaret Plasencia RN Pill Delivery Date: 08/16/21 Last Updated by: Margaret Plasencia RN labor (after sister ) - stopped, born a week later, PP hemorrhage HPI *NEW* NOB LMP 07/15, MAREN 04/21 Details: NIKOLE MOREAU is a 24 year old who presents for New OB visit. OB Visit MAREN Calculator Estimated Delivery Date Method Current WG Current Estimate 04/21/25 LMP (Certain) 10w 3d Estimated Due Date: 04/21/25 Menstrual History Last Menstrual Period: 07/15/24 Reported LMP: definite Normal amount/duration: Yes Frequency in days: 28 On hormonal BC at conception: No hCG+: 08/17/24 Antepartum Record Genetic Screening: Congenital Heart Defect: Other, Neural Tube Defect: Other, Hemoglobinopathy Or Carrier: Other, Cystic Fibrosis: Other, Chromosome Abnormality: Other, Ruperto-Sachs: Other, Hemophilia: Other, Intellectual Disability/Autism: Patient (PT's 2 brother's with autism), Recurrent Loss/Stillbirth: Patient (Pt's mom with several miscarriages), Other Structural Defect: Other, Other Genetic Disease: Other and Maternal Metabolic Disorder: Other Infection History: Live with someone with TB or Exposed to TB: No, Patient or Partner has history of Genital Herpes: No, Rash or Viral illness since last mentrual period: No, Prior GBS-Infected child: Yes, History of STD: No, HIV Infection: No, History of Hepatitis: No, Recent travel outside of [place]: No, Concern for hepatitis exposure: No, Varicella immune: Yes (Had vaccine) and Covid Vaccinated: No Medical History Medical History: Positive: Pulmonary (e.g.,TB,Asthma) (Asthma), Seasonal allergies, Drug/latex allergies/reactions (See list) and Other (Has received many iron infusions d/t severe anemia .. hasn't been to lumber piler lately d/t lost insurance) and Negative: Diabetes, Hypertension, Heart disease, Auto-immunedisorder, Kidney disease/UTI, Neurologic/epilepsy, Psychiatric, Depression/ depression, Hepatitis/liver disease, Varicosities/phlebitis, Thyroid dysfunction, Trauma/domestic violence, History of blood transfusions, D (Rh) Sensitized, Breast, Ticket Broker surgery, Operations/hospitalizations, Anesthetic complications, History of abnormal pap, Uterine anomaly/juni, Infertility, Anti-retroviral treatment and Relevant family history ACOG First Trimester First Trimester: Desire for , Alcohol, Tobacco Cessation, Illicit/Recreational Drug/Substance Use, Intimate Partner Violence, Barriers to care, Unstable Housing, Communication Barriers, Environmental/Work Hazards, Anticipated Course of Care, Toxoplasmosis Precations, Use of Any medications, Sexual activity, Exercise, Dental Care, Sauna/Hot tub use, Seat Belt use, Childbirth classes/Hospital facilities, , Travel, Indications for Ultrasound and Screening for Aneuploidy ROS Const Reports system reviewed and no additional complaints, except as documented, Reports fatigue and Denies fever(s) Eyes Reports system reviewed and no additional complaints, except as documented ENT Reports system reviewed and no additional complaints, except as documented Card Denies chest pain and Denies dyspnea Resp Reports system reviewed and no additional complaints, except as documented, Denies cough and Denies dyspnea GI Denies abdominal pain and Reports nausea Reports system reviewed and no additional complaints, except as documented Musc Reports system reviewed and no additional complaints, except as documented Skin/Breast Reports system reviewed and no additional complaints, except as documented Neuro Yes system reviewed and no additional complaints, except as documented Psych Reports system reviewed and no additional complaints, except as documented Endo Reports system reviewed and no additional complaints, except as documented and Reports fatigue Exam Const General: healthy appearing, comfortable and no acute distress Orientation: alert HENMT Head: normal to inspection, normocephalic and atraumatic Ears: hearing grossly normal bilaterally and external ears normal Nose: external nose normal and nares normal Mouth: oral mucosae normal Teeth and gingiva: dentition normal Eyes General: appearance normal, both eyes and all related structures Neck Neck: normal visual inspection, no lymphadenopathy and supple Thyroid: thyroid normal Resp Effort & Inspection: normal respiratory effort GI Inspection: normal to inspection Palpation: soft and no hepatosplenomegaly General: bladder normal to palpation External Female Exam: normal external appearance and normal appearance of the urethra Urethra: normal appearance of the urethra Speculum Exam - Vagina: normal appearance of the vagina and normal vaginal discharge Speculum Exam - Cervix: normal appearance of the cervix Bimanual Exam- Vagina & Uterus: normal bimanual exam, bladder normal to palpation, non-tender and other Bimanual Exam- Adnexa, other: non-tender Skin General: no rashes or lesions noted Neuro Motor: muscle tone normal throughout and no movement abnormalities noted Extrem General: normal to inspection and full ROM Supplemental Info ACOG book given and patient encouraged to read about nutrition, exercise, weight gain, and food avoidance in . Coding Level of Care Code OB Routine Diagnoses Supervision of high-risk O09.90 Z34.90 History of elective Z98.890 History of group B Streptococcus (GBS) infection Z86.19 History of hemorrhage, currently O09.299 Tobacco use affecting , antepartum O99.330 History of marijuana use F12.91 Iron deficiency E61.1 Vaginal bleeding affecting early O20.9 Assessment and Plan Assessment and Plan (1) Supervision of high-risk : Status: Acute Comment: , MAREN 04/21, PC: LINDA Hager (2) : Status: Acute Comment: Desires genetic testing, declines carrier (3) History of elective : Status: Acute Comment: January 2019 (4) History of group B Streptococcus (GBS) infection: Status: Acute (5) History of hemorrhage, currently : Status: Acute (6) Tobacco use affecting , antepartum: Status: Acute Comment: Vaping; actively working to quit (7) History of marijuana use: Status: Acute Comment: Per pt - not used in years (8) Iron deficiency: Status: Acute Comment: Hx of severe anemia w/many infusions. 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 ACOG book offered to patient. Discussed routine and specially indicated labs if needed- patient consents to testing. See problem list details for plan information. Optional screening including maternal carrier screenings, neural tube defect screening, genetic screening options including quad screen, nuchal translucency, sequential screening, and NIPT screening offered to patient and patient chose: nipt only. is self pay. 09/26/24 1126 <Electronically signed by Yaneth Jhaveri DO> Date _ Yaneth Nogueira DO Cosigner Signature: Date (if applicable) CC: ~ [facility] Work Phone: Reason for referral (narrative)* Consultation (Urgent) - New Request Specialty Diagnoses / Procedures Referred By Roxanne romero Referred To Contact Family Medicine Diagnoses Lesion of labia Vaginal discharge Heather Au APRN-WIRE STITCHER MACHINE [address] [facility] [address] [place] [address] Referral ID Status Reason Start Date Expiration Date V isits Requested Visits Authorized [id number] New Request 02/24/2024 03/20/2025 1 1 * Consultation (Urgent) - New Request Specialty Diagnoses / Procedures Referred By Roxanne romero Referred To Contact TEST CAR 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 Diagnoses Lesion of labia Vaginal discharge Heather Au APRN-WIRE STITCHER MACHINE [address] [facility] [address] [place] [address] Lo Corey MD [address] [place] [address] Referral ID Status Reason Start Date Expiration Date V isits Requested Visits Authorized [id number] New Request 02/24/2024 03/20/2025 1 1 [facility] for referral (narrative)No reason for referral information availableKensington Medical Services Work Phone: Summary Purpose Family History No Family History Records FoundUnknown Family Member Name Dates Details Family history of diabetes m ellitus: Grandmother(V18.0, Z83.3) Status:Active Family history of cerebrovas cular accident (CVA): Grandmother(V17.1, Z82.3) Status:Active Family history of asthma: Gr andmother(V17.5, Z82.5) Status:Active Family history of hypertensi on: Mother, Father(V17.49, Z82.49) Status:Active Family history of malignant neoplasm of prostate: Grandfather(V16.42, Z80.42) Status:Active Family history of migraine h eadaches: Mother, Brother, Grandmother(V17.2, Z82.0) Status:Active Unknown Family Member Name Dates Details Family history of diabetes m ellitus: Grandmother(V18.0, Z83.3) Status:Active Family history of cerebrovas cular accident (CVA): Grandmother(V17.1, Z82.3) Status:Active Family history of asthma: Gr andmother(V17.5, Z82.5) Status:Active Family history of hypertensi on: Mother, Father(V17.49, Z82.49) Status:Active Family history of malignant neoplasm of prostate: Grandfather(V16.42, Z80.42) Status:Active Family history of migraine h eadaches: Mother, Brother, Grandmother(V17.2, Z82.0) Status:Active Unknown Family Member Name Dates Details Family history of diabetes m ellitus: Grandmother(V18.0, Z83.3) Status:Active Family history of cerebrovas cular accident (CVA): Grandmother(V17.1, Z82.3) Status:Active Family history of asthma: Gr andmother(V17.5, Z82.5) Status:Active Family history of hypertensi on: Mother, Father(V17.49, Z82.49) Status:Active Family history of malignant neoplasm of prostate: Grandfather(V16.42, Z80.42) Status:Active Family history of migraine h eadaches: Mother, Brother, Grandmother(V17.2, Z82.0) Status:Active Unknown Family Member Name Dates Details Family history of diabetes m ellitus: Grandmother(V18.0, Z83.3) Status:Active Family history of cerebrovas cular accident (CVA): Grandmother(V17.1, Z82.3) Status:Active Family history of asthma: Gr andmother(V17.5, Z82.5) Status:Active Family history of hypertensi on: Mother, Father(V17.49, Z82.49) Status:Active Family history of malignant neoplasm of prostate: Grandfather(V16.42, Z80.42) Status:Active Family history of migraine h eadaches: Mother, Brother, Grandmother(V17.2, Z82.0) Status:Active Unknown Family Member Name Dates Details Family history of diabetes m ellitus: Grandmother(V18.0, Z83.3) Status:Active Family history of cerebrovas cular accident (CVA): Grandmother(V17.1, Z82.3) Status:Active Family history of asthma: Gr andmother(V17.5, Z82.5) Status:Active Family history of hypertensi on: Mother, Father(V17.49, Z82.49) Status:Active Family history of malignant neoplasm of prostate: Grandfather(V16.42, Z80.42) Status:Active Family history of migraine h eadaches: Mother, Brother, Grandmother(V17.2, Z82.0) Status:Active Unknown Family Member Name Dates Details Family history of migraine h eadaches: Mother, Brother, Grandmother(V17.2, Z82.0) Status:Active Family history of malignant neoplasm of prostate: Grandfather(V16.42, Z80.42) Status:Active Family history of hypertensi on: Mother, Father(V17.49, Z82.49) Status:Active Family history of asthma: Gr andmother(V17.5, Z82.5) Status:Active Family history of cerebrovas cular accident (CVA): Grandmother(V17.1, Z82.3) Status:Active Family history of diabetes m ellitus: Grandmother(V18.0, Z83.3) Status:Active Unknown Family Member Name Dates Details Family history of diabetes m ellitus: Grandmother(V18.0, Z83.3) Status:Active Family history of cerebrovas cular accident (CVA): Grandmother(V17.1, Z82.3) Status:Active Family history of asthma: Gr andmother(V17.5, Z82.5) Status:Active Family history of hypertensi on: Mother, Father(V17.49, Z82.49) Status:Active Family history of malignant neoplasm of prostate: Grandfather(V16.42, Z80.42) Status:Active Family history of migraine h eadaches: Mother, Brother, Grandmother(V17.2, Z82.0) Status:Active Unknown Family Member Name Dates Details Family history of diabetes m ellitus: Grandmother(V18.0, Z83.3) Status:Active Family history of cerebrovas cular accident (CVA): Grandmother(V17.1, Z82.3) Status:Active Family history of asthma: Gr andmother(V17.5, Z82.5) Status:Active Family history of hypertensi on: Mother, Father(V17.49, Z82.49) Status:Active Family history of malignant neoplasm of prostate: Grandfather(V16.42, Z80.42) Status:Active Family history of migraine h eadaches: Mother, Brother, Grandmother(V17.2, Z82.0) Status:Active Unknown Family Member Name Dates Details Family history of diabetes m ellitus: Grandmother(V18.0, Z83.3) Status:Active Family history of cerebrovas cular accident (CVA): Grandmother(V17.1, Z82.3) Status:Active Family history of asthma: Gr andmother(V17.5, Z82.5) Status:Active Family history of hypertensi on: Mother, Father(V17.49, Z82.49) Status:Active Family history of malignant neoplasm of prostate: Grandfather(V16.42, Z80.42) Status:Active Family history of migraine h eadaches: Mother, Brother, Grandmother(V17.2, Z82.0) Status:Active Unknown Family Member Name Dates Details Family history of diabetes m ellitus: Grandmother(V18.0, Z83.3) Status:Active Family history of cerebrovas cular accident (CVA): Grandmother(V17.1, Z82.3) Status:Active Family history of asthma: Gr andmother(V17.5, Z82.5) Status:Active Family history of hypertensi on: Mother, Father(V17.49, Z82.49) Status:Active Family history of malignant neoplasm of prostate: Grandfather(V16.42, Z80.42) Status:Active Family history of migraine h eadaches: Mother, Brother, Grandmother(V17.2, Z82.0) Status:Active Unknown Family Member Name Dates Details Family history of diabetes m ellitus: Grandmother(V18.0, Z83.3) Status:Active Family history of cerebrovas cular accident (CVA): Grandmother(V17.1, Z82.3) Status:Active Family history of asthma: Gr andmother(V17.5, Z82.5) Status:Active Family history of hypertensi on: Mother, Father(V17.49, Z82.49) Status:Active Family history of malignant neoplasm of prostate: Grandfather(V16.42, Z80.42) Status:Active Family history of migraine h eadaches: Mother, Brother, Grandmother(V17.2, Z82.0) Status:Active Unknown Family Member Name Dates Details Family history of diabetes m ellitus: Grandmother(V18.0, Z83.3) Status:Active Family history of cerebrovas cular accident (CVA): Grandmother(V17.1, Z82.3) Status:Active Family history of asthma: Gr andmother(V17.5, Z82.5) Status:Active Family history of hypertensi on: Mother, Father(V17.49, Z82.49) Status:Active Family history of malignant neoplasm of prostate: Grandfather(V16.42, Z80.42) Status:Active Family history of migraine h eadaches: Mother, Brother, Grandmother(V17.2, Z82.0) Status:Active Unknown Family Member Name Dates Details Family history of diabetes m ellitus: Grandmother(V18.0, Z83.3) Status:Active Family history of cerebrovas cular accident (CVA): Grandmother(V17.1, Z82.3) Status:Active Family history of asthma: Gr andmother(V17.5, Z82.5) Status:Active Family history of hypertensi on: Mother, Father(V17.49, Z82.49) Status:Active Family history of malignant neoplasm of prostate: Grandfather(V16.42, Z80.42) Status:Active Family history of migraine h eadaches: Mother, Brother, Grandmother(V17.2, Z82.0) Status:Active Unknown Family Member Name Dates Details Family history of diabetes m ellitus: Grandmother(V18.0, Z83.3) Status:Active Family history of cerebrovas cular accident (CVA): Grandmother(V17.1, Z82.3) Status:Active Family history of asthma: Gr andmother(V17.5, Z82.5) Status:Active Family history of hypertensi on: Mother, Father(V17.49, Z82.49) Status:Active Family history of malignant neoplasm of prostate: Grandfather(V16.42, Z80.42) Status:Active Family history of migraine h eadaches: Mother, Brother, Grandmother(V17.2, Z82.0) Status:Active Unknown Family Member Name Dates Details Family history of diabetes m ellitus: Grandmother(V18.0, Z83.3) Status:Active Family history of cerebrovas cular accident (CVA): Grandmother(V17.1, Z82.3) Status:Active Family history of asthma: Gr andmother(V17.5, Z82.5) Status:Active Family history of hypertensi on: Mother, Father(V17.49, Z82.49) Status:Active Family history of malignant neoplasm of prostate: Grandfather(V16.42, Z80.42) Status:Active Family history of migraine h eadaches: Mother, Brother, Grandmother(V17.2, Z82.0) Status:Active Unknown Family Member Name Dates Details Family history of diabetes m ellitus: Grandmother(V18.0, Z83.3) Status:Active Family history of cerebrovas cular accident (CVA): Grandmother(V17.1, Z82.3) Status:Active Family history of asthma: Gr andmother(V17.5, Z82.5) Status:Active Family history of hypertensi on: Mother, Father(V17.49, Z82.49) Status:Active Family history of malignant neoplasm of prostate: Grandfather(V16.42, Z80.42) Status:Active Family history of migraine h eadaches: Mother, Brother, Grandmother(V17.2, Z82.0) Status:Active Unknown Family Member Name Dates Details Family history of diabetes m ellitus: Grandmother(V18.0, Z83.3) Status:Active Family history of cerebrovas cular accident (CVA): Grandmother(V17.1, Z82.3) Status:Active Family history of asthma: Gr andmother(V17.5, Z82.5) Status:Active Family history of hypertensi on: Mother, Father(V17.49, Z82.49) Status:Active Family history of malignant neoplasm of prostate: Grandfather(V16.42, Z80.42) Status:Active Family history of migraine h eadaches: Mother, Brother, Grandmother(V17.2, Z82.0) Status:Active Unknown Family Member Name Dates Details Family history of diabetes m ellitus: Grandmother(V18.0, Z83.3) Status:Active Family history of cerebrovas cular accident (CVA): Grandmother(V17.1, Z82.3) Status:Active Family history of asthma: Gr andmother(V17.5, Z82.5) Status:Active Family history of hypertensi on: Mother, Father(V17.49, Z82.49) Status:Active Family history of malignant neoplasm of prostate: Grandfather(V16.42, Z80.42) Status:Active Family history of migraine h eadaches: Mother, Brother, Grandmother(V17.2, Z82.0) Status:Active Unknown Family Member Name Dates Details Family history of diabetes m ellitus: Grandmother(V18.0, Z83.3) Status:Active Family history of cerebrovas cular accident (CVA): Grandmother(V17.1, Z82.3) Status:Active Family history of asthma: Gr andmother(V17.5, Z82.5) Status:Active Family history of hypertensi on: Mother, Father(V17.49, Z82.49) Status:Active Family history of malignant neoplasm of prostate: Grandfather(V16.42, Z80.42) Status:Active Family history of migraine h eadaches: Mother, Brother, Grandmother(V17.2, Z82.0) Status:Active Unknown Family Member Name Dates Details Family history of diabetes m ellitus: Grandmother(V18.0, Z83.3) Status:Active Family history of cerebrovas cular accident (CVA): Grandmother(V17.1, Z82.3) Status:Active Family history of asthma: Gr andmother(V17.5, Z82.5) Status:Active Family history of hypertensi on: Mother, Father(V17.49, Z82.49) Status:Active Family history of malignant neoplasm of prostate: Grandfather(V16.42, Z80.42) Status:Active Family history of migraine h eadaches: Mother, Brother, Grandmother(V17.2, Z82.0) Status:Active Relationship Condition Age at Onset Recorded Date/T cristian grandmother Asthma Unknown Cerebrovascular accident (CVA) Unknown Diabetes mellitus Unknown grandfather Malignant neoplasm of prostate Unknown mother Endometriosis Unknown Hypertension Unknown father Hypertension Unknown Advance Directives No Advanced Directives Records FoundNo Advanced Directives Records FoundNo Advanced Directives Records FoundNo Advanced Directives Records FoundNo Advanced Directives Records FoundNo Advanced Directives Records FoundNo Advanced Directives Records FoundNo Advanced Directives Records FoundNo Advanced Directives Records FoundNo Advanced Directives Records Found Chief Complaint Patient is here for possible mastitis in Left breast. Patient c/o pain, headaches, chills and the area is warm to the touch.PT IS HERE TODAY FOR A 6 WEEK POST . BREAST MILK IN A BOTTLE. HAS NO CONCERNS. DENIES ANY DEPR ESSION. NOT INTERESTED IN B/C. HAS NOT STARTED HER PERIOD. HAS NOT BEEN SEXUALLY ACTIVE.PT HERE TODAY WITH CONCERNS OF A BLISTER ON HER RIGHT BREAST. PT STATES THE BLISTER APPEARED ABOUT 12 HOURS AGO WHEN SHE WAS PUMPING. PT DENIES FEVER, CHILLS, BODY ACHES, AND REDNESS. Chief Complaint and Reason for Visit Chief Complaint Admit Date PNOB Confirm , Vitals September 13, 2024 8:55am Reason for Visit Admit Date Asthma September 13, 2024 8:55a m Chief Complaint Admit Date PNOB Confirm , Vitals September 13, 2024 8:55am Amb Documentation September 16, 2024 9:21 am AUB September 21, 2024 10:3 5am Reason for Visit Admit Date Amenorrhea September 13, 2024 8:55a m Chief Complaint Admit Date PNOB Confirm , Vitals September 13, 2024 8:55am Amb Documentation September 16, 2024 9:21 am AUB September 21, 2024 10:3 5am *NEW* NOB LMP 5/9, MAREN 2September 26, 2 025 10:38am Reason for Visit Admit Date Amenorrhea September 13, 2024 8:55a m History of elective September 26, 2024 10:38am History of group B Streptococcus (GBS) i nfection September 26, 2024 10:38am History of marijuana use September 26, 2024 10:38am History of hemorrhage, curren tly September 26, 2024 10:38am Iron deficiency September 26, 2024 10:3 8am September 26, 2024 10:3 8am Supervision of high-risk September 26, 2024 10:38am Tobacco use affecting , antepar asad September 26, 2024 10:38am Vaginal bleeding affecting early pregnan cy September 26, 2024 10:38am Chief Complaint Admit Date PNOB Confirm , Vitals September 13, 2024 8:55am Amb Documentation September 16, 2024 9:21 am AUB September 21, 2024 10:3 5am *NEW* NOB LMP /, MAREN 04/21September 26, 2 025 10:38am 14wk ob *ppu October 26, 2024 1: 42pm Additional Source Comments INFORMATION SOURCE (unrecogn ized section and content) DATE CREATED AUTHOR 12/09/2018 [facility] DATE CREATED AUTHOR AUTHOR'S ORGANIZ ATION 05/07/2019 [facility] DATE CREATED AUTHOR AUTHOR'S ORGANIZ ATION 11/02/2021 [facility] DATE CREATED AUTHOR AUTHOR'S ORGANIZ ATION 07/10/2022 [facility] DATE CREATED AUTHOR AUTHOR'S ORGANIZ ATION 11/26/2022 [facility] DATE CREATED AUTHOR AUTHOR'S ORGANIZ ATION 02/18/2023 [facility] DATE CREATED AUTHOR AUTHOR'S ORGANIZ ATION 09/06/2023 [facility] DATE CREATED AUTHOR AUTHOR'S ORGANIZ ATION 03/22/2024 [facility] DATE CREATED AUTHOR AUTHOR'S ORGANIZ ATION 11/26/2024 [facility] DATE CREATED AUTHOR AUTHOR'S ORGANIZ ATION 11/30/2024 [facility] <item><item><item><item> Privacy Markings (unrecogniz ed section and content) Section Author: Latasha De Guzman PROHIBITION ON REDISCLOSURE OF CONFIDENTIAL INFORMATION This notice accompanies a disclosure of information concerning a client made to you with the consent of such client. Section Author: Latasha De Guzman PROHIBITION ON REDISCLOSURE OF CONFIDENTIAL INFORMATION This notice accompanies a disclosure of information concerning a client made to you with the consent of such client. Section Author: Latasha De Guzman PROHIBITION ON REDISCLOSURE OF CONFIDENTIAL INFORMATION This notice accompanies a disclosure of information concerning a client made to you with the consent of such client. Section Author: Latasha De Guzman PROHIBITION ON REDISCLOSURE OF CONFIDENTIAL INFORMATION This notice accompanies a disclosure of information concerning a client made to you with the consent of such client. Reason for Visit (unrecogniz ed section and content) Reason Comments Splenomegaly Reason Comments Anemia Reason Comments Vaginal Pain Reports laceration t o labia/vagina states 3 separate lacerations from sexual activity 2 weeks ago and has become increasingly more painful and is concerned for infection. 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 Diagnoses Lesion of labia Vaginal discharge Heather Au I, STONE GLUER-WIRE STITCHER MACHINE [address] [address] Lo Corey MD [address] [place] [address] Referral ID Status Reason Start Date Expiration Date Visits Re quested Visits Authorized [id number] Open 02/24/2024 03/20/2025 1 1 Reason Comments Follow-up Reason Comments Iron Deficiency Care Teams (unrecognized sec tion and content) Film Processing Utility Worker Relationship Specialty Start Date End Date Awais Flores APRN-CNP [facility] [place] [id number] PCP - General 03/09/07 Sanchez South MD [address] [place] [id number] PCP - [employer] PCP 03/09/22 Clarence Alfredo APRN-CNP [address] [place], [place] [phone] PCP - [facility] PCP 08/07/22 Film Processing Utility Worker Relationship Specialty Start Date End Date Awais Flores APRN-CNP [address] [place] [address] [facility] [place] [address] PCP - General 03/09/07 Sanchez South MD [address] [place] [id number] PCP - [employer] PCP 03/09/22 Clarence Alfredo APRN-CNP [address] [place] [id number] PCP - [facility] PCP 08/07/22 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 Processing Utility Worker Relationship Specialty Start Date End Date Awais Flores APRN-CNP [address] [facility] [place] [address] PCP - General 03/09/07 Sanchez South MD [address] [place] [address] PCP - [employer] PCP 03/09/22 Clarence Alfredo [employer]ONE GL[employer]WIRE STITCHER MACHINE [address] [place] [address] PCP - [facility] PCP 08/07/22 Team Status: Inactive Member Role/Relationship Status Dates Ailin Whitehead INTELLIGENCE CONSULTANT, INTELLIGENCE CONSULTANT-C Attending Provider Active Start: September 13, 2024 End: September 13, 2024 Team Status: Active Member Role/Relationship Status Dates No Primary Care Physician Primary Care Provider Active Team Status: Inactive Member Role/Relationship Status Dates Ailin Whitehead INTELLIGENCE CONSULTANT, INTELLIGENCE CONSULTANT-C Attending Provider Active Start: September 13, 2024 End: September 13, 2024 Team Status: Inactive Member Role/Relationship Status Dates Ailin Whitehead INTELLIGENCE CONSULTANT, INTELLIGENCE CONSULTANT-C Attending Provider Active Start: September 15, 2024 End: September 15, 2024 Ailin Whitehead INTELLIGENCE CONSULTANT, INTELLIGENCE CONSULTANT-C Referring Provider Active Start: September 15, 2024 End: September 15, 2024 Team Status: Active Member Role/Relationship Status Dates Margaret Plasencia RN Attending Provider Active St art: September 16, 2024 Team Status: Active Member Role/Relationship Status Dates Dr. Yaneth Nogueira , DO Attending Provider Activ e Start: September 21, 2024 Dr. Yaneth Nogueira , DO Referring Provider Activ e Start: September 21, 2024 No Primary Care Physician Primary Care Provider Active Start: September 21, 2024 Team Status: Inactive Member Role/Relationship Status Dates Dr. Yaneth Nogueira DO Attending Provider Activ e Start: September 26, 2024 End: September 26, 2024 No Primary Care Physician Primary Care Provider Active Start: September 26, 2024 End: September 26, 2024 No Primary Care Physician Referring Provider Active Start: September 26, 2024 End: September 26, 2024 Team Status: Active Member Role/Relationship Status Dates No Primary Care Physician Primary Care Provider Active Start: September 26, 2024 Dr. Yaneth Nogueira , DO Attending Provider Activ e Start: September 26, 2024 Dr. Yaneth Nogueira , DO Referring Provider Activ e Start: September 26, 2024 Team Status: Inactive Member Role/Relationship Status Dates Dr. Yaneth Nogueira , DO Attending Provider Activ e Start: September 21, 2024 End: September 21, 2024 Dr. Yaneth Nogueira , DO Referring Provider Activ e Start: September 21, 2024 End: September 21, 2024 No Primary Care Physician Primary Care Provider Active Start: September 21, 2024 End: September 21, 2024 Film Processing Utility Worker Relationship Specialty Start Date End Date Awais Flores STONE GLUER-WIRE STITCHER MACHINE [address] [facility] [place] [address] PCP - General 03/09/07 Clarence Alfredo, STONE GLUER-WIRE STITCHER MACHINE [address] [place] [address] PCP - Parviz MORRIS PCP 08/07/22 Team Status: Inactive Member Role/Relationship Status Dates No Primary Care Physician Primary Care Provider Active Start: September 26, 2024 End: September 26, 2024 Dr. Yaneth Nogueira , DO Attending Provider Activ e Start: September 26, 2024 End: September 26, 2024 Dr. Yaneth Nogueira , DO Referring Provider Activ e Start: September 26, 2024 End: September 26, 2024 Team Status: Inactive Member Role/Relationship Status Dates Ailin Whitehead NP, INTELLIGENCE CONSULTANT-C Attending Provider Active Start: October 26, 2024 End: October 26, 2024 No Primary Care Physician Primary Care Provider Active Start: October 26, 2024 End: October 26, 2024 No Primary Care Physician Referring Provider Active Start: October 26, 2024 End: October 26, 2024 Film Processing Utility Worker Relationship Specialty Start Date End Date Awais Flores STONE GLUER-WIRE STITCHER MACHINE [address] [facility] [place] [address] PCP - General 03/09/07 Clarence Alfredo, STONE GLUER-WIRE STITCHER MACHINE [address] [place] [address] PCP - [facility] PCP 08/07/22 Goals (unrecognized section and content) Goals may be documented in a n alternate sectionGoals may be documented in an alternate sectionGoals may be documented in an alternate sectionGoals may be documented in an alternate sectionGoals may be documented in an alternate sectionGoals may be documented in an alternate section FOR RECORDS PERTAINING TO PATIENTS WHO ARE OR HAVE BEEN ENROLLED IN A CHEMICAL DEPENDENCY/SUBSTANCEABUSE PROGRAM, SOME INFORMATION MAY BE OMITTED. This clinical summary was aggregated from multiple sources. Caution should be exercised in using it in the provision of clinical care. This summary normalizes information from multiple sources, and as a consequence, information in this document may materially change the coding, format and clinical context of patient data. In addition, data may be omitted in some cases. CLINICAL DECISIONS SHOULD BE BASED ON THE PRIMARY CLINICAL RECORDS. [facility]. provides no warranty or guarantee of the accuracy or completeness of information in this document.
--- OUTSIDE RECORDS SUMMARY | 2024-12-02 08:26 | XMS RPT_ITS | CCD ---
Author Organization [facility] Care Team Providers Care Salvage Mechanic Name Role Phone Awais Flores Unavailable EddingtonSandra barillasjose Woodard Unavailable Awais Flores Unavailable Unavailable [...] ALEX LAU Attending Unavailable Mark, Ms. Awais Chuadhary Primary Care Unavaila ble ALEX LAU Attending Unavailable AWAIS FLORES Primary Care Unavailable ALEX LAU Attending Unavailable AWAIS FLORES Primary Care Unavailable Mark MUNICIPAL MAINTENANCE WORKER-FEED ADVISER, Awais Chaudhary Primary Care Provid er Sanchez [place] MD Unavailable [phone] Gaurav MUNICIPAL MAINTENANCE WORKER-FEED ADVISER, Clarence S Unavailable AWAIS FLORES Primary Care Unavailable AWAIS FLORES Primary Care Unavailable AWAIS FLORES Primary Care Unavailable Unavailable Primary Care Provider UnavailLO Woodard Attending Unavailable HEATHER AU I Referring Unavailable Charley JUNIOR ENGINEER-C, Ailin Attending Provider Charley JUNIOR ENGINEER-C, Ailin Referring Provider Margaret Plasencia RN Attending Provider UnavailDr. Yaneth Del Valle DO Attending Provider Dr. Yaneth Nogueira DO Referring Provider Care Physician, No Primary Primary Care Provider Unavailable Care Physician, No Primary Referring Provider Un available Mark MUNICIPAL MAINTENANCE WORKER-FEED ADVISER, Awais Donnellyir Primary Care Provid er Gaurav MUNICIPAL MAINTENANCE WORKER-FEED ADVISER, Clarence S Unavailable Charley JUNIOR ENGINEERAilin Attending Unavailable Charley JUNIOR ENGINEER, Ailin Referring Unavailable Yaneth Nogueira Referring Unavailabl e Care Physician, No Primary Primary Care Unava ilable Yaneth Nogueira Attending Unavailileana Whitehead JUNIOR ENGINEERAilin Attending Unavailable Charley JUNIOR ENGINEERAilin Referring Unavailable Care Physician, No Primary Primary Care Unava ilable Care Physician, No Primary Referring Unava ilable Care Physician, No Primary Primary Care Unava ilable Yaneth Nogueira Attending UnavailMargaret Jolley Attending Unavailable Tommy Whitehead NPy Attending Unavailable Charley JUNIOR ENGINEER, Ailin Attending Unavailable Care Physician, No Primary [...] Agonists (1 source) SUMAtriptan Drug Allergy Unknown [facility] (20 sources) rizatriptan; Translations: [Rizatriptan Benzoate TABS] Drug Allergy 3 Unknown [facility] (19 sources) SUMAtriptan; Translations: [SUMATRIPTAN] Drug Allergy 3 Unknown, Shortness of Breath [facility] Comment on above: shortness pf breath, vision loss, vomiting (3 sources) rizatriptan; Translations: [RIZATRIPTAN] Drug Allergy 3 [facility] 3 Repository (1 source) SUMAtriptan Drug Allergy 5 [facility] Repository Medications Current Medications Medication Drug [...] 7 days. 21 tablet 02/24/2024 03/02/2024 Active [id number] 200 actuat albuterol 0.09 mg/actuat metered dose [...] Generic Substitution Allowed 21 day ethinyl estradiol 0.499174 mg/hr / etonogestrel 0.005 mg/hr vaginal system [...] Ordered: 12-Aug-2021 Kandy Osborne Generic Substitution Allowed 2-YNBF-INNFP ACID-OM3 ORAL (1 source) 2-IRON- FOLIC ACID-OM3 [...] w/many infusions. 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 Other complications of (1 source) Obesity complicating , third trimester; Translations: [Obesity complicating , third trimester] Onset: 2 Chronic Other complications of (9 sources) High risk ; Translations: [Supervision of high risk , unspecified, unspecified trimester] 09-16-2024 Episodic Comment on above: , MAREN 04/21, PC: Alley, BF Ken [id number], MAREN 04/21, PC: Alley, BF Ken Other [...] Basophils (Bld) [#/Vol] 0.03 x10*3/uL Normal 0.00-0.10 [facility] Comment on above: Performed By: #### 5 7021-8 #### BRAGA KAREN ([id number]) [facility] ([facility]) [address] [place] [address] 07645 Basophils/100 WBC (Bld) 0.3 % Normal 0.0-2.0 [facility] Comment on above: Performed By: #### 5 7021-8 #### MARIA LUZ JONES ([id number]) [facility] ([facility]) [address] [place] [address] 47447 Eosinophils (Bld) [#/Vol] 0.05 x10*3/uL Normal 0.00-0.70 [facility] Comment on above: Performed By: #### 5 7021-8 #### MARIA LUZ JONES ([id number]) [facility] ([facility]) [address] [place] [address] 15189 Eosinophils/100 WBC (Bld) 0.4 % Normal 0.0-6.0 [facility] Comment on above: Performed By: #### 5 7021-8 #### MARIA LUZ JONES ([id number]) [facility] ([facility]) [address] [place] [address] 95525 Erythrocyte distribution width (RBC) [Ratio] 12.9 % Normal 11.5-14.5 [facility] Comment on above: Performed By: #### 5 7021-8 #### MARIA LUZ JONES ([id number]) [facility] ([facility]) [address] [place] [address] 35991 Hematocrit (Bld) [Volume fraction] 37.2 % Normal 36.0-46.0 [facility] Comment on above: Performed By: #### 5 7021-8 #### MARIA LUZ JONES ([id number]) [facility] ([facility]) [address] [place] [address] 46735 Hemoglobin (Bld) [Mass/Vol] 12.7 g/dL Normal 12.0-16.0 [facility] Comment on above: Performed By: #### 5 7021-8 #### MARIA LUZ JONES ([id number]) [facility] ([facility]) [address] [place] [address] 67880 Immature granulocytes (Bld) [#/Vol] 0.06 x10*3/uL Normal 0.00-0.70 [facility] Comment on above: Performed By: #### 5 7021-8 #### MARIA LUZ JONES ([id number]) [facility] ([facility]) [address] [place] [address] 69980 Immature granulocytes/100 WBC (Bld) 0.5 % Normal 0.0-0.9 [facility] Comment on above: Result Comment: Mary ture Granulocyte Count (IG) includes promyelocytes, myelocytes and metamyelocytes but does not include bands. Percent differential counts (%) should be interpreted in the context of the absolute cell counts (cells/UL). Performed By: #### 5 7021-8 #### MARIA LUZ JONES ([id number]) [facility] ([facility]) [address] [place] [address] Lymphocytes (Bld) [#/Vol] 1.80 x10*3/uL Normal 1.20-4.80 [facility] Comment on above: Performed By: #### 5 7021-8 #### MARIA LUZ JONES ([id number]) [facility] ([facility]) [address] [place] [address] 65602 Lymphocytes/100 WBC (Bld) 16.0 % Normal 13.0-44.0 [facility] Comment on above: Performed By: #### 5 7021-8 #### MARIA LUZ JONES ([id number]) [facility] ([facility]) [address] [place] [address] 04785 MCH (RBC) [Entitic mass] 30.5 pg Normal 26.0-34.0 [facility] Comment on above: Performed By: #### 5 7021-8 #### MARIA LUZ JONES ([id number]) [facility] ([facility]) [address] [place] [address] 25164 MCHC (RBC) [Mass/Vol] 34.1 g/dL Normal 32.0-36.0 [facility] Comment on above: Performed By: #### 5 7021-8 #### MARIA LUZ JONES ([id number]) [facility] ([facility]) [address] [place] [address] 90249 MCV (RBC) [Entitic vol] 89 fL Normal 80-100 [facility] Comment on above: Performed By: #### 5 7021-8 #### MARIA LUZ JONES ([id number]) [facility] ([facility]) [address] [place] [address] 21093 Monocytes (Bld) [#/Vol] 0.56 x10*3/uL Normal 0.10-1.00 [facility] Comment on above: Performed By: #### 5 7021-8 #### MARIA LUZ JONES ([id number]) [facility] ([facility]) [address] [place] [address] 02183 Monocytes/100 WBC (Bld) 5.0 % Normal 2.0-10.0 [facility] Comment on above: Performed By: #### 5 7021-8 #### MARIA LUZ JONES ([id number]) [facility] ([facility]) [address] [place] [address] 76415 Neutrophils (Bld) [#/Vol] 8.75 x10*3/uL High 1.20-7.70 [facility] Comment on above: Result Comment: Perc ent differential counts (%) should be interpreted in the context of the absolute cell counts (cells/uL). Performed By: #### 5 7021-8 #### MARIA LUZ JONES ([id number]) [facility] ([facility]) [address] [place] [address] 72183 Neutrophils/100 WBC (Bld) 77.8 % Normal 40.0-80.0 [facility] Comment on above: Performed By: #### 5 7021-8 #### MARIA LUZ JONES ([id number]) [facility] ([facility]) [address] [place] [address] 03280 Nucleated RBC/100 WBC (Bld) [Ratio] 0.0 /100 WBCs Normal 0.0-0.0 [facility] Comment on above: Performed By: #### 5 7021-8 #### MARIA LUZ JONES ([id number]) [facility] ([facility]) [address] [place] [address] 07331 Platelets (Bld) [#/Vol] 169 x10*3/uL Normal 150-450 [facility] Comment on above: Performed By: #### 5 7021-8 #### MARIA LUZ JONES ([id number]) [facility] ([facility]) [address] [place] [address] 68366 RBC (Bld) [#/Vol] 4.16 x10*6/uL Normal 4.00-5.20 [facility] Comment on above: Performed By: #### 5 7021-8 #### MARIA LUZ JONES ([id number]) [facility] ([facility]) [address] [place], [place] [address] WBC (Bld) [#/Vol] 11.3 x10*3/uL Normal 4.4-11.3 [facility] Comment on above: Performed By: #### 5 7021-8 #### MARIA LUZ JONES ([id number]) [facility] ([facility]) [address] [place] [address] Cobalaminson 11-25-2024 Cobalamin (Vitamin B12) [Mass/Vol] 311 pg/mL Normal 211-911 [facility] Comment on above: Performed By: #### 2 132-9 #### LIZETH Alexandra ([id number]) [facility] ([facility]) [address] [place] [address] Comprehensive metabolic 2000 panelon 11-25-2024 Albumin BCP dye [Mass/Vol] 3.5 g/dL Normal 3.4-5.0 [facility] Comment on above: Performed By: #### 2 4323-8 #### MARIA LUZ JONES ([id number]) [facility] ([facility]) [address] [place] [address] 59806 ALP [Catalytic activity/Vol] 47 U/L Normal 33-110 [facility] Comment on above: Performed By: #### 2 4323-8 #### MARIA LUZ JONES ([id number]) [facility] ([facility]) [address] [place] [address] 71282 ALT With P-5'-P [Catalytic activity/Vol] 7 U/L Normal 7-45 [facility] Comment on above: Result Comment: Celine ents treated with Sulfasalazine may generate falsely decreased results for ALT. Performed By: #### 2 4323-8 #### MARIA LUZ JONES ([id number]) [facility] ([facility]) [address] [place] [address] Anion gap [Moles/Vol] 11 mmol/L Normal 10-20 [facility] Comment on above: Performed By: #### 2 432-8 #### MARIA LUZ JONES ([id number]) [facility] ([facility]) [address] [place] [address] 23883 AST With P-5'-P [Catalytic activity/Vol] 9 U/L Normal 9-39 [facility] Comment on above: Performed By: #### 2 432-8 #### MARIA LUZ JONES ([id number]) [facility] ([facility]) [address] [place] [address] Bilirubin [Mass/Vol] 0.7 mg/dL Normal 0.0-1.2 [facility] Comment on above: Performed By: #### 2 4322-8 #### MARIA LUZ JONES ([id number]) [facility] ([facility]) [address] [place] [address] Calcium [Mass/Vol] 8.7 mg/dL Normal 8.6-10.3 [facility] Comment on above: Performed By: #### 2 4323-8 #### MARIA LUZ JONES ([id number]) [facility] ([facility]) [address] [place] [address] Chloride [Moles/Vol] 105 mmol/L Normal 98-107 [facility] Comment on above: Performed By: #### 2 432-8 #### MARIA LUZ JONES ([id number]) [facility] ([facility]) [address] [place] [address] CO2 [Moles/Vol] 23 mmol/L Normal 21-32 [facility] Comment on above: Performed By: #### 2 4323-8 #### MARIA LUZ JONES ([id number]) [facility] ([facility]) [facility] [place] [address] Creatinine [Mass/Vol] 0.45 mg/dL Low 0.50-1.05 [facility] Comment on above: Performed By: #### 2 4323-8 #### MARIA LUZ JONES ([id number]) [facility] ([facility]) [address] [place] [address] 82360 Glomerular filtration rate >90 Normal >60 [facility] Comment on above: Result Comment: Calc ulations of estimated GFR are performed using the 2020 CKD-EPI Study Refit equation without the race variable for the IDMS-Traceable creatinine methods. https://jasn.asnjournals.org/content/early//ASN.2020 800424 Performed By: #### 2 432-8 #### MARIA LUZ JONES ([id number]) [facility] ([facility]) [address] [place] [address] 46997 Glucose [Mass/Vol] 98 mg/dL Normal 74-99 [facility] Comment on above: Performed By: #### 2 4323-8 #### MARIA LUZ JONES ([id number]) [facility] ([facility]) [address] [place] [address] 02949 Potassium [Moles/Vol] 3.6 mmol/L Normal 3.5-5.3 [facility] Comment on above: Performed By: #### 2 4323-8 #### MARIA LUZ JONES ([id number]) [facility] ([facility]) [address] [place] [address] 75847 Protein [Mass/Vol] 5.8 g/dL Low 6.4-8.2 [facility] Comment on above: Performed By: #### 2 4323-8 #### MARIA LUZ JONES ([id number]) [facility] ([facility]) [address] [place] [address] 16707 Sodium [Moles/Vol] 135 mmol/L Low 136-145 [facility] Comment on above: Performed By: #### 2 4323-8 #### MARIA LUZ JONES ([id number]) [facility] ([facility]) [address] [place] [address] 46966 Urea nitrogen [Mass/Vol] 7 mg/dL Normal 6-23 [facility] Comment on above: Performed By: #### 2 4323-8 #### MARIA LUZ JONES ([id number]) [facility] ([facility]) [address] [place] [address] 93703 Ferritinon 11-25-2024 Ferritin [Mass/Vol] 56 ng/mL Normal 8-150 [facility] Comment on above: Performed By: #### 2 276-4 #### MARIA LUZ JONES ([id number]) [facility] ([facility]) [address] [place] [address] 79314 Folateon 11-25-2024 Folate [Mass/Vol] 15.9 ng/mL Normal >5.0 [facility] Comment on above: Order Comment: Low < 3.4 Borderline 3.4-5.0 Normal >5.0 Patients receiving more than 5 mg/day of biotin may have interference in test results. A sample should be taken no sooner than eight hours after previous dose. Contact the testing laboratory for additional information. Performed By: #### 2 284-8 #### LIZETH Alexandra ([id number]) [facility] ([facility]) [address] [place] [address] 93082 Iron and Iron binding capaci ty panelon 11-25-2024 Iron [Mass/Vol] 46 ug/dL Normal 35-150 [facility] Comment on above: Performed By: #### 5 0190-8 #### MARIA LUZ JONES ([id number]) [facility] ([facility]) [address] [place] [address] 21069 Iron binding capacity [Mass/Vol] 358 ug/dL Normal 240-445 [facility] Comment on above: Performed By: #### 5 0190-8 #### MARIA LUZ JONES ([id number]) [facility] ([facility]) [address] [place] [address] 94270 Iron binding capacity.unsaturated [Mass/Vol] 312 ug/dL Normal 110-370 [facility] Comment on above: Performed By: #### 5 0190-8 #### MARIA LUZ JONES ([id number]) [facility] ([facility]) [address] [place], [place] [address] Iron saturation [Mass fraction] 13 % Low 25-45 [facility] Comment on above: Performed By: #### 5 0190-8 #### MARIA LUZ JONES ([id number]) [facility] ([facility]) [address] [place], [place] [address] Reticulocytes panel (Bld)on 11-25-2024 Hemoglobin (Reticulocytes) [Entitic mass] 35 pg Normal 28-38 [facility] Comment on above: Performed By: #### 5 0262-5 #### MARIA LUZ JONES ([id number]) [facility] ([facility]) [address] [place] [address] IMMATURE RETIC FRACTION 10.9 % Normal <=16.0 U [facility] Comment on above: Result Comment: [...] #### 5 0262-5 #### MARIA LUZ JONES ([id number]) [facility] ([facility]) [address] [place] [address] 18078 Reticulocytes (Bld) [#/Vol] 0.070 x10*6/uL Normal 0.018-0.083 [facility] Comment on above: Performed By: #### 5 0262-5 #### MARIA LUZ JONES ([id number]) [facility] ([facility]) [address] [place] [address] 59254 Reticulocytes/100 RBC (Bld) 1.7 % Normal 0.5-2.0 [facility] Comment on above: Performed By: #### 5 0262-5 #### BRAGA KAREN ([id number]) [facility] ([facility]) [address] [place] [address] Sheeter Machine Operator Office Visit Reporton 10-26-2024 Sheeter Machine Operator Office Visit Report [facility] [address], [address] [place] [address] OFFICE VISIT Date of Service: 10/26/24 MR#: [id number] Acct: [id number] Name: NIKOLE MOREAU Rep #: [id number] : 2000 Provider: CARMEN campos Age/Sex: 24/F Location: [facility] [place] Status: Signed Intake Vital Signs 09/13/24 09:05 09/26/24 10:44 10/26/24 13:45 10/26/24 13:52 Height 6 ft 6 ft 6 ft 6 ft Weight: 227 lb 4 oz BMI 30.8 BP 110/68 Intake Visit Reasons: 14wk ob *ppu Chief Complaint: 14 Week OB Certified Addiction Counselor Required: No Is patient in pain?: No Allergies sumatriptan Allergy (Severe, Verified 10/26/24 13:45) Shortness of breath Medications ???Medication ???Instructions ???Recorded ???Confirmed ???Type ondansetron 4 mg disintegrating 4 mg PO Q4H PRN nausea and 5 10/26/24 Rx tablet vomiting #60 tabs Last Menstrual Period: 07/15/24 Zika: Zika virus screening: Negative : No PFSH PFSH Medical History Seasonal allergies Asthma Surgical History [place] teeth removed Family History Grandmother Asthma CVA (cerebral vascular accident) Diabetes Grandfather Prostate cancer Mother Endometriosis Hypertension Father Hypertension Social History adopted: No household members: children housing: apartment number of children: 1 current occupational status: employed current occupation: [employer] current occupational exposures/hazards: No pets and [...] 1-2 times per week duration: 15-30 minutes/day catrachito/holiness: None seatbelt use: always do you feel [...] Locatn Provider FOB 01/07/19 7 elective 08/16/21 [place] 37 live - full term 7lbs 11oz [...] weeks 0 days. desires nipt. plan for [facility] us as is self pay for now. 10/26/24 -???-???-???-???-???-??? -???-???-???-???-???-??? - 14w 5d 227 lb 4 oz 110/68 Negative -???-???-???-???-???-??? -???-???-???-???-???-??? - Negative 152 -???-???-???-???-???-??? -???-???-???-???-???-??? - MH-No VB. Na usea still problematic. Ginger sent. [facility] anatomy scan ordered [facility]COG First Trimester First Trimester: Desire for , Alcohol, Tobacco Cessation, Illicit/Recreational Drug/Substance Use, Intimate Partner Violence, Barriers to care, Unstable Housing, Communication Barriers, Environmental/Work Hazards, Anticipated Course of Care, Toxoplasm (more content not included)... Normal [facility] Chlamydia/GC KATHY aptimaon CHLAMY,NUC ACID Negative Normal Negative [facility] Comment on above: Performed By: #### L 505.5000, L7000.1800, M100.2200 #### [facility] [address] [place], [address] GC BY NUC ACID Negative Normal Negative [facility] Comment on above: Result Comment: Perf ormed at: =G - [facility] [address] [id number] Inspector Of Weights And Measures: Maria Eugenia Waddell MD, Phone: [phone] Performed By: #### L 505.5000, L7000.1800, M100.2200 #### [facility] [address] [place], [address] Urine Cultureon 09-27-2024 URC Culture exhibits no growth. Normal [facility] Comment on above: Performed By: #### L 505.5000, L7000.1800, M100.2200 #### [facility] [address] [place], [address] Absolute lymphocyte countOrd ered By: Yaneth Johnson on 09-26-2024 Lymphocytes Auto (Unsp spec) [#/Vol] 1.60 10*3/uL 0.83-4.51 [facility] Absolute neutrophil countOrd ered By: Yaneth Johnson on 09-26-2024 Neutrophils (Bld) [#/Vol] 4.1 10*3/uL 2.0-7.7 [facility] Amphetamine detection with 1 000 ng/mL as cutoffOrdered By: Yaneth Johnson on 09-26-2024 Amphetamines Screen method >1000 ng/mL Ql (U) Negative < 200 ng/mL [facility] Automated lymphocyte count a s percentage of total leukocytesOrdered By: Yaneth Johnson on 09-26-2024 Lymphocytes/100 WBC Auto (Unsp spec) 26.0 % 19-41 [facility] Basophil percentageOrdered B y: Yaneth Johnson on 09-26-2024 Basophils/100 WBC (Bld) 0.3 % 0-1 [facility] CBC W/Diff, Automatedon 09-07-2024 Absolute Lymph 1.60 X10 3/uL Normal 0.83-4.51 [facility] Comment on above: Performed By: #### L 3890.6006, L3890.6301, L3890.6102, L900.0098, BTS, L503.6550, L509.4006, L503.6030, L100.0100, L509.8002 #### [facility] [address] [place], [address] Absolute Neut 4.1 X10 3/uL Normal 2.0-7.7 [facility] Comment on above: Performed By: #### L 3890.6006, L3890.6301, L3890.6102, L900.0098, BTS, L503.6550, L509.4006, L503.6030, L100.0100, L509.8002 #### [facility] [address] [place], [address] Basophils/100 WBC (Bld) 0.3 % Normal 0-1 [facility] Comment on above: Performed By: #### L 3890.6006, L3890.6301, L3890.6102, L900.0098, BTS, L503.6550, L509.4006, L503.6030, L100.0100, L509.8002 #### [facility] [address] [place], [address] Eosinophils/100 WBC (Bld) 0.3 % Normal 0-5 [facility] Comment on above: Performed By: #### L 3890.6006, L3890.6301, L3890.6102, L900.0098, BTS, L503.6550, L509.4006, L503.6030, L100.0100, L509.8002 #### [facility] [address] [facility] [place], [address] Erythrocyte distribution width (RBC) [Ratio] 12.9 % Normal 11.6-14.6 [facility] Comment on above: Performed By: #### L 3890.6006, L3890.6301, L3890.6102, L900.0098, BTS, L503.6550, L509.4006, L503.6030, L100.0100, L509.8002 #### [facility] [address] [facility] [place], [address] Hematocrit (Bld) [Volume fraction] 40.0 % Normal 37-47 [facility] Comment on above: Performed By: #### L 3890.6006, L3890.6301, L3890.6102, L900.0098, BTS, L503.6550, L509.4006, L503.6030, L100.0100, L509.8002 #### [facility] [address] [facility] [place], [address] Hemoglobin (Bld) [Mass/Vol] 13.8 g/dL Normal 12.0-15.0 [facility] [facility] Comment on above: Performed By: #### L 3890.6006, L3890.6301, L3890.6102, L900.0098, BTS, L503.6550, L509.4006, L503.6030, L100.0100, L509.8002 #### [facility] [address] [place], [address] IG% 0.300 Normal 0.0-0.9 [facility] Comment on above: Result Comment: IG% - Immature Granulocytes (promyelocytes, myelocytes and metamyelocytes) > 1% indicates that a LEFT SHIFT is Present. Performed By: #### L 3890.6006, L3890.6301, L3890.6102, L900.0098, BTS, L503.6550, L509.4006, L503.6030, L100.0100, L509.8002 #### [facility] [address] [place], [address] Lymphocytes/100 WBC (Bld) 26.0 % Normal 19-41 [facility] Comment on above: Performed By: #### L 3890.6006, L3890.6301, L3890.6102, L900.0098, BTS, L503.6550, L509.4006, L503.6030, L100.0100, L509.8002 #### [facility] [address] [place], [address] MCH (RBC) [Entitic mass] 30.9 pg Normal 27.0-32.0 [facility] Comment on above: Performed By: #### L 3890.6006, L3890.6301, L3890.6102, L900.0098, BTS, L503.6550, L509.4006, L503.6030, L100.0100, L509.8002 #### [facility] [address] [place], [address] MCHC (RBC) [Mass/Vol] 34.5 g/dL Normal 32-36 [facility] Comment on above: Performed By: #### L 3890.6006, L3890.6301, L3890.6102, L900.0098, BTS, L503.6550, L509.4006, L503.6030, L100.0100, L509.8002 #### [facility] [address] [place], [address] MCV (RBC) [Entitic vol] 89.5 fL Normal 81-99 [facility] Comment on above: Performed By: #### L 3890.6006, L3890.6301, L3890.6102, L900.0098, BTS, L503.6550, L509.4006, L503.6030, L100.0100, L509.8002 #### [facility] [address] [place], [address] Monocytes/100 WBC (Bld) 5.8 % Normal 0-10 [facility] Comment on above: Performed By: #### L 3890.6006, L3890.6301, L3890.6102, L900.0098, BTS, L503.6550, L509.4006, L503.6030, L100.0100, L509.8002 #### [facility] [address] [place], [address] Neutrophils/100 WBC (Bld) 67.3 % Normal 47-70 [facility] Comment on above: Performed By: #### L 3890.6006, L3890.6301, L3890.6102, L900.0098, BTS, L503.6550, L509.4006, L503.6030, L100.0100, L509.8002 #### [facility] [address] [place], [address] Nucleated RBC (Bld) [#/Vol] 0 10*3/uL Normal 0-5 [facility] Comment on above: Performed By: #### L 3890.6006, L3890.6301, L3890.6102, L900.0098, BTS, L503.6550, L509.4006, L503.6030, L100.0100, L509.8002 #### [facility] [address] [place], [address] Platelet mean volume (Bld) [Entitic vol] 10.1 fL Normal 6.2-12.0 [facility] Comment on above: Performed By: #### L 3890.6006, L3890.6301, L3890.6102, L900.0098, BTS, L503.6550, L509.4006, L503.6030, L100.0100, L509.8002 #### [facility] [address] [place], [address] Platelets (Bld) [#/Vol] 165 10*3/uL Normal 150-450 [facility] Comment on above: Performed By: #### L 3890.6006, L3890.6301, L3890.6102, L900.0098, BTS, L503.6550, L509.4006, L503.6030, L100.0100, L509.8002 #### [facility] [address] [place], [address] RBC (Bld) [#/Vol] 4.47 10*6/uL Normal 4.2-5.4 [facility] Comment on above: Performed By: #### L 3890.6006, L3890.6301, L3890.6102, L900.0098, BTS, L503.6550, L509.4006, L503.6030, L100.0100, L509.8002 #### [facility] [address] [place], [address] RDW SD 42.4 fl Normal 35.1-43.9 [facility] Comment on above: Performed By: #### L 3890.6006, L3890.6301, L3890.6102, L900.0098, BTS, L503.6550, L509.4006, L503.6030, L100.0100, L509.8002 #### [facility] [address] [place], [address] WBC (Bld) [#/Vol] 6.2 10*3/uL Normal 4.4-11.0 [facility] Comment on above: Performed By: #### L 3890.6006, L3890.6301, L3890.6102, L900.0098, BTS, L503.6550, L509.4006, L503.6030, L100.0100, L509.8002 #### [facility] [address] [place], [place], [address] Chlamydia trachomatis rRNA d etection by probe and target amplification methodOrdered By: Yaneth Johnson on 09-26-2024 C. trachomatis rRNA KATHY+probe Ql (Unsp spec) Negative Negative [facility] Eosinophil percentageOrdered By: Yaneth Johnson on 09-26-2024 Eosinophils/100 WBC (Bld) 0.3 % 0-5 [facility] Erythrocyte distribution wid th ratioOrdered By: [facility] Elizabeth on 09-26-2024 Erythrocyte distribution width (RBC) [Ratio] 12.9 % 11.6-14.6 [facility] Erythrocyte distribution wid th standard deviationOrdered By: [facility] on 09-26-2024 Erythrocyte distribution width (RBC) [Ratio] 42.4 fl 35.1-43.9 [facility] Ferritinon 09-26-2024 Ferritin [Mass/Vol] 116 ng/mL Normal 22-378 [facility] Comment on above: Performed By: #### L 3890.6006, L3890.6301, L3890.6102, L900.0098, BTS, L503.6550, L509.4006, L503.6030, L100.0100, L509.8002 ####[facility] [address] [place], [place], [id number] HIVon 09-26-2024 HIV Non-Reactive Normal Nonreactive [facility] Comment on above: Result Comment: Non- Reactive Reactive Repeatedly reactive samples must be confirmed according to CDC recommended confirmatory algorithms. The subresults for either HIVAG or AHIV can be used as an aid in the selection of the confirmation algorithm for reactive samples. Send out specimens with Reactive results to [facility] for confirmation. Order the HIV antibody detection and differentiation: camila#[id number] Performed By: #### L 3890.6006, L3890.6301, L3890.6102, L900.0098, BTS, L503.6550, L509.4006, L503.6030, L100.0100, L509.8002 ####[facility] [address] [place], [address] Hematocrit Auto (Bld) [Volum e fraction]Ordered By: Yaneth Johnson on 09-26-2024 Hematocrit (Bld) [Volume fraction] 40.0 % 37-47 [facility] Hemoglobin measurementOrdere d By: Yaneth Johnson on 09-26-2024 Hemoglobin (Bld) [Mass/Vol] 13.8 g/dL 12.0-15.0 [facility] Hepatitis C Antibodyon 09-26 Hepatitis C Ab Non-Reactive Normal Nonreactive [facility] Comment on above: Result Comment: Reac tive: Presumptive evidence of antibodies to HCV. Follow CDC recommendations for supplemental testing. Non-Reactive: Antibodies to HCV were not detected; does not exclude the possibility of exposure to HCV Reactive Results are presumptive evidence of antibodies to HCV. Follow CDC recommendations for supplemental testing. Order confirmation testing: HCV Quant by PCR testing - HCVPCR #[id number] Non Reactive: < 0.8 Equivocal: >/= 0.8 to < 1.0 Reactive: >/= 1.0 The CDC requires that a reactive/equivocal HCV antibody result be sent out for confirmation. HCV Quant by PCR testing. Performed By: #### L 3890.6006, L3890.6301, L3890.6102, L900.0098, BTS, L503.6550, L509.4006, L503.6030, L100.0100, L509.8002 ####[facility] [address] [place], [address] Immature granulocytes/100 WB C Auto (Bld)Ordered By: Yaneth Johnson on 09-26-2024 Immature granulocytes/100 WBC (Bld) 0.300 % 0.0-0.9 [facility] Comment on above: IG% - Immature Granu locytes (promyelocytes, myelocytes and metamyelocytes) > 1% indicates that a LEFT SHIFT is Present. Iron measurement (mass/mass) Ordered By: Yaneth Johnson on 09-26-2024 Iron (Unsp spec) [Mass/Mass] 45 ug/dL Low 50-170 [facility] Iron+Iron Binding Capacityon 09-26-2024 Iron [Mass/Vol] 45 ug/dL Low 50-170 [facility] Comment on above: Performed By: #### L 3890.6006, L3890.6301, L3890.6102, L900.0098, BTS, L503.6550, L509.4006, L503.6030, L100.0100, L509.8002 #### [facility] [address] [place], [address] IRON SATURATION 16.0 Normal 13-59 [facility] Comment on above: Performed By: #### L 3890.6006, L3890.6301, L3890.6102, L900.0098, BTS, L503.6550, L509.4006, L503.6030, L100.0100, L509.8002 #### [facility] [address] [place], [address] TIBC 278 ug/dL Normal 250-450 [facility] Comment on above: Performed By: #### L 3890.6006, L3890.6301, L3890.6102, L900.0098, BTS, L503.6550, L509.4006, L503.6030, L100.0100, L509.8002 #### [facility] [address] [place], [address] UIBC 233 ug/dL Normal 228-428 [facility] Comment on above: Performed By: #### L 3890.6006, L3890.6301, L3890.6102, L900.0098, BTS, L503.6550, L509.4006, L503.6030, L100.0100, L509.8002 #### [facility] [address] [facility] [place], [place], [address] L3890.6102on 09-26-2024 HEP B Surf Ag Non-Reactive Normal Nonreactive [facility] Comment on above: Result Comment: Reac tive: Presumptive evidence of HBV. Repeatedly reactive samples must be confirmed using a neutralization test ([employer] HBsAg Confirmatory Test) Non-Reactive: HBsAg not detected; does not exclude the possibility of exposure to HBV Performed By: #### L 3890.6006, L3890.6301, L3890.6102, L900.0098, BTS, L503.6550, L509.4006, L503.6030, L100.0100, L509.8002 ####[facility] [address] [place], [place], [address] L509.4006on 09-26-2024 Rubella IgG REAC Normal Nonreactive [facility] Comment on above: Result Comment: Anti body Result: Interpretation Non-Reactive: Non-Immune Reactive: Immune The following results were obtained with the [employer] Rubella IgG assay. Results from assays of other manufacturers cannot be used interchangeably. Performed By: #### L 3890.6006, L3890.6301, L3890.6102, L900.0098, BTS, L503.6550, L509.4006, L503.6030, L100.0100, L509.8002 ####[facility] [address] [place], [place], [address] Laboratory - Microbiology an d Antimicrobial susceptibilityOrdered By: Yaneth Johnson on 09-26-2024 HBV surface Ag Ql (S) Non-Reactive Nonreactive [facility] Comment on above: Reactive: Presumptiv e evidence of HBV. Repeatedly reactive samples must be confirmed using a neutralization test ([employer] HBsAg Confirmatory Test)Non-Reactive: HBsAg not detected; does not exclude the possibility of exposure to HBV MCV (mean corpuscular volume ) determinationOrdered By: Yaneth Johnson on 09-26-2024 MCV (RBC) [Entitic vol] 89.5 fL 81-99 [facility] Mean corpuscular hemoglobin (MCH) determinationOrdered By: Yaneth Johnson on 09-26-2024 MCH (RBC) [Entitic mass] 30.9 pg 27.0-32.0 [facility] Mean corpuscular hemoglobin concentration (MCHC) determinationOrdered By: Yaneth Johnson on 09-26-2024 MCHC (RBC) [Mass/Vol] 34.5 g/dL 32-36 [facility] Mean platelet volume determi nationOrdered By: Yaneth Johnson on 09-26-2024 Platelet mean volume (Bld) [Entitic vol] 10.1 fL 6.2-12.0 [facility] Monocyte percentageOrdered B y: Yaneth Johnson on 09-26-2024 Monocytes/100 WBC (Bld) 5.8 % 0-10 [facility] NATERAon 09-26-2024 NATURA SEE SCANNED REPORT Normal [facility] Comment on above: Performed By: #### L 3890.6006, L3890.6301, L3890.6102, L900.0098, BTS, L503.6550, L509.4006, L503.6030, L100.0100, L509.8002 #### [facility] [address] [place], [address] Neisseria gonorrhoeae nuclei c acid detection by amplified probe techniqueOrdered By: Yaneth Johnson on 09-26-2024 N. gonorrhoeae DNA KATHY+probe Ql (Unsp spec) Negative Negative [facility] Comment on above: Performed at: =[address] [id number] Director: Maria Eugenia Waddell MD, Phone: [phone] Neutrophil percentageOrdered By: Yaneth Johnson on 09-26-2024 Neutrophils/100 WBC (Bld) 67.3 % 47-70 [facility] No Panel InformationOrdered By: Yaneth Johnson on 09-26-2024 Urine Buprenorphine Qualitative Negative < 200 ng/mL [facility] Urine Oxycodone Screen Negative < 100 ng/mL [facility] HIV (1&2) Antibody Non-Reactive Nonreactive [facility] Comment on above: Non-ReactiveReactive Repeatedly reactive samples must be confirmed according to CDC recommended confirmatory algorithms. The subresults for either HIVAG or AHIV can be used as an aid in the selection of the confirmation algorithm for reactive samples.Send out specimens with Reactive results to [facility] for confirmation.Order the HIV antibody detection and differentiation: #[id number] Unsaturated Iron Binding Capacity 233 ug/dL 228-428 [facility] Nucleated red blood cell per centageOrdered By: Yaneth Johnson on 09-26-2024 Nucleated RBC/100 WBC (Bld) [Ratio] 0 % 0-5 [facility] Sheeter Machine Operator Office Visit Reporton 09-26-2024 Sheeter Machine Operator Office Visit Report [facility] [address], [address] [place] [address] OFFICE VISIT Date of Service: 09/26/24 MR#: [id number] Acct: [id number] Name: NIKOLE MOREAU Rep #: [id number] : 2000 Provider: Dr. Yaneth Knight DO Age/Sex: 24/F Location: [facility] [place] Status: Signed with Addenda ADDENDUM by Dr. [...] w/many infusions. 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 (9) Vaginal bleeding [...] Reasons: *NEW* NOB LMP 5/9, MAREN 04/21 Certified Addiction Counselor Required: No Is patient in pain?: No Allergies sumatriptan Allergy (Severe, Verified 09/26/24 10:39) Shortness of breath Last Menstrual Period: 07/15/24 Zika: Zika virus screening: Negative : Yes PFSH PFSH Medical History Seasonal allergies Asthma Surgical History [place] teeth removed Family History Grandmother Asthma CVA (cerebral vascular accident) Diabetes Grandfather Prostate cancer Mother Endometriosis Hypertension Father Hypertension Social History adopted: No household members: children housing: apartment number of children: 1 current occupational status: employed current occupation: [employer] current occupational exposures/hazards: No pets and [...] 1-2 times per week duration: 15-30 minutes/day catrachito/holiness: None seatbelt use (more content not included)... Normal [facility] Platelet countOrdered By: Fredi Johnson on 09-26-2024 Platelets (Bld) [#/Vol] 165 10*3/uL 150-450 [facility] Quantitative urine opiates m easurementOrdered By: Yaneth Johnson on 09-26-2024 Opiates Ql (U) Negative < 300 ng/mL [facility] RBC Auto (Bld) [#/Vol]Ordere d By: Yaneth Elizabeth on 09-26-2024 RBC (Bld) [#/Vol] 4.47 10*6/uL 4.2-5.4 [facility] Screening urine fentanyl winston surementOrdered By: Yaneth Elizabeth on 09-26-2024 fentaNYL Screen Ql (U) Negative [facility] Serum or plasma ferritin winston surement (mass/volume)Ordered By: Yaneth Johnson on 09-26-2024 Ferritin [Mass/Vol] 116 ng/mL 22-378 [facility] Serum or plasma iron saturat ion measurement (mass fraction)Ordered By: Yaneth Johnson on 09-26-2024 Iron saturation [Mass fraction] 16.0 % 13-59 [facility] Syphilis Antibodieson 2024 Syphilis Abs Non-Reactive Normal Nonreactive [facility] Comment on above: Performed By: #### L 3890.6006, L3890.6301, L3890.6102, L900.0098, BTS, L503.6550, L509.4006, L503.6030, L100.0100, L509.8002 ####[facility] [address] [place], [place], [address] Type AND Screenon 09-26-2024 Ab SCREEN GEL Negative Normal [facility] Comment on above: Order Comment: PN Performed By: #### L 3890.6006, L3890.6301, L3890.6102, L900.0098, BTS, L503.6550, L509.4006, L503.6030, L100.0100, L509.8002 #### [facility] [address] [place], [place], [address] Urine Drug Screen (VISTA)on 09-26-2024 AMPHETAMINES Negative Normal <1000 ng/mL [facility] Comment on above: Order Comment: UNK Performed By: #### L 505.5000, L7000.1800, M100.2200 #### [facility] [address] [place], [address] BARBITIURATES Negative Normal < 200 ng/mL [facility] Comment on above: Order Comment: UNK Performed By: #### L 505.5000, L7000.1800, M100.2200 #### [facility] [address] [place], [address] BENZODIAZIPINE Negative Normal < 200 ng/mL [facility] Comment on above: Order Comment: UNK Performed By: #### L 505.5000, L7000.1800, M100.2200 #### [facility] [address] [place], [address] BUP Ur Drug Scr Negative Normal < 200 ng/mL [facility] Comment on above: Order Comment: UNK Performed By: #### L 505.5000, L7000.1800, M100.2200 #### [facility] [address] [place], [address] COCAINE Negative Normal < 300 ng/mL [facility] Comment on above: Order Comment: UNK Performed By: #### L 505.5000, L7000.1800, M100.2200 #### [facility] [address] [place], [address] Fentanyl Negative Normal [facility] Comment on above: Order Comment: UNK Performed By: #### L 505.5000, L7000.1800, M100.2200 #### [facility] [address] [place], [address] METHADONE Negative Normal < 300 ng/mL [facility] Comment on above: Order Comment: UNK Performed By: #### L 505.5000, L7000.1800, M100.2200 #### [facility] [address] [place], [address] OPIATES Negative Normal < 300 ng/mL [facility] Comment on above: Order Comment: UNK Performed By: #### L 505.5000, L7000.1800, M100.2200 #### [facility] [address] [place], [address] OXYCODONE Negative Normal < 100 ng/mL [facility] Comment on above: Order Comment: UNK Performed By: #### L 505.5000, L7000.1800, M100.2200 #### [facility] [address] [place], [address] PCP Negative Normal < 25 ng/mL [facility] Comment on above: Order Comment: UNK Performed By: #### L 505.5000, L7000.1800, M100.2200 #### [facility] [address] [place], [address] THC Negative Normal < 50 ng/mL [facility] Comment on above: Order Comment: UNK Performed By: #### L 505.5000, L7000.1800, M100.2200 #### [facility] [address] [place], [address] Urine benzodiazepine levelOr dered By: Yaneth Johnson on 09-26-2024 Benzodiazepines Ql (U) Negative < 200 ng/mL [facility] Urine cocaine levelOrdered B y: Yaneth Johnson on 09-26-2024 Cocaine Ql (U) Negative < 300 ng/mL [facility] Urine cultureOrdered By: Meagan Johnson on 09-26-2024 Bacteria identified Cx Nom (U) Culture exhibits no growth. [facility] Urine gqdmc-5-pgxiowfoodyywk abinol (THC) measurementOrdered By: Yaneth Johnson on 09-26-2024 Cannabinoids Screen Ql (U) Negative < 50 ng/mL [facility] Urine phencyclidine (PCP) de tectionOrdered By: Yaneth Johnson on 09-26-2024 Phencyclidine Ql (U) Negative < 25 ng/mL [facility] White blood cell (WBC) count Ordered By: Yaneth Johnson on 09-26-2024 WBC (Bld) [#/Vol] 6.2 10*3/uL 4.4-11.0 [facility] Transvaginal w/Preg USon Transvaginal w/Preg US [facility] [address] [place] [address] Transvaginal w/Preg US MR#: [id number] Acct: [id number] Name: NIKOLE MOREAU Rep #: [id number] : 2000 F 24 From: Andrew vera MD PCP: Care Physician,No Primary Status: REG CLI Study: Transvaginal w/Preg US Date of Exam: 09/21/24 Exam# [id number] Ordering Dr: Yaneth Nogueira DO PROCEDURE: TRANSVAGINAL [...] luteum cyst. DIMENSIONS: Parameter Measurement / EGA [place] Rump Length: 2.53 cm/9 weeks and 0 days Gestational Sac: 3.93 cm/9 weeks and 2 days Yolk Sac: 0.41 cm/ ESTIMATED GESTATIONAL AGE: By Ultrasound: 9 weeks and 1 day By LMP: 9 weeks and 5 days ESTIMATED DATE OF DELIVERY: By Ultrasound: April 25, 2025 By LMP: April 21, 2025 US/Transvaginal w/Preg US IMPRESSION: UNREMARKABLE FIRST TRIMESTER ULTRASOUND. Reading Location: [place] [address] CC: CARMEN Whitehead; Dr. Yaneth Nogueira DO; No Primary Care Physician Coating Engineer: Signed Normal [facility] Serum human chorionic gonado tropin detection for pregnancyOrdered By: Ailin Whitehead on 09-15-2024 HCG ( test) Ql [address] mIU/mL High <9 [facility] Comment on above: Gestational Age0.2-1 Week: 5-50 mIU/mL1-2 Weeks: 50-500 mIU/mL2-3 Weeks: 100-5000 mIU/mL3-4 Weeks: 500-10,000 mIU/mL4-5 Weeks:1000-50,000 mIU/mL5-6 Weeks: 10,000-100,000 mIU/mL6-8 Weeks: 15,000-200,000 mIU/mL2-3 Months:10,000-100,000 mIU/mL hCG Titer Quant., Serumon HCG QUANT. 10157 mIU/mL High <9 non-preg [facility] Comment on above: Result Comment: Gest ational Age 0.2-1 Week: 5-50 mIU/mL 1-2 Weeks: 50-500 mIU/mL 2-3 Weeks: 100-5000 mIU/mL 3-4 Weeks: 500-10,000 mIU/mL 4-5 Weeks:1000-50,000 mIU/mL 5-6 Weeks: 10,000-100,000 mIU/mL 6-8 Weeks: 15,000-200,000 mIU/mL 2-3 Months:10,000-100,000 mIU/mL Performed By: #### L 700.8000 ####[facility] [address] [place], [place], [id number] Laboratory - Chemistry and C hemistry - challengeOrdered By: Ailin Whitehead on 09-13-2024 HCG ( test) Ql (U) Positive [facility] Sheeter Machine Operator Office Visit Reporton 09-13-2024 Sheeter Machine Operator Office Visit Report [facility] [address], [address] [place] [address] OFFICE VISIT Date of Service: 09/13/24 MR#: [id number] Acct: [id number] Name: NIKOLE MOREAU Rep #: [id number] : 2000 Provider: CARMEN campos Age/Sex: 24/F Location: [facility] [place] Status: Signed Intake Vital Signs 09/13/24 09:05 Height 6 ft Weight: 225 lb 2 oz BMI 30.5 BP 132/88 H Intake Visit Reasons: PNOB Confirm , Vitals Certified Addiction Counselor Required: No Is patient in pain?: No [...] (Updated 09/13/24 @ 09:10 by Ailin Ortez) [place] teeth removed Family History (Updated 09/13/24 @ 09:14 by Ailin Ortez) Grandmother Asthma CVA (cerebral vascular accident) Diabetes Grandfather Prostate cancer Mother Endometriosis Hypertension Father Hypertension Social History (Updated 09/13/24 @ 09:17 by Ailin Ortez) adopted: No household members: children housing: apartment number of children: 1 current occupational status: employed current occupation: [employer] pets and animals: Yes pets and animals: dog(s) history of recent travel: Yes ([place] ) out of state: Yes out of [...] RTO NOB 09/13/24 1005 Date Ailin Whitehead JUNIOR ENGINEER JUNIOR ENGINEER-C Cosigner Signature: Date (if applicable) CC: Normal [facility] VIRAL CULTUREon 02-28-2024 VIRAL CULTURE Comment Abnormal [facility] Comment on above: Result Comment: (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 Typing was confirmed by monoclonal antibody microscopic immunofluorescence. PERFORMED AT [facility] Performed By: #### L VIRC #### Testing performed at [facility] CBC W Auto Differential pane l (Bld)on 08-31-2023 Basophils (Bld) [#/Vol] 0.03 x10*3/uL Normal 0.00-0.10 [facility] Comment on above: Performed By: #### 2 4323-8 #### MARIA LUZ JONES ([id number]) [facility] ([facility]) [address] [place] [address] Basophils/100 WBC (Bld) 0.3 % Normal 0.0-2.0 [facility] Comment on above: Performed By: #### 2 4323-8 #### MARIA LUZ JONES ([id number]) [facility] ([facility]) [address] [place] [address] Eosinophils (Bld) [#/Vol] 0.07 x10*3/uL Normal 0.00-0.70 [facility] Comment on above: Performed By: #### 2 4323-8 #### MARIA LUZ JONES ([id number]) [facility] ([facility]) [address] [place] [address] Eosinophils/100 WBC (Bld) 0.7 % Normal 0.0-6.0 [facility] Comment on above: Performed By: #### 2 4322-8 #### MARIA LUZ JONES ([id number]) [facility] ([facility]) [address] [place] [address] Erythrocyte distribution width (RBC) [Ratio] 13.1 % Normal 11.5-14.5 [facility] Comment on above: Performed By: #### 2 4322-8 #### MARIA LUZ JONES ([id number]) [facility] ([facility]) [address] [place] [address] Hematocrit (Bld) [Volume fraction] 45.1 % Normal 36.0-46.0 [facility] Comment on above: Performed By: #### 2 4322-8 #### MARIA LUZ JONES ([id number]) [facility] ([facility]) [address] [place] [address] 75471 Hemoglobin (Bld) [Mass/Vol] 15.0 g/dL Normal 12.0-16.0 [facility] Comment on above: Performed By: #### 2 4322-8 #### MARIA LUZ JONES ([id number]) [facility] ([facility]) [address] [place] [address] 77362 Immature granulocytes (Bld) [#/Vol] 0.03 x10*3/uL Normal 0.00-0.70 [facility] Comment on above: Performed By: #### 2 432-8 #### MARIA LUZ JONES ([id number]) [facility] ([facility]) [address] [place] [address] 11287 Immature granulocytes/100 WBC (Bld) 0.3 % Normal 0.0-0.9 [facility] Comment on above: Result Comment: Mary ture Granulocyte Count (IG) includes promyelocytes, myelocytes and metamyelocytes but does not include bands. Percent differential counts (%) should be interpreted in the context of the absolute cell counts (cells/UL). Performed By: #### 2 4323-8 #### MARIA LUZ JONES ([id number]) [facility] ([facility]) [address] [place] [address] Lymphocytes (Bld) [#/Vol] 2.00 x10*3/uL Normal 1.20-4.80 [facility] Comment on above: Performed By: #### 2 4323-8 #### MARIA LUZ JONES ([id number]) [facility] ([facility]) [address] [place] [address] Lymphocytes/100 WBC (Bld) 20.6 % Normal 13.0-44.0 [facility] Comment on above: Performed By: #### 2 4323-8 #### MARIA LUZ JONES ([id number]) [facility] ([facility]) [address] [place] [address] 81735 MCH (RBC) [Entitic mass] 30.2 pg Normal 26.0-34.0 [facility] Comment on above: Performed By: #### 2 4323-8 #### MARIA LUZ JONES ([id number]) [facility] ([facility]) [address] [place] [address] 79101 MCHC (RBC) [Mass/Vol] 33.3 g/dL Normal 32.0-36.0 [facility] Comment on above: Performed By: #### 2 4323-8 #### MARIA LUZ JONES ([id number]) [facility] ([facility]) [address] [place] [address] 43185 MCV (RBC) [Entitic vol] 91 fL Normal 80-100 [facility] Comment on above: Performed By: #### 2 4323-8 #### MARIA LUZ JONES ([id number]) [facility] ([facility]) [address] [place] [address] 74305 Monocytes (Bld) [#/Vol] 0.49 x10*3/uL Normal 0.10-1.00 [facility] Comment on above: Performed By: #### 2 4323-8 #### MARIA LUZ JONES ([id number]) [facility] ([facility]) [address] [place] [address] 26044 Monocytes/100 WBC (Bld) 5.0 % Normal 2.0-10.0 [facility] Comment on above: Performed By: #### 2 4323-8 #### MARIA LUZ JONES ([id number]) [facility] ([facility]) [address] [place] [address] 06461 Neutrophils (Bld) [#/Vol] 7.10 x10*3/uL Normal 1.20-7.70 [facility] Comment on above: Result Comment: Perc ent differential counts (%) should be interpreted in the context of the absolute cell counts (cells/uL). Performed By: #### 2 4323-8 #### MARIA LUZ JONES ([id number]) [facility] ([facility]) [address] [place] [address] 57004 Neutrophils/100 WBC (Bld) 73.1 % Normal 40.0-80.0 [facility] Comment on above: Performed By: #### 2 4323-8 #### MARIA LUZ JONES ([id number]) [facility] ([facility]) [address] [place] [address] 71955 Nucleated RBC/100 WBC (Bld) [Ratio] 0.0 /100 WBCs Normal 0.0-0.0 [facility] Comment on above: Performed By: #### 2 4323-8 #### MARIA LUZ JONES ([id number]) [facility] ([facility]) [address] [place] [address] 44278 Platelets (Bld) [#/Vol] 241 x10*3/uL Normal 150-450 [facility] Comment on above: Performed By: #### 2 4323-8 #### MARIA LUZ JONES ([id number]) [facility] ([facility]) [address] [place] [address] 37779 RBC (Bld) [#/Vol] 4.97 x10*6/uL Normal 4.00-5.20 [facility] Comment on above: Performed By: #### 2 4323-8 #### MARIA LUZ JONES ([id number]) [facility] ([facility]) [address] [place], [place] [address] WBC (Bld) [#/Vol] 9.7 x10*3/uL Normal 4.4-11.3 [facility] Comment on above: Performed By: #### 2 4323-8 #### MARIA LUZ JONES ([id number]) [facility] ([facility]) [address] [place] [address] 51355 Cobalaminson 08-31-2023 Cobalamin (Vitamin B12) [Mass/Vol] 472 pg/mL Normal 211-911 [facility] Comment on above: Performed By: #### 2 4323-8 #### MARIA LUZ JONES ([id number]) [facility] ([facility]) [address] [place], [place] [address] Comprehensive metabolic 2000 panelon 08-31-2023 Albumin BCP dye [Mass/Vol] 4.5 g/dL Normal 3.4-5.0 [facility] Comment on above: Performed By: #### 2 4323-8 #### MARIA LUZ JONES ([id number]) [facility] ([facility]) [address] [place] [address] 01139 ALP [Catalytic activity/Vol] 86 U/L Normal 33-110 [facility] Comment on above: Performed By: #### 2 4323-8 #### MARIA LUZ JONES ([id number]) [facility] ([facility]) [address] [place] [address] 99658 ALT With P-5'-P [Catalytic activity/Vol] 16 U/L Normal 7-45 [facility] Comment on above: Result Comment: Celine ents treated with Sulfasalazine may generate falsely decreased results for ALT. Performed By: #### 2 4323-8 #### MARIA LUZ JONES ([id number]) [facility] ([facility]) [address] [place] [address] 98851 Anion gap [Moles/Vol] 14 mmol/L Normal 10-20 [facility] Comment on above: Performed By: #### 2 4323-8 #### MARIA LUZ JONES ([id number]) [facility] ([facility]) [address] [place] [address] 83954 AST With P-5'-P [Catalytic activity/Vol] 12 U/L Normal 9-39 [facility] Comment on above: Performed By: #### 2 4323-8 #### MARIA LUZ JONES ([id number]) [facility] ([facility]) [address] [place] [address] 18714 Bilirubin [Mass/Vol] 1.2 mg/dL Normal 0.0-1.2 [facility] Comment on above: Performed By: #### 2 4322-8 #### MARIA LUZ JONES ([id number]) [facility] ([facility]) [address] [place] [address] 72365 Calcium [Mass/Vol] 9.4 mg/dL Normal 8.6-10.3 [facility] Comment on above: Performed By: #### 2 4322-8 #### MARIA LUZ JONES ([id number]) [facility] ([facility]) [address] [place] [address] 85764 Chloride [Moles/Vol] 105 mmol/L Normal 98-107 [facility] Comment on above: Performed By: #### 2 4323-8 #### MARIA LUZ JONES ([id number]) [facility] ([facility]) [address] [place] [address] 83249 CO2 [Moles/Vol] 25 mmol/L Normal 21-32 [facility] Comment on above: Performed By: #### 2 4323-8 #### MARIA LUZ JONES ([id number]) [facility] ([facility]) [address] [place] [address] 73855 Creatinine [Mass/Vol] 0.81 mg/dL Normal 0.50-1.05 [facility] Comment on above: Performed By: #### 2 4323-8 #### MARIA LUZ JONES ([id number]) [facility] ([facility]) [address] [place] [address] 59888 GFR/1.73 sq M.predicted MDRD (S/P/Bld) [Vol rate/Area] mL/min/{1.73_m2} Normal >60 [facility] Comment on above: Result Comment: Calc ulations of estimated GFR are performed using the 2020 CKD-EPI Study Refit equation without the race variable for the IDMS-Traceable creatinine methods. https://jasn.asnjournals.org/content/early//ASN.2020 246352 Performed By: #### 2 4323-8 #### MARIA LUZ JONES ([id number]) [facility] ([facility]) [address] [place] [address] 31761 Glucose [Mass/Vol] 120 mg/dL High 74-99 [facility] Comment on above: Performed By: #### 2 4323-8 #### MARIA LUZ JONES ([id number]) [facility] ([facility]) [address] [place] [address] 63935 Potassium [Moles/Vol] 3.9 mmol/L Normal 3.5-5.3 [facility] Comment on above: Performed By: #### 2 4323-8 #### MARIA LUZ JONES ([id number]) [facility] ([facility]) [address] [place] [address] 74335 Protein [Mass/Vol] 6.6 g/dL Normal 6.4-8.2 [facility] Comment on above: Performed By: #### 2 4323-8 #### MARIA LUZ JONES ([id number]) [facility] ([facility]) [address] [place] [address] 38809 Sodium [Moles/Vol] 140 mmol/L Normal 136-145 [facility] Comment on above: Performed By: #### 2 4323-8 #### MARIA LUZ JONES ([id number]) [facility] ([facility]) [address] [place] [address] 95665 Urea nitrogen [Mass/Vol] 10 mg/dL Normal 6-23 [facility] Comment on above: Performed By: #### 2 4323-8 #### MARIA LUZ JONES ([id number]) [facility] ([facility]) [address] [place] [address] 84419 Ferritinon 08-31-2023 Ferritin [Mass/Vol] 180 ng/mL High 8-150 [facility] Comment on above: Performed By: #### 2 4323-8 #### MARIA LUZ JONES ([id number]) [facility] ([facility]) [address] [place] [address] 39721 Iron and Iron binding capaci ty panelon 08-31-2023 Iron [Mass/Vol] 36 ug/dL Normal 35-150 [facility] Comment on above: Performed By: #### 2 4323-8 #### MARIA LUZ JONES ([id number]) [facility] ([facility]) [address] [place] [address] 00697 Iron binding capacity [Mass/Vol] 313 ug/dL Normal 240-445 [facility] Comment on above: Performed By: #### 2 4323-8 #### MARIA LUZ JONES ([id number]) [facility] ([facility]) [address] [place] [address] 35131 Iron binding capacity.unsaturated [Mass/Vol] 277 ug/dL Normal 110-370 [facility] Comment on above: Performed By: #### 2 4323-8 #### MARIA LUZ JONES ([id number]) [facility] ([facility]) [address] [place] [address] 15520 Iron saturation [Mass fraction] 12 % Low 25-45 [facility] Comment on above: Performed By: #### 2 4323-8 #### MARIA LUZ JONES ([id number]) [facility] ([facility]) [address] [place] [address] 98730 CBC W Auto Differential pane l (Bld)on 06-05-2023 Basophils (Bld) [#/Vol] 0.03 x10*3/uL Normal 0.00-0.10 [facility] Comment on above: Performed By: #### 5 7021-8 #### MARIA LUZ JONES ([id number]) [facility] ([facility]) [address] [place] [address] 21592 Basophils/100 WBC (Bld) 0.4 % Normal 0.0-2.0 [facility] Comment on above: Performed By: #### 5 7021-8 #### MARIA LUZ JONES ([id number]) [facility] ([facility]) [address] [place] [address] 68975 Eosinophils (Bld) [#/Vol] 0.06 x10*3/uL Normal 0.00-0.70 [facility] Comment on above: Performed By: #### 5 7021-8 #### MARIA LUZ JONES ([id number]) [facility] ([facility]) [address] [place] [address] 80957 Eosinophils/100 WBC (Bld) 0.8 % Normal 0.0-6.0 [facility] Comment on above: Performed By: #### 5 7021-8 #### MARIA LUZ JONES ([id number]) [facility] ([facility]) [address] [place] [address] 94416 Erythrocyte distribution width (RBC) [Ratio] 12.7 % Normal 11.5-14.5 [facility] Comment on above: Performed By: #### 5 7021-8 #### MARIA LUZ JONES ([id number]) [facility] ([facility]) [address] [place] [address] 07174 Hematocrit (Bld) [Volume fraction] 41.5 % Normal 36.0-46.0 [facility] Comment on above: Performed By: #### 5 7021-8 #### MARIA LUZ JONES ([id number]) [facility] ([facility]) [address] [place] [address] 46714 Hemoglobin (Bld) [Mass/Vol] 13.8 g/dL Normal 12.0-16.0 [facility] Comment on above: Performed By: #### 5 7021-8 #### MARIA LUZ JONES ([id number]) [facility] ([facility]) [address] [place] [address] 53202 Immature granulocytes (Bld) [#/Vol] 0.02 x10*3/uL Normal 0.00-0.70 [facility] Comment on above: Performed By: #### 5 7021-8 #### MARIA LUZ JONES ([id number]) [facility] ([facility]) [address] [place] [address] 15831 Immature granulocytes/100 WBC (Bld) 0.3 % Normal 0.0-0.9 [facility] Comment on above: Result Comment: Mary ture Granulocyte Count (IG) includes promyelocytes, myelocytes and metamyelocytes but does not include bands. Percent differential counts (%) should be interpreted in the context of the absolute cell counts (cells/UL). Performed By: #### 5 7021-8 #### MARIA LUZ JONES ([id number]) [facility] ([facility]) [address] [place], [place] [address] Lymphocytes (Bld) [#/Vol] 1.92 x10*3/uL Normal 1.20-4.80 [facility] Comment on above: Performed By: #### 5 7021-8 #### MARIA LUZ JONES ([id number]) [facility] ([facility]) [address] [place] [address] 12159 Lymphocytes/100 WBC (Bld) 26.3 % Normal 13.0-44.0 [facility] Comment on above: Performed By: #### 5 7021-8 #### MARIA LUZ JONES ([id number]) [facility] ([facility]) [address] [place] [address] 81944 MCH (RBC) [Entitic mass] 29.7 pg Normal 26.0-34.0 [facility] Comment on above: Performed By: #### 5 7021-8 #### MARIA LUZ JONES ([id number]) [facility] ([facility]) [address] [place] [address] 27630 MCHC (RBC) [Mass/Vol] 33.3 g/dL Normal 32.0-36.0 [facility] Comment on above: Performed By: #### 5 7021-8 #### MARIA LUZ JONES ([id number]) [facility] ([facility]) [address] [place] [address] 77123 MCV (RBC) [Entitic vol] 89 fL Normal 80-100 [facility] Comment on above: Performed By: #### 5 7021-8 #### MARIA LUZ JONES ([id number]) [facility] ([facility]) [address] [place] [address] 30687 Monocytes (Bld) [#/Vol] 0.46 x10*3/uL Normal 0.10-1.00 [facility] Comment on above: Performed By: #### 5 7021-8 #### MARIA LUZ JONES ([id number]) [facility] ([facility]) [address] [place] [address] 05290 Monocytes/100 WBC (Bld) 6.3 % Normal 2.0-10.0 [facility] Comment on above: Performed By: #### 5 7021-8 #### MARIA LUZ JONES ([id number]) [facility] ([facility]) [address] [place] [address] 17859 Neutrophils (Bld) [#/Vol] 4.82 x10*3/uL Normal 1.20-7.70 [facility] Comment on above: Result Comment: Perc ent differential counts (%) should be interpreted in the context of the absolute cell counts (cells/uL). Performed By: #### 5 7021-8 #### MARIA LUZ JONES ([id number]) [facility] ([facility]) [address] [place] [address] 57523 Neutrophils/100 WBC (Bld) 65.9 % Normal 40.0-80.0 [facility] Comment on above: Performed By: #### 5 7021-8 #### MARIA LUZ JONES ([id number]) [facility] ([facility]) [address] [place] [address] 03412 Nucleated RBC/100 WBC (Bld) [Ratio] 0.0 /100 WBCs Normal 0.0-0.0 [facility] Comment on above: Performed By: #### 5 7021-8 #### MARIA LUZ JONES ([id number]) [facility] ([facility]) [address] [place] [address] 42297 Platelets (Bld) [#/Vol] 217 x10*3/uL Normal 150-450 [facility] Comment on above: Performed By: #### 5 7021-8 #### MARIA LUZ JONES ([id number]) [facility] ([facility]) [address] [place] [address] 61163 RBC (Bld) [#/Vol] 4.65 x10*6/uL Normal 4.00-5.20 [facility] Comment on above: Performed By: #### 5 7021-8 #### MARIA LUZ JONES ([id number]) [facility] ([facility]) [address] [place] [address] 94255 WBC (Bld) [#/Vol] 7.3 x10*3/uL Normal 4.4-11.3 [facility] Comment on above: Performed By: #### 5 7021-8 #### MARIA LUZ JONES ([id number]) [facility] ([facility]) [address] [place], [place] [address] Cobalaminson 06-05-2023 Cobalamin (Vitamin B12) [Mass/Vol] 433 pg/mL Normal 211-911 [facility] Comment on above: Performed By: #### 2 4323-8 #### MARIA LUZ JONES ([id number]) [facility] ([facility]) [address] [place] [address] Comprehensive metabolic 2000 panelon 06-05-2023 Albumin BCP dye [Mass/Vol] 3.9 g/dL Normal 3.4-5.0 [facility] Comment on above: Performed By: #### 2 4323-8 #### MARIA LUZ JONES ([id number]) [facility] ([facility]) [address] [place] [address] 42237 ALP [Catalytic activity/Vol] 67 U/L Normal 33-110 [facility] Comment on above: Performed By: #### 2 4323-8 #### MARIA LUZ JONES ([id number]) [facility] ([facility]) [address] [place] [address] 58823 ALT With P-5'-P [Catalytic activity/Vol] 13 U/L Normal 7-45 [facility] Comment on above: Result Comment: Celine ents treated with Sulfasalazine may generate falsely decreased results for ALT. Performed By: #### 2 4323-8 #### MARIA LUZ JONES ([id number]) [facility] ([facility]) [address] [place] [address] 95103 Anion gap [Moles/Vol] 11 mmol/L Normal 10-20 [facility] Comment on above: Performed By: #### 2 4323-8 #### MARIA LUZ JONES ([id number]) [facility] ([facility]) [address] [place] [address] 00628 AST With P-5'-P [Catalytic activity/Vol] 9 U/L Normal 9-39 [facility] Comment on above: Performed By: #### 2 4323-8 #### MARIA LUZ JONES ([id number]) [facility] ([facility]) [address] [place] [address] 01514 Bilirubin [Mass/Vol] 0.7 mg/dL Normal 0.0-1.2 [facility] Comment on above: Performed By: #### 2 4323-8 #### MARIA LUZ JONES ([id number]) [facility] ([facility]) [address] [place] [address] 21394 Calcium [Mass/Vol] 9.2 mg/dL Normal 8.6-10.3 [facility] Comment on above: Performed By: #### 2 4323-8 #### MARIA LUZ JONES ([id number]) [facility] ([facility]) [address] [place] [address] 46063 Chloride [Moles/Vol] 109 mmol/L High 98-107 [facility] Comment on above: Performed By: #### 2 4323-8 #### MARIA LUZ JONES ([id number]) [facility] ([facility]) [address] [place] [address] 56967 CO2 [Moles/Vol] 25 mmol/L Normal 21-32 [facility] Comment on above: Performed By: #### 2 4323-8 #### MARIA LUZ JONES ([id number]) [facility] ([facility]) [address] [place] [address] 25393 Creatinine [Mass/Vol] 0.73 mg/dL Normal 0.50-1.05 [facility] Comment on above: Performed By: #### 2 4323-8 #### MARIA LUZ JONES ([id number]) [facility] ([facility]) [address] [place] [address] 87037 GFR/1.73 sq M.predicted MDRD (S/P/Bld) [Vol rate/Area] mL/min/{1.73_m2} Normal >60 [facility] Comment on above: Result Comment: Calc ulations of estimated GFR are performed using the 2020 CKD-EPI Study Refit equation without the race variable for the IDMS-Traceable creatinine methods. https://jasn.asnjournals.org/content/early//ASN.2020 942945 Performed By: #### 2 4323-8 #### MARIA LUZ JONES ([id number]) [facility] ([facility]) [address] [place] [address] 81025 Glucose [Mass/Vol] 106 mg/dL High 74-99 [facility] Comment on above: Performed By: #### 2 4323-8 #### MARIA LUZ JONES ([id number]) [facility] ([facility]) [address] [place] [address] 68925 Potassium [Moles/Vol] 4.2 mmol/L Normal 3.5-5.3 [facility] Comment on above: Performed By: #### 2 4323-8 #### MARIA LUZ JONES ([id number]) [facility] ([facility]) [address] [place] [address] 63483 Protein [Mass/Vol] 6.1 g/dL Low 6.4-8.2 [facility] Comment on above: Performed By: #### 2 4323-8 #### MARIA LUZ JONES ([id number]) [facility] ([facility]) [address] [place] [address] 37075 Sodium [Moles/Vol] 141 mmol/L Normal 136-145 [facility] Comment on above: Performed By: #### 2 4323-8 #### MARIA LUZ JONES ([id number]) [facility] ([facility]) [address] [place] [address] 62374 Urea nitrogen [Mass/Vol] 13 mg/dL Normal 6-23 [facility] Comment on above: Performed By: #### 2 4323-8 #### MARIA LUZ JONES ([id number]) [facility] ([facility]) [address] [place] [address] 17712 Ferritinon 06-05-2023 Ferritin [Mass/Vol] 196 ng/mL High 8-150 [facility] Comment on above: Performed By: #### 2 276-4 #### MARIA LUZ JONES ([id number]) [facility] ([facility]) [address] [place] [address] 15666 Iron and Iron binding capaci ty panelon 06-05-2023 Iron [Mass/Vol] 67 ug/dL Normal 35-150 [facility] Comment on above: Performed By: #### 5 0190-8 #### MARIA LUZ JONES ([id number]) [facility] ([facility]) [address] [place] [address] 86685 Iron binding capacity [Mass/Vol] 351 ug/dL Normal 240-445 [facility] Comment on above: Performed By: #### 5 0190-8 #### MARIA LUZ JONES ([id number]) [facility] ([facility]) [address] [place] [address] 24066 Iron binding capacity.unsaturated [Mass/Vol] 284 ug/dL Normal 110-370 [facility] Comment on above: Performed By: #### 5 0190-8 #### MARIA LUZ JONES ([id number]) [facility] ([facility]) [address] [place] [address] 68750 Iron saturation [Mass fraction] 19 % Low 25-45 [facility] Comment on above: Performed By: #### 5 0190-8 #### MARIA LUZ JONES ([id number]) [facility] ([facility]) [address] [place] [address] 80183 Reticulocytes panel (Bld)on 06-05-2023 Hemoglobin (Reticulocytes) [Entitic mass] 33 pg 28 - 38 pg [facility] Immature Retic fraction 6.0 % NINF - 16.0 % [facility] Comment on above: Reticulocytes are me asured [...] Interpretation and review of laboratory results Normal [facility] Reticulocytes (Bld) [#/Vol] 0.048 10*3/uL [facility] Reticulocytes/100 RBC (Bld) 1.0 % 0.5 - 2.0 % [facility] Hemoglobin (Reticulocytes) [Entitic mass] 33 pg Normal 28-38 [facility] Comment on above: Performed By: #### 5 0262-5 #### MARIA LUZ JONES ([id number]) [facility] [facility] [address] [place] [address] 98788 IMMATURE RETIC FRACTION 6.0 % Normal <=16.0 [facility] Comment on above: Result Comment: Reti culocytes [...] #### 5 0262-5 #### MARIA LUZ JONES ([id number]) [facility] ([facility]) [address] [place] [address] 57243 Reticulocytes (Bld) [#/Vol] 0.048 x10*6/uL Normal 0.018-0.083 [facility] Comment on above: Performed By: #### 5 0262-5 #### MARIA LUZ JONES ([id number]) [facility] ([facility]) [address] [place] [address] 37448 Reticulocytes/100 RBC (Bld) 1.0 % Normal 0.5-2.0 [facility] Comment on above: Performed By: #### 5 0262-5 #### MARI ALUZ JONES ([id number]) [facility] ([facility]) [address] [place] [address] 59812 CBC W Auto Differential pane l (Bld)on 03-11-2023 Basophils (Bld) [#/Vol] 0.05 x10*3/uL Normal 0.00-0.10 [facility] Comment on above: Performed By: #### 5 7021-8 #### MARIA LUZ JONES ([id number]) [facility] ([facility]) [address] [place] [address] 48015 Basophils/100 WBC (Bld) 0.5 % Normal 0.0-2.0 [facility] Comment on above: Performed By: #### 5 7021-8 #### MARIA LUZ JONES ([id number]) [facility] ([facility]) [address] [place] [address] 27013 Eosinophils (Bld) [#/Vol] 0.07 x10*3/uL Normal 0.00-0.70 [facility] Comment on above: Performed By: #### 5 7021-8 #### MARIA LUZ JONES ([id number]) [facility] ([facility]) [address] [place] [address] 54705 Eosinophils/100 WBC (Bld) 0.7 % Normal 0.0-6.0 [facility] Comment on above: Performed By: #### 5 7021-8 #### MARIA LUZ JONES ([id number]) [facility] ([facility]) [address] [place] [address] 16904 Erythrocyte distribution width (RBC) [Ratio] 13.3 % Normal 11.5-14.5 [facility] Comment on above: Performed By: #### 5 7021-8 #### MARIA LUZ JONES ([id number]) [facility] ([facility]) [address] [place] [address] 51418 Hematocrit (Bld) [Volume fraction] 44.7 % Normal 36.0-46.0 [facility] Comment on above: Performed By: #### 5 7021-8 #### MARIA LUZ JONES ([id number]) [facility] ([facility]) [address] [place] [address] 73863 Hemoglobin (Bld) [Mass/Vol] 14.4 g/dL Normal 12.0-16.0 [facility] Comment on above: Performed By: #### 5 7021-8 #### MARIA LUZ JONES ([id number]) [facility] ([facility]) [address] [place] [address] 96175 Immature granulocytes (Bld) [#/Vol] 0.04 x10*3/uL Normal 0.00-0.70 [facility] Comment on above: Performed By: #### 5 7021-8 #### MARIA LUZ JONES ([id number]) [facility] ([facility]) [address] [place] [address] 15870 Immature granulocytes/100 WBC (Bld) 0.4 % Normal 0.0-0.9 [facility] Comment on above: Result Comment: Mary ture Granulocyte Count (IG) includes promyelocytes, myelocytes and metamyelocytes but does not include bands. Percent differential counts (%) should be interpreted in the context of the absolute cell counts (cells/UL). Performed By: #### 5 7021-8 #### MARIA LUZ JONES ([id number]) [facility] ([facility]) [address] [place] [address] 22391 Lymphocytes (Bld) [#/Vol] 1.86 x10*3/uL Normal 1.20-4.80 [facility] Comment on above: Performed By: #### 5 7021-8 #### MARIA LUZ JONES ([id number]) [facility] ([facility]) [address] [place] [address] 47034 Lymphocytes/100 WBC (Bld) 19.3 % Normal 13.0-44.0 [facility] Comment on above: Performed By: #### 5 7021-8 #### MARIA LUZ JONES ([id number]) [facility] ([facility]) [address] [place] [address] 71872 MCH (RBC) [Entitic mass] 27.8 pg Normal 26.0-34.0 [facility] Comment on above: Performed By: #### 5 7021-8 #### MARIA LUZ JONES ([id number]) [facility] ([facility]) [address] [place] [address] 77924 MCHC (RBC) [Mass/Vol] 32.2 g/dL Normal 32.0-36.0 [facility] Comment on above: Performed By: #### 5 7021-8 #### MARIA LUZ JONES ([id number]) [facility] ([facility]) [address] [place] [address] 57252 MCV (RBC) [Entitic vol] 86 fL Normal 80-100 [facility] Comment on above: Performed By: #### 5 7021-8 #### MARIA LUZ JONES ([id number]) [facility] ([facility]) [address] [place] [address] 74311 Monocytes (Bld) [#/Vol] 0.46 x10*3/uL Normal 0.10-1.00 [facility] Comment on above: Performed By: #### 5 7021-8 #### MARIA LUZ JONES ([id number]) [facility] ([facility]) [address] [place] [address] 48506 Monocytes/100 WBC (Bld) 4.8 % Normal 2.0-10.0 [facility] Comment on above: Performed By: #### 5 7021-8 #### MARIA LUZ JONES ([id number]) [facility] ([facility]) [address] [place] [address] 16711 Neutrophils (Bld) [#/Vol] 7.15 x10*3/uL Normal 1.20-7.70 [facility] Comment on above: Result Comment: Perc ent differential counts (%) should be interpreted in the context of the absolute cell counts (cells/uL). Performed By: #### 5 7021-8 #### MARIA LUZ JONES ([id number]) [facility] ([facility]) [address] [place] [address] 29362 Neutrophils/100 WBC (Bld) 74.3 % Normal 40.0-80.0 [facility] Comment on above: Performed By: #### 5 7021-8 #### MARIA LUZ JONES ([id number]) [facility] ([facility]) [address] [place] [address] 47623 Nucleated RBC/100 WBC (Bld) [Ratio] 0.0 /100 WBCs Normal 0.0-0.0 [facility] Comment on above: Performed By: #### 5 7021-8 #### MARIA LUZ JONES ([id number]) [facility] ([facility]) [address] [place] [address] 15088 Platelets (Bld) [#/Vol] 242 x10*3/uL Normal 150-450 [facility] Comment on above: Performed By: #### 5 7021-8 #### MARIA LUZ JONES ([id number]) [facility] ([facility]) [address] [place] [address] 30931 RBC (Bld) [#/Vol] 5.18 x10*6/uL Normal 4.00-5.20 [facility] Comment on above: Performed By: #### 5 7021-8 #### MARIA LUZ JONES ([id number]) [facility] ([facility]) [address] [place] [address] 10946 WBC (Bld) [#/Vol] 9.6 x10*3/uL Normal 4.4-11.3 [facility] Comment on above: Performed By: #### 5 7021-8 #### MARIA LUZ JONES ([id number]) [facility] ([facility]) [address] [place] [address] 25131 Cobalaminson 03-11-2023 Cobalamin (Vitamin B12) [Mass/Vol] 462 pg/mL Normal 211-911 [facility] Comment on above: Performed By: #### 2 132-9 #### MARIA LUZ JONES ([id number]) [facility] ([facility]) [address] [place] [address] 09833 Comprehensive metabolic 2000 panelon 03-11-2023 Albumin BCP dye [Mass/Vol] 4.0 g/dL Normal 3.4-5.0 [facility] Comment on above: Performed By: #### 2 4323-8 #### MARIA LUZ JONES ([id number]) [facility] ([facility]) [address] [place] [address] 20225 ALP [Catalytic activity/Vol] 74 U/L Normal 33-110 [facility] Comment on above: Performed By: #### 2 4323-8 #### MARIA LUZ JONES ([id number]) [facility] ([facility]) [address] [place] [address] 89671 ALT With P-5'-P [Catalytic activity/Vol] 9 U/L Normal 7-45 [facility] Comment on above: Result Comment: Celine ents treated with Sulfasalazine may generate falsely decreased results for ALT. Performed By: #### 2 432-8 #### MARIA LUZ JONES ([id number]) [facility] ([facility]) [address] [place] [address] 26794 Anion gap [Moles/Vol] 11 mmol/L Normal 10-20 [facility] Comment on above: Performed By: #### 2 432-8 #### MARIA LUZ JONES ([id number]) [facility] ([facility]) [address] [place] [address] 45108 AST With P-5'-P [Catalytic activity/Vol] 9 U/L Normal 9-39 [facility] Comment on above: Performed By: #### 2 4323-8 #### MARIA LUZ JONES ([id number]) [facility] ([facility]) [address] [place] [address] 53871 Bilirubin [Mass/Vol] 0.5 mg/dL Normal 0.0-1.2 [facility] Comment on above: Performed By: #### 2 4323-8 #### MARIA LUZ JONES ([id number]) [facility] ([facility]) [address] [place] [address] 53548 Calcium [Mass/Vol] 9.2 mg/dL Normal 8.6-10.3 [facility] Comment on above: Performed By: #### 2 3-8 #### MARIA LUZ JONES ([id number]) [facility] ([facility]) [address] [place] [address] Chloride [Moles/Vol] 107 mmol/L Normal 98-107 [facility] Comment on above: Performed By: #### 2 4323-8 #### MARIA LUZ JONES ([id number]) [facility] ([facility]) [address] [place] [address] CO2 [Moles/Vol] 25 mmol/L Normal 21-32 [facility] Comment on above: Performed By: #### 2 4323-8 #### MARIA LUZ JONES ([id number]) [facility] ([facility]) [address] [place] [address] 43411 Creatinine [Mass/Vol] 0.78 mg/dL Normal 0.50-1.05 [facility] Comment on above: Performed By: #### 2 4323-8 #### MARIA LUZ JONES ([id number]) [facility] ([facility]) [address] [place] [address] 46558 GFR/1.73 sq M.predicted MDRD (S/P/Bld) [Vol rate/Area] mL/min/{1.73_m2} Normal >60 [facility] Comment on above: Result Comment: Calc ulations of estimated GFR are performed using the 2020 CKD-EPI Study Refit equation without the race variable for the IDMS-Traceable creatinine methods. https://jasn.asnjournals.org/content//ASN.2020 471389 Performed By: #### 2 4323-8 #### MARIA LUZ JONES ([id number]) [facility] ([facility]) [facility] [place] [address] Glucose [Mass/Vol] 78 mg/dL Normal 74-99 [facility] Comment on above: Performed By: #### 2 4323-8 #### MARIA LUZ JONES ([id number]) [facility] ([facility]) [facility] [place] [address] Potassium [Moles/Vol] 4.4 mmol/L Normal 3.5-5.3 [facility] Comment on above: Performed By: #### 2 4323-8 #### MARIA LUZ JONES ([id number]) [facility] ([facility]) [address] [place] [address] 37522 Protein [Mass/Vol] 6.2 g/dL Low 6.4-8.2 [facility] Comment on above: Performed By: #### 2 4323-8 #### MARIA LUZ JONES ([id number]) [facility] ([facility]) [address] [place] [address] 49843 Sodium [Moles/Vol] 139 mmol/L Normal 136-145 [facility] Comment on above: Performed By: #### 2 4323-8 #### MARIA LUZ JONES ([id number]) [facility] ([facility]) [address] [place] [address] 82403 Urea nitrogen [Mass/Vol] 14 mg/dL Normal 6-23 [facility] Comment on above: Performed By: #### 2 4323-8 #### MARIA LUZ JONES ([id number]) [facility] ([facility]) [address] [place] [address] 41079 Ferritinon 03-11-2023 Ferritin [Mass/Vol] 34 ng/mL Normal 8-150 [facility] Comment on above: Performed By: #### 2 276-4 #### MARIA LUZ JONES ([id number]) [facility] ([facility]) [address] [place] [address] 44006 Iron and Iron binding capaci ty panelon 03-11-2023 Iron [Mass/Vol] 50 ug/dL Normal 35-150 [facility] Comment on above: Performed By: #### 5 0190-8 #### MARIA LUZ JONES ([id number]) [facility] ([facility]) [address] [place] [address] 71480 Iron binding capacity [Mass/Vol] 417 ug/dL Normal 240-445 [facility] Comment on above: Performed By: #### 5 0190-8 #### MARIA LUZ JONES ([id number]) [facility] ([facility]) [address] [place] [address] 80833 Iron binding capacity.unsaturated [Mass/Vol] 367 ug/dL Normal 110-370 [facility] Comment on above: Performed By: #### 5 0190-8 #### MARIA LUZ JONES ([id number]) [facility] ([facility]) [address] [place] [address] Iron saturation [Mass fraction] 12 % Low 25-45 [facility] Comment on above: Performed By: #### 5 0190-8 #### MARIA LUZ JONES ([id number]) [facility] ([facility]) [address] [place] [address] C. trachomatis and N. gonorr hoeae DNA KATHY+probe Nom (Unsp spec)on 02-16-2023 C. trachomatis rRNA KATHY+probe Ql (Unsp spec) Negative Normal Negative [facility] Comment on above: Order Comment: The [...] By: #### 3 6903-3 #### LIZETH Alexandra ([id number]) [facility] ([facility]) [address] [place] [address] N. gonorrhoeae DNA Probe+sig amp Ql (Unsp spec) Negative Normal Negative [facility] Comment on above: Order Comment: The [...] By: #### 3 6903-3 #### LIZETH Alexandra ([id number]) [facility] ([facility]) [address] [place] [address] GC + CHLAMYDIA BY AMPLIFIED DETECTIONon 11-25-2022 CHLAMYDIA TRACH.,AMPLIFIED Negative Normal Negative [facility] Comment on above: Result Comment: The APTIMA Combo 2 assay is FDA-approved for Chlamydia trachomatis and Neisseria gonorrhoeae testing on female endocervical and vaginal swabs, ThinPrep liquid pap samples, male urine samples and urethral swabs. Performance characteristics for Chlamydia trachomatis and Neisseria gonorrhoeae testing on specific hne-ONY-dayqqfkr sample types (female urine samples) have been validated by [facility]. This laboratory is certified by CLIA to perform high complexity testing. Samples from all other sites are not validated for this method. Performed By: #### [facility] #### [facility] [address] [place], [place] [address] [place] [address] N.GONORRHEA,AMPLIFIED Negative Normal Negative [facility] Comment on above: Result Comment: The APTIMA Combo 2 assay is FDA-approved for Chlamydia trachomatis and Neisseria gonorrhoeae testing on female endocervical and vaginal swabs, ThinPrep liquid pap samples, male urine samples and urethral swabs. Performance characteristics for Chlamydia trachomatis and Neisseria gonorrhoeae testing on specific yfl-WOM-wmgdqqmi sample types (female urine samples) have been validated by [facility]. This laboratory is certified by CLIA to perform high complexity testing. Samples from all other sites are not validated for this method. Performed By: #### [facility] #### [facility] [address] [place] [address] TRICHOMONAS,NUCLEIC ACID DET ECTIONon 11-25-2022 TRICHOMONAS VAGINALIS Negative Normal Negative [facility] Comment on above: Result Comment: The APTIMA Trichomonas vaginalis assay is FDA-approved for testing on female endocervical swabs, vaginal swabs, and ThinPrep liquid pap samples. Performance characteristics for Trichomonas vaginalis on specific sxq-LOL-qxohpslr sample types (female and male urine and male urethral swabs) have been validated by [facility]. This laboratory is certified by CLIA to perform high complexity testing. Samples from all other sites are not validated for this method. Performance characteristics for Trichomonas Vaginalis testing on urine samples has been validated by [facility]. Testing on this sample type is not FDA-approved, but such approval is not necessary. This laboratory is certified by CLIA to perform high complexity testing. Performed By: #### T MONIKA #### [facility] [address] [place] [address] GC + CHLAMYDIA BY AMPLIFIED DETECTIONon 11-24-2022 Lab Specimen Source Urine Normal [facility] Comment on above: Performed By: #### G [facility] #### [facility] [address] [place] [address] Performed By: #### T MONIKA #### [facility] [address] [place] [id number] Clinic Note - Heme Onc-Follo w Up [...] Boyfriend works in the Kitchen at the [employer] FAMILY HISTORY: Maternal Grandpa- Prostate Paternal- Bone [...] PLT 197 (more content not included)... Normal [facility] Clinic Note - Intakeon 07-07 Clinic [...] riskimplement environmental risk factors interventions Electronic Signatures: Mary Kaur) (Signed 07-Jul-2022 11:00) Authored: Patient Visit Information, Vital Signs, Allergies, Outpatient Medication Profile, Notification, Travel History, Falls Last Updated: 07-Jul-2022 11:00 by Mary Kaur (CASSIE) Normal [facility] CBC AND DIFFERENTIALon 07-05 % AUTOMATED IMMATURE GRAN 0.2 % Normal 0.0 - 0.9 [facility] Comment on above: Result Comment: Mary ture Granulocyte Count (IG) includes promyelocytes, myelocytes and metamyelocytes but does not include bands. Percent differential counts (%) should be interpreted in the context of the absolute cell counts (cells/L). Performed By: #### C BCDF #### [address] [address] Basophils (Bld) [#/Vol] 0.03 10*3/uL Normal 0.00 - 0.[address] [facility] Comment on above: Performed By: #### C BCDF #### [address] [address] Basophils/100 WBC (Bld) 0.5 % Normal 0.0 - 2.0 [facility] Comment on above: Performed By: #### C BCDF #### [address] [address] Eosinophils (Bld) [#/Vol] 0.06 10*3/uL Normal 0.00 - 0.70 [facility] Comment on above: Performed By: #### C BCDF #### [address] [address] Eosinophils/100 WBC (Bld) 1.1 % Normal 0.0 - 6.0 [facility] Comment on above: Performed By: #### C BCDF #### [address] [address] Erythrocyte distribution width (RBC) [Ratio] 14.9 % High 11.5 - 14.5 [facility] Comment on above: Performed By: #### C BCDF #### [address] [address] Hematocrit (Bld) [Volume fraction] 40.6 % Normal 36.0 - 46.0 [facility] Comment on above: Performed By: #### C BCDF #### [address] [address] Hemoglobin (Bld) [Mass/Vol] 12.9 g/dL Normal 12.0 - 16.0 [facility] Comment on above: Performed By: #### C BCDF #### [address] [address] Lymphocytes (Bld) [#/Vol] 1.74 10*3/uL Normal 1.20 - 4.80 [facility] Comment on above: Performed By: #### C BCDF #### [address] [address] Lymphocytes/100 WBC (Bld) 31.1 % Normal 13.0 - 44.0 [facility] Comment on above: Performed By: #### C BCDF #### [address] [address] MCHC (RBC) [Mass/Vol] 31.8 g/dL Low 32.0 - 36.0 [facility] Comment on above: Performed By: #### C BCDF #### [address] [address] MCV (RBC) [Entitic vol] 82 fL Normal 80 - 100 [facility] Comment on above: Performed By: #### C BCDF #### [address] [address] Monocytes (Bld) [#/Vol] 0.42 10*3/uL Normal 0.10 - 1.[address] [facility] Comment on above: Performed By: #### C BCDF #### [address] [address] Monocytes/100 WBC (Bld) 7.5 % Normal 2.0 - 10.0 [facility] Comment on above: Performed By: #### C BCDF #### [address] [address] Neutrophils (Bld) [#/Vol] 3.33 10*3/uL Normal 1.20 - 7.70 [facility] Comment on above: Result Comment: Perc ent differential counts (%) should be interpreted in the context of the absolute cell counts (cells/L). Performed By: #### C BCDF #### [address] [address] Neutrophils/100 WBC (Bld) 59.6 % Normal 40.0 - 80.0 [facility] Comment on above: Performed By: #### C BCDF #### [address] [address] Platelets (Bld) [#/Vol] 197 10*3/uL Normal 150 - 450 [facility] Comment on above: Performed By: #### C BCDF #### [address] [address] RBC 4.97 x10E12/L Normal 4.00 - 5.20 [facility] Comment on above: Performed By: #### C BCDF #### [address] [address] WBC (Bld) [#/Vol] 5.6 10*3/uL Normal 4.4 - 11.3 [facility] Comment on above: Performed By: #### C BCDF #### [address] [address] COMPREHENSIVE PANELon 2022 Albumin [Mass/Vol] 3.9 g/dL Normal 3.4 - 5.0 [facility] Comment on above: Performed By: #### C MP #### [address] [address] ALP [Catalytic activity/Vol] 109 U/L Normal 33 - 110 [facility] Comment on above: Performed By: #### C MP #### [address] [address] ALT [Catalytic activity/Vol] 8 U/L Normal 7 - 45 [facility] Comment on above: Result Comment: Celine ents treated with Sulfasalazine may generate falsely decreased results for ALT. Performed By: #### C MP #### [address] [address] Anion gap [Moles/Vol] 9 mmol/L Low 10 - 20 [facility] Comment on above: Performed By: #### C MP #### [address] [address] AST [Catalytic activity/Vol] 10 U/L Normal 9 - 39 [facility] Comment on above: Performed By: #### C MP #### [address] [address] Bilirubin [Mass/Vol] 1.1 mg/dL Normal 0.0 - 1.2 [facility] Comment on above: Performed By: #### C MP #### [address] [address] Calcium [Mass/Vol] 9.0 mg/dL Normal 8.6 - 10.3 [facility] Comment on above: Performed By: #### C MP #### [address] [address] Chloride [Moles/Vol] 108 mmol/L High 98 - 107 [facility] Comment on above: Performed By: #### C MP #### [address] [address] Creatinine [Mass/Vol] 0.56 mg/dL Normal 0.50 - 1.05 [facility] Comment on above: Performed By: #### C MP #### [address] [address] eGFR FEMALE >90 Normal >90 [facility] Comment on above: Result Comment: CALC ULATIONS OF ESTIMATED GFR ARE PERFORMED USING THE 2020 CKD-EPI STUDY REFIT EQUATION WITHOUT THE RACE VARIABLE FOR THE IDMS-TRACEABLE CREATININE METHODS. https://jasn.asnjournals.org/content/early//ASN.2020 282219 Performed By: #### C MP #### [address] [address] Glucose [Mass/Vol] 85 mg/dL Normal 74 - 99 [facility] Comment on above: Performed By: #### C MP #### [address] [address] HCO3 (Bld) [Moles/Vol] 26 mmol/L Normal 21 - 32 [facility] Comment on above: Performed By: #### C MP #### [address] [address] Potassium [Moles/Vol] 4.1 mmol/L Normal 3.5 - 5.3 [facility] Comment on above: Performed By: #### C MP #### [address] [address] Protein [Mass/Vol] 6.2 g/dL Low 6.4 - 8.2 [facility] Comment on above: Performed By: #### C MP #### [address] [address] Sodium [Moles/Vol] 139 mmol/L Normal 136 - 145 [facility] Comment on above: Performed By: #### C MP #### [address] [address] Urea nitrogen [Mass/Vol] 12 mg/dL Normal 6 - 23 [facility] Comment on above: Performed By: #### C MP #### [address] [address] FERRITINon 07-05-2022 FERRITIN 22 ug/L Normal 8 - 150 [facility] Comment on above: Performed By: #### F ERRI #### [address] [address] IRON + TIBCon 07-05-2022 % SATURATION 21 % Low 25 - 45 [facility] Comment on above: Performed By: #### I RONT #### [address] [address] Iron [Mass/Vol] 76 ug/dL Normal 35 - 150 [facility] Comment on above: Performed By: #### I RONT #### [address] [address] TIBC 354 ug/dL Normal 240 - 445 [facility] Comment on above: Performed By: #### I RONT #### [address] [address] VITAMIN B12on 07-05-2022 Cobalamin (Vitamin B12) [Mass/Vol] 364 pg/mL Normal 211 - 911 [address] [facility] Comment on above: Performed By: #### V TB12 #### [address] [address] Clinic Note - Intakeon 05-07 Clinic Note [...] 07-May-2022 10:55 by Arelis Dao (SILVANO KATZ) [facility] Note - Heme Onc-Follo w Up Visiton [...] Boyfriend works in the Kitchen at the [employer] FAMILY HISTORY: Maternal Grandpa- Prostate Paternal- Bone [...] Weights & Heights: Date: Weight/Scale Type:Height: 07-May-2022 10:76396.5 kg 182.5 cm 23-Apr-2022 10:98734.9 kg 182.5 cm Lab Results: Results CBC [...] Aspartate Transam (more content not included)... Normal [facility] FIFI-WITH REFLEX TO ENAon Nuclear Ab IF (S) [Titer] Negative Normal NEGATIVE [facility] Comment on above: Result Comment: The Antinuclear Antibody (FIFI) test was performed using indirect immunofluorescence assay with HEp-2 cells slide. Performed By: #### A NA2 #### [facility] [id number] [place], [place] HEPATITIS B CORE AB-TOTALon 04-24-2022 HEP. B CORE AB-TOTAL Non-Reactive Normal NONREACTIVE [facility] Comment on above: Result Comment: Resu lts from patients taking biotin supplements or receiving high-dose biotin therapy should be interpreted with caution due to possible interference with this test. Providers may contact their local laboratory for further information. Performed By: #### H BCRT ####[id number], [place] HEPATITIS B CORE AB;IGMon HEPATITIS B CORE AB,IGM Non-Reactive Normal NONREACTIV E [facility] Comment on above: Result Comment: Resu lts from patients taking biotin supplements or receiving high-dose biotin therapy should be interpreted with caution due to possible interference with this test. Providers may contact their local laboratory for further information. Performed By: #### H BCRM ####[id number], [place] HEPATITIS B SURF ABon 2022 HEP B SURF AB <3.1 Normal <10 [facility] Comment on above: Result Comment: INTE RPRETIVE CRITERIA: <10 mIU/mL....NONREACTIVE >=10 mIU/mL...REACTIVE . Biotin interference may cause falsely decreased results. Patients taking a Biotin dose of up to 5 mg/day should refrain from taking Biotin for 24 hours before sample collection. Providers may contact their local laboratory for further information. Performed By: #### H BAB3 ####[id number] [place] [address] HEPATITIS B SURFACE AGon HEP.B SURFACE AG Non-Reactive Normal NONREACTIVE [facility] Comment on above: Result Comment: Biot in interference may cause falsely decreased results. Patients taking a Biotin dose of up to 5 mg/day should refrain from taking Biotin for 24 hours before sample collection. Providers may contact their local laboratory for further information. Performed By: #### C OVSC #### [facility] [address] [place] [id number] HIV 1/2 ANTIGEN/ANTIBODY SCR EEN WITH REFLEX TO CONFIRMATIONon 04-24-2022 HIV 1/2 AG/AB SCREEN Non-Reactive Normal NONREACTIVE [facility] Comment on above: Result Comment: HIV Ag/Ab screen is performed using the Siemens [employer] HIV Ag/Ab Combo assay which detects the presence of HIV p24 antigen as well as antibodies to HIV-1 (Group M and O) and HIV-2. . No laboratory evidence of HIV infection. If acute HIV infection is suspected, consider testing for HIV RNA by PCR (viral load). Performed By: #### H IV #### [facility] [address] [place] [address] CBC AND DIFFERENTIALon 04-23 % AUTOMATED IMMATURE GRAN 0.7 % Normal 0.0 - 0.9 [facility] Comment on above: Result Comment: Mary ture Granulocyte Count (IG) includes promyelocytes, myelocytes and metamyelocytes but does not include bands. Percent differential counts (%) should be interpreted in the context of the absolute cell counts (cells/L). Performed By: #### C BCDF ####[address] [address] Basophils (Bld) [#/Vol] 0.05 10*3/uL Normal 0.00 - 0.1 0 [facility] Comment on above: Performed By: #### C BCDF ####[address] [address] Basophils/100 WBC (Bld) 0.7 % Normal 0.0 - 2.0 [facility] Comment on above: Performed By: #### C BCDF ####[address] [address] Eosinophils (Bld) [#/Vol] 0.14 10*3/uL Normal 0.00 - 0.70 [facility] Comment on above: Performed By: #### C BCDF ####[address] [address] Eosinophils/100 WBC (Bld) 1.9 % Normal 0.0 - 6.0 [facility] Comment on above: Performed By: #### C BCDF ####[address] [address] Erythrocyte distribution width (RBC) [Ratio] 14.7 % High 11.5 - 14.5 [facility] Comment on above: Performed By: #### C BCDF ####[address] [address] Hematocrit (Bld) [Volume fraction] 41.7 % Normal 36.0 - 46.0 [facility] Comment on above: Performed By: #### C BCDF ####[address] [address] Hemoglobin (Bld) [Mass/Vol] 12.8 g/dL Normal 12.0 - 16.0 [facility] Comment on above: Performed By: #### C BCDF ####[address] [address] Lymphocytes (Bld) [#/Vol] 1.94 10*3/uL Normal 1.20 - 4.80 [facility] Comment on above: Performed By: #### C BCDF ####[address] [address] Lymphocytes/100 WBC (Bld) 26.5 % Normal 13.0 - 44.0 [facility] Comment on above: Performed By: #### C BCDF ####[address] [address] MCHC (RBC) [Mass/Vol] 30.7 g/dL Low 32.0 - 36.0 [facility] Comment on above: Performed By: #### C BCDF ####[address] [address] MCV (RBC) [Entitic vol] 82 fL Normal 80 - 100 [facility] Comment on above: Performed By: #### C BCDF ####[address] [address] Monocytes (Bld) [#/Vol] 0.56 10*3/uL Normal 0.10 - 1.0 0 [facility] Comment on above: Performed By: #### C BCDF ####[address] [address] Monocytes/100 WBC (Bld) 7.7 % Normal 2.0 - 10.0 [facility] Comment on above: Performed By: #### C BCDF ####[address] [address] Neutrophils (Bld) [#/Vol] 4.57 10*3/uL Normal 1.20 - 7.70 [facility] Comment on above: Result Comment: Perc ent differential counts (%) should be interpreted in the context of the absolute cell counts (cells/L). Performed By: #### C BCDF ####[address] [address] Neutrophils/100 WBC (Bld) 62.5 % Normal 40.0 - 80.0 [facility] Comment on above: Performed By: #### C BCDF ####[address] [address] Platelets (Bld) [#/Vol] 285 10*3/uL Normal 150 - 450 [facility] Comment on above: Performed By: #### C BCDF ####[address] [address] RBC 5.09 x10E12/L Normal 4.00 - 5.20 [facility] Comment on above: Performed By: #### C BCDF ####[address] [address] WBC (Bld) [#/Vol] 7.3 10*3/uL Normal 4.4 - 11.3 [facility] Comment on above: Performed By: #### C BCDF ####[address] [address] COMPREHENSIVE PANELon 2022 Albumin [Mass/Vol] 4.0 g/dL Normal 3.4 - 5.0 [facility] Comment on above: Performed By: #### C MP ####[address] [address] ALP [Catalytic activity/Vol] 107 U/L Normal 33 - 110 [facility] Comment on above: Performed By: #### C MP ####[address] [address] ALT [Catalytic activity/Vol] 10 U/L Normal 7 - 45 [facility] Comment on above: Result Comment: Celine ents treated with Sulfasalazine may generate falsely decreased results for ALT. Performed By: #### C MP ####[address] [address] Anion gap [Moles/Vol] 11 mmol/L Normal 10 - 20 [facility] Comment on above: Performed By: #### C MP ####[address] [address] AST [Catalytic activity/Vol] 10 U/L Normal 9 - 39 [facility] Comment on above: Performed By: #### C MP ####[address] [address] Bilirubin [Mass/Vol] 0.7 mg/dL Normal 0.0 - 1.2 [facility] Comment on above: Performed By: #### C MP ####[address] [address] Calcium [Mass/Vol] 9.6 mg/dL Normal 8.6 - 10.3 [facility] Comment on above: Performed By: #### C MP ####[address] [address] Chloride [Moles/Vol] 108 mmol/L High 98 - 107 [facility] Comment on above: Performed By: #### C MP ####[address] [address] Creatinine [Mass/Vol] 0.50 mg/dL Normal 0.50 - 1.05 [facility] Comment on above: Performed By: #### C MP ####[address] [address] eGFR FEMALE >90 Normal >90 [facility] Comment on above: Result Comment: CALC ULATIONS OF ESTIMATED GFR ARE PERFORMED USING THE 2020 CKD-EPI STUDY REFIT EQUATION WITHOUT THE RACE VARIABLE FOR THE IDMS-TRACEABLE CREATININE METHODS. https://jasn.asnjournals.org/content/early//ASN.2020 578030 Performed By: #### C MP ####[address] [address] Glucose [Mass/Vol] 75 mg/dL Normal 74 - 99 [facility] Comment on above: Performed By: #### C MP ####[address] [address] HCO3 (Bld) [Moles/Vol] 26 mmol/L Normal 21 - 32 [facility] Comment on above: Performed By: #### C MP ####[address] [address] Potassium [Moles/Vol] 4.2 mmol/L Normal 3.5 - 5.3 [facility] Comment on above: Performed By: #### C MP ####[address] [address] Protein [Mass/Vol] 6.3 g/dL Low 6.4 - 8.2 [facility] Comment on above: Performed By: #### C MP ####[address] [address] Sodium [Moles/Vol] 141 mmol/L Normal 136 - 145 [facility] Comment on above: Performed By: #### C MP ####[address] [address] Urea nitrogen [Mass/Vol] 11 mg/dL Normal 6 - 23 [facility] Comment on above: Performed By: #### C MP ####[address] [address] Clinic Note - Heme Onc-New V tatum [...] Boyfriend works in the Kitchen at the [employer] FAMILY HISTORY: Maternal Grandpa- Prostate Paternal- Bone [...] Basic Metabolic Panel (more content not included)... [facility] Note - Heme Onc-New Visit This report has been cancelled. [facility] Note - Intakeon 04-23 Clinic Note - [...] (kg/m2)33.8 kg/M2 BSA (m2)2.39 M2 Nursing Verification [id number] Nursing Verification Height in cm182.5 centimeter(s) Nursing [...] you are livingno Depression: Past 2 wks: [place] down, depressed or hopelessno Past 2 wks: [place] little interest/pleasure doing thingsno Any Thoughts of [...] 24-Apr-2022 06:58 by Yaneth Pat (CASSIE) Normal [facility] FERRITINon 04-23-2022 FERRITIN 14 ug/L Normal 8 - 150 [facility] Comment on above: Performed By: #### C OVSC #### [facility] [address] [place] [address] HIV 1/2 ANTIGEN/ANTIBODY SCR EEN WITH REFLEX TO CONFIRMATIONon 04-23-2022 Lab Specimen Source Normal [facility] Comment on above: Performed By: #### H IV #### [facility] [address] [place], [place] Performed By: #### H BAB3 ####[id number], [place] Performed By: #### H BCRT ####[id number], [place] Performed By: #### H BCRM ####[id number], [place] Performed By: #### C OVSC #### [address] [address] IRON + TIBCon 04-23-2022 % SATURATION 5 % Low 25 - 45 [facility] Comment on above: Performed By: #### I RONT #### [address] [address] Iron [Mass/Vol] 21 ug/dL Low 35 - 150 [facility] Comment on above: Performed By: #### I RONT #### [address] [address] TIBC 394 ug/dL Normal 240 - 445 [facility] Comment on above: Performed By: #### I RONT #### [address] [address] VITAMIN B12on 04-23-2022 Cobalamin (Vitamin B12) [Mass/Vol] 470 pg/mL Normal 211 - 911 [facility] Comment on above: Performed By: #### V TB12 ####[address] [address] Covid 19 Resultson 3 SARS-CoV-2 (COVID-19) RNA [...] You may also be contacted by the [facility] to see if any of your close [...] or Naproxen (Aleve) can also be used. Ivxy-pio-wvcpjub cough and cold medicines can be used according to the instructions on the package. Some ebmb-akp-xlgzefb medicines also contain acetaminophen. Make sure you [...] water are not available, use alcohol-based hand anesthesiologist assistant certified. Avoid touching your eyes, nose, and mouth [...] 24 nakita (more content not included)... Normal [facility] BASIC METABOLIC PANELon 02-0 Anion gap [Moles/Vol] 10 mmol/L Normal 10 - 20 [facility] Comment on above: Performed By: #### B MP ####[address] [address] Calcium [Mass/Vol] 9.7 mg/dL Normal 8.6 - 10.3 [facility] Comment on above: Performed By: #### B MP ####[address] [address] Chloride [Moles/Vol] 107 mmol/L Normal 98 - 107 [facility] Comment on above: Performed By: #### B MP ####[address] [address] Creatinine [Mass/Vol] 0.69 mg/dL Normal 0.50 - 1.05 [facility] Comment on above: Performed By: #### B MP ####[address] [address] eGFR FEMALE >90 Normal >90 [facility] Comment on above: Result Comment: CALC ULATIONS OF ESTIMATED GFR ARE PERFORMED USING THE 2020 CKD-EPI STUDY REFIT EQUATION WITHOUT THE RACE VARIABLE FOR THE IDMS-TRACEABLE CREATININE METHODS. https://jasn.asnjournals.org/content/early//ASN.2020 182973 Performed By: #### B MP ####[address] [address] Glucose [Mass/Vol] 95 mg/dL Normal 74 - 99 [facility] Comment on above: Performed By: #### B MP ####[address] [address] HCO3 (Bld) [Moles/Vol] 25 mmol/L Normal 21 - 32 [facility] Comment on above: Performed By: #### B MP ####[address] [address] Potassium [Moles/Vol] 3.5 mmol/L Normal 3.5 - 5.3 [facility] Comment on above: Performed By: #### B MP ####[address] [address] Sodium [Moles/Vol] 138 mmol/L Normal 136 - 145 [facility] Comment on above: Performed By: #### B MP ####[address] [address] Urea nitrogen [Mass/Vol] 14 mg/dL Normal 6 - 23 [facility] Comment on above: Performed By: #### B MP ####[address] [address] CBC AND DIFFERENTIALon 04-14 % AUTOMATED IMMATURE GRAN 0.4 % Normal 0.0 - 0.9 [facility] Comment on above: Result Comment: Mary ture Granulocyte Count (IG) includes promyelocytes, myelocytes and metamyelocytes but does not include bands. Percent differential counts (%) should be interpreted in the context of the absolute cell counts (cells/L). Performed By: #### C OVSC #### [place] [id number] Basophils (Bld) [#/Vol] 0.02 10*3/uL Normal 0.00 - 0.1 0 [facility] Comment on above: Performed By: #### C OVSC #### [address] [address] Basophils/100 WBC (Bld) 0.2 % Normal 0.0 - 2.0 [facility] Comment on above: Performed By: #### C OVSC #### [address] [address] Eosinophils (Bld) [#/Vol] 0.02 10*3/uL Normal 0.00 - 0.70 [facility] Comment on above: Performed By: #### C OVSC #### [address] [address] Eosinophils/100 WBC (Bld) 0.2 % Normal 0.0 - 6.0 [facility] Comment on above: Performed By: #### C OVSC #### [address] [address] Erythrocyte distribution width (RBC) [Ratio] 14.8 % High 11.5 - 14.5 [facility] Comment on above: Performed By: #### C OVSC #### [address] [address] Hematocrit (Bld) [Volume fraction] 42.9 % Normal 36.0 - 46.0 [facility] Comment on above: Performed By: #### C OVSC #### [address] [address] Hemoglobin (Bld) [Mass/Vol] 13.7 g/dL Normal 12.0 - 16.0 [facility] Comment on above: Performed By: #### C OVSC #### [address] [address] Lymphocytes (Bld) [#/Vol] 0.55 10*3/uL Low 1.20 - 4.80 [facility] Comment on above: Performed By: #### C OVSC #### [address] [address] Lymphocytes/100 WBC (Bld) 6.4 % Normal 13.0 - 44.0 [facility] Comment on above: Performed By: #### C OVSC #### [address] [address] MCHC (RBC) [Mass/Vol] 31.9 g/dL Low 32.0 - 36.0 [facility] Comment on above: Performed By: #### C OVSC #### [address] [address] MCV (RBC) [Entitic vol] 81 fL Normal 80 - 100 [facility] Comment on above: Performed By: #### C OVSC #### [address] [address] Monocytes (Bld) [#/Vol] 0.58 10*3/uL Normal 0.10 - 1.0 0 [facility] Comment on above: Performed By: #### C OVSC #### [address] [address] Monocytes/100 WBC (Bld) 6.8 % Normal 2.0 - 10.0 [facility] Comment on above: Performed By: #### C OVSC #### [address] [address] Neutrophils (Bld) [#/Vol] 7.37 10*3/uL Normal 1.20 - 7.70 [facility] Comment on above: Result Comment: Perc ent differential counts (%) should be interpreted in the context of the absolute cell counts (cells/L). Performed By: #### C OVSC #### [address] [address] Neutrophils/100 WBC (Bld) 86.0 % Normal 40.0 - 80.0 [facility] Comment on above: Performed By: #### C OVSC #### [address] [address] Platelets (Bld) [#/Vol] 230 10*3/uL Normal 150 - 450 [facility] Comment on above: Performed By: #### C OVSC #### [address] [address] RBC 5.28 x10E12/L High 4.00 - 5.20 [facility] Comment on above: Performed By: #### C OVSC #### [address] [address] WBC (Bld) [#/Vol] 8.6 10*3/uL Normal 4.4 - 11.3 [facility] Comment on above: Performed By: #### C OVSC #### [address] [address] [address] ABDOMEN AND PELVIS W IV C [facility] 04-14-2022 CT ABDOMEN AND PELVIS W IV CONTRAST Patient Name: NIKOLE MOREAU STUDY: CT ABDOMEN AND PELVIS W IV CONTRAST; 04/14/2022 7:56 pm INDICATION: vomiting, LLQ abd tenderness . COMPARISON: 10/17/2017 ACCESSION NUMBER(S): [id number] ORDERING CLINICIAN: KAVITA BETANCOURT TECHNIQUE: Contiguous axial [...] Electronically signed by: GENE PRUITT MD Normal [facility] HCG,URINEon 04-14-2022 Beta HCG ( test) Ql (U) Negative Normal Negative [facility] Comment on above: Performed By: #### C OVSC #### [place] [address] HEPATIC FUNCTION PANELon Albumin [Mass/Vol] 4.1 g/dL Normal 3.4 - 5.0 [facility] Comment on above: Performed By: #### H EPFP ####[address] [address] ALP [Catalytic activity/Vol] 126 U/L High 33 - 110 [facility] Comment on above: Performed By: #### H EPFP ####[address] [address] ALT [Catalytic activity/Vol] 8 U/L Normal 7 - 45 [facility] Comment on above: Result Comment: Celine ents treated with Sulfasalazine may generate falsely decreased results for ALT. Performed By: #### H EPFP ####[address] [address] AST [Catalytic activity/Vol] 11 U/L Normal 9 - 39 [facility] Comment on above: Performed By: #### H EPFP ####[address] [address] Bilirubin [Mass/Vol] 1.4 mg/dL High 0.0 - 1.2 [facility] Comment on above: Performed By: #### H EPFP ####[place] [address] Bilirubin.indirect [Mass/Vol] 0.2 mg/dL Normal 0.0 - 0.3 [facility] Comment on above: Performed By: #### H EPFP ####[place] [id number] Protein [Mass/Vol] 6.7 g/dL Normal 6.4 - 8.2 [facility] Comment on above: Performed By: #### H EPFP ####[place] [address] INFLUENZA A/B, COVID 2019 PC R,SYMPTOMATICon 04-14-2022 INFLUENZA A, PCR Not detected Normal Not Detected [facility] Comment on above: Result Comment: Resp iratory virus testing is performed routinely by PCR for Influenza A/B and RSV. Not Detected results do not preclude Influenza A/B or RSV infections since the adequacy of sample collection or low viral burden may impact the clinical sensitivity of this test method. Performed By: #### C OINP #### [place] [address] INFLUENZA B, PCR Not detected Normal Not Detected [facility] Comment on above: Result Comment: Resp iratory virus testing is performed routinely by PCR for Influenza A/B and RSV. Not Detected results do not preclude Influenza A/B or RSV infections since the adequacy of sample collection or low viral burden may impact the clinical sensitivity of this test method. Performed By: #### C OINP #### [place] [address] SARS-CoV-2 (COVID-19) RNA KATHY+probe Ql (Unsp spec) Not detected Normal Not Detected [facility] Comment on above: Result Comment: . This test has received FDA Emergency Use Authorization (EUA) and has been verified by [facility]. This test is only authorized for the duration of time that circumstances exist to justify the authorization of the emergency use of in vitro diagnostic tests for the detection of SARS-CoV-2 virus and/or diagnosis of COVID-19 infection under section 564(b)(1) of the Act, 21 U.S.C. 360bbb-3(b)(1), unless the authorization is terminated or revoked sooner. [facility] is certified under CLIA-88 as qualified to perform high complexity testing. Testing is performed in the [facility] laboratory located at [address] [place] [address]. SARS-CoV-2/Flu/RSV Multiplex Test: Fact sheet for providers: https://www.fda.gov/media/507969/download Fact sheet for patients: https://www.fda.gov/media/825764/download Performed By: #### C OINP #### [place] [address] Lab Specimen Source Nasal, Nasopharyngeal Normal [facility] Comment on above: Performed By: #### C OINP #### [place] [address] LIPASEon 04-14-2022 Lipase [Catalytic activity/Vol] 13 U/L Normal 9 - 82 [facility] Comment on above: Result Comment: Sweetie puncture immediately after or during the administration of Metamizole may lead to falsely low results. Testing should be performed immediately prior to Metamizole dosing. O-umfnvn-p-benzoquinone imine (metabolite of Acetaminophen) will generate erroneously low results in samples for patients that have taken toxic doses of acetaminophen. Performed By: #### L IPAS ####[place] [address] Provider Note - ED v3on Provider Note [...] made to minimize errors. Minor errors in personal development educator may be present. Please call if questions.. [...] Reference Range: STRAW,YELLOW Appearance, Urine HAZY Specific [place], Urine 1.032 pH, Urine 5.0 Protein, Urine 30(1+) A Glucose, Urine NEGATIVE Blood, Urine NEGATIVE Ketones, Urine 5(TRACE) A Bilirubin, Urine NEGATIVE Urobilinogen, Urine <2.0 Nitrite, Uri (more content not included)... Normal [facility] Triage - EDon 04-14-2022 Triage - [...] obeys commands Best Verbal Response: (V5) oriented [place] Score: 15 Dannie Assessment Qualifiers: patient not [...] 14-Apr-2022 18:18 by Suzette Downey (RN) Normal [facility] UA MICROSCOPICon 04-14-2022 BACTERIA 1+ /HPF Abnormal [facility] Comment on above: Performed By: #### U AMIC #### [place] [address] Mucus Ql (Urine sed) 1+ /LPF Normal [facility] Comment on above: Performed By: #### U AMIC #### [place] [address] RBC 1 /HPF Normal 0-5 [facility] Comment on above: Performed By: #### U AMIC #### [place] [address] SQUAMOUS EPITH. CELLS 16 /HPF Normal [facility] Comment on above: Performed By: #### U AMIC #### [place] [address] WBC 32 /HPF Abnormal 0-5 [facility] Comment on above: Performed By: #### U AMIC #### [address] [address] URINALYSIS WITH CULTURE IF I NDICATEDon 04-14-2022 Appearance (U) HAZY Normal CLEAR [facility] Comment on above: Performed By: #### C OVSC #### [address] [address] Bilirubin Ql (U) Negative Normal NEGATIVE [facility] Comment on above: Performed By: #### C OVSC #### [place] [address] Color (U) Yellow Normal STRAW,YELLOW [facility] Comment on above: Performed By: #### C OVSC #### [address] [address] Glucose Ql (U) Negative Normal NEGATIVE [facility] Comment on above: Performed By: #### C OVSC #### [place] [id number] Hemoglobin Ql (U) Negative Normal NEGATIVE [facility] Comment on above: Performed By: #### C OVSC #### [address] [address] Ketones Ql (U) 5(TRACE) Abnormal NEGATIVE [facility] Comment on above: Performed By: #### C OVSC #### [address] [address] Leukocyte esterase Test strip Ql (U) MODERATE(2+) Abnormal NEGATIVE [facility] Comment on above: Performed By: #### C OVSC #### [address] [address] Nitrite Ql (U) Negative Normal NEGATIVE [facility] Comment on above: Performed By: #### C OVSC #### [address] [address] pH (U) 5.0 [pH] Normal 5.0 - 8.0 [facility] Comment on above: Performed By: #### C OVSC #### [place] [id number] Protein Ql (U) 30(1+) Abnormal NEGATIVE [facility] Comment on above: Performed By: #### C OVSC #### [address] [address] Specific gravity (U) [Rel density] 1.032 Normal 1.005 - 1.035 [facility] Comment on above: Performed By: #### C OVSC #### [address] [address] Urobilinogen (U) [Mass/Vol] mg/dL Normal 0.0 - 1.9 [facility] Comment on above: Performed By: #### C OVSC #### [address] [address] URINE CULTURE,BACTERIALon URINE CULTURE,BACTERIAL PATIENT: NIKOLE MOREAU LOCATION: [facility]#: [id number] : [birth year] AGE: SEX: F ORDERED BY: KAVITA BETANCOURT SOURCE: URINE COLLECTED: 04/14/22 18:51 ANTIBIOTICS AT [facility]IS ALFREDO.: RECEIVED : 04/15/22 12:25 SITE: R E S U L T S URINE CULTURE,BACTERIAL FINAL 04/16/22 08:17 NO GROWTH Normal [facility] Comment on above: Performed By: #### C OVSC #### [address] [address] SPINE, LUMBOSACRAL MIN 4 VIE WSon 02-27-2022 SPINE, LUMBOSACRAL MIN 4 VIEWS Patient Name: NIKOLE MOREAU STUDY: Lumbar Spine, 5 views. INDICATION: SEGMENTAL AND SOMATIC DYSFUNCTION OF LUMBAR REGION. COMPARISON: None. ACCESSION NUMBER(S): [id number] ORDERING CLINICIAN: JENN MADRID FINDINGS: Mild dextroscoliosis centered in the upper lumbar region. No significant degenerative changes. No spondylolysis on the oblique views. Vertebral body heights are preserved. Posterior elements are intact. IMPRESSION: 1. Mild dextroscoliosis centered in the upper lumbar region. 2. Otherwise unremarkable lumbar spine radiographs. Electronically signed by: KAREN PERALES MD Normal [facility] Provider Note - ED v3on [...] No Current Medications SIGNIFICANT EVENTS: Immunizations Description:Tdap CALL CENTER NURSE: Is : no Is : no REVIEW [...] SIGNS: T PRBP SpO2O2(LPM) %FiO2 Method 13-Jan-2022 14:21:[id number]/85 96 MDM MDM/ED COURSE: Discussed Findings with: patient Data Reviewed: vital signs Treatment Plan: Exam unremarkable. Cleared for work. DISPOSITION Diagnosis/Annotation: ED Dx Name:Physical exam, pre-employment Code:Z02.1 Disposition: discharged Type: home CONSULT CRITICAL CARE TIME Is this a critically ill patient: no Electronic Signatures: Denys Cummings (MUNICIPAL MAINTENANCE WORKER-FEED ADVISER) (Signed 13-Jan-2022 14:30) Authored: ED Notes, HPI, PMH, ROS, PE, Results/Vital Signs, MDM/ED Course, Clinical Impression, Attestation, Chart Review, Scores Last Updated: 13-Jan-2022 14:30 by Denys Cummings (MUNICIPAL MAINTENANCE WORKER-FEED ADVISER) [facility] CALL CENTER NURSE - Office Visiton 10-08 CALL CENTER NURSE - Office Visit Diagnoses/Problems Assessed Breast cyst [...] Signatures Electronically signed by : TENNILLE Deleon APRN-FEED ADVISER; Oct 31 2021 1:58PM EST (Author) Normal [employer] CALL CENTER NURSE - Visiton 10-07-2021 CALL CENTER NURSE - Visit Chief Complaint PT IS HERE TODAY FOR A 6 WEEK POST . BREAST MILK IN A BOTTLE. HAS NO CONCERNS. DENIES ANY DEPRESSION. NOT INTERESTED IN B/C. HAS NOT STARTED HER PERIOD. HAS NOT BEEN SEXUALLY ACTIVE. History of Present Dkjiqya57-qzrs-rxl presents for 6-week status post pates vaginal [...] 03/19/2021 2:16:13 PM Vitals Vital Signs Recorded: [id number] 01:24PM Nmjxgvck531 Rwmwffhsd88 Height6 ft 1 in 2-20 Stature Shssqqoomj55 % Xjfuuj470 lb 2-20 Weight Kbepnykqyh97 % BMI Mvlzhgurer43.83 kg/m2 BMI Cedvstzmot89 % BSA Calculated2.42 Physical Exam General: None [...] Status: Hold For - Scheduling Requested for: [id number] Ordered Stat;For: exam; Ordered By: Bobo Candelaria [...] Oct 07 2021 5:15PM EST (Author) Normal [employer] CALL CENTER NURSE - Office Visiton 08-08 CALL CENTER NURSE - Office Visit Diagnoses/Problems Assessed Mastitis, (675.24) [...] Tablet Vitals Vital Signs Recorded: 28Aug2021 02:50PM Grfojhfo789 Pqqzpdipc59 Height6 ft 1 in 2-20 Stature Fekvxswjhc35 % Nauwmh841.6 kg 2-20 Weight Meivyuddqr18 % BMI Szgkzmhcqw51.82 kg/m2 BMI Yzhhbkttap49 % BSA Calculated2.48 Physical Exam PHYSICAL EXAMINATION: [...] Aug 28 2021 2:58PM EST (Author) Normal [employer] Daily Progress Note - OB-Pos t-partumon 08-18-2021 Daily Progress Note - [place]-Gush-audlop Current Stage: Stage: Post- Subjective Data: Post : Ambulate: Yes Flatus: Yes Tolerate Diet: Yes : PPD #2 Resting well. Breast-feeding. Objective Information: Objective Information: T PRBPMAPSpO2 Value36.37083634/624670% Date/Time08/18 6: 6: 6: 6: 6:256 6:25 [...] Last Updated: 18-Aug-2021 08:41 by Alex Lau) [facility] Discharge Pkjjdgx3ah 022 Discharge Profile2 Discharge Orders: Anticipated Discharge Date: Anticipated Discharge Wroa10-Ste-9493 Problem List: Additional Dx: First degree perineal [...] to nearest emergency room. *Information obtained from [facility]: Save Your Life: Get Care for These POST- Warning Signs Electronic Signatures: Alex Lau) (Signed 18-Aug-2021 08:43) Authored: Discharge Orders, , Hospital Course (Home Care/Gold Form), Provider FINAL REVIEW of Orders, Gold Form - Winch Derrick Operator Summary Lorena Cardoso (RN) (Signed 18-Aug-2021 13:41) Authored: Discharge Orders, Other Clinician Instructions Last Updated: 18-Aug-2021 13:41 by Lorena Cardoso (RN) [facility] Order Reconciliationon 08-18 Order Reconciliation Page 1 [...] required Benzocaine 20% - Menthol 0.5% Topical [place] (DERMOPLAST)DOSE = 1 application(s) Topical 4 Times [...] in al (more content not included)... Normal [facility] CBCon 08-17-2021 Erythrocyte distribution width (RBC) [Ratio] 16.1 % High 11.5 - 14.5 [facility] Comment on above: Performed By: #### C BC #### [address] [address] Hematocrit (Bld) [Volume fraction] 30.5 % Low 36.0 - 46.0 [facility] Comment on above: Performed By: #### C BC #### [address] [address] Hemoglobin (Bld) [Mass/Vol] 9.7 g/dL Low 12.0 - 16.0 [facility] Comment on above: Performed By: #### C BC #### [address] [address] MCHC (RBC) [Mass/Vol] 31.9 g/dL Low 32.0 - 36.0 [facility] Comment on above: Performed By: #### C BC #### [address] [address] MCV (RBC) [Entitic vol] 75 fL Low 80 - 100 [facility] Comment on above: Performed By: #### C BC #### [address] [address] Platelets (Bld) [#/Vol] 217 10*3/uL Normal 150 - 450 [facility] Comment on above: Performed By: #### C BC #### [address] [address] RBC 4.04 x10E12/L Normal 4.00 - 5.20 [facility] Comment on above: Performed By: #### C BC #### [address] [address] WBC (Bld) [#/Vol] 15.7 10*3/uL High 4.4 - 11.3 [facility] Comment on above: Performed By: #### C BC #### [address] [address] Daily Progress Note - OB-Pos t-partumon 08-17-2021 Daily Progress Note - PW-Mbpt-gguzpe Current Stage: Stage: Post- Subjective Data: Post : Ambulate: Yes Flatus: Yes Tolerate Diet: Yes : PPD #1 Resting well. Breast-feeding. Objective Information: Objective Information: T PRBPMAPSpO2 Value36.533920217/884934 8% Date/Time08/17 7: 7: 7: 7: 7: [...] Completion Last Updated: 17-Aug-2021 09:16 by Alex Lua) [facility] Laboratory - Hematology and Cell countson 08-17-2021 Erythrocyte distribution width (RBC) [Ratio] 16.1 % above high threshold See Below [employer] Work Phone: Comment on above: Reference Range: 11. 5 - 14.5 Hematocrit (Bld) [Volume fraction] 30.5 % below low threshold See Below [employer] Work Phone: Comment on above: Reference Range: 36. 0 - 46.0 Hemoglobin (Bld) [Mass/Vol] 9.7 g/dL below low threshold See Below [employer] Work Phone: Comment on above: Reference Range: 12. 0 - 16.0 MCHC (RBC) [Mass/Vol] 31.9 g/dL below low threshold See Below [employer] Work Phone: Comment on above: Reference Range: 32. 0 - 36.0 MCV (RBC) [Entitic vol] 75 fL below lo w threshold 80 - 100 [employer] Work Phone: Platelets (Bld) [#/Vol] 217 10*3/uL 150 - 450 [employer] Work Phone: RBC (Bld) [#/Vol] 4.04 {x10E12/L} See Below [employer] Work Phone: Comment on above: Reference Range: 4.0 0 - 5.20 WBC (Bld) [#/Vol] 15.7 10*3/uL above high threshold 4.4 - 11.3 [employer] Work Phone: Admission Risk Screen - OBon [...] instruction(2) Cultural Considerationsnone (2) Developmental Considerationsnone (2) Latter Day Considerationsnone (2) Other Learnerssignificant other(2) Learning Assessment (Other Learner): Other learner availableyes... (1) Learnersignificant other(2) Factors Influencing Readiness to Learnanxiety(2) Factors that Impact Ability to Learnnone(1) Devices/Methods Used to Communicatenone(2) Learning Preferencesverbal instruction(2) Cultural Considerationsnone (2) Developmental Considerationsnone (2) Latter Day Considerationsnone (2) Nutrition Risk Screen: Nutrition Risk [...] Spiritual Screen: Are there any cultural, spiritual, lutheran practices/values/needs that are important for us to knowno Do you want a visit/item from Pastoral Careno Would you like your Animation Director/Plater Apprentice notifiedno Depression Screen: During the past month, have you often been bothered by feeling down, depressed or hopelessno (1) During the past month, have you often had little interest or pleasure in doing thingsno (1) Have you had any thoughts of harming anyone elseno (1) [place] Suicide: Risk Screen Not Applicable/Able to Answerable to be screened In the Past Month: Have you wished you were or could go to sleep and not wake upno In the Past Month: Have you had any actual thoughts of killing yourselfno Lifetime: Have you ever done, started to do, or prepared to do anything to end your lifeno [place] Suicide Risknegative Family Violence Screen: Are you [...] Clinical asse (more content not included)... Normal [facility] CBCon 08-16-2021 Erythrocyte distribution width (RBC) [Ratio] 16.0 % High 11.5 - 14.5 [facility] Comment on above: Performed By: #### C OVSC #### [place] [id number] Hematocrit (Bld) [Volume fraction] 35.9 % Low 36.0 - 46.0 [facility] Comment on above: Performed By: #### C OVSC #### [place] [address] Hemoglobin (Bld) [Mass/Vol] 11.5 g/dL Low 12.0 - 16.0 [facility] Comment on above: Performed By: #### C OVSC #### [address] [address] MCHC (RBC) [Mass/Vol] 32.0 g/dL Normal 32.0 - 36.0 [facility] Comment on above: Performed By: #### C OVSC #### [address] [address] MCV (RBC) [Entitic vol] 74 fL Low 80 - 100 [facility] Comment on above: Performed By: #### C OVSC #### [address] [address] Platelets (Bld) [#/Vol] 251 10*3/uL Normal 150 - 450 [facility] Comment on above: Performed By: #### C OVSC #### [address] [address] RBC 4.82 x10E12/L Normal 4.00 - 5.20 [facility] Comment on above: Performed By: #### C OVSC #### [place] [address] WBC (Bld) [#/Vol] 11.7 10*3/uL High 4.4 - 11.3 [facility] Comment on above: Performed By: #### C OVSC #### [place] [address] CORONAVIRUS 2019, SCREEN ASY MPTOMATICon 08-16-2021 SARS-CoV-2 (COVID-19) RNA KATHY+probe Ql (Unsp spec) Not detected Normal Not Detected [facility] Comment on above: Result Comment: . This test has received FDA Emergency Use Authorization (EUA) and has been verified by [facility]. This test is only authorized for the duration of time that circumstances exist to justify the authorization of the emergency use of in vitro diagnostic tests for the detection of SARS-CoV-2 virus and/or diagnosis of COVID-19 infection under section 564(b)(1) of the Act, 21 U.S.C. 360bbb-3(b)(1), unless the authorization is terminated or revoked sooner. [facility] is certified under CLIA-88 as qualified to perform high complexity testing. Testing is performed in the [facility] laboratory located at [address] [place] [address]. SARS-CoV-2/Flu/RSV Multiplex Test: Fact sheet for providers: https://www.fda.gov/media/586410/download Fact sheet for patients: https://www.fda.gov/media/354937/download Performed By: #### C OVSC #### [place] [address] Lab Specimen Source Nasal, Nasopharyngeal Normal [facility] Comment on above: Performed By: #### C OVSC #### [place] [address] Coronavirus 2019 RNA by PCR, Screening Asymptomticon 08-16-2021 Coronavirus 2019 RNA by PCR, Screening Asymptomtic Not detected Normal See Below [facility] [address] Work Phone: Comment on above: SOURCE: Nasal, Nasop haryngealReference Range: Not Detected.This test has received FDA Emergency Use Authorization (EUA) and has been verified by [facility]. This test is only authorized for the duration of time that circumstances exist to justify the authorization of the emergency use of in vitro diagnostic tests for the detection of SARS-CoV-2 virus and/or diagnosis of COVID-19 infection under section 564(b)(1) of the Act, 21 U.S.C. 360bbb-3(b)(1), unless the authorization is terminated or revoked sooner. [facility] is certified under CLIA-88 as qualified to perform high complexity testing. Testing is performed in the [facility] laboratory located at [address] [place] [address].SARS-CoV-2/Flu/RSV Multiplex Test: Fact sheet for providers: https://www.fda.gov/media/683532/downloadFact sheet for patients: https://www.fda.gov/media/171156/download Covid 19 Resultson 2 SARS-CoV-2 (COVID-19) RNA [...] You may also be contacted by the [facility] to see if any of your close [...] or Naproxen (Aleve) can also be used. Ekmq-pct-viwleqr cough and cold medicines can be used according to the instructions on the package. Some htmf-mil-cngclam medicines also contain acetaminophen. Make sure you [...] water are not available, use alcohol-based hand anesthesiologist assistant certified. Avoid touching your eyes, nose, and mouth [...] 24 nakita (more content not included)... Normal [facility] Delivery Recordon 08-16-2021 Delivery Record Lab [...] Delivery Information: Vaginal Delivery Information: Counts Correctyes [place] Delivery Information: A Delivery Information: Baby A Delivery: Rupture of Membranes date/xboe26-Xmn-6423 02:30 Amniotic Fluid Colorclear Delivery Typevaginal delivery Delivery Locationlabor and delivery Delivery Date/Aicx16-Ujq-4795 19:00 Delivery Date/Time Verified Bykh Length of Time of ROM (rounded down to nearest hour)16 Sexfemale Identification Band [id number] Electronic Transponder [id number] ID Bands Verified byLaura Lawler RN 4th [...] Updated: 16-Aug-2021 21:59 by Laura Lawler (CASSIE) [facility] Discharge Planning Axya9ve 0 08-16-2021 Discharge Planning Note2 Discharge Planning: Anticipated Discharge Imrv51-Iea-2561 Discharge Planning Date and Time: Discharge Planning [...] Signature: Leroy MATTHEWS Date and Time:08/18/2021 @ 1507 According to plan, patient discharged home with S.O. Discharge instructions printed and reviewed. Teaching provided on new medications, self-care, signs and symptoms to report, and follow-up appointments. Patient verbalized understanding and denies any questions at time of discharge. Patient instructed to call provider with any additional questions after discharge. Signature: Julia Cardoso RN Assessment: Discharge Planning Assessment Bbgx03-Hrb-3227 Lives Withsignificant other(1) [place] Resource/Environmental Concernsnone(1) [place]) Services Anticipated at Transitionnon(1) Nursing Checklist: Lines/Cathetersremoved/a ppropriate for next level of care Patient has Prescriptionsno prescriptions needed Transportation for Discharge Confirmedyes Follow up Reviewedyes Discharge Instructions Reviewed WithPatient Discharge Instructions Review Completed with Patient/Family (diet, activity, pt instructions)yes Discharge Documentation: Discharge/Transfer Date/Ypyh31-Tov-4546 15:05 Discharged Accompanied Bysignificant other/partner Discharge Modeambulatory Transportation Methodprivate car Code StatusCode Status order at time of discharge: Full Code [place] DNR Form Sent with Patient and/or Familyno Final DispositionHome Electronic Signatures: Lorena Cardoso (CASSIE) (Signed 18-Aug-2021 15:21) Authored: Discharge Planning, Nursing Checklist, Discharge Documentation Mechelle Hwang) (Signed 16-Aug-2021 07:00) Authored: Discharge Planning, Assessment Last Updated: 18-Aug-2021 15:21 by Lorena Cardoso (RN) References: 1. Data Referenced From Patient Profile - OB v3 16-Aug-2021 05:19 Normal [facility] Laboratory - Blood bankon ABO group Nom (Bld) [facility] Call [facility] Work Phone: Blood group antibody screen Ql Negative [facility] Work Phone: Rh immune globulin screen (Bld) [Interp] Positive [facility] boolino Work Phone: Laboratory - Hematology and Cell countson 08-16-2021 Erythrocyte distribution width (RBC) [Ratio] 16.0 % above high threshold See Below [facility] [employer] Work Phone: Comment on above: Reference Range: 11. 5 - 14.5 Hematocrit (Bld) [Volume fraction] 35.9 % below low threshold See Below [facility] [employer] Work Phone: Comment on above: Reference Range: 36. 0 - 46.0 Hemoglobin (Bld) [Mass/Vol] 11.5 g/dL below low threshold See Below [facility] [employer] Work Phone: Comment on above: Reference Range: 12. 0 - 16.0 MCHC (RBC) [Mass/Vol] 32.0 g/dL See Below [facility] northChainalyticsGads[facility] [employer] Work Phone: Comment on above: Reference Range: 32. 0 - 36.0 MCV (RBC) [Entitic vol] 74 fL below lo w threshold 80 - 100 [facility] HospitalChainalyticsG[facility] [employer] Work Phone: Platelets (Bld) [#/Vol] 251 10*3/uL 150 - 450 [facility] HospitalChainalyticsMary [place] [address] [employer] Work Phone: RBC (Bld) [#/Vol] 4.82 {x10E12/L} See Below Wo [facility], incSlicebooks [facility] [employer] Work Phone: Comment on above: Reference Range: 4.0 0 - 5.20 WBC (Bld) [#/Vol] 11.7 10*3/uL above high threshold 4.4 - 11.3 [facility] [employer] Work Phone: Order Reconciliationon 08-16 Order Reconciliation Page 1 Admission Reconciliation Document Reconciliation Type: Admission requested on behalf of Alex Lau (Physician) done by Alex Lau) Admission - Reconciliation: 16-Aug-2021 06:25 by: Alex Lau) Home MedicationsEnteredLast Dose TakenReconciled with current Order Reconciliation Comment/ Additional Information Prena1 oral capsule 1 cap(s) orally once a [id number]-[id number]-Mpp-938 2 AM Reviewed and Held Additional Current [...] mL Intr (more content not included)... Normal [facility] JACQUI.RUPTURE OF MEMB.on 08-07 JACQUI.RUPTURE OF MEMB. Positive Abnormal Negative [facility] Comment on above: Order Comment: Wells d- RB to Charley Osborne , 08/16/2021 03:34 Result Comment: Call ed- RB to Charley Dylon , 08/16/2021 03:34 Performed By: #### C OVSC #### [place] [address] PREMATURE RUPTURE OF MEMBRAN [place] 08-16-2021 PREMATURE RUPTURE OF MEMBRANE Positive Abnormal Negative [facility] [place] [address] [employer] Work Phone: Comment on above: Called- RB [...] Visiting Rightsyes Limitations on Visitors/Phone Callsnone [facility]rived [facility] Was Admitted To in Past 90 Daysnone Patient Belongingsremains with patient Patient Belongings Remaining with Patientclothing; cell phone/electronics Home Meds have been Reviewed and Verified with Patient/Familyyes Medications Brought to Hospitalno Info: Gravida1 (1) Term Deliveries0 (1) Deliveries0 (1) Abortions0 (1) Living Children0 (1) Patient stated [id number]-Ebh-0850 Calculation of EGA based on patient stated EDD37.6 Records availableyes Trimester Care Initiatedfirst Care ProviderAdair Current Risksnone Testsultrasound Previous live (any gestational age)no [place]anno Childbirth Education Classes Planned or Attendednone Contraceptionnone Baby's Post Discharge Care Provider (Provider Name, Address and Phone Number) ESTHETICS INSTRUCTOR Feedingbreastmilk Benefits of Breast Milk DiscussionThe benefits of exclusive breast milk feeding and the risk of adding formula have been discussed with patient / mother. Discussion Date / Oypd48-Sxt-4602 05:26 Previous Experienceno General [facility]: Current Weight in kg145 kilogram(s) Current Weight in lse654.6 pound(s) Weight Methodactual (measured) Scale Typestanding Pre [...] other Significant Exposurenone Resource/Environmental Concernsnone [facility] Anticipated at Transitionnone Additional Information: Information [...] Note - OB v4 16-Aug-2021 03:18 Normal [facility] Risk Screen - OB Triageon Risk [...] Learning Preferencesverbal instruction Cultural Considerationsnone Developmental Considerationsnone Latter Day Considerationsnone Other Learnerssignificant other Learning Assessment (Other Learner): Other learner availableyes... Learnersignificant other Factors Influencing Readiness to Learnanxiety Factors that Impact Ability to Learnnone Devices/Methods Used to Communicatenone Learning Preferencesverbal instruction Cultural Considerationsnone Developmental Considerationsnone Latter Day Considerationsnone Depression/Suicide: Depression Screen: During the past month, have you often been bothered by feeling down, depressed or hopelessno During the past month, have you often had little interest or pleasure in doing thingsno Have you had any thoughts of harming anyone elseno [place] Suicide: Risk Screen Not Applicable/Able to Answerable to be screened In the Past Month: Have you wished you were or could go to sleep and not wake upno In the Past Month: Have you had any actual thoughts of killing yourselfno Lifetime: Have you ever done, started to do, or prepared to do anything to end your lifeno [place] Suicide Risknegative Family Violence: Abuse Screen: Are [...] 16-Aug-2021 03:21 by Kandy Osborne (RN) Normal [facility] SYPHILIS SCREENING WITH REFL EXon 08-16-2021 SYPHILIS TOTAL AB Non-Reactive Normal NONREACTIVE [facility] Comment on above: Result Comment: No s ignificant level of Treponema pallidum antibody detected. Repeat testing in 2 to 4 weeks may be considered if early infection or incubating syphilis infection is suspected. Performed By: #### C OVSC #### [place] [address] Lab Specimen Source Normal [facility] Comment on above: Performed By: #### C OVSC #### [place] [address] T. pallidum IgG+IgM IA Ql (S) Non-Reactive See Below [facility] [address] Work Phone: Comment on above: SOURCE: Reference nge: NONREACTIVENo significant level of Treponema pallidum antibody detected. Repeat testing in 2 to 4 weeks may be considered if early infection or incubating syphilis infection is suspected. TYPE + SCREENon 08-16-2021 ABO TYPE O [facility] Comment on above: Performed By: #### T +S ####[address] [address] RH TYPE Positive Normal [facility] Comment on above: Performed By: #### T +S ####[address] [address] Risk Screen - OB Triageon Risk Screen [...] Learning Preferencesverbal instruction Cultural Considerationsnone Developmental Considerationsnone Latter Day Considerationsnone Learning Assessment (Other Learner): Other learner availableyes... Learnersignificant other Factors Influencing Readiness to Learnanxiety Factors that Impact Ability to Learnnone Devices/Methods Used to Communicatenone Learning Preferencesverbal instruction Cultural Considerationsnone Developmental Considerationsnone Latter Day Considerationsnone Depression/Suicide: Depression Screen: During the past month, have you often been bothered by feeling down, depressed or hopelessno During the past month, have you often had little interest or pleasure in doing thingsno Have you had any thoughts of harming anyone elseno [place] Suicide: Risk Screen Not Applicable/Able to Answerable to be screened In the Past Month: Have you wished you were or could go to sleep and not wake upno In the Past Month: Have you had any actual thoughts of killing yourselfno Lifetime: Have you ever done, started to do, or prepared to do anything to end your lifeno [place] Suicide Risknegative Family Violence: Abuse Screen: Are [...] Updated: 12-Aug-2021 02:16 by Kandy Osborne (RN) [facility] Triage Note - OB v4on 2021 Triage Note - OB v4 Triage: General Info: Time of Arrival on [id number] 02:09 [place] Acuity Level3 Modified Acuity Level4 Chief Complaintdecreased movement Spoken Language PreferredEnglish Weight in kg143.8 kilogram(s) Weight in vyg007 pound(s) Weight Methodactual (measured) Scale Typestanding Height in feet5 feet Height in dairfe51.97 inch(es) Height in cm182.8 centimeter(s) Height Methodstated BMI (kg/m2)43.033 square meter Blood Avoidance/Restrictionsno ne Previous Transfusion Reactionnot applicable Patient Belongingsnone Home Meds have been Reviewed and Verified with Patient/Familyyes Info: Gravida1 Term Deliveries0 Deliveries0 Abortions0 Living Children0 Patient stated [id number] Calculation of EGA based on patient stated EDD37.2 Records availableyes Trimester Care Initiatedfirst Care ProviderAdair Current Risksnone Previous live (any gestational age)no Substance: Smoking Statusnever smoker Alcohol Usedenies Drug Usedenies Drug 2 Usedenies Disposition/Disch: Dispositiondischarged from facility, home with own care Patient Meets Criteria for Home Blood Pressure Monitorno Admission/Observation/Di scharge/Transfer Date/[id number] 02:54 Discharged Accompanied Bysignificant other/partner Discharge Modeambulatory Transportation Methodprivate car Travel History: Travel or ExposureNO travel to International locations in the past 30 days Additional Information: Information Review: Allergies have been Reviewed and Verified with Patient/Familyyes Allergy, Intolerance, Adverse Event: Allergies: sumatriptan: Drug, Unknown, Active Electronic Signatures: Knady Osborne (CASSIE) (Signed 12-Aug-2021 02:56) Authored: General Info, Info, Substance, Disposition/Disch, Travel History, Additional Information Last Updated: 12-Aug-2021 02:56 by Kandy Osborne (CASSIE) Normal [facility] Laboratory - Microbiology an d Antimicrobial susceptibilityon 07-30-2021 Bacteria identified Aer cx Nom (Genital specimen) Abnormal [facility] Work Phone: No Panel Informationon 07-30 Please click on the link to view the study images Normal [facility] Work Phone: Normal [facility] Work Phone: No Panel Informationon 07-02 Please click on the link to view the study images Normal [facility] Work Phone: Normal [employer] Work Phone: Glucose, 1 Hour Screen, Preg nancyon 05-23-2021 Glucose 1 Hr post 50 g glucose PO [Mass/Vol] 103 mg/dL <135 [email or web address] [employer] Work Phone: Comment on above: Diagnostic value wit h glucose loading dose of 50 g. Reference values from [place] Diabetes Association. Diabetes Care 2015;38(Suppl.1):S8-S16 Laboratory - Hematology and Cell countson 05-23-2021 Erythrocyte distribution width (RBC) [Ratio] 14.2 % See Below [email or web address]com[facility] [employer] Work Phone: Comment on above: Reference Range: 11. 5 - 14.5 Hematocrit (Bld) [Volume fraction] 37.5 % See Below [facility] [employer] Work Phone: Comment on above: Reference Range: 36. 0 - 46.0 Hemoglobin (Bld) [Mass/Vol] 12.5 g/dL See Below [facility] [employer] Work Phone: Comment on above: Reference Range: 12. 0 - 16.0 MCHC (RBC) [Mass/Vol] 33.4 g/dL See Below [facility] Work Phone: Comment on above: Reference Range: 32. 0 - 36.0 MCV (RBC) [Entitic vol] 82 fL 80 - 100 W [facility]UNC [facility] Nashbool[facility] Work Phone: Platelets (Bld) [#/Vol] 209 10*3/uL 150 - 450 [facility] [employer] Work Phone: RBC (Bld) [#/Vol] 4.54 {x10E12/L} See Below Wo [facility] hospitalChainalyticsBarnes-Jewish [facility] Hospitalboolino Work Phone: Comment on above: Reference Range: 4.0 0 - 5.20 WBC (Bld) [#/Vol] 10.0 10*3/uL 4.4 - 11.3 [facility] [employer] Work Phone: No Panel Informationon 05-23 NONE [facility] [employer] Work Phone: No Panel Informationon 04-16 Normal [facility] [address] [employer] Work Phone: HIV 1/2 ANTIGEN/ANTIBODY SCR EEN WITH REFLEX TO CONFIRMATIONon 04-03-2021 HIV 1+2 Ab Qn (S) Non-Reactive See Below [facility] [address] [employer] Work Phone: Comment on above: SOURCE: Reference Ra nge: NONREACTIVE HIV Ag/Ab screen is performed using the Siemens [facility] HIV Ag/Ab Combo assay which detects the presence of HIV p24 antigen as well as antibodies to HIV-1 (Group M and O) and HIV-2..No laboratory evidence of HIV infection. If acute HIV infection is suspected, consider testing for HIV RNA by PCR (viral load). Hepatitis B Surface Antigeno n 04-03-2021 Hepatitis B Surface Antigen Non-Reactive See Below [facility] HospitalChainalyticsG[facility] [employer] Work Phone: Comment on above: SOURCE: Reference [...] bankon ABO group Nom (Bld) O [facility] [employer] Work Phone: ABO group Nom (Bld) Canceled [facility] [address] [employer] Work Phone: Blood group antibody screen Ql Negative [employer]Hun[facility] [employer]-[facility] [employer] Work Phone: Blood group antibody screen Ql Canceled [facility] [employer] Work Phone: Rh immune globulin screen (Bld) [Interp] Positive [facility] Hospital[facility] [place] [address] [place] Work Phone: Rh immune globulin screen (Bld) [Interp] Canceled [facility] [place] [address] [place] Work Phone: Laboratory - Hematology and Cell countson 04-03-2021 Erythrocyte distribution width (RBC) [Ratio] 14.5 % See Below [facility] HospitalChainalyticsMary [place] [address] [place] Work Phone: Comment on above: Reference Range: 11. 5 - 14.5 Hematocrit (Bld) [Volume fraction] 38.9 % See Below [facility] HospitalChainalyticsMary [place] [address] [place] Work Phone: Comment on above: Reference Range: 36. 0 - 46.0 Hemoglobin (Bld) [Mass/Vol] 12.8 g/dL See Below [place] [address] [place] Work Phone: Comment on above: Reference Range: 12. 0 - 16.0 MCHC (RBC) [Mass/Vol] 32.9 g/dL See Below [place] [address] [employer] Work Phone: Comment on above: Reference Range: 32. 0 - 36.0 MCV (RBC) [Entitic vol] 84 fL 80 - 100 W omeadventhealthChainalyticsMary [place] [address] [employer] Work Phone: Platelets (Bld) [#/Vol] 201 10*3/uL 150 - 450 [facility] HospitalChainalyticsMary [place] [address] [employer] Work Phone: RBC (Bld) [#/Vol] 4.64 {x10E12/L} See Below Wo [facility]enselect [facility], incChainalyticsMary [place] [address] [employer] Work Phone: Comment on above: Reference Range: 4.0 0 - 5.20 WBC (Bld) [#/Vol] 9.6 10*3/uL 4.4 - 11.3 [facility] [employer] Work Phone: No Panel Informationon 04-03 NONE [facility] [employer] Work Phone: Rubella IgG Antibodyon 04-03 Rubella virus IgG IA Ql Positive W [facility]-[place] [address] [employer] Work Phone: Comment on above: INTERPRETATIVE COMME [...] IgG+IgM IA Ql (S) Non-Reactive See Below [facility] [employer] Work Phone: Comment on above: Reference Range: NON REACTIVENo significant level of Treponema pallidum antibody detected. Repeat testing in 2 to 4 weeks may be considered if early infection or incubating syphilis infection is suspected. No Panel Informationon 03-21 Please click on the link to view the study images Normal [facility]nediyor.com[facility] [employer] Work Phone: Normal [facility] [employer] Work Phone: Cult, Urineon 03-19-2021 Bacteria identified Cx Nom (U) Bib + [facility], incChainalyticsMary [place]ille [address] [employer] Work Phone: GC + Chlamydia By Amplified Detectionon 03-19-2021 C. trachomatis rRNA KATHY+probe Ql (Unsp spec) Negative Negative [facility] HospitalChainalyticsMary [place] [address] [employer] Work Phone: Comment on above: The APTIMA Combo 2 a ssay is FDA-approved for Chlamydia trachomatis and Neisseria gonorrhoeae testing on female endocervical and vaginal swabs, ThinPrep liquid pap samples, male urine samples and urethral swabs. Performance characteristics for Chlamydia trachomatis and Neisseria gonorrhoeae testing on specific hgg-UOE-txwlvlsq sample types (female urine samples) have been validated by [facility]. This laboratory is certified by CLIA to perform high complexity testing. Samples from all other sites are not validated for this method. N. gonorrhoeae rRNA KATHY+probe Ql (Unsp spec) Negative Negative [employer] Work Phone: Comment on above: SOURCE: Urine The AP JEREMY Combo 2 assay is FDA-approved for Chlamydia trachomatis and Neisseria gonorrhoeae testing on female endocervical and vaginal swabs, ThinPrep liquid pap samples, male urine samples and urethral swabs. Performance characteristics for Chlamydia trachomatis and Neisseria gonorrhoeae testing on specific hvd-XKM-hzxneqgx sample types (female urine samples) have been validated by [facility]. This laboratory is certified by CLIA to perform high complexity testing. Samples from all other sites are not validated for this method. IO HCG, Urine Test on 03-19-2021 HCG ( test) Ql (U) Positive Abnormal [employer] Work Phone: LMPon 03-19-2021 Last menstrual period start date [id number] [employer] Work Phone: CALL CENTER NURSE - Office Visiton 03-09 CALL CENTER NURSE - Office Visit Diagnoses/Problems Assessed Positive urine [...] Tablet Vitals Vital Signs Recorded: 19Mar2021 02:15PM Yfowsowuoxk44.5 F Aoazoaxt054 Jgkdjaays45 Height6 ft 2-20 Stature Qpdjgzwnzx88 % Thxlup781.2 kg 2-20 Weight Hvkkvbfhza27 % BMI Idyttaghpb39.54 kg/m2 BMI Kkuzocrfnm02 % BSA Calculated2.42 [id number] Physical Exam PHYSICAL EXAMINATION: Well-developed, well nourished, [...] II-XII grossly intact. Results/Data IO HCG, Urine [id number] 02:16PMAlex Lau Medline hCG [id number] Exp: 07/06/2022 Test NameResultFlagReference IO Urine hCGPositiveA Signatures Electronically signed by : Alex Lau MD; Mar 19 2021 2:24PM EST (Author) Normal [employer] Grp A Strp rRNA GnPrbe,Throa ton 05-04-2019 Group A Strep rRNA Detection Not Detected Normal NODT [facility] Insulin Lvlon 12-09-2018 Insulin Lvl 26.4 mcIU/mL High 2.6-24.9 [facility] Comment on above: Result Comment: Perf ormed At: [facility] [address] [place], [place] [id number] Eben Mckenzie PhD Ph:[phone] Performed By: #### 2 [id number] #### BETHANY Microbiology Subsection [address] [place] [address] Auto Diffon 12-08-2018 Basophils (Bld) [#/Vol] 0.0 E3/mcL Normal 0.0-0.2 S [facility] Comment on above: Order Comment: Order Added by Discern Expert. Performed By: #### 2 [id number] #### BETHANY RemHemo [address] [place] [address] Basophils/100 WBC (Bld) 0.3 % Normal 0.0-2.0 S [facility] Comment on above: Order Comment: Order Added by Discern Expert. Performed By: #### 2 [id number] #### BETHANY RemHemo [address] [place] [address] Eos Absolute 0.1 E3/mcL Normal 0.0-0.7 [facility] Comment on above: Order Comment: Order Added by Discern Expert. Performed By: #### 2 [id number] #### BETHANY RemHemo [address] [place] [address] Eosinophils/100 WBC (Bld) 1.0 % Normal 0.0-11.0 [facility] Comment on above: Order Comment: Order Added by Discern Expert. Performed By: #### 2 [id number] #### BETHANY RemHemo [address] [place] [address] Lymphocytes (Bld) [#/Vol] 2.1 E3/mcL Normal 1.2-3.4 [facility] Comment on above: Order Comment: Order Added by Discern Expert. Performed By: #### 2 [id number] #### BETHANY RemHemo [address] [place] [address] Lymphocytes/100 WBC (Bld) 20.5 % Normal 20.0-55.0 [facility] Comment on above: Order Comment: Order Added by Discern Expert. Performed By: #### 2 070582 #### BETHANY RemHemo [address] [place] [address] Cobb Absolute 0.6 E3/mcL Normal 0.0-0.7 [facility] Comment on above: Order Comment: Order Added by Discern Expert. Performed By: #### 2 877108 #### BETHANY RemHemo [address] [place] [address] Monocytes/100 WBC (Bld) 6.0 % Normal 0.0-10.0 S [facility] Comment on above: Order Comment: Order Added by Discern Expert. Performed By: #### 2 [id number] #### BETHANY RemHemo [facility] [place] [address] Neutro Absolute 7.5 E3/mcL High 1.4-6.5 [facility] Comment on above: Order Comment: Order Added by Discern Expert. Performed By: #### 2 [id number] #### BETHANY RemHemo [address] [place] [address] Neutro Auto 72.2 % Normal 37.0-75.0 [facility] Comment on above: Order Comment: Order Added by Discern Expert. Performed By: #### 2 [id number] #### BETHANYSteve KnutsonHemo [address] [place] [address] C Urineon 12-08-2018 C Urine Final Report: [...] <=4 S SXT : <=2/38 S Normal [facility] Comment on above: Performed By: #### 2 [id number] #### BETHANY Microbiology Subsection [address] [place] [address] CBC w/ Auto Diffon 9 Erythrocyte distribution width (RBC) [Ratio] 14.4 % Normal 11.5-14.5 [facility] Comment on above: Performed By: #### 2 315659 #### BETHANY RemHemo [address] [place] [address] Hematocrit (Bld) [Volume fraction] 42.4 % Normal 35.0-45.0 [facility] Comment on above: Performed By: #### 2 [id number] #### BETHANY RemHemo [address] [place], [place] [address] Hemoglobin (Bld) [Mass/Vol] 14.1 g/dL Normal 12.0-15.0 [facility] Comment on above: Performed By: #### 2 632358 #### BETHANY KnutsonHemo [address] [place] [address] MCH (RBC) [Entitic mass] 28.3 pg Normal 26.0-32.0 [facility] Comment on above: Performed By: #### 2 998700 #### BETHANY KnutsonHemo [facility] [place] [address] MCHC (RBC) [Mass/Vol] 33.2 g/dL Normal 33.0-37.0 [facility] Comment on above: Performed By: #### 2 987150 #### BETHANY KnutsonHemo [facility] [place] [address] MCV (RBC) [Entitic vol] 85.4 fL Normal 78.0-95.0 S [facility] Comment on above: Performed By: #### 2 [id number] #### BTEHANY KnutsonHemo [facility] [place] [address] Platelet mean volume (Bld) [Entitic vol] 9.2 fL Normal 7.4-11.0 [facility] Comment on above: Performed By: #### 2 803630 #### BETHANY KnutsonHemo [address] [place] [address] Platelets (Bld) [#/Vol] 232 E3/mcL Normal 130-400 S [facility] Comment on above: Performed By: #### 2 589869 #### BETHANY RemHemo [facility] [place] [address] RBC (Bld) [#/Vol] 4.96 E6/mcL Normal 3.90-5.30 [facility] Comment on above: Performed By: #### 2 151133 #### BETHANY RemHemo [address] [place] [address] WBC (Bld) [#/Vol] 10.4 E3/mcL Normal 3.6-11.0 [facility] Comment on above: Performed By: #### 2 314233 #### BETHANY RemHemo [address] [place] [address] CMPon 12-08-2018 Albumin [Mass/Vol] 4.3 g/dL Normal 3.4-5.0 [facility] Comment on above: Performed By: #### 2 864528 #### [facility] [employer] [address] [place], [place] [address] Albumin/Globulin [Mass ratio] 2.0 {ratio} High 1.1-1.9 [facility] Comment on above: Performed By: #### 2 153209 #### BETHANY [employer] [address] [place], [place] [address] Alk Phos 87 Int._Unit/L Normal 45-108 [facility] Comment on above: Performed By: #### 2 668651 #### [facility] [employer] [address] [place], [place] [address] ALT [Catalytic activity/Vol] 7 Int._Unit/L Normal 3-28 [facility] Comment on above: Performed By: #### 2 268547 #### [facility] [employer] [address] [place] [address] Anion gap [Moles/Vol] 12 mmol/L Normal 10-20 [facility] Comment on above: Performed By: #### 2 345101 #### [facility] [employer] [address] [place], [place] [address] AST [Catalytic activity/Vol] 8 Int._Unit/L Low 9-24 [facility] Comment on above: Performed By: #### 2 630241 #### [facility] [employer] [address] [place] [address] Bili Total 0.76 mg/dL Normal 0.00-0.90 [facility] Comment on above: Performed By: #### 2 746147 #### [facility] [employer] [address] [place], [place] [address] Calcium [Mass/Vol] 9.3 mg/dL Normal 8.5-10.7 [facility] Comment on above: Performed By: #### 2 768713 #### BETHANY [employer] [address] [place], [place] [address] Chloride [Moles/Vol] 107 mmol/L Normal 98-107 [facility] Comment on above: Performed By: #### 2 810505 #### EBTHANY [employer] [address] [place] [address] CO2 [Moles/Vol] 25.0 mmol/L Normal 18.0-27.0 [facility] Comment on above: Performed By: #### 2 104597 #### BETHANY [employer] [address] [place] [address] Creatinine [Mass/Vol] 0.7 mg/dL Normal 0.5-0.9 [facility] Comment on above: Performed By: #### 2 989268 #### BETHANY [employer] [address] [place] [address] Globulin (S) [Mass/Vol] 2.0 g/dL Normal 2.0-4.0 S [facility] Comment on above: Performed By: #### 2 009081 #### BETHANY [employer] [address] [place] [address] Glucose [Mass/Vol] 95 mg/dL Normal 70-99 [facility] Comment on above: Performed By: #### 2 590787 #### BETHANY [employer] [address] [place] [address] Potassium [Moles/Vol] 4.0 mmol/L Normal 3.5-5.3 [facility] Comment on above: Performed By: #### 2 635430 #### BETHANY [employer] [address] [place] [address] Protein [Mass/Vol] 6.4 g/dL Normal 6.2-7.7 [facility] Comment on above: Performed By: #### 2 269909 #### BETHANY [employer] [address] [place] [address] Sodium [Moles/Vol] 139 mmol/L Normal 136-145 [facility] Comment on above: Performed By: #### 2 [id number] #### BETHANY [employer] [address] [place] [address] Urea nitrogen [Mass/Vol] 10 mg/dL Normal 6-23 [facility] Comment on above: Performed By: #### 2 045572 #### BETHANY [employer] [address] [place] [address] Urea nitrogen/Creatinine [Mass ratio] 14.3 ratio Normal 5.4-30.0 [facility] Comment on above: Performed By: #### 2 961361 #### BETHANY [employer] [address] [place] [address] Ferritinon 12-08-2018 Ferritin [Mass/Vol] 14.0 ng/mL Normal 8.0-150.0 [facility] Comment on above: Performed By: #### 2 266342 #### BETHANY [employer] [address] [place], [place] [address] IjdW1pbl 12-08-2018 HbA1c (Bld) [Mass fraction] 5.1 % Normal 4.0-6.3 [facility] Comment on above: Performed By: #### 2 558210 #### BETHANY Microbiology Subsection [address] [place] [address] Ironon 12-08-2018 Iron [Mass/Vol] 32 microgram/dL Normal 28-175 [facility] Comment on above: Performed By: #### 2 393484 #### BETHANY [employer] [address] [place] [address] Lipid Profileon 12-08-2018 Cholesterol [Mass/Vol] 98 mg/dL Normal 0-169 [facility] Comment on above: Result Comment: TOTA Nasrin CHOLEESTEROL: <200 NORMAL 200 - 239 BORDERLINE HIGH >240 HIGH Performed By: #### 3 [id number] #### BETHANY [employer] [address] [place] [address] Cholesterol in HDL [Mass/Vol] 36 mg/dL Low 40-45 [facility] Comment on above: Performed By: #### 3 [id number] #### BETHANY [employer] [address] [place] [address] Cholesterol in LDL [Mass/Vol] 47 mg/dL Normal 0-130 [facility] Comment on above: Result Comment: <100 OPTIMAL 100-129 NEAR / ABOVE OPTIMAL 130-159 BORDERLINE HIGH 160-189 HIGH >190 VERY HIGH CALC LDL NOT VALID WHEN TRIGLYCERIDE IS >400 MG/DL Performed By: #### 3 [id number] #### BETHANY [employer] [address] [place] [address] Cholesterol in VLDL [Mass/Vol] 15 mg/dL Normal 0-40 [facility] Comment on above: Performed By: #### 3 [id number] #### BETHANY [employer] [facility] [place] [address] Triglyceride [Mass/Vol] 75 mg/dL Normal 0-149 S [facility] Comment on above: Result Comment: AGE DESIRABLE BORDERLINE HIGH 91 D - 9 Y 0 - 74 75 - 99 > 100 10 - 19 Y 0 - 89 90 - 129 > 130 20 -24 Y 0 - 114 115 - 149 > 150 > 25 0 - 149 150 - 199 200 - 499 Performed By: #### 3 [id number] #### BETHANY [employer] [address] [place] [address] T4 Totalon 12-08-2018 T4 [Mass/Vol] 07.2 microgram/dL Normal 04.5-12.5 [facility] Comment on above: Performed By: #### 2 [id number] #### BETHANY Microbiology Subsection [address] [place] [address] TIBC Calculatedon 12-08-2018 TIBC 413 microgram/dL Normal >=250 [facility] Comment on above: Performed By: #### 1 [id number] #### BETHANY [employer] [address] [place] [address] Transferrin [Mass/Vol] 295 mg/dL Normal 200-360 [facility] Comment on above: Performed By: #### 1 [id number] #### BETHANY [employer] [address] [place] [address]199 TSHon 12-08-2018 TSH Qn 1.26 mcIU/mL Normal 0.30-5.60 [facility] Comment on above: Performed By: #### 2 655179 #### BETHANY [employer] [facility] [place] [address] Vitamin D 25 Hydroxyon 12-08 Vitamin D 25 Hydroxy 37.0 ng/mL Normal 30.0-100.0 [facility] Comment on above: Performed By: #### 2 795656 #### BETHANY Microbiology Subsection [address] [place] [address] Lab Miscellaneouson 07-06-19 19 Status See Ref Lab Report Normal [facility] Comment on above: Performed By: #### 1 [id number] #### BETHANY Send Outs Subsection [address] [place] [address] [place] [address] Lab Miscellaneouson 07-03-19 Test Name FIFI DOAN [facility] Comment on above: Performed By: #### 1 [id number] #### BETHANY Send Outs Subsection [address] [place] [address] Vital Signs Date Time Vital Sign Value Performing Clinician Facility 11-28-2024 10:22-0400 Body mass index (BMI) [Ratio] 31.88 kg/m2 Clarence Alfredo MUNICIPAL MAINTENANCE WORKER-FEED ADVISER Work Phone: [facility] 11-28-2024 10:22-040 Body temperature 97.9 [degF] Clarence Alfredo MUNICIPAL MAINTENANCE WORKER-FEED ADVISER Work Phone: [facility] 11-28-2024 10:22040 Body weight 106.78 kg Clarence Alfredo MUNICIPAL MAINTENANCE WORKER-FEED ADVISER Work Phone: [facility] 11-28-2024 10:22-0400 Diastolic blood pressure 72 mm[Hg] Clarence Alfredo MUNICIPAL MAINTENANCE WORKER-FEED ADVISER Work Phone: [facility] 11-28-2024 10:22-0400 Heart rate 85 /min Clarence Gaurav MUNICIPAL MAINTENANCE WORKER-FEED ADVISER Work Phone: [facility] 11-28-2024 10:22-0400 Respiratory rate 18 /min Clarencekarolina Alfredo MUNICIPAL MAINTENANCE WORKER-FEED ADVISER Work Phone: [facility] 11-28-2024 10:22-0400 SaO2% (BldA) [Mass fraction] 98 % Clarence Alfredo MUNICIPAL MAINTENANCE WORKER-FEED ADVISER Work Phone: [facility] 11-28-2024 10:22-0400 Systolic blood pressure 122 mm[Hg] Clarence Alfredo MUNICIPAL MAINTENANCE WORKER-FEED ADVISER Work Phone: [facility] 10-26-2024 13:52-0400 Body height 182.88 cm Ailin Whitehead JUNIOR ENGINEER-C Work Phone: [facility] 10-26-2024 13:45-0400 Body mass index (BMI) [Ratio] 30.8 kg/m2 Ailin Charley JUNIOR ENGINEER-C Work Phone: [facility] 10-26-2024 13:45-0400 Body weight 103.07 kg Ailin Whitehead JUNIOR ENGINEER-C Work Phone: [facility] 10-26-2024 13:45-0400 Diastolic blood pressure 68 mm[Hg] Ailin Changs JUNIOR ENGINEER-C Work Phone: [facility] 10-26-2024 13:45-0400 Systolic blood pressure 110 mm[Hg] Ailin Changs JUNIOR ENGINEER-C Work Phone: [facility] 09-27-2024 09:20-0400 Body mass index (BMI) [Ratio] 30.8 kg/m2 Clarence Gaurav MUNICIPAL MAINTENANCE WORKER-FEED ADVISER Work Phone: [facility] 09-27-2024 09:20-0400 Body weight 103.15 kg Clarence Alfredo MUNICIPAL MAINTENANCE WORKER-FEED ADVISER Work Phone: [facility] 09-27-2024 09:20-0400 Diastolic blood pressure 75 mm[Hg] Clarence Alfredo MUNICIPAL MAINTENANCE WORKER-FEED ADVISER Work Phone: [facility] 09-27-2024 09:20-0400 Heart rate 98 /min Clarence Alfredo MUNICIPAL MAINTENANCE WORKER-FEED ADVISER Work Phone: [facility] 09-27-2024 09:20-0400 SaO2% (BldA) [Mass fraction] 97 % Clarence Alfredo MUNICIPAL MAINTENANCE WORKER-FEED ADVISER Work Phone: [facility] 09-27-2024 09:20-0400 Systolic blood pressure 114 mm[Hg] Clarence Alfredo MUNICIPAL MAINTENANCE WORKER-FEED ADVISER Work Phone: [facility] 09-26-2024 10:44-0400 Body height 182.88 cm Ailin Changs JUNIOR ENGINEER-C Work Phone: [facility] 09-26-2024 10:41-0400 Body mass index (BMI) [Ratio] 30.4 kg/m2 Ailin Changs JUNIOR ENGINEER-C Work Phone: [facility] 09-26-2024 10:41-0400 Body weight 101.6 kg Ailin Tecumseh JUNIOR ENGINEER-C Work Phone: [facility] 09-26-2024 10:41-0400 Diastolic blood pressure 73 mm[Hg] Ailin Tecumseh JUNIOR ENGINEER-C Work Phone: [facility] 09-26-2024 10:41-0400 Systolic blood pressure 116 mm[Hg] Ailin Charley JUNIOR ENGINEER-C Work Phone: [facility] 09-13-2024 09:05-0400 Body height 182.88 cm Ailin Tecumseh JUNIOR ENGINEER-C Work Phone: [facility] 09-13-2024 09:05-0400 Body mass index (BMI) [Ratio] 30.5 kg/m2 Ailin Tecumseh JUNIOR ENGINEER-C Work Phone: [facility] 09-13-2024 09:05-0400 Body weight 102.11 kg Ailin Tecumseh JUNIOR ENGINEER-C Work Phone: [facility] 09-13-2024 09:05-0400 Diastolic blood pressure 88 mm[Hg] Ailin Tecumseh JUNIOR ENGINEER-C Work Phone: [facility] 09-13-2024 09:05-0400 Systolic blood pressure 132 mm[Hg] Ailin Tecumseh JUNIOR ENGINEER-C Work Phone: [facility] 03-17-2024 13:08-0500 Body height 182.9 cm Lo Corey MD Work Phone: [facility] 03-17-2024 13:08-0500 Body mass index (BMI) [Ratio] 30.43 kg/m2 Lo Corey MD Work Phone: [facility] 03-17-2024 13:08-0500 Body weight 101.79 kg Lo Corey MD Work Phone: [facility] 03-17-2024 13:08-0500 Diastolic blood pressure 70 mm[Hg] Lo Corey MD Work Phone: [facility] 03-17-2024 13:08-0500 Heart rate 96 /min Lo Corey MD Work Phone: [facility] 03-17-2024 13:08-0500 SaO2% (BldA) [Mass fraction] 97 % Lo Corey MD Work Phone: [facility] 03-17-2024 13:08-0500 Systolic blood pressure 110 mm[Hg] Lo Corey MD Work Phone: [facility] 02-24-2024 16:52-0500 Diastolic blood pressure 72 mm[Hg] [facility] 02-24-2024 16:52-0500 Heart rate 102 /min [facility] 02-24-2024 16:52-0500 Respiratory rate 18 /min [facility] 02-24-2024 16:52-0500 SaO2% (BldA) [Mass fraction] 98 % [facility] 02-24-2024 16:52-0500 Systolic blood pressure 134 mm[Hg] [facility] 02-24-2024 15:34-0500 Body height 182.9 cm [facility] 02-24-2024 15:33-0500 Body temperature 98.2 [degF] [facility] 09-01-2023 14:31-0400 Body mass index (BMI) [Ratio] 31.42 kg/m2 Clarence Alfredo MUNICIPAL MAINTENANCE WORKER-FEED ADVISER Work Phone: [facility] 09-01-2023 14:31-0400 Body temperature 97.9 [degF] Clarence Alfredo MUNICIPAL MAINTENANCE WORKER-FEED ADVISER Work Phone: [facility] 09-01-2023 14:31-0400 Body weight 105.23 kg Clarence Alfredo MUNICIPAL MAINTENANCE WORKER-FEED ADVISER Work Phone: [facility] 09-01-2023 14:31-0400 Diastolic blood pressure 85 mm[Hg] Clarence Alfredo MUNICIPAL MAINTENANCE WORKER-FEED ADVISER Work Phone: [facility] 09-01-2023 14:31-0400 Heart rate 79 /min Clarence Alfredo MUNICIPAL MAINTENANCE WORKER-FEED ADVISER Work Phone: [facility] 09-01-2023 14:31-0400 Respiratory rate 20 /min Clarence Alfredo MUNICIPAL MAINTENANCE WORKER-FEED ADVISER Work Phone: [facility] 09-01-2023 14:31-0400 SaO2% (BldA) [Mass fraction] 98 % Clarence Alfredo MUNICIPAL MAINTENANCE WORKER-FEED ADVISER Work Phone: [facility] 09-01-2023 14:31-0400 Systolic blood pressure 129 mm[Hg] Clarence Alfredo MUNICIPAL MAINTENANCE WORKER-FEED ADVISER Work Phone: [facility] 06-05-2023 14:04-0400 Body height 183 cm Clarence Alfredo MUNICIPAL MAINTENANCE WORKER-FEED ADVISER Work Phone: [facility] 06-05-2023 14:04-0400 Body mass index (BMI) [Ratio] 32.91 kg/m2 Clarence Alfredo MUNICIPAL MAINTENANCE WORKER-FEED ADVISER Work Phone: [facility] 06-05-2023 14:04-0400 Body temperature 97.3 [degF] Clarence Alfredo MUNICIPAL MAINTENANCE WORKER-FEED ADVISER Work Phone: [facility] 06-05-2023 14:04-0400 Body weight 110.22 kg Clarence Alfredo APRN-FEED ADVISER Work Phone: [facility] 06-05-2023 14:04-0400 Diastolic blood pressure 75 mm[Hg] Clarence Alfredo MUNICIPAL MAINTENANCE WORKER-FEED ADVISER Work Phone: [facility] 06-05-2023 14:04-0400 Heart rate 76 /min Clarence Alfredo MUNICIPAL MAINTENANCE WORKER-FEED ADVISER Work Phone: [facility] 06-05-2023 14:04-0400 Respiratory rate 20 /min Clarence Alfredo MUNICIPAL MAINTENANCE WORKER-FEED ADVISER Work Phone: [facility] 06-05-2023 14:04-0400 Systolic blood pressure 130 mm[Hg] Clarence Alfredo MUNICIPAL MAINTENANCE WORKER-FEED ADVISER Work Phone: [facility] 03-13-2023 13:37-0500 Body height 183 cm Clarence Alfredo MUNICIPAL MAINTENANCE WORKER-FEED ADVISER Work Phone: [facility] 03-13-2023 13:37-0500 Body mass index (BMI) [Ratio] 34.08 kg/m2 Clarence Alfredo MUNICIPAL MAINTENANCE WORKER-FEED ADVISER Work Phone: [facility] 03-13-2023 13:37-0500 Body temperature 97.3 [degF] Clarence Alfredo MUNICIPAL MAINTENANCE WORKER-FEED ADVISER Work Phone: [facility] 03-13-2023 13:37-0500 Body weight 114.13 kg Clarence Alfredo MUNICIPAL MAINTENANCE WORKER-FEED ADVISER Work Phone: [facility] 03-13-2023 13:37-0500 Diastolic blood pressure 80 mm[Hg] Clarenec Alfredo MUNICIPAL MAINTENANCE WORKER-FEED ADVISER Work Phone: [facility] 03-13-2023 13:37-0500 Heart rate 104 /min Clarence Alfredo MUNICIPAL MAINTENANCE WORKER-FEED ADVISER Work Phone: [facility] 03-13-2023 13:37-0500 Respiratory rate 16 /min Clarence Alfredo MUNICIPAL MAINTENANCE WORKER-FEED ADVISER Work Phone: [facility] 03-13-2023 13:37-0500 SaO2% (BldA) [Mass fraction] 96 % Clarence Alfredo MUNICIPAL MAINTENANCE WORKER-FEED ADVISER Work Phone: [facility] 03-13-2023 13:37-0500 Systolic blood pressure 119 mm[Hg] Clarence Alfredo MUNICIPAL MAINTENANCE WORKER-FEED ADVISER Work Phone: [facility] 11-24-2022 17:49-0400 Body height 183 cm Awais Flores Other Phone: [facility] 11-24-2022 17:49-0400 Body temperature 97.88 [degF] Awais Flores Other Phone: [facility] 11-24-2022 17:49-0400 Diastolic blood pressure 83 mm[Hg] Awais Flores Other Phone: [facility] 11-24-2022 17:49-0400 Heart rate 88 /min Awais Flores Other Phone: [facility] 11-24-2022 17:49-0400 SaO2% (BldA) [Mass fraction] 98 % Awais Flores Other Phone: [facility] 11-24-2022 17:49-0400 Systolic blood pressure 147 mm[Hg] Awais Flores Other Phone: [facility] 01-13-2022 16:21-0500 Body height 183 cm Awais Flores Other Phone: [facility] 01-13-2022 16:21-0500 Body temperature 97.16 [degF] Awais Flores Other Phone: [facility] 01-13-2022 16:21-0500 Diastolic blood pressure 85 mm[Hg] Awais Flores Other Phone: [facility] 01-13-2022 16:21-0500 Heart rate 103 /min Awais Flores Other Phone: [facility] 01-13-2022 16:21-0500 Respiratory rate 16 /min Awais Flores Other Phone: [facility] 01-13-2022 16:21-0500 SaO2% (BldA) [Mass fraction] 96 % Awais Flores Other Phone: [facility] 01-13-2022 16:21-0500 Systolic blood pressure 128 mm[Hg] Awais Flores Other Phone: [facility] 10-31-2021 13:02-0400 Body height 185.42 cm Awais Flores Work Phone: [employer] Phone: 10-31-2021 13:02-0400 Body mass index (BMI) [Ratio] 34.29 kg/m2 Awais Flores Work Phone: [employer] Phone: 10-31-2021 13:02-0400 Body surface area Derived from formula 2.41 m2 Awais Mehta Mark Work Phone: [place] [address] [address] Work Phone: 10-31-2021 13:02-0400 Body weight 117.9 kg Awais Mehta Mark Work Phone: [place] [address] [address] Work Phone: 10-31-2021 13:02-0400 Diastolic blood pressure 68 mm[Hg] Awais Mehta Mark Work Phone: [address] Work Phone: 10-31-2021 13:02-0400 Systolic blood pressure 110 mm[Hg] Awais Mehta Mark Work Phone: [address] Work Phone: 10-31-2021 13:02-0400 99 1 Awais Mehta Mark Work Phone: [address] Work Phone: Comment on above: 2-20_SPerc 2-20_WPerc 10-31-2021 13:02-0400 97 1 Awais Mehta Mark Work Phone: [place] [address] [address] Work Phone: Comment on above: BMIPerc 10-07-2021 13:24-0400 Body height 185.42 cm Awais Mehta Mark Work Phone: [place] [address] [address] Work Phone: 10-07-2021 13:24-0400 Body mass index (BMI) [Ratio] 34.83 kg/m2 Awais Mehta Mark Work Phone: [place] [address] [address] Work Phone: 10-07-2021 13:24-0400 Body surface area Derived from formula 2.42 m2 Awais C Mark Work Phone: [place] [address] [address] Work Phone: 10-07-2021 13:24-0400 Body weight 119.75 kg Awais C Mark Work Phone: [place] [address] [address] Work Phone: 10-07-2021 13:24-0400 Diastolic blood pressure 70 mm[Hg] Awais C Mark Work Phone: [place] [address] [address] Work Phone: 10-07-2021 13:24-0400 Systolic blood pressure 110 mm[Hg] Awais C Mark Work Phone: [place] [address] [address] Work Phone: 10-07-2021 13:24-0400 99 1 Awais Mehta Mark Work Phone: [place] [address] [address] Work Phone: Comment on above: 2-20_SPerc 2-20_WPerc 10-07-2021 13:24-0400 97 1 Awais Mehta Mark Work Phone: [place] [address] [address] Work Phone: Comment on above: BMIPerc 08-28-2021 14:50-0400 Body height 185.42 cm Awais C Mark Work Phone: [place] [address] [address] Work Phone: 08-28-2021 14:50-0400 Body mass index (BMI) [Ratio] 36.82 kg/m2 Awais C Mark Work Phone: [place] [address] [address] Work Phone: 08-28-2021 14:50-0400 Body surface area Derived from formula 2.48 m2 Awais Flores Work Phone: [place] [address] [address] Work Phone: 08-28-2021 14:50-0400 Body weight 126.6 kg Awais Flores Work Phone: [place] [address] [address] Work Phone: 08-28-2021 14:50-0400 Diastolic blood pressure 72 mm[Hg] Awais Flores Work Phone: [place] [address] [address] Work Phone: 08-28-2021 14:50-0400 Systolic blood pressure 112 mm[Hg] Awais Flores Work Phone: [place] [address] [address] Work Phone: 08-28-2021 14:50-0400 99 1 Awais Flores Work Phone: [place] [address] [address] Work Phone: Comment on above: 2-20_SPerc 2-20_WPerc 08-28-2021 14:50-0400 98 1 Awais Flores Work Phone: [place] [address] [address] Work Phone: Comment on above: BMIPerc 08-18-2021 15:00-0400 Body temperature 97.88 [degF] Awais Flores Other Phone: [facility] 08-18-2021 15:00-0400 Diastolic blood pressure 60 mm[Hg] Awais Flores Other Phone: [facility] 08-18-2021 15:00-0400 Heart rate 77 /min Awais Flores Other Phone: [facility] 08-18-2021 15:00-0400 Respiratory rate 16 /min Awais Flores Other Phone: [facility] 08-18-2021 15:00-0400 Systolic blood pressure 128 mm[Hg] Aawis Flores Other Phone: [facility] 08-18-2021 08:25-0400 SaO2% (BldA) [Mass fraction] 98 % Awais Flores Other Phone: [facility] 08-14-2021 14:12-0400 Body height 185.42 cm Awais Flores Work Phone: [place] [address] [address] Work Phone: 08-14-2021 14:12-0400 Body mass index (BMI) [Ratio] 41.48 kg/m2 Awais Mehta Mark Work Phone: [address] Work Phone: 08-14-2021 14:12-0400 Body surface area Derived from formula 2.61 m2 Awais Mehta Mark Work Phone: [place] [address] [address] Work Phone: 08-14-2021 14:12-0400 Body weight 142.6 kg Awais Mehta Mark Work Phone: [address] Work Phone: 08-14-2021 14:12-0400 Diastolic blood pressure 80 mm[Hg] Awais Mehta Mark Work Phone: [address] Work Phone: 08-14-2021 14:12-0400 Systolic blood pressure 110 mm[Hg] Awais Mehta Mark Work Phone: [address] Work Phone: 08-14-2021 14:12-0400 99 1 Awais Mehta Mark Work Phone: [address] Work Phone: Comment on above: 2-20_SPerc 2-20_WPerc BMIPerc 08-06-2021 13:27-0400 Body height 185.42 cm Awais Mehta Mark Work Phone: [place] [address] [address] Work Phone: 08-06-2021 13:27-0400 Body mass index (BMI) [Ratio] 40.95 kg/m2 Awais Mehta Mark Work Phone: [place] [address] [address] Work Phone: 08-06-2021 13:27-0400 Body surface area Derived from formula 2.59 m2 Awais C Mark Work Phone: [place] [address] [address] Work Phone: 08-06-2021 13:27-0400 Body weight 140.8 kg Awais Mehta Mark Work Phone: [place] [address] [address] Work Phone: 08-06-2021 13:27-0400 Diastolic blood pressure 72 mm[Hg] Awais Mehta Mark Work Phone: [place] [address] [address] Work Phone: 08-06-2021 13:27-0400 Systolic blood pressure 118 mm[Hg] Awais Mehta Mark Work Phone: [place] [address] [address] Work Phone: 08-06-2021 13:27-0400 99 1 Awais C Mark Work Phone: [place] [address] [address] Work Phone: Comment on above: 2-20_SPerc 2-20_WPerc BMIPerc 07-30-2021 12:57-0400 Body height 185.42 cm Awais Mehta Mark Work Phone: [place] [address] [address] Work Phone: 07-30-2021 12:57-0400 Body mass index (BMI) [Ratio] 40.04 kg/m2 Awais C Mark Work Phone: [place] [address] [address] Work Phone: 07-30-2021 12:57-0400 Body surface area Derived from formula 2.57 m2 Awais Tyson Flores Work Phone: [place] [address] [address] Work Phone: 07-30-2021 12:57-0400 Body weight 137.67 kg Awais Tyson Flores Work Phone: [place] [address] [address] Work Phone: 05-24-2022 12:57-0400 Diastolic blood pressure 78 mm[Hg] Awais C Mark Work Phone: [facility] [place] [address] [address] Work Phone: 07-30-2021 12:57-0400 Systolic blood pressure 112 mm[Hg] Awais Tyson Flores Work Phone: [place] [address] [address] Work Phone: 07-30-2021 12:57-0400 99 1 Awais C Mark Work Phone: [place] [address] [address] Work Phone: Comment on above: 2-20_SPerc 2-20_WPerc BMIPerc 07-23-2021 13:13-0400 Body height 185.42 cm Awais Tyson Flores Work Phone: [place] [address] [address] Work Phone: 07-23-2021 13:13-0400 Body mass index (BMI) [Ratio] 39.85 kg/m2 Awais Tyson Flores Work Phone: [place] [address] [address] Work Phone: 07-23-2021 13:13-0400 Body surface area Derived from formula 2.56 m2 Awais Tyson Flores Work Phone: [place] [address] [address] Work Phone: 07-23-2021 13:13-0400 Body weight 137 kg Awais Flores Work Phone: [place] [address] [address] Work Phone: 07-23-2021 13:13-0400 Diastolic blood pressure 78 mm[Hg] Awais Folres Work Phone: [place] [address] [address] Work Phone: 07-23-2021 13:13-0400 Systolic blood pressure 118 mm[Hg] Awais Flores Work Phone: [place] [address] [address] Work Phone: 07-23-2021 13:13-0400 99 1 Awais Flores Work Phone: [place] [address] [address] Work Phone: Comment on above: 2-20_SPerc 2-20_WPerc BMIPerc 07-16-2021 13:01-0400 Body height 182.88 cm Awais Flores Work Phone: [place] [address] [address] Work Phone: 07-16-2021 13:01-0400 Body mass index (BMI) [Ratio] 40.36 kg/m2 Awais Flores Work Phone: [place] [address] [address] Work Phone: 07-16-2021 13:01-0400 Body surface area Derived from formula 2.52 m2 Awais Flores Work Phone: [place] [address] [address] Work Phone: 07-16-2021 13:01-0400 Body weight 135 kg Awais Flores Work Phone: [place] [address] [address] Work Phone: 07-16-2021 13:01-0400 Diastolic blood pressure 76 mm[Hg] Awais Flores Work Phone: [place] [address] [address] Work Phone: 07-16-2021 13:01-0400 Systolic blood pressure 118 mm[Hg] Awais Flores Work Phone: [place] [address] [address] Work Phone: 07-16-2021 13:01-0400 99 1 Awais Flores Work Phone: [place] [address] [address] Work Phone: Comment on above: 2-20_SPerc 2-20_WPerc BMIPerc 07-02-2021 13:54-0400 Body height 182.88 cm Awais Flores Work Phone: [place] [facility] [place] [address] [address] Work Phone: 07-02-2021 13:54-0400 Body mass index (BMI) [Ratio] 40.07 kg/m2 Awais C Mark [facility] [address] [address] Work Phone: 07-02-2021 13:54-0400 Body surface area Derived from formula 2.51 m2 Awais Tyson Flores Work [facility] [address] [address] Work Phone: 07-02-2021 13:54-0400 Body weight 134 kg Awais C Mark Work [facility] [place] [address] [address] Work Phone: 07-02-2021 13:54-0400 Diastolic blood pressure 72 mm[Hg] Awais C Mark Work [facility] [place] [address] [address] Work Phone: 07-02-2021 13:54-0400 Systolic blood pressure 122 mm[Hg] Awais C Mark Work [facility] [place] [address] [address] Work Phone: 07-02-2021 13:54-0400 99 1 Awais Mehta Mark Work Phone: [facility] [place] [address] [address] Work Phone: Comment on above: 2-20_SPerc 2-20_WPerc BMIPerc 06-17-2021 14:50-0400 Body height 182.88 cm Awais C Mark Work Phone: [place] [facility] [place] [address] [address] Work Phone: 06-17-2021 14:50-0400 Body mass index (BMI) [Ratio] 39.8 kg/m2 Awais Tyson Flores Work [facility] [address] [address] Work Phone: 06-17-2021 14:50-0400 Body surface area Derived from formula 2.51 m2 Awais Tyson Flores Work Phone: [place] [address] [address] Work Phone: 06-17-2021 14:50-0400 Body weight 133.1 kg Awais Flores Work Phone: [place] [address] [address] Work Phone: 06-17-2021 14:50-0400 Diastolic blood pressure 80 mm[Hg] Awais Flores Work Phone: [place] [address] [address] Work Phone: 06-17-2021 14:50-0400 Systolic blood pressure 120 mm[Hg] Awais Flores Work Phone: [place] [address] [address] Work Phone: 06-17-2021 14:50-0400 99 1 Awais Flores Work Phone: [place] [address] [address] Work Phone: Comment on above: 2-20_SPerc 2-20_WPerc BMIPerc 05-29-2021 10:47-0400 Body height 182.88 cm Awais Flores Work Phone: [place] [address] [address] Work Phone: 05-29-2021 10:47-0400 Body mass index (BMI) [Ratio] 39.14 kg/m2 Awais Flores Work Phone: [place] [address] [address] Work Phone: 05-29-2021 10:47-0400 Body surface area Derived from formula 2.49 m2 Awais Flores Work Phone: [place] [address] [address] Work Phone: 05-29-2021 10:47-0400 Body weight 130.9 kg Awais Flores Work Phone: [place] [address] [address] Work Phone: 05-29-2021 10:47-0400 Diastolic blood pressure 64 mm[Hg] Awais Flores Work Phone: [address] Work Phone: 05-29-2021 10:47-0400 Systolic blood pressure 124 mm[Hg] Awais Flores Work Phone: [address] Work Phone: 05-29-2021 10:47-0400 99 1 Awais Flores Work Phone: [address] Work Phone: Comment on above: 2-20_SPerc 2-20_WPerc BMIPerc 05-01-2021 11:30-0500 Body height 182.88 cm Awais Flores Work Phone: [address] Work Phone: 05-01-2021 11:30-0500 Body mass index (BMI) [Ratio] 37.73 kg/m2 Awais Flores Work Phone: [address] Work Phone: 05-01-2021 11:30-0500 Body surface area Derived from formula 2.45 m2 Awais Flores Work Phone: [address] Work Phone: 05-01-2021 11:30-0500 Body weight 126.2 kg Awais Flores Work Phone: [address] Work Phone: 05-01-2021 11:30-0500 Diastolic blood pressure 64 mm[Hg] Awais Flores Work Phone: [place] [address] [address] Work Phone: 05-01-2021 11:30-0500 Systolic blood pressure 118 mm[Hg] Awais Flores Work Phone: [place] [address] [address] Work Phone: 05-01-2021 11:30-0500 99 1 Awais Flores Work Phone: [place] [address] [address] Work Phone: Comment on above: 2-20_SPerc 2-20_WPerc BMIPerc 04-03-2021 10:17-0500 Body height 182.88 cm Awais C Mark Work Phone: [place] [address] [address] Work Phone: 04-03-2021 10:17-0500 Body mass index (BMI) [Ratio] 37.2 kg/m2 Awais Tyson Flores Work Phone: [place] [address] [address] Work Phone: 04-03-2021 10:17-0500 Body surface area Derived from formula 2.44 m2 Awais Flores Work Phone: [place] [address] [address] Work Phone: 04-03-2021 10:17-0500 Body temperature 97.3 [degF] Awais Flores Work Phone: [place] [address] [address] Work Phone: 04-03-2021 10:17-0500 Body weight 124.4 kg Awais Flores Work Phone: [place] [address] [address] Work Phone: 04-03-2021 10:17-0500 Diastolic blood pressure 66 mm[Hg] Awais Flores Work Phone: [place] [address] [address] Work Phone: 04-03-2021 10:17-0500 Systolic blood pressure 118 mm[Hg] Awais Flores Work Phone: [place] [address] [address] Work Phone: 04-03-2021 10:17-0500 99 1 Awais Flores Work Phone: [place] [address] [address] Work Phone: Comment on above: 2-20_SPerc 2-20_WPerc BMIPerc 03-19-2021 14:15-0500 Body height 182.88 cm Awais Flores Work Phone[facility] [address] [address] Work Phone: 03-19-2021 14:15-0500 Body mass index (BMI) [Ratio] 36.54 kg/m2 Awais Flores Work Phone: [facility] [place] [address] [address] Work Phone: 03-19-2021 14:15-0500 Body surface area Derived from formula 2.42 m2 Awais Flores Work Phone: [facility] [address] [address] Work Phone: 03-19-2021 14:15-0500 Body temperature 97.5 [degF] Awais Flores Work Phone: [facility] [address] [address] Work Phone: 03-19-2021 14:15-0500 Body weight 122.2 kg Awais Flores Work Phone: [facility] [place] [address] [address] Work Phone: 03-19-2021 14:15-0500 Diastolic blood pressure 66 mm[Hg] Awais Flores Work Phone: [facility] [place] [address] [address] Work Phone: 03-19-2021 14:15-0500 Systolic blood pressure 128 mm[Hg] Awais Flores Work Phone: [facility] [place] [address] [address] Work Phone: 03-19-2021 14:15-0500 98 1 Awais Flores Work Phone: [facility] [place] [address] [address] Work Phone: Comment on above: BMIPerc 03-19-2021 14:15-0500 99 1 Awais Flores Work Phone: [facility] [address] [address] Work Phone: Comment on above: 2-20_WPerc 2-20_SPerc 08-28-2020 03:50-0400 Diastolic blood pressure 89 mm[Hg] Awais Mark Other Phone: [facility] 08-28-2020 03:50-0400 Heart rate 88 /min Awais Mark Other Phone: [facility] 08-28-2020 03:50-0400 Respiratory rate 22 /min Awais Mark Other Phone: [facility] 08-28-2020 03:50-0400 SaO2% (BldA) [Mass fraction] 96 % Awais Flores Other Phone: [facility] 08-28-2020 03:50-0400 Systolic blood pressure 128 mm[Hg] Awais Mark Other Phone: [facility] 08-28-2020 02:58-0400 Body height 182.8 cm Awais Flores Other Phone: [facility] 08-28-2020 02:58-0400 Body temperature 98.6 [degF] Awais Mark Other Phone: [facility] 08-28-2020 02:58-0400 Body weight 120.5 kg Awais Mark Other Phone: [facility] Encounters Encounter Date Encounter Type Care Provider Facility Start: 12-02-2024 ambulatory Ailin Whitehead NP [facility] ity:[facility] Start: 11-28-2024 End: 11-28-2024 Office outpatient visit 25 minutes Clarence Acevedo [place] MUNICIPAL MAINTENANCE WORKER-FEED ADVISER Work Phone: [facility] Building [facility] Comment on above: Iron deficiency; Anemia, unspecified type Start: 11-28-2024 End: 11-28-2024 ambulatory CLARENCE Uche [facility] Start: 11-25-2024 End: 11-25-2024 ambulatory AWAIS FLORES [facility] Start: 10-26-2024 End: 10-26-2024 Patient encounter procedure Ailin MORALES -[facility] Work Phone: Start: 10-26-2024 End: 10-26-2024 ambulatory Ailin Whitehead JUNIOR ENGINEER-C Work Phone: -[facility] Start: 09-27-2024 End: 09-27-2024 Office outpatient visit 15 minutes 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 Yaneth Nogueira DO -[facility] Work Phone: Start: 09-26-2024 End: 09-26-2024 ambulatory Ailin Charley JUNIOR ENGINEER-C Work Phone: -[facility] Start: 09-26-2024 End: 09-26-2024 ambulatory Yaneth Nogueira Facility:[facility] Start: 09-21-2024 End: 09-21-2024 ambulatory Ailin Changs JUNIOR ENGINEER-C Work Phone: -[facility] Start: 09-21-2024 End: 09-21-[address] Yaneth Nogueira DO -[facility] Work Phone: Start: 09-21-2024 End: 09-21-2024 ambulatory Yaneth Nogueira Facility:[facility] Start: 09-16-2024 Non-patient / Non-visit Margaret rolle RN -[facility] Work Phone: Start: 09-16-2024 ambulatory Margaret Plasencia Facility :[facility] Start: 09-15-2024 End: 09-15-2024 ambulatory Ailin Charley JUNIOR ENGINEER-C Work Phone: -Lab [facility] Start: 09-15-2024 End: 09-15-2024 Patient encounter procedure Ailin Whitehead JUNIOR ENGINEER-C -Lab [facility] Start: 09-15-2024 End: 09-15-2024 ambulatory Ailinchay Whitehead JUNIOR ENGINEER Facility:[facility] Start: 09-13-2024 End: 09-13-2024 Patient encounter procedure Ailin Whitehead JUNIOR ENGINEER-C -[facility] Work Phone: Start: 09-13-2024 End: 09-13-2024 ambulatory Ailinchay Whitehead JUNIOR ENGINEER -[facility] Start: 03-17-2024 End: 03-17-2024 Office outpatient new 30 minutes Lo Corey MD Work Phone: [facility] CALL CENTER NURSE [place] Comment on above: HSV (herpes simplex virus) infection (Primary Dx) Start: 03-17-2024 ambulatory LO COREY [facility] Start: 02-24-2024 End: 02-24-2024 Emergency department patient visit [facility] Emergency Department Start: 09-01-2023 End: 09-01-2023 Office outpatient visit 15 minutes Clarence Alfredo MUNICIPAL MAINTENANCE WORKER-FEED ADVISER Work Phone: [facility] Office [facility] [place] Comment on above: Iron deficiency; Anemia, unspecified type Start: 08-31-2023 End: 08-31-2023 ambulatory [facility] Start: 06-05-2023 End: 06-05-2023 Office outpatient visit 15 minutes Clarence Alfredo MUNICIPAL MAINTENANCE WORKER-FEED ADVISER Work Phone: [facility] Office [facility] [place] Comment on above: Chemotherapy induced nausea and vomiting (Primary Dx); Iron deficiency; Anemia, unspecified type Start: 06-05-2023 End: 06-05-2023 ambulatory [facility] Start: 03-13-2023 End: 03-13-2023 Office outpatient visit 15 minutes Clarence Alfredo MUNICIPAL MAINTENANCE WORKER-FEED ADVISER Work Phone: [facility] Office [facility] [place] Comment on above: Iron deficiency (Rosita jenny Dx); Anemia, unspecified type Start: 03-11-2023 End: 03-11-2023 ambulatory AWAIS FLORES [facility] Start: 02-16-2023 End: 02-16-2023 ambulatory [facility] Ambulatory Start: 12-19-2022 End: 12-19-2022 ambulatory [facility] Start: 11-24-2022 End: 11-24-2022 Emergency department patient visit Aleksandar Shields [facility] 01 Start: 10-08-2022 ambulatory Ms. Awais Flores Facility:[id number] Start: 07-07-2022 ambulatory Ms. Clarence Alfredo Fac ility:[id number] Start: 07-05-2022 ambulatory Ms. Awais Flores Facility:[facility] Start: 05-07-2022 ambulatory Ms. Clarence Alfredo Fac ility:[id number] Start: 04-23-2022 ambulatory Ms. Clarence Alfredo Fac ility:[id number] Start: 04-14-2022 End: 04-14-2022 Emergency department patient visit Ms. Awais Flores Facility:[id number] Start: 02-27-2022 ambulatory Ms. Awais Flores Facility:[id number] Start: 01-13-2022 End: 01-13-2022 Emergency department patient visit Denys Cummings [facility] Start: 10-31-2021 Office outpatient vi sit 10 minutes Awais Mehta Mark Work Phone: [facility] Work Phone: Start: 10-07-2021 Patient encounter procedure Awais Mehta Mark Work Phone: [facility] Work Phone: Start: 08-28-2021 Office outpatient vi sit 15 minutes Awais C Mark Work Phone: [facility] Work Phone: Start: 08-20-2021 Patient encounter procedure Bobo Candelaria [facility] Start: 08-16-2021 End: 08-18-2021 Evaluation and management of inpatient [facility] L[facility]D 404 Start: 08-14-2021 Office outpatient vi sit 10 minutes Awais Mehta Mark Work Phone: [facility] [address] [address] Work Phone: Start: 08-12-2021 End: 08-12-2021 ambulatory Ms. Awais Flores Facility:[id number] Start: 08-06-2021 Office outpatient vi sit 10 minutes Awais C Mark Work Phone: [place] [address] [address] Work Phone: Start: 08-02-2021 Chart Update Awais Mehta Mark Work Phone: [facility] [address] [address] Work Phone: Start: 07-30-2021 Office outpatient vi sit 10 minutes Awais Mehta Mark Work Phone: [place] [address] [address] Work Phone: Start: 07-30-[address] Bobo Candelaria Fa cility:[id number] Start: 07-23-2021 Office outpatient vi sit 10 minutes Awais Mehta Mark Work Phone: [place] [address] [address] Work Phone: Start: 07-16-2021 Office outpatient vi sit 10 minutes Awais Mehta Mark Work Phone: [place] [address] [address] Work Phone: Start: 07-03-2021 Chart Update Awais Tyson Flores Work Phone: [place] [address] [address] Work Phone: Start: 07-02-2021 Office outpatient vi sit 10 minutes Awais Mehta Mark Work Phone: [facility] [place] [address] [address] Work Phone: Start: 06-17-2021 Office outpatient vi sit 10 minutes Awais C Mark Work Phone: [facility] [address] [address] Work Phone: Start: 05-29-2021 Office outpatient vi sit 15 minutes Awais Flores Work Phone: [place] [address] [address] Work Phone: Start: 05-24-2021 Chart Update Awais Flores Work Phone: [place] [address] [address] Work Phone: Start: 05-01-2021 Office outpatient vi sit 15 minutes Awais Flores Work Phone: [place] [address] [address] Work Phone: Start: 04-16-2021 Chart Update Awais C Mark Work Phone: [place] [address] [address] Work Phone: Start: 04-04-2021 Chart Update Awais Tyson Flores Work Phone: [place] [address] [address] Work Phone: Start: 04-03-2021 Office outpatient ne w 45 minutes Awais Flores Work Phone: [place] [address] [address] Work Phone: Start: 03-22-2021 Chart Update Awais Tyson Flores Work Phone: [place] [address] [address] Work Phone: Start: 03-21-2021 Chart Update Awais C Mark Work Phone: [place] [address] [address] Work Phone: Start: 03-20-2021 Chart Update Awais Tyson Flores Work Phone: [place] [address] [address] Work Phone: Start: 08-28-2020 End: 08-28-2020 Emergency department patient visit Ortiz Stinson [facility] Emergency 13 Procedures Date Procedure Procedure Detail Performing Clinician Start: 09-26-2024 Methadone measurement, urine Ailin Charley JUNIOR ENGINEER-C Work Phone: Start: 09-26-2024 Urine culture Ailin Has tings JUNIOR ENGINEER-C Work Phone: Start: 09-26-2024 Hepatitis C antibody measurement Ailin Charley JUNIOR ENGINEER-C Work Phone: Comment on above: Reactive: Presumptiv e evidence of antibodies to HCV. Follow CDC recommendations for supplemental testing.Non-Reactive: Antibodies to HCV were not detected; does not exclude the possibility of exposure to HCVReactive Results are presumptive evidence of antibodies to HCV. Follow CDC recommendations for supplemental testing.Order confirmation testing: HCV Quant by PCR testing - HCVPCR #[id number] Non Reactive: < 0.8 Equivocal: >/= 0.8 to < 1.0 Reactive: >/= 1.0The [facility] requires that a reactive/equivocal HCV antibody result be sent out for confirmation. HCV Quant by PCR testing. Start: 09-26-2024 Procedure [facility] JUNIOR ENGINEER-C Work Phone: Start: 09-26-2024 Rubella IgG measurement Ailin Whitehead JUNIOR ENGINEER-C Work Phone: Comment on above: Antibody Result: Int erpretationNon-Reactive: Non- ImmuneReactive: ImmuneThe following results were obtained with the [employer] Rubella IgG assay. Results from assays of other manufacturers cannot be used interchangeably. Start: 09-26-2024 Serologic test for syphilis Ailin Whitehead JUNIOR ENGINEER-C Work Phone: Start: 09-26-2024 Total iron binding c apacity measurement Ailin Whitehead JUNIOR ENGINEER-C Work Phone: Start: 09-21-2024 Transvaginal obstetr ic ultrasonography Ailin Whiteehad JUNIOR ENGINEER-C Work Phone: Start: 04-21-2024 Microscopic observat ion [Identifier] in Cervix by Cyto stain Clarence Alfredo MUNICIPAL MAINTENANCE WORKER-FEED ADVISER Work Phone: Start: 06-05-2023 CBC W Auto [...] on above: Performed By: #### T +S ####[address] [id number] Start: 01-04-2021 Lipid 1996 panel - S hernan or Plasma Clarence Alfredo MUNICIPAL MAINTENANCE WORKER-FEED ADVISER Work Phone: No history of surgery Awais Flores Work Phone: Plan of Treatment Date Care Activity Detail Author Start: 2052 Zoster Vaccines (1 of 2) Zoste r Vaccines (1 of 2) [facility] Start: 07-03-2031 DTaP/Tdap/Td Vaccine s (8 - Td or Tdap) DTaP/Tdap/Td Vaccines (8 - Td or Tdap) [facility] Start: 07-03-2031 Tetanus vaccination TETANUS [facility] Start: 04-21-2027 Screening for malign ant neoplasm of cervix [facility] Start: 01-04-2026 Lipid panel Lipid Panel [facility] Start: 04-22-2025 Yearly Adult Physical Yearly Adult P hysical [facility] Start: 03-27-2025 End: 03-27-2025 Patient encounter procedure 03/27/2025 10:30 AM EST Office Visit [facility] Medical Office [facility] [address] [place] [id number] Clarence Alfredo, MUNICIPAL MAINTENANCE WORKER-FEED ADVISER [address] [place], [place] [id number] [facility] Start: 03-20-2025 End: 06-18-2025 CBC W Auto Differential panel - Blood CBC and Auto Differential Lab Routine Iron deficiency Anemia, unspecified type Expected: 03/20/2025, Expires: 06/18/2025 [facility] Service Area Work Phone: Comment on above: Expected: 03/20/2025 , Expires: 06/18/2025 Start: 03-20-2025 End: 06-18-2025 Cobalamin (Vitamin B12) [Mass/volume] in Serum or Plasma Vitamin B12 Lab Routine Iron deficiency Anemia, unspecified type Expected: 03/20/2025 (Approximate), Expires: 06/18/2025 [facility] Work Phone: Comment on above: Expected: 03/20/2025 (Approximate), Expires: 06/18/2025 Start: 03-20-2025 End: 06-18-2025 Comprehensive metabolic 2000 panel - Serum or Plasma Comprehensive metabolic panel Lab Routine Iron deficiency Anemia, unspecified type Expected: 03/20/2025 (Approximate), Expires: 06/18/2025 [facility] Work Phone: Comment on above: Expected: 03/20/2025 (Approximate), Expires: 06/18/2025 Start: 03-20-2025 End: 06-18-2025 Ferritin [Mass/volume] in Serum or Plasma Ferritin Lab Routine Iron deficiency Anemia, unspecified type Expected: 03/20/2025 (Approximate), Expires: 06/18/2025 [facility] Work Phone: Comment on above: Expected: 03/20/2025 (Approximate), Expires: 06/18/2025 Start: 03-20-2025 End: 06-18-2025 Iron and Iron binding capacity panel - Serum or Plasma Iron and TIBC Lab Routine Iron deficiency Anemia, unspecified type Expected: 03/20/2025, Expires: 06/18/2025 [facility] Work Phone: Comment on above: Expected: 03/20/2025 , Expires: 06/18/2025 Start: 03-20-2025 End: 06-18-2025 Reticulocytes panel - Blood Reticulocytes Lab Routine Iron deficiency Anemia, unspecified type Expected: 03/20/2025 (Approximate), Expires: 06/18/2025 [facility] Work Phone: Comment on above: Expected: 03/20/2025 (Approximate), Expires: 06/18/2025 Start: 11-28-2024 End: 11-28-2024 Patient encounter procedure 11/28/2024 10:30 AM EDT Office Visit [facility] [address] [place] [phone] Clarence Alfredo S, MUNICIPAL MAINTENANCE WORKER-FEED ADVISER [address] [place] [address] [facility] Start: 11-21-2024 End: 09-27-2025 CBC W Auto Differential panel - Blood CBC and Auto Differential Lab Routine Iron deficiency Anemia, unspecified type Expected: 11/21/2024, Expires: 09/27/2025 [facility] Service Area Work Phone: Comment on above: Expected: 11/21/2024 , Expires: 09/27/2025 Start: 11-21-2024 End: 09-27-2025 Cobalamin (Vitamin B12) [Mass/volume] in Serum or Plasma Vitamin B12 Lab Routine Iron deficiency Anemia, unspecified type Expected: 11/21/2024 (Approximate), Expires: 09/27/2025 [facility] Work Phone: Comment on above: Expected: 11/21/2024 (Approximate), Expires: 09/27/2025 Start: 11-21-2024 End: 09-27-2025 Comprehensive metabolic 2000 panel - Serum or Plasma Comprehensive metabolic panel Lab Routine Iron deficiency Anemia, unspecified type Expected: 11/21/2024 (Approximate), Expires: 09/27/2025 [facility] Work Phone: Comment on above: Expected: 11/21/2024 (Approximate), Expires: 09/27/2025 Start: 11-21-2024 End: 09-27-2025 Ferritin [Mass/volume] in Serum or Plasma Ferritin Lab Routine Iron deficiency Anemia, unspecified type Expected: 11/21/2024 (Approximate), Expires: 09/27/2025 [facility] Work Phone: Comment on above: Expected: 11/21/2024 (Approximate), Expires: 09/27/2025 Start: 11-21-2024 End: 09-27-2025 Folate [Mass/volume] in Serum or Plasma Folate Lab Routine Iron deficiency Anemia, unspecified type Expected: 11/21/2024 (Approximate), Expires: 09/27/2025 [facility] Work Phone: Comment on above: Expected: 11/21/2024 (Approximate), Expires: 09/27/2025 Start: 11-21-2024 End: 09-27-2025 Iron and Iron binding capacity panel - Serum or Plasma Iron and TIBC Lab Routine Iron deficiency Anemia, unspecified type Expected: 11/21/2024, Expires: 09/27/2025 [facility] Work Phone: Comment on above: Expected: 11/21/2024 , Expires: 09/27/2025 Start: 11-21-2024 End: 09-27-2025 Reticulocytes panel - Blood Reticulocytes Lab Routine Iron deficiency Anemia, unspecified type Expected: 11/21/2024 (Approximate), Expires: 09/27/2025 [facility] Work Phone: Comment on above: Expected: 11/21/2024 (Approximate), Expires: 09/27/2025 Start: 11-07-2024 COVID-19 Vaccine ( season) COVID-19 Vaccine ( season) [facility] Start: 11-07-2024 Influenza vaccination Influenza Vacc ine (#1) [facility] Start: 09-26-2024 Bacteria identified in Urine by Culture Urine Culture [facility] Start: 09-26-2024 CBC W Auto Different ial panel - Blood [facility] Start: 09-26-2024 Ferritin [Mass/volum e] in Serum or Plasma [facility] Start: 09-26-2024 Hepatitis C antibody measurement [facility] Start: 09-26-2024 Iron and Iron bindin g capacity panel - Serum or Plasma [facility] Start: 09-26-2024 Procedure [facility] Start: 09-26-2024 Rubella IgG measurement [facility] Start: 09-26-2024 Serologic test for syphilis [facility] Start: 09-26-2024 [facility] Start: 09-26-2024 Chlamydia deoxyribon ucleic acid detection [facility] Start: 09-26-2024 [facility] Start: 02-17-2024 Screening for Chlamy vargas trachomatis Chlamydia and Gonorrhea Screening [facility] Start: 11-08-2023 COVID-19 VACCINE ( season) COVID-19 VACCINE [facility] Start: 11-08-2023 Influenza vaccination [facility] Start: 09-05-2023 End: 06-04-2024 CBC W Auto Differential panel - Blood CBC and Auto Differential Lab Routine Iron deficiency Anemia, unspecified type Chemotherapy induced nausea and vomiting Expected: 09/05/2023, Expires: 06/04/2024 [facility] Service Area Work Phone: Comment on above: Expected: 09/05/2023 , Expires: 06/04/2024 Start: 09-05-2023 End: 06-04-2024 Cobalamin (Vitamin B12) [Mass/volume] in Serum or Plasma Vitamin B12 Lab Routine Iron deficiency Anemia, unspecified type Chemotherapy induced nausea and vomiting Expected: 09/05/2023 (Approximate), Expires: 06/04/2024 [facility] Work Phone: Comment on above: Expected: 09/05/2023 (Approximate), Expires: 06/04/2024 Start: 09-05-2023 End: 06-04-2024 Comprehensive metabolic 2000 panel - Serum or Plasma Comprehensive metabolic panel Lab Routine Iron deficiency Anemia, unspecified type Chemotherapy induced nausea and vomiting Expected: 09/05/2023 (Approximate), Expires: 06/04/2024 [facility] Work Phone: Comment on above: Expected: 09/05/2023 (Approximate), Expires: 06/04/2024 Start: 09-05-2023 End: 06-04-2024 Ferritin [Mass/volume] in Serum or Plasma Ferritin Lab Routine Iron deficiency Anemia, unspecified type Chemotherapy induced nausea and vomiting Expected: 09/05/2023 (Approximate), Expires: 06/04/2024 [facility] Work Phone: Comment on above: Expected: 09/05/2023 (Approximate), Expires: 06/04/2024 Start: 09-05-2023 End: 06-04-2024 Iron and Iron binding capacity panel - Serum or Plasma Iron and TIBC Lab Routine Iron deficiency Anemia, unspecified type Chemotherapy induced nausea and vomiting Expected: 09/05/2023, Expires: 06/04/2024 [facility] Work Phone: Comment on above: Expected: 09/05/2023 , Expires: 06/04/2024 Start: 06-23-2023 Screening for malign ant neoplasm of cervix [facility] Start: 05-12-2023 End: 03-13-2024 CBC W Auto Differential panel - Blood CBC and Auto Differential Lab Routine Anemia, unspecified type Iron deficiency Expected: 05/12/2023, Expires: 03/13/2024 [facility] Service Area Work Phone: Comment on above: Expected: 05/12/2023 , Expires: 03/13/2024 Start: 05-12-2023 End: 03-13-2024 Cobalamin (Vitamin B12) [Mass/volume] in Serum or Plasma Vitamin B12 Lab Routine Anemia, unspecified type Iron deficiency Expected: 05/12/2023 (Approximate), Expires: 03/13/2024 [facility] Work Phone: Comment on above: Expected: 05/12/2023 (Approximate), Expires: 03/13/2024 Start: 05-12-2023 End: 03-13-2024 Comprehensive metabolic 2000 panel - Serum or Plasma Comprehensive metabolic panel Lab Routine Anemia, unspecified type Iron deficiency Expected: 05/12/2023 (Approximate), Expires: 03/13/2024 [facility] Work Phone: Comment on above: Expected: 05/12/2023 (Approximate), Expires: 03/13/2024 Start: 05-12-2023 End: 03-13-2024 Iron and Iron binding capacity panel - Serum or Plasma Iron and TIBC Lab Routine Anemia, unspecified type Iron deficiency Expected: 05/12/2023, Expires: 03/13/2024 [facility] Work Phone: Comment on above: Expected: 05/12/2023 , Expires: 03/13/2024 Start: 03-13-2023 End: 03-13-2024 Ferritin [Mass/volume] in Serum or Plasma Ferritin Lab Routine Anemia, unspecified type Iron deficiency Expected: 03/13/2023 (Approximate), Expires: 03/13/2024 [facility] Work Phone: Comment on above: Expected: 03/13/2023 (Approximate), Expires: 03/13/2024 Start: 11-07-2022 COVID-19 Vaccine ( season) COVID-19 Vaccine ( season) [facility] Start: 11-07-2022 Influenza vaccination Influenza Vacc ine (#1) [facility] Start: 10-08-2022 Patient encounter procedure [facility] Start: 10-07-2021 PPV, Provider: Bobo Candelaria, Status: Pen, Time: 1:15 PM PPV, Provider: Bobo Candelaria, Status: Pen, Time: 1:15 PM [employer] [employer] Work Phone: Start: 08-20-2021 EPVOB, Provider: Bobo Candelaria, Status: Pen, Time: 1:15 PM EPVOB, Provider: Bobo Candelaria, Status: Pen, Time: 1:15 PM [employer] Work Phone: Start: 08-20-2021 Patient encounter procedure Outpatient [facility] Start: 20-Aug-2021 13:15 Bobo Candelaria Intent [facility] Start: 08-16-2021 End: 08-17-2022 [facility] Comment on above: May self-administer after voiding [...] Bobo Candelaria, Status: Pen, Time: 1:00 PM [employer] Work Phone: Start: 08-06-2021 EPVOB, Provider: Bobo Candelaria, Status: Pen, Time: 1:15 PM EPVOB, Provider: Bobo Candelaria, Status: Pen, Time: 1:15 PM [employer] Work Phone: Start: 07-30-2021 EPVOB, Provider: Bobo Candelaria, Status: Pen, Time: 1:00 PM EPVOB, Provider: Bobo Candelaria, Status: Pen, Time: 1:00 PM [employer] Work Phone: Start: 07-23-2021 EPVOB, Provider: Bobo Candelaria, Status: Pen, Time: 1:00 PM EPVOB, Provider: Bobo Candelaria, Status: Pen, Time: 1:00 PM [employer] Work Phone: Start: 07-16-2021 EPVOB, Provider: Bobo Candelaria, Status: Pen, Time: 1:00 PM EPVOB, Provider: Bobo Candelaria, Status: Pen, Time: 1:00 PM [employer] Work Phone: Start: 07-02-2021 EPVOB, Provider: Jennifer Blanton, Status: Pen, Time: 1:15 PM EPVOB, Provider: Jennifer Blanton, Status: Pen, Time: 1:15 PM [facility] Work Phone: Start: 2021 Hepatitis B vaccination HEP B VACCINE (1 of 3 - 19+ 3-dose series) [facility] Start: 2021 Pneumococcal Vaccine : Pediatrics and At-Risk Adult Patients (1 of 2 - PCV) Pneumococcal Vaccine: Pediatrics and At-Risk Adult Patients (1 of 2 - PCV) [facility] Start: 06-12-2021 EPVOB, Provider: Alex Lau, Status: Pen, Time: 11:30 AM EPVOB, Provider: Alex Lau, Status: Pen, Time: 11:30 AM [employer] Work Phone: Start: 05-29-2021 EPVOB, Provider: Alex Lau, Status: Pen, Time: 10:45 AM EPVOB, Provider: Alex Lau, Status: Pen, Time: 10:45 AM [employer] Work Phone: Start: 05-01-2021 EPVOB, Provider: Alex Lau, Status: Pen, Time: 11:30 AM EPVOB, Provider: Alex Lau, Status: Pen, Time: 11:30 AM [employer] Work Phone: Start: 04-03-2021 EPVOB, Provider: Alex Lau, Status: Pen, Time: 10:00 AM EPVOB, Provider: Alex Lau, Status: Pen, Time: 10:00 AM [facility] Work Phone: Start: 2018 Screening for Chlamy vargas trachomatis CHLAMYDIA SCREEN [facility] Start: 2017 HIV screening HIV SCREENING DISCUSSION [facility] Start: 2017 Vaccination for wil n papillomavirus HPV VACCINE ADOL (1 - 3-dose series) [facility] Start: 2008 Pneumococcal Vaccine : Pediatrics (0 to 5 Years) and At-Risk Patients (6 to 64 Years) (1 - PCV) Pneumococcal Vaccine: Pediatrics (0 to 5 Years) and At-Risk Patients (6 to 64 Years) (1 - PCV) [facility] Start: 2008 Pneumococcal Vaccine : Pediatrics (0 to 5 Years) and At-Risk Patients (6 to 64 Years) (1 of 2 - PCV) Pneumococcal Vaccine: Pediatrics (0 to 5 Years) and At-Risk Patients (6 to 64 Years) (1 of 2 - PCV) [facility] Start: 2006 Hearing Screening (#1) Hearing Scree apple (#1) [facility] Start: 2005 Well Child Visit (WC V) - Annual Well Child Visit (WCV) - Annual [facility] Start: 2002 COVID-19 Vaccine (#1) COVID-19 Vacci ne (#1) [facility] Start: 2002 Hearing Screening (#1) Hearing Scree apple (#1) [facility] Start: 2002 Hepatitis C screening HEPATITI S C VIRUS SCREENING [facility] Start: 2002 Screening for Chlamy vargas trachomatis GONORRHEA SCREEN [facility] CBC W Auto Different ial panel - Blood [facility] Chlamydia deoxyribon ucleic acid detection [facility] Chlamydia deoxyribon ucleic acid detection [facility] Drugs identified in Urine by Screen method [facility] Drugs identified in Urine by Screen method [facility] Erythrocyte mean corpuscular volume determination [facility] Ferritin [Mass/volum e] in Serum or Plasma [facility] Hematocrit [Volume Fraction] of Blood [facility] Hemoglobin [Mass/vol ume] in Blood [facility] Hepatitis B virus basurto rface Ag [Presence] in Serum [facility] Hepatitis C antibody measurement [facility] Iron [Mass/mass] in Unspecified specimen [facility] Iron and Iron bindin g capacity panel - Serum or Plasma [facility] Iron saturation [Mas s Fraction] in Serum or Plasma [facility] Leukocytes [#/volume ] in Blood [facility] Mean corpuscular hemoglobin concentration determination [facility] Mean corpuscular hemoglobin determination [facility] Neisseria gonorrhoea e rRNA [Presence] in Unspecified specimen by KATHY with probe detection [facility] Neutrophil count [facility] Neutrophil percent differential count [facility] PCR test for Chlamyd ia trachomatis [facility] Platelets [#/volume] in Blood [facility] Red blood cell count [facility] Red cell distributio n width determination [facility] Rubella IgG measurement [facility] Serologic test for syphilis [facility] Total iron binding capacity measurement [facility] Ultrasonography in f irst trimester [facility] Urine culture [facility] End: 02-24-2024 VIRUS CULTURE, BODY FLUID AND TISSUE [facility] Comment on above: One Time for 1 Occur rences starting 02/24/2024 until 02/24/[address] [facility] Immunizations Immunization Date Immunization Notes Care Provider Aneta martinez 07-02-2021 tetanus toxoid, redu alisia diphtheria toxoid, and acellular pertussis vaccine, adsorbed Clarence Alfredo MUNICIPAL MAINTENANCE WORKER[employer] Work Phone: [facility] 12-26-2014 influenza virus vaccine, unspecified formulation Clarence Alfredo MUNICIPAL MAINTENANCE WORKER-FEED ADVISER Work Phone: [facility] Work Phone: Payers Date Payer Category Payer Self-pay 2022 Unknown [id number] 2022 Blue Cross Blue Shie ld Managed Care [facility] [id number] 2022 Unknown 2022 Unknown [id number] 2022 Unknown [id number] 2002 Unknown [id number] 2.16.840.1.377179.3.579.2. 1068 2002 Unknown [id number] 2.16.840.1.126859.3.579.2. 1068 2002 Unknown [id number] 2.16.840.1.664751.3.579.2. 1068 2002 Unknown [id number] 2.16.840.1.286102.3.579.2. 1068 2002 Unknown [id number] 2.16.840.1.836931.3.579.2. 1068 2002 Unknown [id number] 2.16.840.1.263083.3.579.2. 1068 2002 Unknown [id number] 2.16.840.1.377605.3.579.2. 1068 2002 Unknown [id number] 2.16.840.1.417354.3.579.2. 1068 2002 Unknown [id number] 2.16.840.1.728155.3.579.2. 1068 2002 Unknown [id number] 2.16.840.1.770654.3.579.2. 356 2002 Unknown [id number] 2.16.840.1.508777.3.579.2. 1243 2002 Unknown [id number] 2.16.840.1.999896.3.579.2. 1243 2002 Unknown [id number] 2.16.840.1.958085.3.579.2. 1244 2002 Unknown [id number] 2.16.840.1.212840.3.579.2. 1244 2002 Unknown [id number] 2.16.840.1.331641.3.579.2. 1245 2002 Unknown [id number] 2.16.840.1.112067.3.579.2. 983 2002 Unknown [id number] 2.16.840.1.750011.3.579.2. 1243 2002 Unknown [id number] 2.16.840.1.389514.3.579.2. 1243 2002 Unknown [id number] 2.16.840.1.877228.3.579.2. 1243 Self-pay [id number] Unknown [id number] Unknown [id number] 2.16.840.1.502343.3.579.2. 462 Unknown [id number] 2.16.840.1.471172.3.579.2. 462 Unknown [id number] 2.16.840.1.456090.3.579.2. 462 Unknown [id number] 2.16.840.1.486923.3.579.2. 462 Unknown [id number] 2.16.840.1.216147.3.579.2. 462 Unknown [id number] 2.16.840.1.778956.3.579.2. 462 Unknown [id number] 2.16.840.1.738650.3.579.2. 462 Unknown [id number] 2.16.840.1.845312.3.579.2. 462 Social History Date Type Detail Facility [facility] Tobacco smoking consumption unknown [facility] Start: 02-16-2023 End: 09-27-2024 Sexually active Sexually active [facility] [address] [place] Work Phone: Start: 04-09-2014 End: 09-27-2024 Tobacco smoking status NHIS Smokes tobacco daily [facility] Start: 04-09-2014 History of tobacco use Cigarette Smo ker [facility] Work Phone: Start: 12-18-2022 End: 09-27-2024 Tobacco use and exposure Smokeless tobacco non-user [facility] Work Phone: Start: 02-16-2023 End: 09-27-2024 Alcohol intake Ex-drinker (finding) [facility] Work Phone: Start: 02-16-2023 End: 09-27-2024 Tobacco use panel [facility] Work Phone: Start: 12-18-2022 [facility] Comment [facility] Start: [facility] Start: 03-03-2023 End: 09-01-2023 Exposure to SARS-CoV-2 (event) Not sure [facility] Start: 03-27-2023 Tobacco Comment Vapes, niot cigarret arcenio [facility] Work Phone: Start: 02-24-2024 Tobacco smoking stat [facility] Never smoked tobacco [facility] Start: 02-24-2024 End: 03-17-2024 Alcoholic beverage intake Current drinker of [facility] (finding[facility] Start: 02-24-2024 Alcohol Comment occasionally [employer] [facility] Start: 03-17-2024 Tobacco smoking stat [facility] Occasional tobacco smoker [facility] Start: 03-17-2024 Tobacco Comment [employer] [facility] Start: 2002 Sex Assigned At Female [facility] (I/We) worried [facility] (my/our) food would run out before (I/we) got money to buy more. Never true [facility] Work Phone: Start: 01-31-2022 Sex Female [facility] Functional Status Date Assessment Result Facility 09-27-2024 Patient Health [facility] ionnaire 2 item (PHQ-2) [Reported] [facility] Work Phone: 09-27-2024 [place] - suicide s everity rating scale screener - recent [C-SSRS] [facility] Work Phone: Functional observable [facility] Mental Status Date Assessment Result Facility 08-18-2021 Cognitive functions 0228:42 [facility] Clinical Notes 08-16-2021 to 11-28-2024 OLEGARIO Schulz [...] symptoms. No PICA Recommended that patient try [facility] Multivitamins with extra or find a vitamin [...] GI side effects. Discussed try taking oral [facility] Multi-Vitamin with iron, and oral B12 dialy- will send in prescriptions to pharmacy. Will continue to monitor for iron and B12 replacement efficacy. 11/28/24: Hemoglobin is stable at 12.7. Iron parameters remain low, but are stable, Iron serum 46, Iron Saturation 13%, Ferritin 56, B12 311. Discussed increasing oral iron intake, by taking either a [facility] multivitamin with extra iron or finding a vitamin that contains iron. Will continue to monitor her labs at this time. Discussed and reviewed medical history Reviewed labs- Hemoglobin is stable at 12.7, Iron parameters lower Iron Saturation 13% Encouraged to continue on oral iron daily, suggest taking [facility] Multivitamins w/Extra Iron take 2 chewables daily Return to see provider in 3-4 months with labs OLEGARIO Schulz Pt instructed to get labs the week prior to her appt Rtc 03/27/25 1030 FEED ADVISER Reviewed AVS with patient- patient verbalizes understanding documented in this encounter [facility] Work Phone: 11-28-2024 Instructions OLEGARIO Schulz - 11/28/2024 10:30 AM EDT Discussed and reviewed medical history Reviewed labs- Hemoglobin is stable at 12.7, Iron parameters lower Iron Saturation 13% Encouraged to continue on oral iron daily, suggest taking [employer] Multivitamins w/Extra Iron take 2 chewables daily Return to see provider in 3-4 months with labs documented in this encounter [facility] Work Phone: 09-27-2024 History of Present illness [...] and is doing well. She saw her CALL CENTER NURSE yesterday and had lab work, asked pt to have provider send results. Her energy remains low, due to and raising a toddler. She continues work 40 hours weekly on [employer]. She reports that she is eating and [...] GI side effects. Discussed try taking oral [facility] Multi-Vitamin with iron, and oral B12 dialy- will send in prescriptions to pharmacy. Will continue to monitor for iron and B12 replacement efficacy. 09/27/24: Patient will have paper products printer send lab data. According to patient paper products printer was not concerned with her labs, she stated that he iron was good. Patient will also confirm if her contains iron. Once lab data is received, will call with any treatment plan changes. Plan Discussed and reviewed medical history Encouraged to take oral vitamins Have labs faxed to Return to see MUNICIPAL MAINTENANCE WORKER in 2-3 months with labs prior (CBC w/diff, CMP, Ferritin, Iron Panel, B12, Retic, Folate) OLEGARIO Schulz Pt set up for FEED ADVISER visit 11/28 1030 Instructed to get labs prior to appt Reviewed AVS with patient- patient verbalizes understanding Pt was asked to call cory and have her recent lab results faxed to us- she has our fax # documented in this encounter [facility] Work Phone: 09-27-2024 Instructions OLEGARIO Schulz - 09/27/2024 9:30 AM EDT Discussed and reviewed medical history Encouraged to take oral vitamins Have labs faxed to Return to see MUNICIPAL MAINTENANCE WORKER in 2-3 months with labs prior (CBC w/diff, CMP, Ferritin, Iron Panel, B12, Retic, Folate) documented in this encounter [facility] Work Phone: 09-26-2024 Progress note [facility] 09-21-2024 Radiology Diagnostic study note [facility] Imaging Services [address] [place] [address] Transvaginal w/Preg US MR#: [id number] Acct: [id number] Name: NIKOLE MOREAU Rep #: [id number] : 2000 F 24 From: Tino Aguila MD PCP: Care Physician,No Primary Status: REG CLI Study:Transvaginal w/Preg US Date of Exam: 09/21/24 Exam# [id number] Ordering Dr: Yaneth Jeff DO PROCEDURE: TRANSVAGINAL [...] luteum cyst. DIMENSIONS: Parameter Measurement / EGA [place] Rump Length: 2.53 cm/9 weeks and 0 days Gestational Sac: 3.93 cm/9 weeks and 2 days Yolk Sac: 0.41 cm/ ESTIMATED GESTATIONAL AGE: By Ultrasound: 9 weeks and 1 day By LMP: 9 weeks and 5 days ESTIMATED DATE OF DELIVERY: By Ultrasound: April 25, 2025 By LMP: April 21, 2025 US/Transvaginal w/Preg US IMPRESSION: UNREMARKABLE FIRST TRIMESTER ULTRASOUND. Reading Location: [facility] CC: CARMEN Whitehead; Dr. 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 female present for her RESPITE WORKER exam with pap smear. Her LMP was Patient's last menstrual period was 02/25/2024 (exact date).. Her periods are described as regular alpyu17-38 days Clots- Yes: Quarter size . She [...] yearly exam today - Patient was at [facility] 01/25/24- For STI TESTING Chlamydia/Gonorrhoea/ Trichomonas - all NOT DETECTED - Patient has not had a sexual partner since before 01-25-24, does not want retested today ROS- Pertinent items are noted in HPI. A comprehensive review of systems was otherwise negative. * Lo Corey MD - 03/17/2024 1:30 PM EST [facility] Office visit CHIEF COMPLAINT ED [...] yearly exam today - Patient was at [facility] 01/25/24- For STI TESTING Chlamydia/Gonorrhoea/ Trichomonas - [...] complaints. Pt education reviewed and pt will moss picker booklet Valtrex rx sent to pharmacy Pt plans annual exam once she has insurance issues addressed. Pt will follow up PRN for any issues or concerns as well No future appointments. 03/17/2024 Lo Corey MD documented in this [facility]12-18-2024 Hospital Discharge instructions* Discharge Instructions* [...] STD testing if desired. documented in this [facility]06-25-2024 History of Present illness Narrative* [...] GI side effects. Discussed try taking oral [facility] Multi-Vitamin with iron, and oral B12 dialy- will send in prescriptions to pharmacy. Will continue to monitor for iron and B12 replacement efficacy. Plan Start [facility] Multi-vitamin with iron daily Continue oral B12 daily 3. Labs prior to follow-up (CBC w/diff, CMP, Ferritin, Iron Studies, B12) 4. Follow-up in 3 months E-scribed B12 and [employer] Vitamins OLEGARIO Schulz * Yaneth Pat RN - 09/01/2023 2:30 PM EDT Pt instructed to get labs prior to next appt Rtc 12/03 3pm for FEED ADVISER visit Reviewed AVS with patient- patient verbalizes understanding [facility] Work Phone: 1(614) 186-433706-25-2024 Instructions* Patient Instructions* OLEGARIO Schulz - 09/01/2023 2:30 PM EDT Start oral [employer] Vitamins w/Iron 2 tablets (once daily) Continue on oral B12 daily RTC in 3 months with labs prior (CBC w/diff, CMP, Ferritin, Iron Panel, B12) documented in this [facility] Work Phone: 1(458) 982-915003-29-2024 History of Present illness Narrative* OLEGARIO Schulz [...] call later to reschedule. [facility] Work Phone: 1(863) 893-478703-29-2024 Instructions* Patient Instructions* OLEGARIO Schulz - 06/05/2023 2:00 PM EDT Start iron every other day Remain on oral B12 every day RTC 3 months with labs prior (CBC w/diff, CMP, Ferritin, Iron, B12) [facility] Work Phone: 1(484) 801-950901-05-2024 History of Present illness Narrative* OLEGARIO Schulz [...] hosp prior to appt [facility] Work Phone: 1(350) 977-259101-05-2024 Instructions* Patient Instructions* OLEGARIO Schulz - 03/13/2023 1:30 PM EST Ordered 2 doses of Feraheme to be administered RTC in 6-8 weeks post IV iron with labs prior (CBC w/diff, CMP, Ferritin, Iron, B12) [facility] Work Phone: 1([phone]) 177-374905-01-2023 NoteClinic Note: Education Assessment: Learning BarriersNo barriers TaughtPatient Primary Language of PatientEnglish Primary Language of Rincon LearnerEnglish Name of Rincon Learner & Relationshipmother Clinic Visit: Topic(s): Clinic VisitFollow-up plan MethodVerbal, Teach-Back, Handout Nursing Note: Nursing Notept set for labs at the hosp prior. rtc for f/u with FEED ADVISER 10/13 at 10am. pt may call if she decides to IV iron dose Electronic Signatures: Yaneth PatRN) (Signed 07-Jul-2022 11:34) Authored: Education Assessment, Clinic Visit, Nursing Note Last Updated: 07-Jul-2022 11:34 by Yaneth Pat (RN)[facility]03-01-2023 NoteClinic Note: Education Assessment: Learning BarriersNo barriers TaughtPatient Primary Language of PatientEnglish Primary Language of Rincon LearnerEnglish Name of Rincon Learner & Relationshipmother Clinic Visit: Topic(s): Clinic VisitFollow-up plan MethodVerbal, Teach-Back, Handout EvaluationTeaches back Nursing Note: Nursing Notept set up for f/u with nut processing supervisor on 07/02 at 1130. labs at the [facility]o Electronic Signatures: Yaneth Pat) (Signed 07-May-2022 11:35) Authored: Education Assessment, Clinic Visit, Nursing Note Last Updated: 07-May-2022 11:35 by Yaneth Pat (RN)[facility]02-15-2023 NoteClinic Note: Education Assessment: Learning BarriersNo barriers TaughtPatient Primary Language of PatientEnglish Primary Language of Rincon LearnerEnglish Name of Rincon Learner & Relationshipmother Clinic Visit: Topic(s): Clinic VisitFollow-up plan MethodVerbal, Teach-Back, Handout Nursing Note: Nursing Notept had labs drawn at visit. set up for f/u with nut processing supervisor on 05/07 at 11am Electronic Signatures: Yaneth Pat) (Signed 23-Apr-2022 12:21) Authored: Education Assessment, Clinic Visit, Nursing Note Last Updated: 23-Apr-2022 12:21 by Yaneth Pat (RN)[facility]2022 History of Present illness NarrativePatient presents stating that she noticed redness and pain to the outer upper quadrant of the left breast this morning. Denies any fevers or chills. She is currently breast-feeding. [address] Work Phone: [phone]) 427-572706-12-2022 NoteSend Summary: Discharge Summary Providers: Provider RoleProvider Name AttendingAlex Lau Note Recipients: none Discharge: Summary: Admission Date: .16-Aug-2021 02:53:00 Discharge Date: 18-Aug-2021 Attending Physician at Discharge: Alex Lau Admission Reason: Term in labor Final Discharge Diagnoses: Single live Procedures: Normal spontaneous vaginal delivery Condition at Discharge: Satisfactory Disposition at Discharge: .Home Vital Signs: T PRBPMAPSpO2 [id number]/534644% Date/Time08/18 6: 6: 6: 6: 6: 6:25 Range(36.4C - 36.7C ) (86 - 116 ) (14 - 16 ) (122 - 144 )/ (68 - 85 ) (89 - 106 ) (98% - 99% ) Date: Weight/Scale Type:Height: 16-Aug-2021 05:53044 kg / jgyfnynl681.1 cm Physical Exam: Lungs: Clear bilaterally Heart: [...] Pending: None Radiology Results - Pending: None [place] Suicide Risk: negative Discharge Instructions: Activity: Return [...] Completion Last Updated: 18-Aug-2021 08:45 by Alex Lau)[facility] 08-16-2021 NoteProvider Information: Maternal Delivery Information: [...] From History and Physical - OB 16-Aug-2021 06:53[facility]06-10-2022 NoteHPI/OB History: Care Provider: DO JORGE [...] 03-Apr-2021 Syphilis Results: negative Antepartum/: Antepartum/PP: Final [id number] Current EGA:38.3 Patient is > or = [...] a day. Objective: Objective Information: T PRBPMAPSpO2 [id number] Date/Time08/16 6:396 6:396 6:39 Range (98 - [...] From Patient Profile - OB v3 16-Aug-2021 05:19[facility]* Extremities: no calf tenderness, reflexes 2+Respiratory/Thorax: normal respiratory effort, lungs clear, no wheezes or rhonchiCardiovascular: S1 S2 RRR, no murmursConstitutional: alert, oriented [facility]* Diagnosis Iron deficiency- Primary Disorders of iron metabolism Anemia, unspecified type documented in this encounter [facility] Work Phone: Evaluation note* Diagnosis Chemotherapy induced nausea and vomiting- Primary Iron deficiency Disorders of iron metabolism Anemia, unspecified type documented in this encounter [facility] Work Phone: Evaluation note* Diagnosis Iron deficiency Disorders of iron metabolism Anemia, unspecified type documented in this encounter [facility] Work Phone: Evaluation note* Diagnosis Lesion of labia- Primary Other specified noninflammatory disorder of vulva and perineum Vaginal discharge Leukorrhea, not specified as infective [facility] Diagnosis HSV (herpes simplex virus) infection- Primary Herpes simplex without mention of complication [facility]* Diagnosis Onset Date Resolution Status Admit Date Asthma noneactive September 13, 2024 8:55am [facility] Work Phone: Evaluation note* Diagnosis Iron deficiency- Primary Disorders of iron metabolism Anemia, unspecified type documented in this encounter [facility] Work Phone: Evaluation note* Diagnosis Iron deficiency Disorders of iron metabolism Anemia, unspecified type documented in this encounter [facility] Work Phone: History of Present illness Twupictov24-[id number] presents for 6-week status post pates vaginal [...] a period yet. Patient is noother acute concernsWomenHunan Meijing [employer] Work Phone: History of Present illness NarrativePt. presents with concern of cyst on R nipple. Pumping and bottle feeding. Baby is 6 weeks old. Pt.reports she had a similar cyst recently that was smaller and resolved spontaneously, but this one is increasing in size[employer]derbar [employer]. [employer] Work Phone: Hospital Discharge instructions* Activity:Return to [...] symptoms worsen, call 911 or go to [facility] emergency room. *Information obtained from [employer] s: Save Your Life: Get Care for These POST- Warning Signs [facility]Progress note Author Yaneth Johnson [facility] Note Date/Time September 26, 2024 11:2 7am [facility] [address] [place] [address], [address] [place] [address] OFFICE VISIT Date of Service: 09/26/24 MR#: [id number] Acct: [id number] Name: NIKOLE MOREAU Rep #: [id number] : 2000 Provider: Dr. Ania Nogueira DO Age/Sex: 24/F Location: [facility] [place] Status: Signed with Addenda ADDENDUM by Dr. [...] w/many infusions. 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 (9) Vaginal bleeding [...] Reasons: *NEW* NOB LMP 07/15, MAREN 04/21 Certified Addiction Counselor Required: No Is patient in pain?: No Allergies sumatriptan Allergy (Severe, Verified 09/26/24 10:39) Shortness of breath Last Menstrual Period: 07/15/24 Zika: Zika virus screening: Negative : Yes PFSH PFSH Medical History Seasonal allergies Asthma Surgical History [place] teeth removed Family History Grandmother Asthma CVA (cerebral vascular accident) Diabetes Grandfather Prostate cancer Mother Endometriosis Hypertension Father Hypertension Social History adopted: No household members: children housing: apartment number of children: 1 current occupational status: employed current occupation: [employer] current occupational exposures/hazards: No pets and [...] 1-2 times per week duration: 15-30 minutes/day catrachito/holiness: None seatbelt use: always do you feel [...] Locatn Provider FOB 01/07/19 7 elective 08/16/21 [place] 37 live - full term 7lbs 11oz [...] d/t severe anemia .. hasn't been to metal buildings assembler lately d/t lost insurance) and Negative: Diabetes, Hypertension, Heart disease, Auto-immunedisorder, Kidney disease/UTI, Neurologic/epilepsy, Psychiatric, Depression/ depression, Hepatitis/liver disease, Varicosities/phlebitis, Thyroid dysfunction, Trauma/domestic violence, History of blood transfusions, D (Rh) Sensitized, Breast, Jet Piercer Operator surgery, Operations/hospitalizations, Anesthetic complications, History of abnormal [...] w/many infusions. 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 (9) Vaginal bleeding [...] Cosigner Signature: Date (if applicable) CC: ~ [place] [facility] Work Phone: Reason for referral (narrative)* Consultation (Urgent) - New Request Specialty Diagnoses / Procedures Referred By Roxanne romero Referred To Contact Family Medicine Diagnoses Lesion of labia Vaginal discharge Heather Au APRN-FEED ADVISER [address] [facility] [address] [place] [address] Referral ID Status Reason Start Date Expiration Date V isits Requested Visits Authorized [id number] New Request 02/24/2024 03/20/2025 1 1 * Consultation (Urgent) - New Request Specialty Diagnoses / Procedures Referred By Roxanne romero Referred To Contact CALL CENTER NURSE Diagnoses Lesion of labia Vaginal discharge Heather Au APRN-FEED ADVISER [address] [facility] [address] [place] [address] Lo Corey MD [address] [place] [address] Referral ID Status Reason Start Date Expiration Date V isits Requested Visits Authorized [id number] New Request 02/24/2024 03/20/2025 1 1 [facility] for referral (narrative)No reason for referral information available[facility] Services Work Phone: Summary Purpose Family [...] section and content) DATE CREATED AUTHOR 12/09/2018 [facility] DATE CREATED AUTHOR AUTHOR'S ORGANIZ ATION 05/07/2019 [facility] DATE CREATED AUTHOR AUTHOR'S ORGANIZ ATION 11/02/2021 [facility] DATE CREATED AUTHOR AUTHOR'S ORGANIZ ATION 07/10/2022 [facility] DATE CREATED AUTHOR AUTHOR'S ORGANIZ ATION 11/26/2022 [facility] DATE CREATED AUTHOR AUTHOR'S ORGANIZ ATION 02/18/2023 [facility] DATE CREATED AUTHOR AUTHOR'S ORGANIZ ATION 09/06/2023 [facility] DATE CREATED AUTHOR AUTHOR'S ORGANIZ ATION 03/22/2024 [facility] DATE CREATED AUTHOR AUTHOR'S ORGANIZ ATION 11/26/2024 [facility] DATE CREATED AUTHOR AUTHOR'S ORGANIZ ATION 11/30/2024 [facility] <item><item><item><item> Privacy Markings (unrecogniz ed section and [...] and is concerned for infection. Reason Comments Jet Piercer Operator Exam New Patient- Jet Piercer Operator- An nual Specialty Diagnoses / Procedures Referred By Contac t Referred To Contact CALL CENTER NURSE Diagnoses Lesion of labia Vaginal discharge Heather Au I, MUNICIPAL MAINTENANCE WORKER-FEED ADVISER [address] [address] Lo Corey MD [address] [place] [address] Referral ID Status Reason Start Date Expiration Date Visits Re quested Visits Authorized [id number] Open 02/24/2024 03/20/2025 1 1 Reason Comments Follow-up Reason Comments Iron Deficiency Care Teams (unrecognized sec tion and content) Salvage Mechanic Relationship Specialty Start Date End Date Awais Flores APRN-CNP [facility] [place] [id number] PCP - General 03/09/07 Sanchez South MD [address] [place] [id number] PCP - [place] [employer] PCP 03/09/22 Clarence Alfredo APRN-CNP [address] [place], [place] [phone] PCP - [place] [facility] PCP 08/07/22 Salvage Mechanic Relationship Specialty Start Date End Date Awais Flores APRN-CNP [address] [place] [address] [facility] [place] [address] PCP - General 03/09/07 Sanchez South MD [address] [place] [id number] PCP - [place] [employer] PCP 03/09/22 Clarence Alfredo APRN-CNP [address] [place] [id number] PCP - [place] [facility] PCP 08/07/22 Salvage Mechanic Relationship Specialty Start Date End Date Awais Flores APRN-CNP [address] [facility] [place] [address] PCP - General 03/09/07 Sanchez South MD [address] [place] [address] PCP - [place] [employer] PCP 03/09/22 Clarence Alfredo MUNICIPAL MAINTENANCE WORKER-FEED ADVISER [address] [place] [address] PCP - Parviz WELCHO PCP 08/07/22 Team Status: Inactive Member Role/Relationship Status Dates Ailin Whitehead JUNIOR ENGINEER, JUNIOR ENGINEER-C Attending Provider Active Start: September 13, 2024 End: September 13, 2024 Team Status: Active Member Role/Relationship Status Dates No Primary Care Physician Primary Care Provider Active Team Status: Inactive Member Role/Relationship Status Dates Ailin Whitehead JUNIOR ENGINEER, JUNIOR ENGINEER-C Attending Provider Active Start: September 13, 2024 End: September 13, 2024 Team Status: Inactive Member Role/Relationship Status Dates Ailin Whitehead JUNIOR ENGINEER, JUNIOR ENGINEER-C Attending Provider Active Start: September 15, 2024 End: September 15, 2024 Ailin Whitehead JUNIOR ENGINEER, JUNIOR ENGINEER-C Referring Provider Active Start: September 15, 2024 [...] September 21, 2024 End: September 21, 2024 Salvage Mechanic Relationship Specialty Start Date End Date Awais Flores MUNICIPAL MAINTENANCE WORKER-FEED ADVISER [address] [facility] [place] [address] PCP - General 03/09/07 Clarence Alfredo, MUNICIPAL MAINTENANCE WORKER-FEED ADVISER [address] [place] [address] PCP - Parviz MORRIS PCP 08/07/22 Team [...] Member Role/Relationship Status Dates Ailin Whitehead NP, JUNIOR ENGINEER-C Attending Provider Active Start: October 26, 2024 End: October 26, 2024 No Primary Care Physician Primary Care Provider Active Start: October 26, 2024 End: October 26, 2024 No Primary Care Physician Referring Provider Active Start: October 26, 2024 End: October 26, 2024 Salvage Mechanic Relationship Specialty Start Date End Date Awais Flores MUNICIPAL MAINTENANCE WORKER-FEED ADVISER [address] [facility] [place] [address] PCP - General 03/09/07 Clarence Alfredo, MUNICIPAL MAINTENANCE WORKER-FEED ADVISER [address] [place] [address] PCP - [facility] [facility] PCP 08/07/22 Goals (unrecognized section and [...] BE BASED ON THE PRIMARY CLINICAL RECORDS. [employer] [facility] provides no warranty or guarantee of the accuracy or completeness of information in this document.
== END | disposition home or self-care (01) ==
PROVIDERS: Referring Provider Nurse Practitioner Women's Health; Visit Provider Nurse Practitioner Women's Health
DX: O09.90 Supervision of high risk pregnancy, unspecified, unspecified trimester (principal); Z3A.00 Weeks of gestation of pregnancy not specified
CPT/HCPCS: 76805; 76817

== ENCOUNTER → 2025-01-31 | Outpatient (CLI) | payer MEDICAID, SELFPAY ==
[2025-01-31 14:46] LABS: Hematocrit 38.1 % (37-47); Hemoglobin 13.3 g/dL (12.0-15.0); Immature Granulocytes Count 0.080 X10^3/uL (0.0-0.0); Mean Corp Hgb Conc 34.9 g/dL (32-36); Mean Corpuscular Volume 89.4 fL (81-99); Mean Platelet Vol. 10.0 fl (6.2-12.0); NRBC Flagged by Analyzer 0 % (0-5); Platelet Count 162 K/mm3 (150-450); RBC Distribution Width CV 13.2 % (11.6-14.6); RBC Distribution Width SD 43.5 fl (35.1-43.9); Red Blood Count 4.26 M/mm3 (4.2-5.4); White Blood Count 10.6 K/mm3 (4.4-11.0)
[2025-01-31 16:19] LABS: Glucose Challenge Gest 1H 50g 96 mg/dL (70-140); HIV Nonreactive (Nonreactive); Syphilis Antibodies Nonreactive (Nonreactive)
== END | disposition home or self-care (01) ==
PROVIDERS: Advanced Practice Midwife; Visit Provider Obstetrics & Gynecology
DX: O09.92 Supervision of high risk pregnancy, unspecified, second trimester (principal); Z3A.21 21 weeks gestation of pregnancy; E61.1 Iron deficiency; O99.282 Endocrine, nutritional and metabolic diseases complicating pregnancy, second trimester; Z13.1 Encounter for screening for diabetes mellitus
CPT/HCPCS: 36415; 82950; 85025; 86703; 86780

== ENCOUNTER 2025-02-16 11:11 | Outpatient (CLI) | payer MEDICAID, SELFPAY ==
[2025-02-16 11:22] VITALS: BMI 34.2
[2025-02-16 11:31] VITALS: BP 137/73; PULSE 89
--- NOTE | 2025-02-20 17:25 | OB.TRI.PN ---
Progress Notes Date of Service: 02/16/25 Progress Note: Patient presents for triage evaluation secondary to abdoinal trauma s/p fall FHT: 130 Moderate variability reactive no decelerations category I tracing [place]: no regular Contractions Assessment and plan: 30 weeks abdominal trauma s/p fall Reactive NST, reassuring maternal and status patient discharged to home to follow-up as scheduled. See problem list details for additional plan information. Charges/Coding Procedures Urinary/Genital [id number]: [id number] non-stress test Interp
== END 2025-02-16 12:40 | disposition home or self-care (01) ==
LOC: WPOUT 11:15 → WP 11:16
PROVIDERS: Referring Provider Obstetrics & Gynecology; Visit Provider Obstetrics & Gynecology
DX: O9A.213 Injury, poisoning and certain other consequences of external causes complicating pregnancy, third trimester (principal); S39.91XA Unspecified injury of abdomen, initial encounter; Z3A.30 30 weeks gestation of pregnancy; W19.XXXA Unspecified fall, initial encounter
CPT/HCPCS: 59050